=== PATIENT | female | born 1985 | race Caucasian/White ===

== ENCOUNTER 2020-06-19 06:08 | Emergency (ER) | payer MEDICAID, SELFPAY ==
[2020-06-19 06:11] VITALS: BP 128/78; PULSE 98; RESP 18; TEMP 36.3; O2SAT 97; BMI 34.3
[2020-06-19 06:18] VITALS: PULSE 67
--- NOTE | 2020-06-19 06:18 | XRR_ITS ---
PROCEDURE INFORMATION: Exam: XR Left Shoulder Exam date and time: 06/19/2020 6:46 AM Age: 35 years old Clinical indication: Pain; Shoulder; Left TECHNIQUE: Imaging protocol: XR Left shoulder. Views: AP internal and external rotation views of the left shoulder. COMPARISON: No relevant prior studies available. FINDINGS: Bones/joints: Normal. Soft tissues: Normal. XR/XR shoulder LT min 2V* [id number] IMPRESSION: No acute findings.
--- NOTE | 2020-06-19 06:18 | XRR_ITS ---
PROCEDURE INFORMATION: Exam: XR Cervical Spine, 4 or 5 Views Exam date and time: 06/19/2020 6:44 AM Age: 35 years old Clinical indication: Neck pain; Additional info: Neck pain with radiculopathy TECHNIQUE: Imaging protocol: XR of the cervical spine, 4 or 5 views. Other technique: AP, both oblique, lateral and AP open mouth and Fuchs odontoid views of the cervical spine are submitted. COMPARISON: No relevant prior studies available. FINDINGS: Vertebrae: C6-7 degenerative disc disease with moderate spondylosis. Bilateral C6-C7 neural foraminal stenosis, greater on the left. Soft tissues: Unremarkable. XR/XR cervical spine 4-5V [id number] IMPRESSION: 1. Degenerative changes as above. 2. No acute cervical spinal bony abnormality identified.
--- NOTE | 2020-06-19 06:20 | W.ED.EXTPRO ---
HPI - Extremity Problem General: Chief complaint: Extremity Injury, Upper Stated complaint: L SHOULDER PAIN Time Seen by Provider: 06/19/20 06:18 History of Present Illness: HPI Narrative: 35-year-old female presents to the emergency room with complaints of pain in her left shoulder and radiating down her left arm. When she gone to bed last evening she had pain radiating into the left shoulder she woke up this morning notes going down the entire arm. There is no shortness of breath no chest pain associated with it no history of coronary artery disease. MD Complaint: extremity pain Onset (ago): hour(s) Pain Consistency: constant Location: left Severity scale (1-10): 10 Quality: burning and aching Radiation: distal Exacerbating factors: range of motion Associated symptoms: Deny chest pain, fever(s) or rash Review of Systems Const: Denies: fever(s), chills, body aches, change in appetite, fatigue or malaise Card: Denies: chest pain, edema, dyspnea on exertion or orthopnea Resp: Denies: dyspnea, productive cough or non-productive cough GI: Denies: abdominal pain, nausea, vomiting, hematemesis, coffee ground emesis, diarrhea, constipation, bloating, hematochezia or melena : Denies: flank pain, difficulty voiding, dysuria, urinary frequency or urinary urgency Skin/Breast: Denies: rash or pruritus Physical Exam Const: COMMON NORMALS: no acute distress GENERAL APPEARANCE: cooperative and comfortable ORIENTATION/CONSCIOUSNESS: Yes awake, Yes oriented to person, Yes oriented to place and Yes oriented to time HENMT: COMMON NORMALS: normocephalic, atraumatic and hearing grossly normal bilaterally HEAD & SCALP: normocephalic and atraumatic Eye: COMMON NORMALS: Equal, round and reactive pupils present, EOMs intact bilaterally, conjunctivae normal and no scleral icterus CONJUNCTIVA: Yes conjunctivae normal PUPIL: Yes Equal, round and reactive pupils present Neck/C-Spine: COMMON NORMALS: full ROM, no lymphadenopathy, supple and no JVD Lymph: LYMPHATIC: no lymphadenopathy noted and no lymphedema noted Resp: COMMON NORMALS: normal respiratory effort, No retractions, No use of accessory muscles and clear to auscultation bilaterally AUSCULTATION: clear to auscultation bilaterally Cardio: COMMON NORMALS: no JVD, regular rate, regular rhythm and No murmurs present (Cardio) RATE: regular rate RHYTHM: regular rhythm GI: COMMON NORMALS: Soft to palpation and No hepatosplenomegaly present AUSCULTATION: Yes normoactive bowel sounds PALPATION: Yes Soft to palpation, No Tenderness to palpation present (GI), No Guarding due to palpation present (GI) and Yes No hepatosplenomegaly present Extremity: COMMON NORMALS: normal to inspection, capillary refill normal, no clubbing, cyanosis or edema, no calf tenderness and no pedal edema Neuro: SENSORIUM/ORIENTATION: Yes oriented to person, Yes oriented to place and Yes oriented to time Skin: COMMON NORMALS: no rashes or lesions noted GENERAL SKIN EXAM: no rashes or lesions noted Course Vital Signs: Vital signs: Vital Signs Temperature 97.3 F L 06/19/20 06:11 Pulse Rate 81 06/19/20 07:48 Respiratory Rate 18 06/19/20 06:11 Blood Pressure 117/86 06/19/20 07:48 Pulse Oximetry 93 06/19/20 07:48 MDM - Extremity (Nontraumatic) MDM Narrative: Medical decision making narrative: New findings with the patient. I am suspicious she may have a cervical radiculopathy. Recommend that she follow-up with her primary care doctor if this persists she may need further advanced imaging or an EMG Discharge Plan Discharge Patient Disposition: Home Clinical Impression: Cervical radiculopathy Condition: Stable Prescriptions: New Medrol (Brandt) 4 mg tablets,dose pack See Rx Instructions .ROUTE .COMPLEX Qty: 21 RF: 0 tizanidine 4 mg capsule 4 mg PO Q6H PRN (Reason: muscle spasticity) Qty: 20 RF: 0 diclofenac sodium 75 mg tablet,delayed release (DR/EC) 75 mg PO Q12H PRN (Reason: pain) Qty: 20 RF: 0 Discharge Orders: Discharge Order (Routine); Ordered 06/19/20 Ordered By: Mor Shepard Discharge Date/Time: 06/19/20 07:48 Coding Level of Care Code ED Senior Windows Systems Administrator for Ada Pedersen
[2020-06-19] MEDS: morphine 4 mg/mL SDV 1 mL IVP (07:29)
[2020-06-19] MEDS: dexamethasone 10 mg/mL INJ IM (07:29)
[2020-06-19] MEDS: ketorolac 30 mg/mL INJ 60 MG IM (07:29)
[2020-06-19 07:48] VITALS: BP 117/86; PULSE 81; O2SAT 93
== END 2020-06-19 07:48 | disposition home or self-care (01) ==
PROVIDERS: Emergency Provider Family Medicine
DX: M54.12 Radiculopathy, cervical region (principal)
CPT/HCPCS: 12345; 72050; 73030; 96372; 96374; 99281; 99283; J1100; J1885; J2270

== ENCOUNTER 2020-07-12 14:22 | Emergency (ER) | payer MEDICAID, SELFPAY ==
[2020-07-12 14:59] VITALS: BP 130/81; PULSE 76; RESP 18; TEMP 36.5; O2SAT 98; BMI 36.0
--- NOTE | 2020-07-12 15:25 | ED_ITS ---
HPI - Recheck/Abnormal Lab/Rx General: Chief Complaint: Recheck/Abnormal Lab/Rx Stated Complaint: asthma attack yesterday-needs med refill Time Seen by Provider: 07/12/20 15:10 History of Present Illness: HPI narrative: She presents wanting refill on her albuterol [place] has not established yet is not having current asthma attack MD complaint: medication refill request Returns today for: request for prescription Symptoms since prior visit: no new symptoms Review of Systems Const: Denies: fever(s), chills or body aches Eyes: Denies: change in vision or blurry vision ENMT: Denies: throat pain or nasal congestion Card: Denies: chest pain or dyspnea on exertion Resp: Reports: other; Denies: dyspnea, productive cough or non-productive cough GI: Denies: abdominal pain, nausea or vomiting Musc: Denies: extremity pain Skin/Breast: Denies: rash Neuro: Denies: headache(s) Psych: Denies: anxiety or depression Man/Lymph: Denies: easy bruising PFSH ED PFSH: Social History (Updated 07/12/20 @ 15:05 by Julio Cesar Solis RN) Smoking and tobacco status: current every day smoker Alcohol intake: never Substance/Drug Use: never Female Reproductive History: Date of last menstrual period: 06/13/20 Physical Exam Const: COMMON NORMALS: no acute distress Chest: COMMONS NORMALS: normal inspection of the chest Resp: COMMON NORMALS: normal respiratory effort and No use of accessory muscles Psych: COMMON NORMALS: mental status grossly normal Course Vital Signs: Vital signs: Vital Signs Temperature 97.7 F 07/12/20 14:59 Pulse Rate 76 07/12/20 14:59 Respiratory Rate 18 07/12/20 14:59 Blood Pressure 130/81 07/12/20 14:59 Pulse Oximetry 98 07/12/20 14:59 Discharge Plan Discharge Patient Disposition: Home Clinical Impression: Encounter for medication refill Condition: Stable Prescriptions: New ProAir HFA 90 mcg/actuation HFA aerosol inhaler 2 inh INHALATION Q4H PRN (Reason: shortness of breath or wheezing) Qty: 8.5 RF: 0 albuterol sulfate 0.63 mg/3 mL solution for nebulization 0.63 mg INHALATION Q8H PRN (Reason: shortness of breath or wheezing) Qty: 75 RF: 0 No Action Medrol (Brandt) 4 mg tablets,dose pack See Rx Instructions .ROUTE .COMPLEX Qty: 21 RF: 0 tizanidine 4 mg capsule 4 mg PO Q6H PRN (Reason: muscle spasticity) Qty: 20 RF: 0 diclofenac sodium 75 mg tablet,delayed release (DR/EC) 75 mg PO Q12H PRN (Reason: pain) Qty: 20 RF: 0 Discharge Orders: Discharge Order (Routine); Ordered 07/12/20 Ordered By: Tk Gross Discharge Diet: Usual diet Discharge Activity: Increase activity as tolerated Patient Instructions: Asthma (ED) Activity Restrictions/Additional Instructions: Get established [facility] here in [place]. Take medication as directed. Are you can make an appointment at [facility] and be a walk-in. Coding Level of Care Code ED Day Care Aide for Ada Pedersen
[2020-07-12 15:45] VITALS: PULSE 72; RESP 16; O2SAT 98
--- NOTE | 2020-07-15 10:42 | DCPLANNER ---
fountain manager had message to speak with patient about getting established with a primary care physician. fountain manager called phone number [phone], was unable to complete call at this number. fountain manager was unable to speak with patient or leave a voicemail for patient at this time.
== END 2020-07-12 15:38 | disposition home or self-care (01) ==
PROVIDERS: Emergency Provider Nurse Practitioner Family
DX: Z76.0 Encounter for issue of repeat prescription (principal); F17.210 Nicotine dependence, cigarettes, uncomplicated
CPT/HCPCS: 12345; 99281

== ENCOUNTER → 2020-09-04 00:01 | Outpatient (BNVA) | payer MEDICAID, SELFPAY | PROVIDERS: Visit Provider Family Medicine | DX: Z20.828 Contact with and (suspected) exposure to other viral communicable diseases (principal) | CPT/HCPCS: 87635 ==

== ENCOUNTER 2020-09-09 07:45 | Outpatient (CLI) | payer MEDICAID, SELFPAY ==
--- NOTE | 2020-09-09 09:15 | PFTS_ITS ---
Date of Study:09/09/20 Date of Dictation: MECHANICS: Forced vital capacity (FVC) is normal. Forced expiratory volume in one second (FEV1) is normal. FEV1/FVC is reduced. FLOW VOLUME LOOP: Normal. LUNG VOLUMES: Not measured DIFFUSING CAPACITY FOR CARBON MONOXIDE: Not measured. INTERPRETATION: The prebronchodilator spirometry is consistent with moderate obstruction. The postbronchodilator spirometry is consistent with mild obstruction with complete normalization of FEV1 and FVC values. There is a significant postbronchodilator response consistent with a possible diagnosis of reversible obstructive airways disease. MTDD
--- NOTE | 2020-09-09 13:50 | PFTS_ITS ---
Date of Study:09/09/20 Date of Dictation: MECHANICS: Forced vital capacity (FVC) is . Forced expiratory volume in one second (FEV1) is . FEV1/FVC is . FLOW VOLUME LOOP: . LUNG VOLUMES: Total lung capacity (TLC) is . Residual volume (RV) is . DIFFUSING CAPACITY FOR CARBON MONOXIDE: . INTERPRETATION: The pulmonary function tests are . mechanics and lung volumes. Gas exchange (DLCO) is . MTDD
== END 2020-09-09 07:46 | disposition home or self-care (01) ==
LOC: RT 07:45
PROVIDERS: Visit Provider Family Medicine
DX: J45.909 Unspecified asthma, uncomplicated (principal)
CPT/HCPCS: 94060; J7611

== ENCOUNTER 2021-01-23 08:25 | Emergency (ER) | payer MEDICAID, SELFPAY ==
[2021-01-23 08:33] VITALS: BP 119/73; PULSE 73; RESP 16; TEMP 37; O2SAT 98; BMI 39.3
[2021-01-23 08:43] VITALS: BP 119/73; PULSE 81; RESP 18; O2SAT 97
--- NOTE | 2021-01-23 08:44 | W.ED.NAVMDI ---
HPI - Nausea/Vomiting/Diarrhea General: Chief complaint: Nausea/Vomiting/Diarrhea Stated complaint: N/V Time Seen by Provider: 01/23/21 08:26 History of Present Illness: HPI Narrative: Patient is a 35-year-old female comes to the ED with nausea and vomiting. She states that symptoms started yesterday morning. Patient also complains of having abdominal pain that is located on the right side. She rates her pain a 7 out of 10. Denies any diarrhea or constipation. Patient did say that her and brother had similar symptoms within the last 2 days and their symptoms resolved and 12 to 24 hours. Patient also says she is prone to getting frequent UTIs and states that her urine has a foul odor currently. Associated nausea: Yes Associated symtoms: Reports nausea; Denies change in vision, chest pain, dysuria, fatigue, headache(s) or palpitations Review of Systems Const: Denies: fever(s), chills or fatigue Eyes: Denies: change in vision or eye discomfort ENMT: Denies: throat pain, odynophagia, nasal discharge or nasal congestion Card: Denies: chest pain, palpitations, edema, swelling of feet/ankles, dyspnea on exertion or orthopnea Resp: Denies: dyspnea, productive cough or non-productive cough GI: Reports: abdominal pain, nausea and vomiting; Denies: diarrhea, constipation or hematochezia : Reports: oliguria and other (Urine has foul odor.); Denies: flank pain, dysuria or hematuria Musc: Denies: neck pain, back pain or extremity swelling Skin/Breast: Denies: rash or new lesions Neuro: Denies: headache(s), numbness in extremities or weakness in extremities PFS ED PFSH: Social History Smoking and tobacco status: current every day smoker Alcohol intake: never Female Reproductive History: Date of last menstrual period: 01/16/21 Physical Exam Const: COMMON NORMALS: patient oriented x3 and alert GENERAL APPEARANCE: cooperative and ill appearing (Patient appears uncomfortable and is gagging during history and physical ex) HENMT: COMMON NORMALS: normocephalic HEAD & SCALP: normocephalic MOUTH: Normal oral and palatal mucosa present THROAT: posterior oropharynx normal and uvula midline Neck/C-Spine: COMMON NORMALS: supple GENERAL: Yes normal visual inspection Resp: COMMON NORMALS: normal respiratory effort, No retractions, No use of accessory muscles and clear to auscultation bilaterally AUSCULTATION: clear to auscultation bilaterally Cardio: COMMON NORMALS: regular rate, regular rhythm, S1 normal heart sound present, S2 normal heart sound present, No gallops present (Cardio), No clicks present (Cardio), No murmurs present (Cardio) and Peripheral pulses 2+ throughout RATE: regular rate RHYTHM: regular rhythm HEART SOUNDS: S1 normal heart sound present and S2 normal heart sound present PERIPHERAL PULSES: Peripheral pulses 2+ throughout GI: COMMON NORMALS: Normal to inspection, nondistended, normoactive bowel sounds present, Soft to palpation and no masses INSPECTION: Yes central obesity PALPATION: Yes Soft to palpation and Yes Tenderness to palpation present (GI) (Generalized right-sided abdominal tenderness.) Details: RLQ and RUQ : BLADDER/KIDNEY EXAM: Yes CVA tenderness on the left Back/Pelvis: GENERAL BACK: Yes CVA tenderness Extremity: COMMON NORMALS: normal to inspection and no pedal edema Neuro: COMMON NORMALS: patient oriented x3 and moves all extremities SENSORIUM/ORIENTATION: Yes alert Skin: GENERAL SKIN EXAM: dry skin Course Reevaluation(s): Reevaluation #1: Patient says her nausea and vomiting and abdominal pain have resolved since getting IV fluids, morphine and Zofran. I told patient that her CT of the abdomen came back normal and showed no acute findings. Patient was feeling much better and ready to go home and rest. Time: 11:00 Vital Signs: Vital signs: Vital Signs Temperature 98.6 F 01/23/21 08:33 Pulse Rate 62 01/23/21 12:02 Respiratory Rate 18 01/23/21 09:30 Blood Pressure 117/70 01/23/21 12:02 Pulse Oximetry 98 01/23/21 12:02 MDM - Nausea/Vomiting/Diarrhea MDM Narrative: Medical decision making narrative: Patient is a 35-year-old female comes to the ED with nausea, vomiting abdominal pain. Patient also has having some UTI symptoms as well. Exam shows a nontoxic-appearing 35-year-old female. She has some right-sided abdominal tenderness upon palpation. Vital stable. CBC and CMP were unremarkable. hCG negative and UA indicating UTI. CT of the abdomen pelvis showed no acute pathology found. Patient was given IV fluids, morphine and Zofran and her symptoms greatly improved. Patient was diagnosed with viral gastroenteritis and UTI. She was discharged home with a prescription for cefdinir and Zofran. She is told to follow-up with her PCP in 7 to 10 days for reevaluation. Return to ED precautions given. Patient understood and agreed with plan. Lab Data: Attestation: I reviewed the patient's lab results. Labs: Lab Results 01/23/21 01/23/21 01/23/21 Range/Units 08:58 08:58 08:58 WBC 8.4 (4.0-10.0) 10^3/ uL RBC 4.96 (4.1-5.3) 10^6/u L Hgb 15.6 H (11.5-15.3) g/dL Hct 46.2 (37.0-47.0) % MCV 93.1 (81-99) fL MCH 31.5 (28.0-34.0) pg MCHC 33.8 (30.0-36.0) g/dL RDW 12.3 (12.1-15.1) % Plt Count 169 (130-400) 10^3/c mm MPV 12.4 H (7.4-10.4) fL Neut % (Auto) 90.8 % Lymph % (Auto) 7.0 % Lawrence % (Auto) 1.8 % Eos % (Auto) 0.1 % Baso % (Auto) 0.1 % Neut # (Auto) 7.60 (1.8-7.7) 10^3/u L Lymph # (Auto) 0.6 L (0.8-4.8) 10^3/u L Lawrence # (Auto) 0.2 (0.2-0.9) 10^3/u L Eos # (Auto) 0.0 (0.0-0.8) 10^3/u L Baso # (Auto) 0.0 (0.0-0.1) 10^3/u L Nucleated RBC % (a uto) 0 % Nucleated RBCs # 0.0 /100WBC Sodium 137 (136-145) mmol/L Potassium 3.9 (3.5-5.1) mmol/L Chloride 101 (98-107) mmol/L Carbon Dioxide 25 (22-29) mmol/L Anion Gap 14.9 (5-19) BUN 13 (6-20) mg/dL Creatinine 0.6 (0.5-0.9) mg/dL GFR Calculation 113.8 (90-130) mL/min Glucose 202 H (65-115) mg/dL Calculated Osmolal ity 290 (285-295) mOsm/k g Calcium 8.7 (8.5-10.5) mg/dL Total Bilirubin 0.5 (0.15-1.2) mg/dL AST 20 (0-32) U/L ALT 18 (0-33) U/L Alkaline Phosphata se 92 (35-105) IU/L Total Protein 8.6 (6.6-8.7) g/dL Albumin 4.5 (3.5-5.2) g/dL Globulin 4.1 (1.3-4.6) g/dL Lipase 17 (13-60) U/L HCG, Qual Negative (Negative) Urine Color (Yellow) Urine Appearance (CLEAR) Urine pH (5-7) Ur Specific Gravit y (1.005-1.030) Urine Protein (Negative) Urine Glucose (UA) (Normal) Urine Ketones (Negative) Urine Blood (Negative) Urine Nitrate (Negative) Urine Bilirubin (Negative) Urine Urobilinogen (Negative) mg/dL Ur Leukocyte Hoda ase (Negative) Urine RBC (0-2) /hpf Urine WBC (0-5) /hpf Ur Squamous Epith Cells (0-5) /hpf Amorphous Sediment Urine Bacteria (NONE) /hpf 01/23/21 Range/Units 10:35 WBC (4.0-10.0) 10^3/ uL RBC (4.1-5.3) 10^6/u L Hgb (11.5-15.3) g/dL Hct (37.0-47.0) % MCV (81-99) fL MCH (28.0-34.0) pg MCHC (30.0-36.0) g/dL RDW (12.1-15.1) % Plt Count (130-400) 10^3/c mm MPV (7.4-10.4) fL Neut % (Auto) % Lymph % (Auto) % Lawrence % (Auto) % Eos % (Auto) % Baso % (Auto) % Neut # (Auto) (1.8-7.7) 10^3/u L Lymph # (Auto) (0.8-4.8) 10^3/u L Lawrence # (Auto) (0.2-0.9) 10^3/u L Eos # (Auto) (0.0-0.8) 10^3/u L Baso # (Auto) (0.0-0.1) 10^3/u L Nucleated RBC % (a uto) % Nucleated RBCs # /100WBC Sodium (136-145) mmol/L Potassium (3.5-5.1) mmol/L Chloride (98-107) mmol/L Carbon Dioxide (22-29) mmol/L Anion Gap (5-19) BUN (6-20) mg/dL Creatinine (0.5-0.9) mg/dL GFR Calculation (90-130) mL/min Glucose (65-115) mg/dL Calculated Osmolal ity (285-295) mOsm/k g Calcium (8.5-10.5) mg/dL Total Bilirubin (0.15-1.2) mg/dL AST (0-32) U/L ALT (0-33) U/L Alkaline Phosphata se (35-105) IU/L Total Protein (6.6-8.7) g/dL Albumin (3.5-5.2) g/dL Globulin (1.3-4.6) g/dL Lipase (13-60) U/L HCG, Qual (Negative) Urine Color Yellow (Yellow) Urine Appearance Clear (CLEAR) Urine pH 7 (5-7) Ur Specific Gravit y 1.005 (1.005-1.030) Urine Protein Neg (Negative) Urine Glucose (UA) Norm (Normal) Urine Ketones 1+ H (Negative) Urine Blood Neg (Negative) Urine Nitrate Positive H (Negative) Urine Bilirubin Neg (Negative) Urine Urobilinogen Norm (Negative) mg/dL Ur Leukocyte Hoda ase Negative (Negative) Urine RBC Rare (0-2) /hpf Urine WBC Rare (0-5) /hpf Ur Squamous Epith Cells 0-4 H (0-5) /hpf Amorphous Sediment Not Reportable Urine Bacteria 2+ H (NONE) /hpf Imaging Data^: CT Abd/Pel: Attestation: I personally reviewed and interpreted this imaging study as follows: Radiologist's impression: [address] [place] [address] CT Scan Report Signed Patient: Eliceo Rolon Unit #: [id number] : 1985 Age/Sex: 35 / F ADM Date: 01/23/21 Loc: ER Room/Bed: Attending Dr: Ordering Provider/Ordering MD: Rafat Henderson Date of Service: 01/23/21 Procedure(s): CT abdomen pelvis w con* [id number] Accession Number(s): [id number] Report Number: [id number] WS: [id number] CT ABDOMEN AND PELVIS WITH CONTRAST HISTORY: n/v with abdominal pain-right side TECHNIQUE: Imaging performed of the abdomen and pelvis with IV contrast. Single phase imaging of the abdomen. Coronal and sagittal reformats are submitted. All CT scans at [facility] use at least one of these dose optimization techniques: automated exposure control; mA and/or kV adjustment per patient size (includes targeted exams where dose is matched to clinical indication); or iterative reconstruction. IV CONTRAST: Omnipaque 300; 95 mL IV. Oral contrast: No DLP: 1769.03 mGy.cm COMPARISON: None available. Lower thorax: Lung bases are clear. Heart is normal size. Small hiatal hernia. Liver/biliary system: Normal size with no intrahepatic dilatation. Gallbladder: Normal. No gallstones or wall thickening. No pericholecystic fluid. Pancreas: Normal size pancreas and pancreatic duct. No adjacent inflammation. Spleen: Normal size spleen. No mass or infarct. Adrenal glands: Normal. Right kidney: Normal. Left kidney: Normal. Aorta: Normal. Lymphadenopathy: None. Free fluid: None. GI tract: Normal appendix. No inflammatory changes or GI tract obstruction. Abdominal wall: All diastases of the rectus abdominal muscles. No herniation. Pelvis: Uterus is anteverted. No free fluid or adenopathy. Ovarian veins are dilated and tortuous, RIGHT greater than LEFT. Small follicle associated with the RIGHT ovary. Bones: Unremarkable. CT/CT abdomen pelvis w con* [id number] IMPRESSION: 1. No acute abdominal or pelvic abnormalities are identified. 2. Normal appendix and normal gallbladder. 3. Dilated ovarian veins, RIGHT greater than LEFT. Consider pelvic congestion as a possible etiology for pain. 4. There is no free fluid or adenopathy. Dictated By: Aleta Lim DO Signed By: Aleta Lim DO Signed Date/Time: 01/23/21 1028 DD/ 1020 Discharge Plan Discharge Patient Disposition: Home Clinical Impression: Viral gastroenteritis UTI (urinary tract infection) Qualifiers: Urinary tract infection type: acute cystitis Hematuria presence: without hematuria Qualified Code(s): N30.00 - Acute cystitis without hematuria Condition: Stable Prescriptions: New ondansetron 4 mg tablet,disintegrating 4 mg PO Q8H Qty: 12 RF: 0 cefdinir 300 mg capsule 300 mg PO BID 10 Days Qty: 20 RF: 0 No Action albuterol sulfate [ProAir HFA] 90 mcg/actuation HFA aerosol inhaler 2 inh INHALATION Q4H PRN (Reason: shortness of breath or wheezing) Qty: 8.5 RF: 0 metformin 500 mg tablet 500 mg PO BID RF: 0 Discharge Orders: Discharge ED (Routine); Ordered 01/23/21 Ordered By: Rafat Henderson Discharge Diet: Advance as tolerated and Clear Liquid Patient Instructions: Urinary Tract Infection in Women (ED), Gastroenteritis (ED), Acute Nausea and Vomiting (ED) Activity Restrictions/Additional Instructions: Follow-up with medical provider as directed in 7 to 10 days for reevaluation. Take medications as prescribed. Make sure you drink plenty of fluids and stay hydrated. Start with a clear liquid diet then slowly advance diet as tolerated. Return to the ER or your medical provider if condition worsens. Please read and understand discharge instructions. If any questions, please ask. Coding Level of Care Code ED Director Of Market Intelligence for Ada Fwd Exam Comprehensive
--- NOTE | 2021-01-23 08:49 | CT_ITS ---
WS: [id number] CT ABDOMEN AND PELVIS WITH CONTRAST HISTORY: n/v with abdominal pain-right side TECHNIQUE: Imaging performed of the abdomen and pelvis with IV contrast. Single phase imaging of the abdomen. Coronal and sagittal reformats are submitted. All CT scans at [facility] use at least one of these dose optimization techniques: automated exposure control; mA and/or kV adjustment per patient size (includes targeted exams where dose is matched to clinical indication); or iterativ e reconstruction. IV CONTRAST: Omnipaque 300; 95 mL IV. Oral contrast: No DLP: 1769.03 mGy.cm COMPARISON: None available. Lower thorax: Lung bases are clear. Heart is normal size. Small hiatal hernia. Liver/biliary system: Normal size with no intrahepatic dilatation. Gallbladder: Normal. No gallstones or wall thickening. No pericholecystic fluid. Pancreas: Normal size pancreas and pancreatic duct. No adjacent inflammation. Spleen: Normal size spleen. No mass or infarct. Adrenal glands: Normal. Right kidney: Normal. Left kidney: Normal. Aorta: Normal. Lymphadenopathy: None. Free fluid: None. GI tract: Normal appendix. No inflammatory changes or GI tract obstruction. Abdominal wall: All diastases of the rectus abdominal muscles. No herniation. Pelvis: Uterus is anteverted. No free fluid or adenopathy. Ovarian veins are dilated and tortuous, RI GHT greater than LEFT. Small follicle associated with the RIGHT ovary. Bones: Unremarkable. CT/CT abdomen pelvis w con* [id number] IMPRESSION: 1. No acute abdominal or pelvic abnormalities are identified. 2. Normal appendix and normal gallbladder. 3. Dilated ovarian veins, RIGHT greater than LEFT. Consider pelvic congestion as a possible etiology for pain. 4. There is no free fluid or adenopathy.
[2021-01-23] MEDS: sodium chloride 0.9% 1,000 ML 999 ML IV (08:57)
[2021-01-23 09:00] VITALS: RESP 18
[2021-01-23] MEDS: ondansetron 2 mg/ML SDV 2 mL 4 MG IVP ×2 (09:00→11:41)
[2021-01-23] MEDS: morphine 4 mg/mL SDV 1 mL 2 MG IVP (09:00)
[2021-01-23 09:03] LABS: Basophils % 0.1 %; Eosinophils % 0.1 %; Hematocrit 46.2 % (37.0-47.0); Hemoglobin 15.6 g/dL (11.5-15.3); Lymphocytes # 0.6 10^3/uL (0.8-4.8); Mean Corpuscular HGB Conc 33.8 g/dL (30.0-36.0); Mean Corpuscular Hemoglobin 31.5 pg (28.0-34.0); Mean Corpuscular Volume 93.1 fL (81-99); Mean Platelet Volume 12.4 fL (7.4-10.4); Monocytes # 0.2 10^3/uL (0.2-0.9); Monocytes % 1.8 %; Neutrophils % 90.8 %; Nucleated Red Blood Cells % 0 %; Platelet Count 169 10^3/cmm (130-400); Red Blood Count 4.96 10^6/uL (4.1-5.3); Red Cell Distribution Width 12.3 % (12.1-15.1); White Blood Count 8.4 10^3/uL (4.0-10.0)
[2021-01-23 09:13] VITALS: BP 113/72; PULSE 67; RESP 18; O2SAT 97
[2021-01-23 09:18] LABS: Alanine Aminotransferase 18 U/L (0-33); Albumin Level 4.5 g/dL (3.5-5.2); Alkaline Phosphatase 92 IU/L (35-105); Anion Gap 14.9 (5-19); Aspartate Amino Transferase 20 U/L (0-32); Blood Urea Nitrogen 13 mg/dL (6-20); Calcium 8.7 mg/dL (8.5-10.5); Carbon Dioxide 25 mmol/L (22-29); Chloride 101 mmol/L (98-107); Globulin 4.1 g/dL (1.3-4.6); Glomerular Filtration Rate 113.8 mL/min (90-130); Glucose 202 mg/dL (65-115); Lipase 17 U/L (13-60); Osmolality Calculated 290 mOsm/kg (285-295); Potassium 3.9 mmol/L (3.5-5.1); Sodium 137 mmol/L (136-145); Total Bilirubin 0.5 mg/dL (0.15-1.2); Total Protein 8.6 g/dL (6.6-8.7)
[2021-01-23 09:28] LABS: HCG, Serum Qual Negative (Negative)
[2021-01-23 09:30] VITALS: BP 113/72; PULSE 57; RESP 18; O2SAT 98
[2021-01-23] MEDS: iohexol 300 mg/mL 100 mL Btl IV (10:10)
[2021-01-23 10:56] LABS: Urine Appearance Clear (CLEAR); Urine Color Yellow (Yellow); pH Urine 7 (5-7)
[2021-01-23 10:57] LABS: Add Urine Culture? Yes; Bacteria Urine 2+ /hpf; Bilirubin Urine Neg (Negative); Blood Urine Neg (Negative); Glucose Urine UA Norm (Normal); Ketones Urine 1+ (Negative); Leukocyte Esterase Urine Negative (Negative); Nitrate Urine Positive (Negative); Protein Urine Neg (Negative); RBC Urine RARE /hpf (0-2); Specific Gravity, Urine 1.005 (1.005-1.030); Squamous Epithelial Cell Urine 0-4 /hpf (0-5); Urobilinogen Urine Norm (Negative); WBC Urine RARE /hpf (0-5)
[2021-01-23] MEDS: cefdinir 300 MG CAPSULE PO (11:40)
[2021-01-23 12:02] VITALS: BP 117/70; PULSE 62; O2SAT 98
== END 2021-01-23 12:04 | disposition home or self-care (01) ==
PROVIDERS: Emergency Provider Physician Assistant
DX: A08.4 Viral intestinal infection, unspecified (principal); N30.00 Acute cystitis without hematuria; F17.210 Nicotine dependence, cigarettes, uncomplicated
CPT/HCPCS: 74177; 80053; 81001; 83690; 84703; 85025; 87077; 87086; 87186; 96361; 96374; 96375; 96376; 99284; J2270; J2405; J7030; Q9967

== ENCOUNTER → 2021-10-21 13:04 | Outpatient (BNVA) | payer MEDICAID, SELFPAY | PROVIDERS: Visit Provider Nurse Practitioner Family | DX: Z20.822 Contact with and (suspected) exposure to COVID-19 (principal); E11.9 Type 2 diabetes mellitus without complications; J45.909 Unspecified asthma, uncomplicated; F17.210 Nicotine dependence, cigarettes, uncomplicated | CPT/HCPCS: 87635 ==

== ENCOUNTER 2021-12-25 14:07 | Emergency (ER) | payer MEDICAID, SELFPAY ==
[2021-12-25 14:12] VITALS: BP 132/89; PULSE 91; RESP 16; TEMP 36.9; O2SAT 97; BMI 36.0
--- NOTE | 2021-12-25 14:46 | XR_ITS ---
WS: [id number] Exam: XR knee LT 3V* [id number] Date/Time of Exam: 12/25/2021 2:48 PM Reason For Exam: injury/pain No fracture or dislocation noted. Articular relationships are intact. No joint effusion. XR/XR knee LT 3V* [id number] Impression: Normal left knee Kellgren-Rusty Classification: 0
--- NOTE | 2021-12-25 14:59 | W.ED.LOWEXIN ---
HPI - Extremity Injury (Lower) General: Chief Complaint: Extremity Injury, Lower Stated Complaint: Possible Lt knee injury Time Seen by Provider: 12/25/21 14:08 Source: patient Mode of arrival: wheelchair Limitations: no limitations History of Present Illness: Patient is a 36-year-old female who presents to ED today for evaluation of a left knee injury. Patient states 2 days ago she fell onto the knee but states following that incident she was still able to ambulate on the extremity. Patient states she was bent over today playing with her dogs when she felt something tear to the medial aspect of her knee and states since then she has not been able to bear weight. She has noticed some minor swelling. She has not noticed any bruising to the knee joint or swelling distally. No calf pain. MD complaint: knee injury Onset (ago): hour(s) Place: home Severity: severe Relieving factors: immobilization Exacerbating factors: weight bearing, movement and palpation Associated symptoms: Reports inability to bear weight Other symptoms: none Review of Systems Card: Denies: chest pain Resp: Denies: dyspnea Musc: Reports: joint pain (L knee) and joint swelling (L knee); Denies: extremity pain, extremity swelling, joint redness or joint warmth Neuro: Denies: numbness in extremities or sensory changes PFSH ED PFSH: Medical History Asthma Surgical History No pertinent past surgical history Social History Smoking and tobacco status: current every day smoker Alcohol intake: never Female Reproductive History: Date of last menstrual period: 09/30/21 Physical Exam Const: COMMON NORMALS: no acute distress, patient oriented x3, no limitations and alert GENERAL APPEARANCE: cooperative NUTRITIONAL APPEARANCE: obese Extremity: GENERAL: Yes normal exam except as noted LEFT LOWER EXTREMITY: Yes knee joint (TTP medially) Left knee: Yes inspection (no obvious swelling/effusion noted), Yes ROM (limited secondary to discomfort) and Yes neurovascular exam (normal) Neuro: COMMON NORMALS: patient oriented x3, moves all extremities, no focal motor deficits and no sensory deficits noted SENSORIUM/ORIENTATION: Yes alert Course Vital Signs: Vital signs: Vital Signs Temperature 98.4 F 12/25/21 14:12 Pulse Rate 91 12/25/21 14:12 Respiratory Rate 16 12/25/21 14:12 Blood Pressure 132/89 12/25/21 14:12 Pulse Oximetry 97 12/25/21 14:12 MDM - Extremity Injury (Lower) Medical Decision Making XR negative. She has crutches at home. THALIA wrap given here. Weight bearing as tolerated and RICE therapy discussed. She has appointment with PCP in two weeks that she plans on using for follow up. I think this is appropriate. Lab Data Radiology Impressions Knee X-Ray 12/25/21 14:46 Impression: Normal left knee Kellgren-Rusty Classification: 0 Discharge Plan Discharge Patient Disposition: Home Clinical Impression: Injury of left knee Qualifiers: Encounter type: initial encounter Qualified Code(s): S89.92XA - Unspecified injury of left lower leg, initial encounter Condition: Stable Prescriptions: No Action (DME) Aeroneb Go Nebulizer Misc See Rx Instructions .ROUTE 0RF Rx Instructions: As directed doxycycline hyclate 100 mg capsule 100 mg PO DAILY Qty: 30 2RF clindamycin phosphate 1 % lotion 1 applic topical QAM Qty: 60 6RF Rx Instructions: Apply thin film to affected areas 1-2 times daily albuterol sulfate [ProAir HFA] 90 mcg/actuation HFA aerosol inhaler 2 inh INHALATION Q4H PRN (Reason: shortness of breath or wheezing) Qty: 8.5 0RF metformin 500 mg tablet 500 mg PO BID 0RF Discharge Orders: Discharge ED (Routine); Ordered 12/25/21 Ordered By: Amy Hurst Referrals: Baljinder Ramsey MD [Primary Care Provider] - Coding Level of Care Code ED Jitterbug Operator for Ada Pedersen
== END 2021-12-25 15:29 | disposition home or self-care (01) ==
PROVIDERS: Emergency Provider Physician Assistant; PCP Family Medicine
DX: S89.92XA Unspecified injury of left lower leg, initial encounter (principal); W19.XXXA Unspecified fall, initial encounter; F17.200 Nicotine dependence, unspecified, uncomplicated
CPT/HCPCS: 73562; 99282

== ENCOUNTER 2022-03-09 18:35 | Emergency (ER) | payer MEDICAID, SELFPAY ==
[2022-03-09 18:41] VITALS: BP 139/89; PULSE 71; RESP 16; TEMP 36.2; O2SAT 97
--- NOTE | 2022-03-09 18:58 | XRR_ITS ---
PROCEDURE INFORMATION: Exam: XR Chest Exam date and time: 03/09/2022 7:05 PM Age: 37 years old Clinical indication: Pain; On breathing; Additional info: SOB TECHNIQUE: Imaging protocol: XR of the chest. Views: 1 view. COMPARISON: CT abdomen pelvis w con* [id number] 01/23/2021 10:22 AM FINDINGS: Lungs: Unremarkable. No consolidation. Pleural spaces: Unremarkable. No pleural effusion. No pneumothorax. Heart/Mediastinum: Unremarkable. No cardiomegaly. Bones/joints: No acute abnormality. XR/XR chest 1V portable [id number] IMPRESSION: No acute findings.
== END 2022-03-09 21:08 ==
PROVIDERS: Emergency Provider Family Medicine; PCP Family Medicine
DX: Z53.21 Procedure and treatment not carried out due to patient leaving prior to being seen by health care provider (principal); J02.9 Acute pharyngitis, unspecified
CPT/HCPCS: 71045; 99283

== ENCOUNTER 2022-05-01 18:48 | Emergency (ER) | payer MEDICAID, SELFPAY ==
[2022-05-01 19:11] VITALS: BP 132/79; PULSE 92; RESP 16; TEMP 36.8; O2SAT 97
--- NOTE | 2022-05-01 20:37 | ED_ITS ---
HPI - General Adult General: Chief complaint: General Medical Stated complaint: right foot pain, right hand pain Time Seen by Provider: 05/01/22 20:03 History of Present Illness: Patient is a 37-year-old female comes to the ED with right hand and right foot pain. Symptoms have been going on now for 3 days. She denies any injury, fall or trauma to cause pain. Pain in her hand is located in her fingers and she says it hurts for her to move her fingers. Her foot pain is located in the plantar aspect of foot near in the midfoot and heel region. Foot pain worsens with any weightbearing. Associated symptoms: Deny chest pain, dyspnea, headache(s), nausea, rash, palpitations or vomiting Review of Systems Const: Denies: fever(s), chills or fatigue Eyes: Denies: change in vision or eye discomfort ENMT: Denies: throat pain, odynophagia, nasal discharge or nasal congestion Card: Denies: chest pain, palpitations, edema, swelling of feet/ankles, dyspnea on exertion or orthopnea Resp: Denies: dyspnea, productive cough or non-productive cough GI: Denies: abdominal pain, nausea, vomiting, diarrhea, constipation or hematochezia : Denies: flank pain, dysuria or hematuria Musc: Reports: extremity pain (Right hand and right foot); Denies: neck pain, back pain or extremity swelling Skin/Breast: Denies: rash or new lesions Neuro: Denies: headache(s), numbness in extremities or weakness in extremities PFS ED PFSH: Medical History Asthma Surgical History No pertinent past surgical history Social History Smoking and tobacco status: current every day smoker Alcohol intake: never Female Reproductive History: Date of last menstrual period: 09/30/21 Physical Exam Const: COMMON NORMALS: no acute distress, patient oriented x3, healthy appeari ng and alert GENERAL APPEARANCE: cooperative and comfortable HENMT: COMMON NORMALS: normocephalic HEAD & SCALP: normocephalic MOUTH: Normal oral and palatal mucosa present THROAT: posterior oropharynx normal and uvula midline Neck/C-Spine: COMMON NORMALS: supple GENERAL: Yes normal visual inspection Resp: COMMON NORMALS: normal respiratory effort, No retractions, No use of accessory muscles and clear to auscultation bilaterally AUSCULTATION: clear to auscultation bilaterally Cardio: COMMON NORMALS: regular rate, regular rhythm, S1 normal heart sound present, S2 normal heart sound present, No gallops present (Cardio), No clicks present (Cardio), No murmurs present (Cardio) and Peripheral pulses 2+ throughout RATE: regular rate RHYTHM: regular rhythm HEART SOUNDS: S1 normal heart sound present and S2 normal heart sound present PERIPHERAL PULSES: Peripheral pulses 2+ throughout GI: COMMON NORMALS: Normal to inspection, nondistended, normoactive bowel sounds present, Soft to palpation, non-tender and no masses PALPATION: Yes Soft to palpation : COMMON NORMALS: Yes no CVA tenderness BLADDER/KIDNEY EXAM: Yes no CVA tenderness Back/Pelvis: COMMON NORMALS: no CVA tenderness Extremity: NARRATIVE EXTREMITY EXAM: Right foot and right hand?no erythema, swelling or deformity noted. Patient has some mild tenderness to plantar aspect of right foot near heel. Neurovascular intact and rest of exam is benign. Neuro: COMMON NORMALS: patient oriented x3 SENSORIUM/ORIENTATION: Yes alert GAIT: Yes Normal gait present Skin: GENERAL SKIN EXAM: dry skin Course Vital Signs: Vital signs: Vital Signs Temperature 98.3 F 05/01/22 19:11 Pulse Rate 92 05/01/22 19:11 Respiratory Rate 16 05/01/22 19:11 Blood Pressure 132/79 05/01/22 19:11 Pulse Oximetry 97 05/01/22 19:11 [facility] - General Adult Medical Decision Making Patient is a 37-year-old female comes to the ED with right hand and right foot pain. Symptoms have been going on now for 3 days. She denies any injury, fall or trauma to cause pain. Vitals are stable. Exam of patient is mostly benign but she does have some plantar right foot tenderness. X-ray of right foot and right hand showed no acute fractures or findings. Patient diagnosed with plantar fasciitis of right foot and pain in right hand and was discharged home with prescription for ibuprofen 800 mg tablets. Told to follow-up with PCP in the next week for reevaluation. Return to ED precautions given. Patient understood agree with plan. Lab Data Radiology Impressions Foot X-Ray 05/01/22 20:55 IMPRESSION: No acute findings. Hand X-Ray 05/01/22 20:55 IMPRESSION: No acute findings. Discharge Plan Discharge Patient Disposition: Home Clinical Impression: Plantar fasciitis of right foot, Pain in right hand Condition: Stable Prescriptions: New ibuprofen 800 mg tablet 800 mg PO Q8H PRN (Reason: pain) Qty: 30 0RF No Action (DME) Aeroneb Go Nebulizer Misc See Rx Instructions .ROUTE Rx Instructions: As directed clindamycin phosphate 1 % lotion 1 applic topical QAM Qty: 60 6RF Rx Instructions: Apply thin film to affected areas 1-2 times daily doxycycline hyclate 100 mg capsule 100 mg PO DAILY Qty: 30 2RF albuterol sulfate [ProAir HFA] 90 mcg/actuation HFA aerosol inhaler 2 inh INHALATION Q4H PRN (Reason: shortness of breath or wheezing) Qty: 8.5 0RF metformin 500 mg tablet 500 mg PO BID Discharge Orders: Discharge ED (Routine); Ordered 05/01/22 Ordered By: Rafat Henderson Referrals: Baljinder Ramsey MD [Primary Care Provider] - Discharge Diet: Regular Discharge Activity: Increase activity as tolerated Patient Instructions: Plantar Fasciitis (ED), Plantar Fasciitis Exercises (ED) Activity Restrictions/Additional Instructions: Follow-up with medical provider as directed in the next 5 to 7 days reevaluation. Take medications as prescribed. Rest, ice and elevate right foot. Return to the ER or your medical provider if condition worsens. Please r ead and understand discharge instructions. Thank you for choosing [facility] for your healthcare needs today. Please realize this is an emergency room and that we are providing you with a medical screening exam and this may not be complete and all inclusive of all the testing and or work up that you may need to determine your ailment or severity of your illness. It is very important that you follow up as instructed or that you return to the Emergency Department should you have concerns or if your condition changes or worsens in any way. Coding Level of Care Code ED Manager Dairy for Ada Pedersen Exam Comprehensive
--- NOTE | 2022-05-01 20:55 | XRR_ITS ---
PROCEDURE INFORMATION: Exam: XR Right Foot Exam date and time: 05/01/2022 9:07 PM Age: 37 years old Clinical indication: Pain; Foot; Right; Additional info: Right foot pain TECHNIQUE: Imaging protocol: Radiologic exam of the Right foot. Views: 3 or more views. COMPARISON: No relevant prior studies available. FINDINGS: Bones/joints: Normal. Soft tissues: Normal. XR/XR foot RT min 3V* [id number] IMPRESSION: No acute findings.
--- NOTE | 2022-05-01 20:55 | XRR_ITS ---
PROCEDURE INFORMATION: Exam: XR Right Hand Exam date and time: 05/01/2022 8:58 PM Age: 37 years old Clinical indication: Pain; Hand; Right; Additional info: Right hand pain TECHNIQUE: Imaging protocol: Radiologic exam of the Right hand. Views: 3 or more views. COMPARISON: No relevant prior studies available. FINDINGS: Bones/joints: Normal. Soft tissues: Normal. XR/XR hand RT min 3V* [id number] IMPRESSION: No acute findings.
[2022-05-01] MEDS: HYDROcodone-acetaminophen 5-325 mg Tablet 1 TAB PO (21:30)
[2022-05-01 22:43] VITALS: PULSE 73; RESP 16; O2SAT 97
== END 2022-05-01 22:44 | disposition home or self-care (01) ==
PROVIDERS: Emergency Provider Physician Assistant; PCP Family Medicine
DX: M72.2 Plantar fascial fibromatosis (principal); M79.641 Pain in right hand; Z79.84 Long term (current) use of oral hypoglycemic drugs; F17.210 Nicotine dependence, cigarettes, uncomplicated
CPT/HCPCS: 73130; 73630; 99283

== ENCOUNTER 2022-05-19 23:09 | Emergency (ER) | payer MEDICAID, SELFPAY ==
[2022-05-19 23:12] VITALS: PULSE 88; RESP 16; TEMP 36.2; O2SAT 97; BMI 36.8
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
[2022-05-20 00:23] VITALS: RESP 16; O2SAT 99
== END 2022-05-20 00:24 | disposition home or self-care (01) ==
PROVIDERS: Emergency Provider Emergency Medicine; PCP Family Medicine
DX: S09.8XXA Other specified injuries of head, initial encounter (principal); Z79.84 Long term (current) use of oral hypoglycemic drugs; F17.210 Nicotine dependence, cigarettes, uncomplicated; Y04.2XXA Assault by strike against or bumped into by another person, initial encounter
CPT/HCPCS: 70450; 70486; 99284

== ENCOUNTER 2022-06-29 09:44 | Emergency (ER) | payer MEDICAID, SELFPAY ==
[2022-06-29 09:49] VITALS: BP 146/75; PULSE 79; RESP 16; TEMP 36.6; O2SAT 99; BMI 38.0
--- NOTE | 2022-06-29 10:09 | ED_ITS ---
HPI - Nausea/Vomiting/Diarrhea General: Chief complaint: Nausea/Vomiting/Diarrhea Stated complaint: N/V/Bloody stools Time Seen by Provider: 06/29/22 09:54 History of Present Illness: Patient is a 37-year-old female comes to the ED with nausea, vomiting and abdominal pain. Symptoms started this morning. She drank some coffee this morning and then developed nausea and vomiting and generalized abdominal pain throughout her entire abdomen and lower back. Abdominal pain only occurs when she is vomiting. She also reports feeling like she had to go to the bathroom and have a bowel movement this morning. Stool this morning was white with a little bit of red blood and was loose. Red blood on toilet paper when she wiped. Denies any dysuria, hematuria, rectal pain. Associated nausea: Yes Associated symtoms: Reports nausea; Denies change in vision, chest pain, dysuria, fatigue, headache(s) or palpitations Review of Systems Const: Denies: fever(s), chills or fatigue Eyes: Denies: change in vision or eye discomfort ENMT: Denies: throat pain, odynophagia, nasal discharge or nasal congestion Card: Denies: chest pain, palpitations, edema, swelling of feet/ankles, dyspnea on exertion or orthopnea Resp: Denies: dyspnea, productive cough or non-productive cough GI: Reports: abdominal pain, nausea, vomiting, diarrhea and hematochezia (Red blood); Denies: constipation : Denies: flank pain, dysuria or hematuria Musc: Denies: neck pain, back pain or extremity swelling Skin/Breast: Denies: rash or new lesions Neuro: Denies: headache(s), numbness in extremities or weakness in extremities PFS ED PFSH: Medical History Asthma Surgical History No pertinent past surgical history Social History Smoking and tobacco status: current every day smoker Alcohol intake: never Female Reproductive History: Date of last menstrual period: 09/30/21 Physical Exam Const: COMMON NORMALS: no acute distress, patient oriented x3 and alert HENMT: COMMON NORMALS: normocephalic HEAD & SCALP: normocephalic MOUTH: Normal oral and palatal mucosa present THROAT: posterior oropharynx normal and uvula midline Neck/C-Spine: COMMON NORMALS: supple GENERAL: Yes normal visual inspection Resp: COMMON NORMALS: normal respiratory effort, No retractions, No use of a ccessory muscles and clear to auscultation bilaterally AUSCULTATION: clear to auscultation bilaterally Cardio: COMMON NORMALS: regular rate, regular rhythm, S1 normal heart sound present, S2 normal heart sound present, No gallops present (Cardio), No clicks present (Cardio), No murmurs present (Cardio) and Peripheral pulses 2+ throughout RATE: regular rate RHYTHM: regular rhythm HEART SOUNDS: S1 normal heart sound present and S2 normal heart sound present PERIPHERAL PULSES: Peripheral pulses 2+ throughout GI: COMMON NORMALS: Normal to inspection, nondistended, normoactive bowel sounds present, Soft to palpation and no masses PALPATION: Yes Soft to palpation and Yes Tenderness to palpation present (GI) (Mild generalized t enderness throughout abdomen) : COMMON NORMALS: Yes no CVA tenderness BLADDER/KIDNEY EXAM: Yes no CVA tenderness Back/Pelvis: COMMON NORMALS: no CVA tenderness Extremity: COMMON NORMALS: normal to inspection Neuro: COMMON NORMALS: patient oriented x3 SENSORIUM/ORIENTATION: Yes alert GAIT: Yes Normal gait present Skin: GENERAL SKIN EXAM: dry skin Course Vital Signs: Vital signs: Vital Signs Temperature 97.8 F 06/29/22 09:49 Pulse Rate 79 06/29/22 09:49 Respiratory Rate 16 06/29/22 09:49 Blood Pressure 146/75 06/29/22 09:49 Pulse Oximetry 99 06/29/22 09:49 Oxygen Delivery Me thod 06/29/22 09:49 MDM - Nausea/Vomiting/Diarrhea Medical Decision Making Patient is a 37-year-old female comes to the ED with nausea, vomiting and abdominal pain. Symptoms started this morning. She drank some coffee this morning and then developed nausea and vomiting and generalized abdominal pain throughout her entire abdomen and lower back. Abdominal pain only occurs when she is vomiting. Vitals are stable. Patient appears nontoxic in no acute distress or pain. She is not some mild generalized tenderness throughout her abdomen but no localized tenderness. Rest of exam is benign. CBC and CMP were unremarkable. UA showed no acute findings. hCG negative. She was given 1 L of IV normal saline, Zofran and Reglan here in the ED and her symptoms improved. She was stable for discharge home and diagnosed viral syndrome. She was sent home with a prescription for Zofran for nausea. Told to follow-up with her PCP in the next week for reevaluation. Return ED precautions given. Patient understood agree with plan. Lab Data I reviewed the patient's lab results. : 06/29/22 10:07 06/29/22 10:07 Laboratory Results WBC 9.2 10^3/uL (4.0-10.0) 06/29/22 10:07 RBC 4.94 10^6/uL (4.1-5.3) 06/29/22 10:07 Hgb 15.6 g/dL (11.5-15.3) H 06/29/22 10:07 Hct 46.0 % (37.0-47.0) 06/29/22 10:07 MCV 93.1 fl (81-99) 06/29/22 10:07 MCH 31.6 pg (28.0-34.0) 06/29/22 10:07 MCHC 33.9 g/dL (30.0-36.0) 06/29/22 10:07 RDW 12.9 % (12.1-15.1) 06/29/22 10:07 Plt Count 133 10^3/cmm (130-400) 06/29/22 10:07 MPV 12.8 fL (7.4-10.4) H 06/29/22 10:07 Neut % (Auto) 75.8 % 06/29/22 10:07 Lymph % (Auto) 14.2 % 06/29/22 10:07 [place] % (Auto) 7.0 % 06/29/22 10:07 Eos % (Auto) 2.5 % 06/29/22 10:07 Baso % (Auto) 0.3 % 06/29/22 10:07 Neut # (Auto) 6.97 10^3/uL (1.8-7.7) 06/29/22 10:07 Lymph # (Auto) 1.3 10^3/uL (0.8-4.8) 06/29/22 10:07 [place] # (Auto) 0.6 10^3/uL (0.2-0.9) 06/29/22 10:07 Eos # (Auto) 0.2 10^3/uL (0.0-0.8) 06/29/22 10:07 Baso # (Auto) 0.0 10^3/uL (0.0-0.1) 06/29/22 10:07 Nucleated RBC % (auto) 0 % 06/29/22 10:07 Nucleated RBCs # 0.0 /100WBC 06/29/22 10:07 Sodium 135 mmol/L (136-145) L 06/29/22 10:07 Potassium 3.8 mmol/L (3.5-5.1) 06/29/22 10:07 Chloride 101 mmol/L (98-107) 06/29/22 10:07 Carbon Dioxide 28 mmol/L (22-29) 06/29/22 10:07 Anion Gap 9.8 (5-19) 06/29/22 10:07 BUN 9 mg/dL (6-20) 06/29/22 10:07 Creatinine 0.6 mg/dL (0.5-0.9) 06/29/22 10:07 GFR Calculation 112.5 mL/min (90-130) 06/29/22 10:07 Glucose 151 mg/dL (65-115) H 06/29/22 10:07 Calculated Osmolality 282 mOsm/kg (285-295) L 06/29/22 10:07 Calcium 8.7 mg/dL (8.5-10.5) 06/29/22 10:07 Total Bilirubin 0.2 mg/dL (0.15-1.2) 06/29/22 10:07 AST 11 U/L (0-32) 06/29/22 10:07 ALT 10 U/L (0-33) 06/29/22 10:07 Alkaline Phosphatase 108 U/L (35-105) H 06/29/22 10:07 Total Protein 8.0 g/dL (6.6-8.7) 06/29/22 10:07 Albumin 4.1 g/dL (3.5-5.2) 06/29/22 10:07 Globulin 3.9 g/dL (1.3-4.6) 06/29/22 10:07 Lipase 26 U/L (13-60) 06/29/22 10:07 HCG, Qual Negative (Negative) 06/29/22 10:54 Urine Color Yellow (Yellow) 06/29/22 10:45 Urine Appearance Clear (CLEAR) 06/29/22 10:45 Urine pH 5.5 (5-7) 06/29/22 10:45 Ur Specific [place] 1.025 (1.005-1.030) 06/29/22 10:45 Urine Protein Negative (Negative) 06/29/22 10:45 Urine Glucose (UA) Negative (Normal) 06/29/22 10:45 Urine Ketones Negative (Negative) 06/29/22 10:45 Urine Blood Negative (Negative) 06/29/22 10:45 Urine Nitrate Negative 06/29/22 10:45 Urine Bilirubin Negative (Negative) 06/29/22 10:45 Urine Urobilinogen 0.2 mg/dL (Negative) 06/29/22 10:45 Ur Leukocyte Esterase Negative (Negative) 06/29/22 10:45 Discharge Plan Discharge Patient Disposition: Home Clinical Impression: Viral syndrome Condition: Stable Prescriptions: New ondansetron 4 mg tablet,disintegrating 4 mg PO Q8H PRN (Reason: nausea and vomiting) Qty: 15 0RF No Action (DME) Aeroneb Go Nebulizer Misc See Rx Instructions .Route Rx Instructions: As directed albuterol sulfate 2.5 mg /3 mL (0.083 %) solution for nebulization 1.25 mg inhalation clindamycin phosphate 1 % solution 1 applic topical DAILY Qty: 60 0RF Rx Instructions: Apply to base of scalp daily clindamycin phosphate 1 % lotion 1 applic topical QAM Qty: 60 6RF Rx Instructions: Apply thin film to affected areas 1-2 times daily doxycycline hyclate 100 mg capsule 100 mg PO .QOD Qty: 15 0RF Rx Instructions: Take every other day then stop. albuterol sulfate [ProAir HFA] 90 mcg/actuation HFA aerosol inhaler 2 inh INHALATION Q4H PRN (Reason: shortness of breath or wheezing) Qty: 8.5 0RF metformin 500 mg tablet 500 mg PO BID Naprosyn 500 mg tablet 500 mg PO BID PRN (Reason: pain) Qty: 20 0RF Discharge Orders: Discharge ED (Routine); Ordered 06/29/22 Ordered By: Rafat Henderson Referrals: Baljinder Ramsey MD [Primary Care Provider] - Discharge Diet: Advance as tolerated Discharge Activity: Resume usual activity Patient Instructions: Acute Nausea and Vomiting (DC), Viral Syndrome - Adult Activity Restrictions/Additional Instructions: Follow-up with medical provider as directed in the next 3 to 5 days for reevaluation. Take medications as prescribed. Return to the ER or your medical provider if condition worsens. Please read and understand discharge instructions. Thank you for choosing [facility] for your healthcare needs today. Please realize this is an emergency room and that we are providing you with a medical screening exam and this may not be complete and all inclusive of all the testing and or work up that you may need to determine your ailment or severity of your illness. It is very important that you follow up as instructed or that you return to the Emergency Department should you have concerns or if your condition changes or worsens in any way. Coding Level of Care Code ED Control Operator Flow Coat for Ada Fwabram Exam Comprehensive
[2022-06-29] MEDS: sodium chloride 0.9% 1,000 ML 999 ML IV (10:16)
[2022-06-29] MEDS: ondansetron 2 mg/ML SDV 2 mL 4 MG IVP (10:17)
[2022-06-29 10:33] LABS: Basophils % 0.3 %; Eosinophils # 0.2 10^3/uL (0.0-0.8); Eosinophils % 2.5 %; Hemoglobin 15.6 g/dL (11.5-15.3); Lymphocytes # 1.3 10^3/uL (0.8-4.8); Lymphocytes % 14.2 %; Mean Corpuscular HGB Conc 33.9 g/dL (30.0-36.0); Mean Corpuscular Hemoglobin 31.6 pg (28.0-34.0); Mean Corpuscular Volume 93.1 fl (81-99); Mean Platelet Volume 12.8 fL (7.4-10.4); Monocytes # 0.6 10^3/uL (0.2-0.9); Neutrophils # 6.97 10^3/uL (1.8-7.7); Neutrophils % 75.8 %; Nucleated Red Blood Cells % 0 %; Platelet Count 133 10^3/cmm (130-400); Red Blood Count 4.94 10^6/uL (4.1-5.3); Red Cell Distribution Width 12.9 % (12.1-15.1); White Blood Count 9.2 10^3/uL (4.0-10.0)
[2022-06-29 10:46] LABS: Alanine Aminotransferase 10 U/L (0-33); Albumin Level 4.1 g/dL (3.5-5.2); Alkaline Phosphatase 108 U/L (35-105); Aspartate Amino Transferase 11 U/L (0-32); Chloride 101 mmol/L (98-107); Potassium 3.8 mmol/L (3.5-5.1); Sodium 135 mmol/L (136-145)
[2022-06-29 10:58] LABS: Anion Gap 9.8 (5-19); Blood Urea Nitrogen 9 mg/dL (6-20); Calcium 8.7 mg/dL (8.5-10.5); Carbon Dioxide 28 mmol/L (22-29); Globulin 3.9 g/dL (1.3-4.6); Glomerular Filtration Rate 112.5 mL/min (90-130); Glucose 151 mg/dL (65-115); Lipase 26 U/L (13-60); Osmolality Calculated 282 mOsm/kg (285-295); Total Bilirubin 0.2 mg/dL (0.15-1.2)
[2022-06-29 11:12] LABS: HCG, Serum Qual Negative (Negative)
[2022-06-29 11:18] LABS: Add Urine Microscopic? NO; Charge for UA Resulting for Rev
[2022-06-29 11:20] LABS: Bilirubin Urine Negative (Negative); Blood Urine Negative (Negative); Glucose Urine UA Negative (Normal); Ketones Urine Negative (Negative); Leukocyte Esterase Urine Negative (Negative); Nitrate Urine Negative; Protein Urine Negative (Negative); Specific Gravity, Urine 1.025 (1.005-1.030); Urine Appearance Clear (CLEAR); Urine Color Yellow (Yellow); Urobilinogen Urine 0.2 mg/dL (Negative); pH Urine 5.5 (5-7)
[2022-06-29] MEDS: metoclopramide 5 mg/mL SDV 2 mL 10 MG IVP (11:47)
== END 2022-06-29 12:12 | disposition home or self-care (01) ==
PROVIDERS: Emergency Provider Physician Assistant; PCP Family Medicine
DX: B34.9 Viral infection, unspecified (principal); J45.909 Unspecified asthma, uncomplicated; F17.200 Nicotine dependence, unspecified, uncomplicated
CPT/HCPCS: 36415; 80053; 81003; 83690; 84703; 85025; 96361; 96374; 96375; 99284; J2405; J2765; J7030

== ENCOUNTER 2022-07-01 11:03 | Emergency (ER) | payer MEDICAID, SELFPAY ==
[2022-07-01 11:09] VITALS: BP 139/73; PULSE 58; RESP 16; TEMP 36.3; O2SAT 98; BMI 38.0
--- NOTE | 2022-07-01 11:24 | CT_ITS ---
WS: [id number] CT ABDOMEN PELVIS TECHNIQUE: Contrast-enhanced CT of the abdomen and pelvis with coronal and sagittal reformatted image s. CLINICAL INFORMATION: n/v and periumbilical abdominal pain COMPARISON: January 23, 2021 DLP: 821.[address] scans at [facility] use at least one of these dose optimization techniques: automated e xposure control; mA and/or kV adjustment per patient size (includes targeted exams where dose is matc hed to clinical indication); or iterative reconstruction. FINDINGS: Mild diffuse fatty infiltration liver. Normal portal vein and splenic pain. Normal gallbladder. Romina l spleen. Normal GE junction. Lung bases are well aerated. Normal pancreas. Normal renal parenchymal enhancement. No hydronephrosis. A few sigmoid diverticuli. No evidence of acute diverticulitis. No high-grade small or large bowel ob struction. Fat-containing umbilical hernia. Urine distended bladder. Lobulated LEFT ovarian cysts the largest measuring 3.2 CM. No free fluid in the abdomen or pelvis. Normal appendix in the RIGHT lower quadrant. Prior hysterectomy. CT/CT abdomen pelvis w con* [id number] IMPRESSION: 1. No hydronephrosis in either kidney. 2. Fat-containing umbilical hernia. No herniated bowel. 3. Lobulated LEFT ovarian cysts the largest measuring 3.1 CM. 4. No free fluid in the abdomen or pelvis. 5. Normal appendix.
--- NOTE | 2022-07-01 11:25 | ED_ITS ---
HPI - Abdominal Pain General: Chief Complaint: Abdominal Pain Stated Complaint: N/V Chills Time Seen by Provider: 07/01/22 11:11 History of Present Illness: Patient is a 37-year-old female comes to the ED with nausea vomiting and abdominal pain. Patient was seen here in the ED back o n June 29 for similar symptoms. Today patient says she is still having a lot of nausea vomiting and having trouble keeping any food or fluids down with Zofran. She also reports having constant abdominal pain now that is in the periumbilical region. She rates it a 7 out of 10. Pain radiates to her back. Endorses chills. Denies any diarrhea, dysuria or hematuria. Patient has not had any bowel movements for the past 2 days. Associated Symptoms: Reports chills, nausea and vomiting; Denies constipation, diarrhea, dysuria, fever(s), hematochezia and hematuria Related Data: Date of Last Menstrual Period: 07/01/22 Review of Systems Const: Reports: chills; Denies: fever(s) or fatigue Eyes: Denies: change in vision or eye discomfort ENMT: Denies: throat pain, odynophagia, nasal discharge or nasal congestion Card: Denies: chest pain, palpitations, edema, swelling of feet/ankles, dyspnea on exertion or orthopnea Resp: Denies: dyspnea, productive cough or non-productive cough GI: Reports: abdominal pain, nausea and vomiting; Denies: diarrhea, constipation or hematochezia : Denies: flank pain, dysuria or hematuria Musc: Denies: neck pain, back pain or extremity swelling Skin/Breast: Denies: rash or new lesions Neuro: Denies: headache(s), numbness in extremities or weakness in extremities [facility] ED PFSH: Medical History Asthma Surgical History No pertinent past surgical history Social History Smoking and tobacco status: current every day smoker Alcohol intake: never Female Reproductive History: Date of last menstrual period: 07/01/22 Physical Exam Const: COMMON NORMALS: patient oriented x3 HENMT: COMMON NORMALS: normocephalic HEAD & SCALP: normocephalic MOUTH: Normal oral and palatal mucosa present THROAT: posterior oropharynx normal and uvula midline Neck/C-Spine: COMMON NORMALS: supple GENERAL: Yes normal visual inspection Resp: COMMON NORMALS: normal respiratory effort, No retractions, No use of accessory muscles and clear to auscultation bilaterally AUSCULTATION: clear to auscultation bilaterally Cardio: COMMON NORMALS: regular rate, regular rhythm, S1 normal heart sound present, S2 normal heart sound present, No gallops present (Cardio), No clicks present (Cardio), No murmurs present (Cardio) and Peripheral pulses 2+ throughout RATE: regular rate RHYTHM: regular rhythm HEART SOUNDS: S1 normal heart sound present and S2 normal heart sound present PERIPHERAL PULSES: Peripheral pulses 2+ throughout GI: COMMON NORMALS: Normal to inspection, nondistended, normoactive bowel sounds present, Soft to palpation and no masses PALPATION: Yes Soft to palpation and Yes Tenderness to palpation present (GI) Details: other (Periumbilical tenderness) : BLADDER/KIDNEY EXAM: Yes CVA tenderness bilateral Back/Pelvis: GENERAL BACK: Yes CVA tenderness Extremity: COMMON NORMALS: normal to inspection Neuro: COMMON NORMALS: patient oriented x3 GAIT: Yes Normal gait present Skin: GENERAL SKIN EXAM: dry skin Course Vital Signs: Vital signs: Vital Signs Temperature 97.4 F L 07/01/22 14:46 Pulse Rate 74 07/01/22 14:46 Respiratory Rate 16 07/01/22 14:46 Blood Pressure 116/72 07/01/22 14:46 Pulse Oximetry 98 07/01/22 14:46 MDM - Abdominal Pain Medical Decision Making Patient is a 37-year-old female comes to the ED with nausea vomiting and abdominal pain. Patient was seen here in the ED for similar complaint back on June 29, but today she started developing more abdominal pain. She is still having trouble keeping some fluids down even while taking Zofran. Vitals are stable. Patient appears nontoxic and in no acute distress or pain. Patient does have some periumbilical abdominal tenderness but rest of exam is benign. White blood cell count 11.8 and the rest of CBC and CMP was unremarkable. CT of abdomen pelvis was performed and showed no acute findings. UA was unremarkable. Patient was given 1 L of IV fluids, morphine and Reglan and her symptoms improved. She was able to tolerate p.o. fluids and was stable for discharge home. He was diagnosed with viral syndrome sent home with a prescription for Reglan to help with nausea. Return to ED precautions given. Patient understood and agreed with plan. Lab Data I reviewed the patient's lab results. : 07/01/22 11:45 07/01/22 13:05 Labs/Radiology: Radiology Impressions Abdomen/Pelvis CT 07/01/22 11:24 IMPRESSION: 1. No hydronephrosis in either kidney. 2. Fat-containing umbilical hernia. No herniated bowel. 3. Lobulated LEFT ovarian cysts the largest measuring 3.1 CM. 4. No free fluid in the abdomen or pelvis. 5. Normal appendix. Laboratory Results WBC 11.8 10^3/uL (4.0-10.0) H 07/01/22 11:45 RBC 4.85 10^6/uL (4.1-5.3) 07/01/22 11:45 Hgb 15.1 g/dL (11.5-15.3) 07/01/22 11:45 Hct 43.7 % (37.0-47.0) 07/01/22 11:45 MCV 90.1 fl (81-99) 07/01/22 11:45 MCH 31.1 pg (28.0-34.0) 07/01/22 11:45 MCHC 34.6 g/dL (30.0-36.0) 07/01/22 11:45 RDW 12.7 % (12.1-15.1) 07/01/22 11:45 Plt Count 157 10^3/cmm (130-400) 07/01/22 11:45 MPV 12.8 fL (7.4-10.4) H 07/01/22 11:45 Neut % (Auto) 77.5 % 07/01/22 11:45 Lymph % (Auto) 15.4 % 07/01/22 11:45 [place] % (Auto) 6.4 % 07/01/22 11:45 Eos % (Auto) 0.1 % 07/01/22 11:45 Baso % (Auto) 0.2 % 07/01/22 11:45 Neut # (Auto) 9.15 10^3/uL (1.8-7.7) H 07/01/22 11:45 Lymph # (Auto) 1.8 10^3/uL (0.8-4.8) 07/01/22 11:45 [place] # (Auto) 0.8 10^3/uL (0.2-0.9) 07/01/22 11:45 Eos # (Auto) 0.0 10^3/uL (0.0-0.8) 07/01/22 11:45 Baso # (Auto) 0.0 10^3/uL (0.0-0.1) 07/01/22 11:45 Nucleated RBC % (auto) 0 % 07/01/22 11:45 Nucleated RBCs # 0.0 /100WBC 07/01/22 11:45 Sodium 134 mmol/L (136-145) L 07/01/22 13:05 Potassium 3.6 mmol/L (3.5-5.1) 07/01/22 13:05 Chloride 99 mmol/L (98-107) 07/01/22 13:05 Carbon Dioxide 26 mmol/L (22-29) 07/01/22 13:05 Anion Gap 12.6 (5-19) 07/01/22 13:05 BUN 16 mg/dL (6-20) 07/01/22 13:05 Creatinine 0.6 mg/dL (0.5-0.9) 07/01/22 13:05 GFR Calculation 112.5 mL/min (90-130) 07/01/22 13:05 Glucose 132 mg/dL (65-115) H 07/01/22 13:05 Calculated Osmolality 281 mOsm/kg (285-295) L 07/01/22 13:05 Calcium 8.9 mg/dL (8.5-10.5) 07/01/22 13:05 Total Bilirubin 0.3 mg/dL (0.15-1.2) 07/01/22 13:05 AST 10 U/L (0-32) 07/01/22 13:05 ALT 10 U/L (0-33) 07/01/22 13:05 Alkaline Phosphatase 85 U/L (35-105) 07/01/22 13:05 Total Protein 7.0 g/dL (6.6-8.7) 07/01/22 13:05 Albumin 4.1 g/dL (3.5-5.2) 07/01/22 13:05 Globulin 2.9 g/dL (1.3-4.6) 07/01/22 13:05 Lipase 61 U/L (13-60) H 07/01/22 13:05 Urine Color Yellow (Yellow) 07/01/22 12:58 Urine Appearance Clear (CLEAR) 07/01/22 12:58 Urine pH 7 (5-7) 07/01/22 12:58 Ur Specific [place] 1.010 (1.005-1.030) 07/01/22 12:58 Urine Protein Neg (Negative) 07/01/22 12:58 Urine Glucose (UA) Norm (Normal) 07/01/22 12:58 Urine Ketones Negative (Negative) 07/01/22 12:58 Urine Blood 2+ (Negative) H 07/01/22 12:58 Urine Nitrate Negative (Negative) 07/01/22 12:58 Urine Bilirubin Neg (Negative) 07/01/22 12:58 Urine Urobilinogen Norm mg/dL (Negative) 07/01/22 12:58 Ur Leukocyte Esterase Negative (Negative) 07/01/22 12:58 Urine RBC 0-4 /hpf (0-2) H 07/01/22 12:58 Urine WBC 0-4 /hpf (0-5) H 07/01/22 12:58 Ur Squamous Epith Cells 0-4 /hpf (0-5) H 07/01/22 12:58 Amorphous Sediment Not Reportable 07/01/22 12:58 Urine Bacteria 1+ /hpf (NONE) H 07/01/22 12:58 Discharge Plan Discharge Patient Disposition: Home Clinical Impression: Viral syndrome Condition: Stable Prescriptions: New Reglan 10 mg tablet 10 mg PO Q6H PRN (Reason: nausea and vomiting) Qty: 20 0RF No Action (DME) Aeroneb Go Nebulizer Misc See Rx Instructions .Route Rx Instructions: As directed albuterol sulfate 2.5 mg /3 mL (0.083 %) solution for nebulization 1.25 mg inhalation Q6H clindamycin phosphate 1 % solution 1 applic topical DAILY Qty: 60 0RF Rx Instructions: Apply to base of scalp daily clindamycin phosphate 1 % lotion 1 applic topical QAM Qty: 60 6RF Rx Instructions: Apply thin film to affected areas 1-2 times daily albuterol sulfate [ProAir HFA] 90 mcg/actuation HFA aerosol inhaler 2 inh INHALATION Q4H PRN (Reason: shortness of breath or wheezing) Qty: 8.5 0RF Discharge Orders: Discharge ED (Routine); Ordered 07/01/22 Ordered By: Rafat Henderson Referrals: Baljinder Ramsey MD [Primary Care Provider] - Discharge Diet: Advance as tolerated and Clear Liquid Discharge Activity: Increase activity as tolerated Activity Restrictions/Additional Instructions: Follow-up with medical provider as directed in the next 5 to 7 days reevaluation. Take medications as prescribed. Make sure you drink plenty of fl uids and stay hydrated. Return to the ER or your medical provider if condition worsens. Please read and understand discharge instructions. Thank you for choosing [facility] for your healthcare needs today. Please realize this is an emergency room and that we are providing you with a medical screening exam and this may not be complete and all inclusive of all the testing and or work up that you may need to determine your ailment or severity of your illness. It is very important that you follow up as instructed or that you return to the Emergency Department should you have concerns or if your condition changes or worsens in any way. Coding Level of Care Code ED Information Technology Teacher for Ada Fwd Exam Comprehensive
[2022-07-01 11:56] LABS: Basophils % 0.2 %; Eosinophils % 0.1 %; Hematocrit 43.7 % (37.0-47.0); Hemoglobin 15.1 g/dL (11.5-15.3); Lymphocytes # 1.8 10^3/uL (0.8-4.8); Lymphocytes % 15.4 %; Mean Corpuscular HGB Conc 34.6 g/dL (30.0-36.0); Mean Corpuscular Hemoglobin 31.1 pg (28.0-34.0); Mean Corpuscular Volume 90.1 fl (81-99); Mean Platelet Volume 12.8 fL (7.4-10.4); Monocytes # 0.8 10^3/uL (0.2-0.9); Monocytes % 6.4 %; Neutrophils # 9.15 10^3/uL (1.8-7.7); Neutrophils % 77.5 %; Nucleated Red Blood Cells % 0 %; Platelet Count 157 10^3/cmm (130-400); Red Blood Count 4.85 10^6/uL (4.1-5.3); Red Cell Distribution Width 12.7 % (12.1-15.1); White Blood Count 11.8 10^3/uL (4.0-10.0)
[2022-07-01 12:06] VITALS: RESP 16
[2022-07-01] MEDS: metoclopramide 5 mg/mL SDV 2 mL 10 MG IVP (12:06)
[2022-07-01] MEDS: morphine 4 mg/mL SDV 1 mL IVP (12:06)
[2022-07-01] MEDS: sodium chloride 0.9% 1,000 ML 999 ML IV (12:07)
[2022-07-01] MEDS: iohexol 350 mg/mL 100 mL Btl IV (12:31)
[2022-07-01 13:07] VITALS: BP 116/72; PULSE 74; RESP 16; O2SAT 98
[2022-07-01 13:18] LABS: Add Urine Microscopic? YES; Bilirubin Urine Neg (Negative); Blood Urine 2+ (Negative); Glucose Urine UA Norm (Normal); Ketones Urine Negative (Negative); Leukocyte Esterase Urine Negative (Negative); Nitrate Urine Negative (Negative); Protein Urine Neg (Negative); RBC Urine 0-4 /hpf (0-2); Urine Appearance Clear (CLEAR); Urine Color Yellow (Yellow); Urobilinogen Urine Norm (Negative); WBC Urine 0-4 /hpf (0-5); pH Urine 7 (5-7)
[2022-07-01 13:19] LABS: Add Urine Culture? No; Bacteria Urine 1+ /hpf; Squamous Epithelial Cell Urine 0-4 /hpf (0-5)
[2022-07-01 13:29] LABS: Alanine Aminotransferase 10 U/L (0-33); Albumin Level 4.1 g/dL (3.5-5.2); Alkaline Phosphatase 85 U/L (35-105); Anion Gap 12.6 (5-19); Aspartate Amino Transferase 10 U/L (0-32); Blood Urea Nitrogen 16 mg/dL (6-20); Calcium 8.9 mg/dL (8.5-10.5); Carbon Dioxide 26 mmol/L (22-29); Chloride 99 mmol/L (98-107); Globulin 2.9 g/dL (1.3-4.6); Glomerular Filtration Rate 112.5 mL/min (90-130); Glucose 132 mg/dL (65-115); Lipase 61 U/L (13-60); Osmolality Calculated 281 mOsm/kg (285-295); Potassium 3.6 mmol/L (3.5-5.1); Sodium 134 mmol/L (136-145); Total Bilirubin 0.3 mg/dL (0.15-1.2)
[2022-07-01] MEDS: famotidine 20 mg Tablet 40 MG PO (14:21)
[2022-07-01 14:46] VITALS: BP 116/72; PULSE 74; RESP 16; TEMP 36.3; O2SAT 98
== END 2022-07-01 14:47 | disposition home or self-care (01) ==
PROVIDERS: Emergency Provider Physician Assistant; PCP Family Medicine
DX: B34.9 Viral infection, unspecified (principal); F17.210 Nicotine dependence, cigarettes, uncomplicated
CPT/HCPCS: 74177; 80053; 81001; 83690; 85025; 96361; 96374; 96375; 99285; J2270; J2765; J7030; Q9967

== ENCOUNTER 2022-07-02 09:52 | Emergency (ER) | payer MEDICAID, SELFPAY ==
[2022-07-02 10:02] VITALS: BP 153/93; PULSE 55; RESP 22; TEMP 36.8; O2SAT 98; BMI 38.0
--- NOTE | 2022-07-02 10:58 | W.ED.BACK ---
Documented by User: Barb Freitas MD 07/07/22 12:38 HPI - Back Pain/Injury General: Chief Complaint: Back Pain/Injury Stated Complaint: Severe Abd Pains Time Seen by Provider: 07/02/22 10:36 [facility] ED PFSH: Medical History Asthma Surgical History No pertinent past surgical history Social History Smoking and tobacco status: current every day smoker Alcohol intake: never Female Reproductive History: Date of last menstrual period: 07/02/22 Course Vital Signs: Vital signs: Vital Signs Temperature 98.2 F 07/02/22 10:02 Pulse Rate 50 L 07/02/22 17:26 Respiratory Rate 17 07/02/22 17:26 Blood Pressure 155/78 07/02/22 17:26 Pulse Oximetry 98 07/02/22 17:26 Oxygen Delivery Me thod 07/02/22 17:09 MDM - Back Pain/Injury Labs : 07/02/22 11:00 07/02/22 12:13 Radiology Impressions Abdomen Ultrasound 07/02/22 13:28 IMPRESSION: Technically difficult study due to bowel gas. 1. Hepatomegaly with coarse hepatic echotexture. 2. Cholelithiasis. No gallbladder wall thickening or pericholecystic fluid. 3. Normal common bile duct. 4. No hydronephrosis in RIGHT kidney. 5. No ascites. Laboratory Results WBC 11.3 10^3/uL (4.0-10.0) H 07/02/22 11:00 RBC 4.58 10^6/uL (4.1-5.3) 07/02/22 11:00 Hgb 14.2 g/dL (11.5-15.3) 07/02/22 11:00 Hct 42.3 % (37.0-47.0) 07/02/22 11:00 MCV 92.4 fl (81-99) 07/02/22 11:00 MCH 31.0 pg (28.0-34.0) 07/02/22 11:00 MCHC 33.6 g/dL (30.0-36.0) 07/02/22 11:00 RDW 12.6 % (12.1-15.1) 07/02/22 11:00 Plt Count 147 10^3/cmm (130-400) 07/02/22 11:00 MPV 12.9 fL (7.4-10.4) H 07/02/22 11:00 Neut % (Auto) 80.2 % 07/02/22 11:00 Lymph % (Auto) 13.7 % 07/02/22 11:00 [place] % (Auto) 5.3 % 07/02/22 11:00 Eos % (Auto) 0.2 % 07/02/22 11:00 Baso % (Auto) 0.3 % 07/02/22 11:00 Neut # (Auto) 9.06 10^3/uL (1.8-7.7) H 07/02/22 11:00 Lymph # (Auto) 1.5 10^3/uL (0.8-4.8) 07/02/22 11:00 [place] # (Auto) 0.6 10^3/uL (0.2-0.9) 07/02/22 11:00 Eos # (Auto) 0.0 10^3/uL (0.0-0.8) 07/02/22 11:00 Baso # (Auto) 0.0 10^3/uL (0.0-0.1) 07/02/22 11:00 Nucleated RBC % (auto) 0 % 07/02/22 11:00 Nucleated RBCs # 0.0 /100WBC 07/02/22 11:00 Sodium 138 mmol/L (136-145) 07/02/22 12:13 Potassium 3.9 mmol/L (3.5-5.1) 07/02/22 12:13 Chloride 104 mmol/L (98-107) 07/02/22 12:13 Carbon Dioxide 25 mmol/L (22-29) 07/02/22 12:13 Anion Gap 12.9 (5-19) 07/02/22 12:13 BUN 12 mg/dL (6-20) 07/02/22 12:13 Creatinine 0.5 mg/dL (0.5-0.9) 07/02/22 12:13 GFR Calculation 138.8 mL/min (90-130) H 07/02/22 12:13 Glucose 175 mg/dL (65-115) H 07/02/22 12:13 Calculated Osmolality 290 mOsm/kg (285-295) 07/02/22 12:13 Calcium 8.0 mg/dL (8.5-10.5) L 07/02/22 12:13 Total Bilirubin 0.4 mg/dL (0.15-1.2) 07/02/22 12:13 Direct Bilirubin 0.20 mg/dL (0.00-0.30) 07/02/22 12:13 AST 17 U/L (0-32) 07/02/22 12:13 ALT 20 U/L (0-33) 07/02/22 12:13 Alkaline Phosphatase 85 U/L (35-105) 07/02/22 12:13 Total Protein 7.0 g/dL (6.6-8.7) 07/02/22 12:13 Albumin 3.7 g/dL (3.5-5.2) 07/02/22 12:13 Globulin 3.3 g/dL (1.3-4.6) 07/02/22 12:13 Lipase 13 U/L (13-60) 07/02/22 12:31 Discharge Plan Discharge Patient Disposition: Home Clinical Impression: Biliary colic symptom, Abdominal pain, Nausea Condition: Stable Prescriptions: No Action (DME) Aeroneb Go Nebulizer Misc See Rx Instructions .Route Rx Instructions: As directed albuterol sulfate 2.5 mg /3 mL (0.083 %) solution for nebulization 1.25 mg inhalation Q6H clindamycin phosphate 1 % solution 1 applic topical DAILY Qty: 60 0RF Rx Instructions: Apply to base of scalp daily clindamycin phosphate 1 % lotion 1 applic topical QAM Qty: 60 6RF Rx Instructions: Apply thin film to affected areas 1-2 times daily albuterol sulfate [ProAir HFA] 90 mcg/actuation HFA aerosol inhaler 2 inh INHALATION Q4H PRN (Reason: shortness of breath or wheezing) Qty: 8.5 0RF Reglan 10 mg tablet 10 mg PO Q6H PRN (Reason: nausea and vomiting) Qty: 20 0RF Discharge Orders: Discharge ED (Routine); Ordered 07/02/22 Ordered By: Zena Morales Referrals: Baljinder Ramsey MD [Primary Care Provider] - Discharge Diet: As Directed Discharge Activity: Resume usual activity Patient Instructions: Biliary Colic (ED), Abdominal Pain (ED) Activity Restrictions/Additional Instructions: Use Zofran as needed every 8 hours for nausea/vomiting. I recommend a bland diet for the next 24 to 48 hours. I would reduce caffeine, nicotine intake, red sauce, lettuce, fatty fried food intake as these foods tend to worsen pain symptoms and difficulty with the gallbladder. I referred you to general surgery for further evaluation of cholelithiasis//gallstones. Return to the ER as needed for new or worsening symptoms, increased pain, inability to hold food or fluids down. Coding Level of Care Code ED Trade Sales Assistant for Chg Fwd Exam Expanded Problem Focused Documented by User: JUSTIN SparrowP-Kylee 07/02/22 19:54 HPI - Back Pain/Injury General: Chief Complaint: Back Pain/Injury Stated Complaint: Severe Abd Pains Time Seen by Provider: 07/02/22 10:36 History of Present Illness: Patient is in today for complaints of abdominal pain. Patient reports that she was here on the third but was unable to stay long enough to be fully treated. She reports that she came again yesterday, but the medications they are giving her are not taking care of her issue. She reports that she has been having generalized abdominal pain, ongoing nausea and vomiting. She has vomited 3 times in the ER today she states. She vomited more times than she can count yesterday. She denies fever but has had some chills after vomiting. She reports that she has bilateral low back pain. She denies urinary symptoms. She states that they did find an ovarian cyst at one of her visits. She denies states that she is on her period currently. She does report that she is borderline diabetic and supposed to be taking metformin however she has not taken this in over a year. Associated symptoms: Reports abdominal pain, chills, nausea and vomiting; Deny dysuria, fever(s) or urinary urgency Review of Systems Const: Reports: chills; Denies: fever(s) Card: Denies: chest pain or palpitations Resp: Denies: dyspnea, productive cough or non-productive cough GI: Reports: abdominal pain, nausea and vomiting; Denies: diarrhea or constipation : Reports: flank pain; Denies: difficulty voiding, dysuria, urinary frequency, urinary urgency or urinary hesitancy Musc: Reports: back pain PFSH ED PFSH: Medical History Asthma Surgical History No pertinent past surgical history Social History Smoking and tobacco status: current every day smoker Alcohol intake: never Physical Exam Const: OTHER: Patient is in vertical flow recliner. She is minimally cooperative with the exam. Minimally cooperative with line of questioning for history of present illness. She is frustrated because she is not in a regular bed. Resp: COMMON NORMALS: No use of accessory muscles and clear to auscultation bilaterally AUSCULTATION: clear to auscultation bilaterally OTHER: Patient was initially slightly tachypneic on arrival however when she is at rest her respirations are within normal limits Cardio: COMMON NORMALS: regular rate, regular rhythm, S1 normal heart sound present, S2 normal heart sound present and No murmurs present (Cardio) RATE: regular rate RHYTHM: regular rhythm HEART SOUNDS: S1 normal heart sound present and S2 normal heart sound present GI: OTHER: She is lying on her side in the recliner moaning continuously. When asked to lie on her back for the exam she refuses. When asked where she is hurting she states her back and her abdomen but she refuses to show me where on her abdomen she hurts. She is obese. Her abdomen is soft. She grimaces with palpation in all 4 quadrants. She seems more guarded on the right upper and left upper quadrant. Bowel sounds are hypoactive. : BLADDER/KIDNEY EXAM: Yes CVA tenderness bilateral Back/Pelvis: GENERAL BACK: Yes CVA tenderness OTHER: It is difficult to assess this patient due to her limited cooperation with physical exam. She does seem to have increased right-sided lumbar paraspinal muscular tension. No obvious bony or soft tissue deformity. No point tenderness to palpation of the lumbar or thoracic spine. No step-offs appreciated. Course Vital Signs: Vital signs: Vital Signs Temperature 98.2 F 07/02/22 10:02 Pulse Rate 50 L 07/02/22 17:26 Respiratory Rate 17 07/02/22 17:26 Blood Pressure 155/78 07/02/22 17:26 Pulse Oximetry 98 07/02/22 17:26 Oxygen Delivery Me thod 07/02/22 17:09 MDM - Back Pain/Injury Medical Decision Making This is a 37-year-old female who has been to the ER 3 times in the past week for similar symptoms of nausea, vomiting, abdominal pain, back pain. As previously mentioned she was minimally cooperative with exam and in HPI questioning. After giving patient some pain medication she did become a bit more cooperative. Morphine was administered and patient seem to rest quietly but then would wake up and continuously asked for pain medication and anti-nausea medication. Patient had not vomited since arriving in triage. Labs were stable with previous lab work-up yesterday. Lipase was normal. Ultrasound of the gallbladder shows cholelithiasis and sludge without any evidence of cholecystitis. I advised patient of results of testing. Patient Complaining of nausea despite medications given today. I consulted with Dr. Shepard and it was recommended to give Versed and Haldol to help with hyperemesis. This was ordered; however, the patient is sedated from previous morphine administration. This order was canceled. I advised her that I would discharge her to home to follow-up with general surgery to discuss outpatient cholecystectomy if they deem appropriate. Patient is very angry and begins to yell at me. She is demanding to be admitted for her nausea. I discussed, at length, with patient that she has not vomited since coming in through triage. I advised her that I would treat her outpatient with medications for nausea. We discussed dietary modifications to help with biliary colic. Patient then started demanding more IV fluid. I advised her that she does not need additional IV fluid at this time. Patient then started demanding something for heartburn. I will provide patient GI cocktail and discharged to home with Zofran as needed. Consult to case management to refer patient for general surgery for cholelithiasis. Advised patient to follow-up with her primary care provider. Return to the ER for new or worsening symptoms. Labs : 07/02/22 11:00 07/02/22 12:13 Radiology Impressions Abdomen Ultrasound 07/02/22 13:28 IMPRESSION: Technically difficult study due to bowel gas. 1. Hepatomegaly with coarse hepatic echotexture. 2. Cholelithiasis. No gallbladder wall thickening or pericholecystic fluid. 3. Normal common bile duct. 4. No hydronephrosis in RIGHT kidney. 5. No ascites. Laboratory Results WBC 11.3 10^3/uL (4.0-10.0) H 07/02/22 11:00 RBC 4.58 10^6/uL (4.1-5.3) 07/02/22 11:00 Hgb 14.2 g/dL (11.5-15.3) 07/02/22 11:00 Hct 42.3 % (37.0-47.0) 07/02/22 11:00 MCV 92.4 fl (81-99) 07/02/22 11:00 MCH 31.0 pg (28.0-34.0) 07/02/22 11:00 MCHC 33.6 g/dL (30.0-36.0) 07/02/22 11:00 RDW 12.6 % (12.1-15.1) 07/02/22 11:00 Plt Count 147 10^3/cmm (130-400) 07/02/22 11:00 MPV 12.9 fL (7.4-10.4) H 07/02/22 11:00 Neut % (Auto) 80.2 % 07/02/22 11:00 Lymph % (Auto) 13.7 % 07/02/22 11:00 [place] % (Auto) 5.3 % 07/02/22 11:00 Eos % (Auto) 0.2 % 07/02/22 11:00 Baso % (Auto) 0.3 % 07/02/22 11:00 Neut # (Auto) 9.06 10^3/uL (1.8-7.7) H 07/02/22 11:00 Lymph # (Auto) 1.5 10^3/uL (0.8-4.8) 07/02/22 11:00 [place] # (Auto) 0.6 10^3/uL (0.2-0.9) 07/02/22 11:00 Eos # (Auto) 0.0 10^3/uL (0.0-0.8) 07/02/22 11:00 Baso # (Auto) 0.0 10^3/uL (0.0-0.1) 07/02/22 11:00 Nucleated RBC % (auto) 0 % 07/02/22 11:00 Nucleated RBCs # 0.0 /100WBC 07/02/22 11:00 Sodium 138 mmol/L (136-145) 07/02/22 12:13 Potassium 3.9 mmol/L (3.5-5.1) 07/02/22 12:13 Chloride 104 mmol/L (98-107) 07/02/22 12:13 Carbon Dioxide 25 mmol/L (22-29) 07/02/22 12:13 Anion Gap 12.9 (5-19) 07/02/22 12:13 BUN 12 mg/dL (6-20) 07/02/22 12:13 Creatinine 0.5 mg/dL (0.5-0.9) 07/02/22 12:13 GFR Calculation 138.8 mL/min (90-130) H 07/02/22 12:13 Glucose 175 mg/dL (65-115) H 07/02/22 12:13 Calculated Osmolality 290 mOsm/kg (285-295) 07/02/22 12:13 Calcium 8.0 mg/dL (8.5-10.5) L 07/02/22 12:13 Total Bilirubin 0.4 mg/dL (0.15-1.2) 07/02/22 12:13 Direct Bilirubin 0.20 mg/dL (0.00-0.30) 07/02/22 12:13 AST 17 U/L (0-32) 07/02/22 12:13 ALT 20 U/L (0-33) 07/02/22 12:13 Alkaline Phosphatase 85 U/L (35-105) 07/02/22 12:13 Total Protein 7.0 g/dL (6.6-8.7) 07/02/22 12:13 Albumin 3.7 g/dL (3.5-5.2) 07/02/22 12:13 Globulin 3.3 g/dL (1.3-4.6) 07/02/22 12:13 Lipase 13 U/L (13-60) 07/02/22 12:31 Discharge Plan Discharge Patient Disposition: Home Clinical Impression: Biliary colic symptom, Abdominal pain, Nausea Condition: Stable Prescriptions: No Action (DME) Aeroneb Go Nebulizer Misc See Rx Instructions .Route Rx Instructions: As directed albuterol sulfate 2.5 mg /3 mL (0.083 %) solution for nebulization 1.25 mg inhalation Q6H clindamycin phosphate 1 % solution 1 applic topical DAILY Qty: 60 0RF Rx Instructions: Apply to base of scalp daily clindamycin phosphate 1 % lotion 1 applic topical QAM Qty: 60 6RF Rx Instructions: Apply thin film to affected areas 1-2 times daily albuterol sulfate [ProAir HFA] 90 mcg/actuation HFA aerosol inhaler 2 inh INHALATION Q4H PRN (Reason: shortness of breath or wheezing) Qty: 8.5 0RF Reglan 10 mg tablet 10 mg PO Q6H PRN (Reason: nausea and vomiting) Qty: 20 0RF Discharge Orders: Discharge ED (Routine); Ordered 07/02/22 Ordered By: Zena Morales Referrals: Baljinder Ramsey MD [Primary Care Provider] - Discharge Diet: As Directed Discharge Activity: Resume usual activity Patient Instructions: Biliary Colic (ED), Abdominal Pain (ED) Activity Restrictions/Additional Instructions: Use Zofran as needed every 8 hours for nausea/vomiting. I recommend a bland diet for the next 24 to 48 hours. I would reduce caffeine, nicotine intake, red sauce, lettuce, fatty fried food intake as these foods tend to worsen pain symptoms and difficulty with the gallbladder. I referred you to general surgery for further evaluation of cholelithiasis//gallstones. Return to the ER as needed for new or worsening symptoms, increased pain, inability to hold food or fluids down. Coding Level of Care Code ED Trade Sales Assistant for Chg Fwd Exam Expanded Problem Focused Documented by User: Mor Shepard DO 07/13/22 06:26 HPI - Back Pain/Injury General: Chief Complaint: Back Pain/Injury Stated Complaint: Severe Abd Pains Time Seen by Provider: 07/02/22 10:36 [facility] ED PFSH: Medical History Asthma Surgical History No pertinent past surgical history Social History Smoking and tobacco status: current every day smoker Alcohol intake: never Course Vital Signs: Vital signs: Vital Signs Temperature 98.2 F 07/02/22 10:02 Pulse Rate 50 L 07/02/22 17:26 Respiratory Rate 17 07/02/22 17:26 Blood Pressure 155/78 07/02/22 17:26 Pulse Oximetry 98 07/02/22 17:26 Oxygen Delivery Me thod 07/02/22 17:09 MDM - Back Pain/Injury Medical Decision Making This is a 37-year-old female who has been to the ER 3 times in the past week for similar symptoms of nausea, vomiting, abdominal pain, back pain. As previously mentioned she was minimally cooperative with exam and in HPI questioning. After giving patient some pain medication she did become a bit more cooperative. Morphine was administered and patient seem to rest quietly but then would wake up and continuously asked for pain medication and anti-nausea medication. Patient had not vomited since arriving in triage. Labs were stable with previous lab work-up yesterday. Lipase was normal. Ultrasound of the gallbladder shows cholelithiasis and sludge without any evidence of cholecystitis. I advised patient of results of testing. Patient Complaining of nausea despite medications given today. I consulted with Dr. Shepard and it was recommended to give Versed and Haldol to help with hyperemesis. This was ordered; however, the patient is sedated from previous morphine administration. This order was canceled. I advised her that I would discharge her to home to follow-up with general surgery to discuss outpatient cholecystectomy if they deem appropriate. Patient is very angry and begins to yell at me. She is demanding to be admitted for her nausea. I discussed, at length, with patient that she has not vomited since coming in through triage. I advised her that I would treat her outpatient with medications for nausea. We discussed dietary modifications to help with biliary colic. Patient then started demanding more IV fluid. I advised her that she does not need additional IV fluid at this time. Patient then started demanding something for heartburn. I will provide patient GI cocktail and discharged to home with Zofran as needed. Consult to case management to refer patient for general surgery for cholelithiasis. Advised patient to follow-up with her primary care provider. Return to the ER for new or worsening symptoms. Chart reviewed and patient discussed with midlevel. Agree with assessment and plan. Labs : 07/02/22 11:00 07/02/22 12:13 Radiology Impressions Abdomen Ultrasound 07/02/22 13:28 IMPRESSION: Technically difficult study due to bowel gas. 1. Hepatomegaly with coarse hepatic echotexture. 2. Cholelithiasis. No gallbladder wall thickening or pericholecystic fluid. 3. Normal common bile duct. 4. No hydronephrosis in RIGHT kidney. 5. No ascites. Laboratory Results WBC 11.3 10^3/uL (4.0-10.0) H 07/02/22 11:00 RBC 4.58 10^6/uL (4.1-5.3) 07/02/22 11:00 Hgb 14.2 g/dL (11.5-15.3) 07/02/22 11:00 Hct 42.3 % (37.0-47.0) 07/02/22 11:00 MCV 92.4 fl (81-99) 07/02/22 11:00 MCH 31.0 pg (28.0-34.0) 07/02/22 11:00 MCHC 33.6 g/dL (30.0-36.0) 07/02/22 11:00 RDW 12.6 % (12.1-15.1) 07/02/22 11:00 Plt Count 147 10^3/cmm (130-400) 07/02/22 11:00 MPV 12.9 fL (7.4-10.4) H 07/02/22 11:00 Neut % (Auto) 80.2 % 07/02/22 11:00 Lymph % (Auto) 13.7 % 07/02/22 11:00 [place] % (Auto) 5.3 % 07/02/22 11:00 Eos % (Auto) 0.2 % 07/02/22 11:00 Baso % (Auto) 0.3 % 07/02/22 11:00 Neut # (Auto) 9.06 10^3/uL (1.8-7.7) H 07/02/22 11:00 Lymph # (Auto) 1.5 10^3/uL (0.8-4.8) 07/02/22 11:00 [place] # (Auto) 0.6 10^3/uL (0.2-0.9) 07/02/22 11:00 Eos # (Auto) 0.0 10^3/uL (0.0-0.8) 07/02/22 11:00 Baso # (Auto) 0.0 10^3/uL (0.0-0.1) 07/02/22 11:00 Nucleated RBC % (auto) 0 % 07/02/22 11:00 Nucleated RBCs # 0.0 /100WBC 07/02/22 11:00 Sodium 138 mmol/L (136-145) 07/02/22 12:13 Potassium 3.9 mmol/L (3.5-5.1) 07/02/22 12:13 Chloride 104 mmol/L (98-107) 07/02/22 12:13 Carbon Dioxide 25 mmol/L (22-29) 07/02/22 12:13 Anion Gap 12.9 (5-19) 07/02/22 12:13 BUN 12 mg/dL (6-20) 07/02/22 12:13 Creatinine 0.5 mg/dL (0.5-0.9) 07/02/22 12:13 GFR Calculation 138.8 mL/min (90-130) H 07/02/22 12:13 Glucose 175 mg/dL (65-115) H 07/02/22 12:13 Calculated Osmolality 290 mOsm/kg (285-295) 07/02/22 12:13 Calcium 8.0 mg/dL (8.5-10.5) L 07/02/22 12:13 Total Bilirubin 0.4 mg/dL (0.15-1.2) 07/02/22 12:13 Direct Bilirubin 0.20 mg/dL (0.00-0.30) 07/02/22 12:13 AST 17 U/L (0-32) 07/02/22 12:13 ALT 20 U/L (0-33) 07/02/22 12:13 Alkaline Phosphatase 85 U/L (35-105) 07/02/22 12:13 Total Protein 7.0 g/dL (6.6-8.7) 07/02/22 12:13 Albumin 3.7 g/dL (3.5-5.2) 07/02/22 12:13 Globulin 3.3 g/dL (1.3-4.6) 07/02/22 12:13 Lipase 13 U/L (13-60) 07/02/22 12:31 Discharge Plan Discharge Patient Disposition: Home Clinical Impression: Biliary colic symptom, Abdominal pain, Nausea Condition: Stable Prescriptions: No Action (DME) Aeroneb Go Nebulizer Misc See Rx Instructions .Route Rx Instructions: As directed albuterol sulfate 2.5 mg /3 mL (0.083 %) solution for nebulization 1.25 mg inhalation Q6H clindamycin phosphate 1 % solution 1 applic topical DAILY Qty: 60 0RF Rx Instructions: Apply to base of scalp daily clindamycin phosphate 1 % lotion 1 applic topical QAM Qty: 60 6RF Rx Instructions: Apply thin film to affected areas 1-2 times daily albuterol sulfate [ProAir HFA] 90 mcg/actuation HFA aerosol inhaler 2 inh INHALATION Q4H PRN (Reason: shortness of breath or wheezing) Qty: 8.5 0RF Reglan 10 mg tablet 10 mg PO Q6H PRN (Reason: nausea and vomiting) Qty: 20 0RF Discharge Orders: Discharge ED (Routine); Ordered 07/02/22 Ordered By: Zena Morales Referrals: Baljinder Ramsey MD [Primary Care Provider] - Discharge Diet: As Directed Discharge Activity: Resume usual activity Patient Instructions: Biliary Colic (ED), Abdominal Pain (ED) Activity Restrictions/Additional Instructions: Use Zofran as needed every 8 hours for nausea/vomiting. I recommend a bland diet for the next 24 to 48 hours. I would reduce caffeine, nicotine intake, red sauce, lettuce, fatty fried food intake as these foods tend to worsen pain symptoms and difficulty with the gallbladder. I referred you to general surgery for further evaluation of cholelithiasis//gallstones. Return to the ER as needed for new or worsening symptoms, increased pain, inability to hold food or fluids down. Coding Level of Care Code ED Trade Sales Assistant for [employer] Fwd Exam Expanded Problem Focused
[2022-07-02 11:07] LABS: Basophils % 0.3 %; Eosinophils % 0.2 %; Hematocrit 42.3 % (37.0-47.0); Hemoglobin 14.2 g/dL (11.5-15.3); Lymphocytes # 1.5 10^3/uL (0.8-4.8); Lymphocytes % 13.7 %; Mean Corpuscular HGB Conc 33.6 g/dL (30.0-36.0); Mean Corpuscular Volume 92.4 fl (81-99); Mean Platelet Volume 12.9 fL (7.4-10.4); Monocytes # 0.6 10^3/uL (0.2-0.9); Monocytes % 5.3 %; Neutrophils # 9.06 10^3/uL (1.8-7.7); Neutrophils % 80.2 %; Nucleated Red Blood Cells % 0 %; Platelet Count 147 10^3/cmm (130-400); Red Blood Count 4.58 10^6/uL (4.1-5.3); Red Cell Distribution Width 12.6 % (12.1-15.1); White Blood Count 11.3 10^3/uL (4.0-10.0)
[2022-07-02] MEDS: acetaminophen 500 mg Tablet PO (11:14)
[2022-07-02] MEDS: orphenadrine 30 mg/mL Inj 2 mL 60 MG IVP (11:15)
[2022-07-02] MEDS: lidocaine 5% Patch 1 PATCH TOPICAL (11:15)
[2022-07-02] MEDS: ondansetron 2 mg/ML SDV 2 mL 4 MG IVP ×2 (11:15→14:37)
[2022-07-02] MEDS: sodium chloride 0.9% 1,000 ML 999 ML IV (11:16)
[2022-07-02 12:46] LABS: Anion Gap 12.9 (5-19); Blood Urea Nitrogen 12 mg/dL (6-20); Carbon Dioxide 25 mmol/L (22-29); Chloride 104 mmol/L (98-107); Glomerular Filtration Rate 138.8 mL/min (90-130); Glucose 175 mg/dL (65-115); Osmolality Calculated 290 mOsm/kg (285-295); Potassium 3.9 mmol/L (3.5-5.1); Sodium 138 mmol/L (136-145)
[2022-07-02 12:48] VITALS: RESP 19
[2022-07-02] MEDS: morphine 4 mg/mL SDV 1 mL 2 MG IVP ×2 (12:48→14:37)
[2022-07-02 13:17] LABS: Lipase 13 U/L (13-60)
--- NOTE | 2022-07-02 13:28 | US_ITS ---
WS: [id number] ULTRASOUND ABDOMEN LIMITED CLINICAL INFORMATION: abd pain, N,V COMPARISON: None. FINDINGS: Technically difficult study due to bowel gas. Liver Size: Enlarged Craniocaudal length: 18.1 cm. Echogenicity: Heterogeneous Surface nodularity: None. Mass (size and location): None. Bile ducts Intrahepatic ducts: Normal. Common bile duct diameter: 0.3 cm. Gallbladder Shadowing cholelithiasis Gallstones: Present. Gallbladder sludge: None. Gallbladder wall thickening: None. Pericholecystic fluid: None. Sonographic Hung sign: Absent. Pancreas Normal as visualized. Right kidney: Normal. Hydronephrosis: None. Size: 12.3 cm x 5.5 cm x 4.7 cm. Abdominal aorta and IVC Visualized portions are normal. Ascites: None. US/US abdomen limited [id number] IMPRESSION: Technically difficult study due to bowel gas. 1. Hepatomegaly with coarse hepatic echotexture. 2. Cholelithiasis. No gallbladder wall thickening or pericholecystic fluid. 3. Normal common bile duct. 4. No hydronephrosis in RIGHT kidney. 5. No ascites.
[2022-07-02 13:31] VITALS: BP 138/82; PULSE 53; RESP 18; O2SAT 98
[2022-07-02 14:37] VITALS: RESP 18
[2022-07-02 16:32] LABS: Alanine Aminotransferase 20 U/L (0-33); Albumin Level 3.7 g/dL (3.5-5.2); Alkaline Phosphatase 85 U/L (35-105); Aspartate Amino Transferase 17 U/L (0-32); Globulin 3.3 g/dL (1.3-4.6); Total Bilirubin 0.4 mg/dL (0.15-1.2)
[2022-07-02 17:09] VITALS: BP 155/82; PULSE 50; RESP 17; O2SAT 98
[2022-07-02] MEDS: lidocaine 2% viscous 15 ML, aluminum-mag hydrox-simethicon 30 ML, sucralfate oral liq 1 GM PO (17:23)
[2022-07-02 17:26] VITALS: BP 155/78; PULSE 50; RESP 17; O2SAT 98
== END 2022-07-02 17:28 | disposition home or self-care (01) ==
PROVIDERS: Emergency Medicine; Emergency Provider Nurse Practitioner Family; PCP Family Medicine
DX: R10.9 Unspecified abdominal pain (principal); R11.0 Nausea; F17.210 Nicotine dependence, cigarettes, uncomplicated
CPT/HCPCS: 36415; 76705; 80048; 80076; 83690; 85025; 96361; 96374; 96375; 96376; 99285; J2270; J2360; J2405; J7030

== ENCOUNTER → 2022-09-15 13:36 | Outpatient (BNVA) | payer MEDICAID, SELFPAY | PROVIDERS: PCP Family Medicine; Visit Provider Surgery | DX: K80.20 Calculus of gallbladder without cholecystitis without obstruction (principal); K42.9 Umbilical hernia without obstruction or gangrene | CPT/HCPCS: 99203 ==

== ENCOUNTER 2022-10-12 07:31 | Day surgery (SDC) | payer MEDICAID, SELFPAY ==
[2022-10-09 16:49] VITALS: BMI 36.3
[2022-10-12] VITALS (13 sets, daily range): BP systolic 123–164; BP diastolic 72–96; PULSE 53–82; RESP 16–18; TEMP 36.2–36.6; O2SAT 92–100
[2022-10-12] MEDS: sodium chloride 0.9% 1,000 ML 30 ML IV (08:15)
[2022-10-12 08:19] LABS: OR HCG Qualitative Urine Negative (Negative)
--- NOTE | 2022-10-12 08:36 | W.PM.OPSUD ---
Surgery/Procedure H&P Update DATE OF PROCEDURE: October 12, 2022 DATE H&P PERFORMED: 09/15/22 PREOP DIAGNOSIS: Symptomatic cholelithiasis PLANNED PROCEDURE: Operation Date: 10/12/22 09:35 Proposed Procedures p Laparoscopic Cholecystectomy 61565,K80.20(Not Applicable) - Aydin Mcdaniel DO
--- NOTE | 2022-10-12 09:21 | ANES.PREANE2 ---
Pre-Anesthetic Assessment Height/Weight: Height 1.6 m Weight 92.986 kg Temp Pulse Resp BP Pulse Ox O2 Del Method 97.1 F L 59 L 18 124/72 95 10/12/22 08:01 10/12/22 08:01 10/12/22 08:01 10/12/22 08:01 10/12/22 08:01 10/12/22 08:01 Preop Diagnosis: Symptomatic cholelithiasis Operation Date: 10/12/22 09:35 Proposed Procedures p Laparoscopic Cholecystectomy 54118,K80.20(Not Applicable) - Aydin Mcdaniel DO Familial anesthetic complications: none Was Beta Johann taken within 24 hours: N/A Was Clonidine taken within 24 hours: N/A Last intake: Intake Last Liquid Date 10/11/22 Last Liquid Time 23:45 Last Solid Date 10/11/22 Last Solid Time 15:30 Social Tobacco and No alcohol Exam alert, oriented x 3 and regular rate & rhythm Airway Submandibular: within normal limits Cervical ROM: within normal limits Mallampati: Class II Dentition: chipped Pulmonary Chronic Obstructive Pulmonary Disease Metabolic Morbid Obesity Neuropsych Anxiety Anesthetic Plan ASA status: 3 Anesthesia: General Medications/Allergies Home Medications Medication Instructions Recorded Confirmed Last Taken Type albuterol sulfate 90 mcg/actuation 2 inh inhalation Q4H PRN shortness 07/12/20 10/12/22 10/08/22 Rx aerosol inhaler (ProAir HFA) of breath or wheezing #8.5 grams nebulizers (Aeroneb Go Nebulizer) 12/04/21 09/15/22 Unknown History albuterol sulfate 2.5 mg/3 mL 1.25 mg inhalation Q6H 05/27/22 10/12/22 10/12/22 History (0.083 %) solution for nebulization clindamycin phosphate 1 % topical 1 applic topical DAILY #60 mL 05/27/22 10/12/22 10/05/22 Rx solution Tylenol Ex Str Arthritis Pain 1 tab PO PRN PRN Pain 10/09/22 10/12/22 Unknown History Allergies Allergy/AdvReac Type Severity Reaction Status Date / Time hydrocodone [From Vicodin] Allergy ALGY-Difficulty Verified 10/12/22 07:57 Breathing Current Medications Generic Name Dose Route Start Last Admin Trade Name Freq PRN Reason Stop Dose Admin Sodium Chloride 1,000 mls @ 30 mls/hr 10/12/22 08:00 10/12/22 08:15 Sodium Chloride 0.9% IV 10/13/22 07:59 30 mls/hr .Q24H JORGE L Administration PFSH Anesthesia Medical History (Updated 09/15/22 @ 14:19 by Aydin Mcdaniel DO) Asthma Umbilical hernia Surgical History History of salpingectomy History of tonsillectomy and adenoidectomy Hx of section No pertinent past surgical history Social History Smoking and tobacco status: current every day smoker Alcohol intake: never Female Reproductive History Date of last menstrual period: 07/02/22 Data Anesthesia Cardiac Studies: No Data to Display
[2022-10-12] MEDS: ceFAZolin 2,000 MG in sodium chloride 0.9% (plus) 50 ML 100 MG IV (09:50)
[2022-10-12] MEDS: lidocaine 2% INJ 20 mL INJECTION (10:01)
[2022-10-12] MEDS: fentaNYL 50 mcg/mL INJ 2mL IVP (11:20)
[2022-10-12] MEDS: ipratropium 0.5 mg/2.5 mL Neb INHALATION (11:20)
[2022-10-12] MEDS: ondansetron 2 mg/ML SDV 2 mL 4 MG IVP (11:57)
[2022-10-12] MEDS: oxyCODONE 5 mg IR Tab/Cap PO (12:08)
--- NOTE | 2022-10-12 14:37 | P.OP_ITS ---
Operative Report Date of procedure: October 12, 2022 Pre-op diagnosis: Preop Diagnosis Symptomatic cholelithiasis Post-op diagnosis: same Procedure done: Laparoscopic cholecystectomy Implants: None Specimens removed/disposition: Gallbladder Surgeon: Dr. Aydin Mcdaniel DO Anesthesia: General Estimated blood loss (mL): 5 Complications: None apparent Brief History: This is a very pleasant 37-year-old female with symptomatic cholelithiasis. Laparoscopic cholecystectomy is indicated. The risks and benefits were explained and documented. Procedure: Patient was wheeled into the operative room and placed on the OR table in a supine position. Abdomen was inspected prepped and draped in usual sterile fashion. Time-out was performed and all present were in agreement. A 15 blade scalp was used to make a stab incision in the left upper quadrant and intra- abdominal insufflation was achieved using a Veress needle. After localizing the tissue incisions were made and a 5 millimeter trocar was placed into the umbilicus as well as 2 in the right upper quadrant. A 12 millimeter trocar was placed in the epigastrium. Gallbladder was grasped and elevated. The triangle of Calot was carefully dissected using blunt dissection and electrocautery until the triangle of Calot clearly identified. The cystic duct was clipped proximally and double clipped distally. The duct was then ligated proximally. The cystic artery was doubly clipped and ligated. The gallbladder was then removed from the liver bed using electrocautery. The gallbladder was removed from the abdomen using an Endo-Catch bag through the epigastric incision. The liver bed was inspected and no bleeding was seen. The abdomen was irrigated and suctioned. All ports removed. Skin was washed and dried. Incisions were closed with 3-0 and 4-O Vicryl in a subcuticular interrupted fashion. Skin glue was applied. Patient tolerated the procedure well.
--- NOTE | 2022-10-12 14:49 | ANE.PACU2 ---
Inpatient post-anesthesia follow up: Airway intact: Yes Vital signs: Temperature 97.5 F Pulse Rate 70 Respiratory Rate 16 Blood Pressure 135/94 Pulse Oximetry 95 Oxygen Delivery Me thod Room Air Oxygen Flow Rate 6 Fraction of Inspir ed Oxygen Hydration adequate: Yes Nausea and vomiting: No Pain level: 2 Mental status: Baseline
== END 2022-10-12 12:33 | disposition home or self-care (01) ==
PROVIDERS: Anesthesiology; PCP Family Medicine; Visit Provider Surgery
PROC: 0FT44ZZ Resection of Gallbladder, Percutaneous Endoscopic Approach (ICD-10-PCS; CPT 47562; principal; 2022-10-12 09:25)
DX: K80.10 Calculus of gallbladder with chronic cholecystitis without obstruction (principal); J44.9 Chronic obstructive pulmonary disease, unspecified; E66.01 Morbid (severe) obesity due to excess calories; Z68.36 Body mass index [BMI] 36.0-36.9, adult; F41.9 Anxiety disorder, unspecified; F17.210 Nicotine dependence, cigarettes, uncomplicated
CPT/HCPCS: 47562; 81025; 84703; 88304; J0690; J1100; J1200; J2250; J2405; J2704; J2710; J3010; J3490; J7030; J7644

== ENCOUNTER 2022-10-15 21:04 | Emergency (ER) | payer MEDICAID, SELFPAY ==
[2022-10-15 21:05] VITALS: BP 133/99; PULSE 85; RESP 18; TEMP 36.8; O2SAT 96; BMI 34.5
--- NOTE | 2022-10-15 21:09 | CTR_ITS ---
PROCEDURE INFORMATION: Exam: CT Abdomen And Pelvis With Contrast Exam date and time: 10/15/2022 9:31 PM Age: 37 years old Clinical indication: Abdominal pain; Localized; Right upper quadrant (ruq); Prior surgery; Surgery date: 3-7 days post-operative; Patient HX: C/O worsening ruq pain with nausea post gb surgery on 10/12/2022. ; Additional info: Abd pain TECHNIQUE: Imaging protocol: Computed tomography of the abdomen and pelvis with contrast. Radiation optimization: All CT scans at this facility use at least one of these dose optimization techniques: automated exposure control; mA and/or kV adjustment per patient size (includes targeted exams where dose is matched to clinical indication); or iterative reconstruction. Contrast material: OMNI 350; Contrast volume: 100 ml; Contrast route: INTRAVENOUS (IV); COMPARISON: CT abdomen pelvis w con* [id number] 07/01/2022 12:25 PM RADIATION DOSE METRICS: Total DLP (mGy-cm): 804.84 FINDINGS: Liver: Hepatic steatosis. Gallbladder and bile ducts: Cholecystectomy. Small amount of fluid in the gallbladder fossa, may be postsurgical in nature without findings to suggest an abscess. Pancreas: Normal. No ductal dilation. Spleen: Normal. No splenomegaly. Adrenal glands: Normal. No mass. Kidneys and ureters: Normal. No hydronephrosis. Stomach and bowel: Diverticulosis without diverticulitis. Appendix: No evidence of appendicitis. Intraperitoneal space: Unremarkable. No free air. No significant fluid collection. Vasculature: Unremarkable. No abdominal aortic aneurysm. Lymph nodes: Unremarkable. No enlarged lymph nodes. Urinary bladder: Unremarkable as visualized. Reproductive: Small amount of fluid in the uterine cavity, likely related to menstrual status. Bones/joints: Unremarkable. No acute fracture. Soft tissues: Postsurgical changes in the umbilical region of the abdominal wall. CT/CT abdomen pelvis w con* [id number] IMPRESSION: 1. Cholecystectomy. 2. Small amount of fluid in the gallbladder fossa, may be postsurgical in nature without findings to suggest an abscess. 3. Postsurgical changes in the umbilical region of the abdominal wall. 4. Small amount of fluid in the uterine cavity, likely related to menstrual status. 5. Diverticulosis without diverticulitis. 6. Hepatic steatosis.
--- NOTE | 2022-10-15 21:10 | W.ED.ABDPA2 ---
HPI - Abdominal Pain General: Chief Complaint: Abdominal Pain Stated Complaint: ABD PAIN Time Seen by Provider: 10/15/22 21:07 Source: patient and EMS Mode of arrival: EMS Limitations: no limitations History of Present Illness: 37-year-old female who had a cholecystectomy on Wednesday she states that since then she has been having increased abdominal pain states that today she started having vomiting with multiple episodes of worsening pain states pain is currently an 8 out of 10 denies any fever denies any constipation. Denies any dysuria. Associated Symptoms: Reports nausea and vomiting; Denies chills, dysuria and fever(s) Related Data: Date of Last Menstrual Period: 07/02/22 Review of Systems Const: Denies: fever(s), chills, body aches or change in appetite Eyes: Denies: blurry vision or eye discomfort ENMT: Denies: throat pain or dental pain Card: Denies: chest pain Resp: Denies: dyspnea GI: Reports: abdominal pain, nausea and vomiting : Denies: dysuria Musc: Denies: neck pain or back pain Skin/Breast: Denies: rash Neuro: Denies: headache(s) Psych: Denies: depression Man/Lymph: Denies: easy bruising All/Imm: Denies: urticaria PFSH ED PFSH: Medical History Asthma Umbilical hernia Surgical History History of salpingectomy History of tonsillectomy and adenoidectomy Hx of section No pertinent past surgical history Social History Smoking and tobacco status: current every day smoker Alcohol intake: never Female Reproductive History: Date of last menstrual period: 07/02/22 Physical Exam Const: COMMON NORMALS: no acute distress, patient oriented x3 and healthy appearing HENMT: COMMON NORMALS: normocephalic and atraumatic HEAD & SCALP: normocephalic and atraumatic Eye: COMMON NORMALS: Equal, round and reactive pupils present and EOMs intact bilaterally PUPIL: Yes Equal, round and reactive pupils present Neck/C-Spine: COMMON NORMALS: full ROM and supple Chest: COMMONS NORMALS: normal inspection of the chest and normal palpation of entire chest wall Resp: COMMON NORMALS: normal respiratory effort, No retractions, No use of accessory muscles and clear to auscultation bilaterally AUSCULTATION: clear to auscultation bilaterally Cardio: COMMON NORMALS: regular rate, regular rhythm and No murmurs present (Cardio) RATE: regular rate RHYTHM: regular rhythm GI: COMMON NORMALS: Normal to inspection, nondistended, normoactive bowel sounds present, Soft to palpation and no masses PALPATION: Yes Soft to palpation OTHER: Diffuse tenderness Extremity: COMMON NORMALS: normal to inspection and full ROM Neuro: COMMON NORMALS: patient oriented x3, moves all extremities and no focal motor deficits Psych: COMMON NORMALS: mental status grossly normal, Normal thought process present and cooperative THOUGHT PROCESS: Normal thought process present Skin: COMMON NORMALS: no rashes or lesions noted and no wounds GENERAL SKIN EXAM: no rashes or lesions noted Course Vital Signs: Vital signs: Vital Signs Temperature 98.3 F 10/15/22 21:05 Pulse Rate 85 10/15/22 21:05 Respiratory Rate 20 H 10/15/22 21:30 Blood Pressure 133/99 10/15/22 21:05 Pulse Oximetry 96 10/15/22 21:05 MDM - Abdominal Pain Medical Decision Making Patient presents abdominal pain is likely postop pain she feels much improved here blood work here is all normal CT scan is normal she is stable for discharge she is to follow-up with PCP and return if worsening she understands agrees to plan. Lab Data 10/15/22 21:15 10/15/22 21:15 Labs/Radiology: Radiology Impressions Abdomen/Pelvis CT 10/15/22 21:09 IMPRESSION: 1. Cholecystectomy. 2. Small amount of fluid in the gallbladder fossa, may be postsurgical in nature without findings to suggest an abscess. 3. Postsurgical changes in the umbilical region of the abdominal wall. 4. Small amount of fluid in the uterine cavity, likely related to menstrual status. 5. Diverticulosis without diverticulitis. 6. Hepatic steatosis. Laboratory Results WBC 13.0 10^3/uL (4.0-10.0) H 10/15/22 21:15 RBC 5.00 10^6/uL (4.1-5.3) 10/15/22 21:15 Hgb 15.4 g/dL (11.5-15.3) H 10/15/22 21:15 Hct 45.1 % (37.0-47.0) 10/15/22 21:15 MCV 90.2 fl (81-99) 10/15/22 21:15 MCH 30.8 pg (28.0-34.0) 10/15/22 21:15 MCHC 34.1 g/dL (30.0-36.0) 10/15/22 21:15 RDW 12.0 % (12.1-15.1) L 10/15/22 21:15 Plt Count 144 10^3/cmm (130-400) 10/15/22 21:15 MPV 12.7 fL (7.4-10.4) H 10/15/22 21:15 Neut % (Auto) 82.6 % 10/15/22 21:15 Lymph % (Auto) 11.1 % 10/15/22 21:15 [place] % (Auto) 5.5 % 10/15/22 21:15 Eos % (Auto) 0.3 % 10/15/22 21:15 Baso % (Auto) 0.2 % 10/15/22 21:15 Neut # (Auto) 10.75 10^3/uL (1.8-7.7) H 10/15/22 21:15 Lymph # (Auto) 1.4 10^3/uL (0.8-4.8) 10/15/22 21:15 [place] # (Auto) 0.7 10^3/uL (0.2-0.9) 10/15/22 21:15 Eos # (Auto) 0.0 10^3/uL (0.0-0.8) 10/15/22 21:15 Baso # (Auto) 0.0 10^3/uL (0.0-0.1) 10/15/22 21:15 Nucleated RBC % (auto) 0 % 10/15/22 21:15 Nucleated RBCs # 0.0 /100WBC 10/15/22 21:15 Sodium 138 mmol/L (136-145) 10/15/22 21:15 Potassium 4.3 mmol/L (3.5-5.1) 10/15/22 21:15 Chloride 102 mmol/L (98-107) 10/15/22 21:15 Carbon Dioxide 23 mmol/L (22-29) 10/15/22 21:15 Anion Gap 17.3 (5-19) 10/15/22 21:15 BUN 8 mg/dL (6-20) 10/15/22 21:15 Creatinine 0.5 mg/dL (0.5-0.9) 10/15/22 21:15 GFR Calculation 138.8 mL/min (90-130) H 10/15/22 21:15 Glucose 189 mg/dL (65-115) H 10/15/22 21:15 Calculated Osmolality 289 mOsm/kg (285-295) 10/15/22 21:15 Calcium 8.9 mg/dL (8.5-10.5) 10/15/22 21:15 Total Bilirubin 0.6 mg/dL (0.15-1.2) 10/15/22 21:15 AST 13 U/L (0-32) 10/15/22 21:15 ALT 22 U/L (0-33) 10/15/22 21:15 Alkaline Phosphatase 109 U/L (35-105) H 10/15/22 21:15 Total Protein 7.6 g/dL (6.6-8.7) 10/15/22 21:15 Albumin 4.1 g/dL (3.5-5.2) 10/15/22 21:15 Globulin 3.5 g/dL (1.3-4.6) 10/15/22 21:15 Lipase 13 U/L (13-60) 10/15/22 21:15 HCG, Qual Negative (Negative) 10/15/22 21:15 Urine Color Colorless (Yellow) 10/15/22 22:41 Urine Appearance Clear (CLEAR) 10/15/22 22:41 Urine pH 7 (5-7) 10/15/22 22:41 Ur Specific [place] 1.010 (1.005-1.030) 10/15/22 22:41 Urine Protein Neg (Negative) 10/15/22 22:41 Urine Glucose (UA) Norm (Normal) 10/15/22 22:41 Urine Ketones 1+ (Negative) H 10/15/22 22:41 Urine Blood Neg (Negative) 10/15/22 22:41 Urine Nitrate Negative (Negative) 10/15/22 22:41 Urine Bilirubin Neg (Negative) 10/15/22 22:41 Urine Urobilinogen Norm mg/dL (Negative) 10/15/22 22:41 Ur Leukocyte Esterase Negative (Negative) 10/15/22 22:41 Discharge Plan Discharge Patient Disposition: Home Clinical Impression: Abdominal pain Condition: Stable Prescriptions: New ondansetron 4 mg tablet,disintegrating 4 mg PO Q6H PRN (Reason: nausea and vomiting) Qty: 14 0RF No Action (DME) Aeroneb Go Nebulizer Misc See Rx Instructions .Route Rx Instructions: As directed albuterol sulfate 2.5 mg /3 mL (0.083 %) solution for nebulization 1.25 mg inhalation Q6H clindamycin phosphate 1 % solution 1 applic topical DAILY Qty: 60 0RF Rx Instructions: Apply to base of scalp daily albuterol sulfate [ProAir HFA] 90 mcg/actuation HFA aerosol inhaler 2 inh INHALATION Q4H PRN (Reason: shortness of breath or wheezing) Qty: 8.5 0RF Tylenol Ex Str Arthritis Pain 1 tab PO PRN PRN (Reason: Pain) oxycodone 5 mg tablet 5 mg PO Q6H PRN (Reason: pain) Qty: 20 0RF DOK 100 mg capsule 100 mg PO BID Qty: 20 0RF Discharge Orders: Discharge ED (Routine); Ordered 10/15/22 Ordered By: Waldo Gama Referrals: Baljinder Ramsey MD [Primary Care Provider] - Discharge Diet: Advance as tolerated Discharge Activity: Resume usual activity Patient Instructions: Abdominal Pain (ED) Coding Level of Care Code ED Gamma Ray Operator for Chg Fwd Exam Comprehensive
[2022-10-15 21:25] LABS: Basophils % 0.2 %; Eosinophils % 0.3 %; Hematocrit 45.1 % (37.0-47.0); Hemoglobin 15.4 g/dL (11.5-15.3); Lymphocytes # 1.4 10^3/uL (0.8-4.8); Lymphocytes % 11.1 %; Mean Corpuscular HGB Conc 34.1 g/dL (30.0-36.0); Mean Corpuscular Hemoglobin 30.8 pg (28.0-34.0); Mean Corpuscular Volume 90.2 fl (81-99); Mean Platelet Volume 12.7 fL (7.4-10.4); Monocytes # 0.7 10^3/uL (0.2-0.9); Monocytes % 5.5 %; Neutrophils # 10.75 10^3/uL (1.8-7.7); Neutrophils % 82.6 %; Nucleated Red Blood Cells % 0 %; Platelet Count 144 10^3/cmm (130-400)
[2022-10-15 21:30] VITALS: RESP 20
[2022-10-15] MEDS: HYDROmorphone 1 mg/mL INJ 1 mL IVP (21:30)
[2022-10-15] MEDS: ondansetron 2 mg/ML SDV 2 mL 4 MG IVP (21:30)
[2022-10-15] MEDS: iohexol 350 mg/mL 500 mL Btl (per mL) IV (21:33)
[2022-10-15 21:37] LABS: HCG, Serum Qual Negative (Negative)
[2022-10-15 21:43] LABS: Alanine Aminotransferase 22 U/L (0-33); Albumin Level 4.1 g/dL (3.5-5.2); Alkaline Phosphatase 109 U/L (35-105); Anion Gap 17.3 (5-19); Aspartate Amino Transferase 13 U/L (0-32); Blood Urea Nitrogen 8 mg/dL (6-20); Calcium 8.9 mg/dL (8.5-10.5); Carbon Dioxide 23 mmol/L (22-29); Chloride 102 mmol/L (98-107); Globulin 3.5 g/dL (1.3-4.6); Glomerular Filtration Rate 138.8 mL/min (90-130); Glucose 189 mg/dL (65-115); Lipase 13 U/L (13-60); Osmolality Calculated 289 mOsm/kg (285-295); Potassium 4.3 mmol/L (3.5-5.1); Sodium 138 mmol/L (136-145); Total Bilirubin 0.6 mg/dL (0.15-1.2); Total Protein 7.6 g/dL (6.6-8.7)
[2022-10-15] MEDS: sodium chloride 0.9% 1,000 ML 999 ML IV (21:43)
[2022-10-15 22:00] VITALS: BP 135/89; PULSE 66; RESP 18; O2SAT 94
[2022-10-15 22:54] LABS: Add Urine Microscopic? NO; Charge for UA Resulting for Rev
[2022-10-15 23:20] LABS: Bilirubin Urine Neg (Negative); Blood Urine Neg (Negative); Glucose Urine UA Norm (Normal); Ketones Urine 1+ (Negative); Leukocyte Esterase Urine Negative (Negative); Nitrate Urine Negative (Negative); Protein Urine Neg (Negative); Urine Appearance Clear (CLEAR); Urine Color Colorless (Yellow); Urobilinogen Urine Norm (Negative); pH Urine 7 (5-7)
[2022-10-15 23:37] VITALS: BP 131/87; PULSE 72; RESP 16; O2SAT 94
== END 2022-10-15 23:37 | disposition home or self-care (01) ==
PROVIDERS: Emergency Provider Emergency Medicine; PCP Family Medicine
DX: R10.9 Unspecified abdominal pain (principal); F17.210 Nicotine dependence, cigarettes, uncomplicated
CPT/HCPCS: 74177; 80053; 81003; 83690; 84703; 85025; 96361; 96374; 96375; 99285; J1170; J2405; J7030; Q9967

== ENCOUNTER → 2022-10-30 09:13 | Outpatient (BNVA) | payer MEDICAID, SELFPAY | PROVIDERS: PCP Family Medicine; Visit Provider Surgery | DX: Z90.49 Acquired absence of other specified parts of digestive tract (principal); K21.9 Gastro-esophageal reflux disease without esophagitis; Z98.890 Other specified postprocedural states | CPT/HCPCS: 99213 ==

== ENCOUNTER → 2022-12-25 15:33 | Outpatient (BNVA) | payer MEDICAID, SELFPAY | PROVIDERS: PCP Family Medicine; Visit Provider Surgery | DX: K21.9 Gastro-esophageal reflux disease without esophagitis (principal) | CPT/HCPCS: 99213 ==

== ENCOUNTER 2023-01-03 22:26 | Emergency (ER) | payer MEDICAID, SELFPAY ==
[2023-01-03 22:33] VITALS: BP 122/80; PULSE 110; RESP 18; TEMP 37.9; O2SAT 93
[2023-01-03 23:23] LABS: HCG Qualitative Urine. Negative (Negative)
[2023-01-03 23:36] LABS: Basophils % 0.2 %; Eosinophils # 0.1 10^3/uL (0.0-0.8); Eosinophils % 0.6 %; Hematocrit 43.4 % (37.0-47.0); Hemoglobin 15.1 g/dL (11.5-15.3); Lymphocytes # 0.9 10^3/uL (0.8-4.8); Lymphocytes % 10.5 %; Mean Corpuscular HGB Conc 34.8 g/dL (30.0-36.0); Mean Corpuscular Volume 89.1 fl (81-99); Mean Platelet Volume 11.7 fL (7.4-10.4); Monocytes # 0.7 10^3/uL (0.2-0.9); Monocytes % 7.8 %; Neutrophils # 7.15 10^3/uL (1.8-7.7); Neutrophils % 80.7 %; Nucleated Red Blood Cells % 0 %; Platelet Count 141 10^3/cmm (130-400); Red Blood Count 4.87 10^6/uL (4.1-5.3); White Blood Count 8.9 10^3/uL (4.0-10.0)
[2023-01-03 23:37] LABS: Add Urine Microscopic? NO; Charge for UA Resulting for Rev
[2023-01-03 23:54] LABS: Bilirubin Urine Neg (Negative); Blood Urine Neg (Negative); Glucose Urine UA Norm (Normal); Ketones Urine Negative (Negative); Leukocyte Esterase Urine Negative (Negative); Nitrate Urine Negative (Negative); Protein Urine Neg (Negative); Specific Gravity, Urine 1.005 (1.005-1.030); Urine Appearance Clear (CLEAR); Urine Color Yellow (Yellow); Urobilinogen Urine Norm (Negative); pH Urine 7 (5-7)
[2023-01-03 23:59] LABS: Alanine Aminotransferase 17 U/L (0-33); Alkaline Phosphatase 98 U/L (35-105); Anion Gap 16.7 (5-19); Aspartate Amino Transferase 18 U/L (0-32); Blood Urea Nitrogen 8 mg/dL (6-20); Calcium 8.9 mg/dL (8.5-10.5); Carbon Dioxide 22 mmol/L (22-29); Chloride 100 mmol/L (98-107); Globulin 3.9 g/dL (1.3-4.6); Glomerular Filtration Rate 94.2 mL/min (90-130); Glucose 163 mg/dL (65-115); Osmolality Calculated 282 mOsm/kg (285-295); Potassium 3.7 mmol/L (3.5-5.1); Sodium 135 mmol/L (136-145); Total Bilirubin 0.5 mg/dL (0.15-1.2); Total Protein 7.9 g/dL (6.6-8.7)
--- NOTE | 2023-01-04 00:38 | W.ED.DIZZY ---
HPI - Dizziness General: Chief Complaint: Dizziness Stated Complaint: Dizzy\Fever Time Seen by Provider: 01/03/23 23:26 History of Present Illness: HPI Narrative: 37-year-old female comes in today with complaints of cough starting 4 days ago and fever and sore throat starting today. Patient appears nontoxic. Patient has a history of asthma. Patient reports some sinus pressure and pain. Associated symptoms: Reports headache(s); Denies chest pain or vomiting Review of Systems Const: Reports: fever(s) ENMT: Reports: throat pain and sinus pain Card: Denies: chest pain Resp: Reports: dyspnea and non-productive cough GI: Denies: vomiting : Denies: difficulty voiding Skin/Breast: Denies: rash Neuro: Reports: headache(s) PFSH ED PFSH: Medical History Asthma GERD (gastroesophageal reflux disease) Symptomatic cholelithiasis Umbilical hernia Surgical History History of salpingectomy History of tonsillectomy and adenoidectomy Hx laparoscopic cholecystectomy Hx of section No pertinent past surgical history Social History Smoking and tobacco status: current every day smoker Alcohol intake: never Physical Exam Const: COMMON NORMALS: alert HENMT: COMMON NORMALS: normocephalic, TM's normal bilaterally and Normal external nose present HEAD & SCALP: normocephalic FACE & SINUS: sinus tenderness NOSE: Normal external nose present TYMPANIC MEMBRANE: TM's normal bilaterally MOUTH: Normal oral and palatal mucosa present Neck/C-Spine: COMMON NORMALS: full ROM Resp: COMMON NORMALS: normal respiratory effort AUSCULTATION: wheezes Cardio: COMMON NORMALS: regular rate RATE: regular rate GI: COMMON NORMALS: Soft to palpation PALPATION: Yes Soft to palpation Extremity: COMMON NORMALS: normal to inspection Neuro: SENSORIUM/ORIENTATION: Yes alert Skin: COMMON NORMALS: turgor normal GENERAL SKIN EXAM: turgor normal Course Vital Signs: Vital signs: Vital Signs Temperature 100.2 F H 01/03/23 22:33 Pulse Rate 100 01/04/23 01:03 Respiratory Rate 16 01/04/23 01:03 Blood Pressure 124/70 01/04/23 01:03 Pulse Oximetry 93 04/10/23 01:03 Oxygen Delivery Me thod 01/04/23 01:03 MDM - Dizziness Medical Decision Making 37-year-old female comes in today for illness for the last 4 days. Patient reports fever and throat pain starting today. On exam respirations were even lungs with inspiratory wheezes. Abdomen soft nontender. Vital signs were normal except for some mild elevation in pulse at 110, and a temperature of 100.2. Differential diagnosis includes viral syndrome, upper respiratory infection, pneumonia. Flu and COVID test were negative. CBC and CMP were unremarkable. Urinalysis was clean. Chest x-ray was unremarkable. Believe patient probably has rhinosinusitis with some exacerbation of her asthma. We will go ahead and treat with some antibiotics due to her complaints of sinus pain and worsening symptoms over the last 4 days. I encourage fluids and rest and follow-up with primary care. Patient reported understanding and agreed to plan. Lab Data 01/03/23 23:30 01/03/23 23:30 Radiology Impressions Chest X-Ray 01/04/23 00:44 IMPRESSION: No acute findings. Laboratory Results WBC 8.9 10^3/uL (4.0-10.0) 01/03/23 23: RBC 4.87 10^6/uL (4.1-5.3) 01/03/23: Hgb 15.1 g/dL (11.5-15.3) 01/03/23: Hct 43.4 % (37.0-47.0) 01/03/23: MCV 89.1 fl (81-99) 01/03/23: MCH 31.0 pg (28.0-34.0) 01/03/23: MCHC 34.8 g/dL (30.0-36.0) 01/03/23 23: RDW 13.0 % (12.1-15.1) 01/03/23: Plt Count 141 10^3/cmm (130-400) 01/03/23 23: MPV 11.7 fL (7.4-10.4) H 01/03/23 23: Neut % (Auto) 80.7 % 01/03/23: Lymph % (Auto) 10.5 % 04/09/23 23:30 [place] % (Auto) 7.8 % 01/03/23 23:30 Eos % (Auto) 0.6 % 01/03/23 23: Baso % (Auto) 0.2 % 01/03/23 23: Neut # (Auto) 7.15 10^3/uL (1.8-7.7) 01/03/23 23: Lymph # (Auto) 0.9 10^3/uL (0.8-4.8) 01/03/23 23: [place] # (Auto) 0.7 10^3/uL (0.2-0.9) 01/03/23 23:30 Eos # (Auto) 0.1 10^3/uL (0.0-0.8) 01/03/23: Baso # (Auto) 0.0 10^3/uL (0.0-0.1) 01/03/23 23: Nucleated RBC % (auto) 0 % 01/03/23: Nucleated RBCs # 0.0 /100WBC 01/03/23 23: Sodium 135 mmol/L (136-145) L 01/03/23: Potassium 3.7 mmol/L (3.5-5.1) 01/03/23: Chloride 100 mmol/L (98-107) 01/03/23: Carbon Dioxide 22 mmol/L (22-29) 01/03/23: Anion Gap 16.7 (5-19) 01/03/23: BUN 8 mg/dL (6-20) 01/03/23: Creatinine 0.7 mg/dL (0.5-0.9) 01/03/23 23: GFR Calculation 94.2 mL/min (90-130) 01/03/23: Glucose 163 mg/dL (65-115) H 01/03/23: Calculated Osmolality 282 mOsm/kg (285-295) L 01/03/23: Calcium 8.9 mg/dL (8.5-10.5) 01/03/23 23: Total Bilirubin 0.5 mg/dL (0.15-1.2) 01/03/23: AST 18 U/L (0-32) 01/03/23 23:30 ALT 17 U/L (0-33) 01/03/23 23:30 Alkaline Phosphatase 98 U/L (35-105) 01/03/23 23:30 Total Protein 7.9 g/dL (6.6-8.7) 01/03/23 23:30 Albumin 4.0 g/dL (3.5-5.2) 01/03/23 23:30 Globulin 3.9 g/dL (1.3-4.6) 01/03/23 23:30 HCG, Qual Negative (Negative) 01/03/23 22:41 Urine Color Yellow (Yellow) 01/03/23 22:41 Urine Appearance Clear (CLEAR) 01/03/23 22:41 Urine pH 7 (5-7) 01/03/23 22:41 Ur Specific [place] 1.005 (1.005-1.030) 01/03/23 22:41 Urine Protein Neg (Negative) 01/03/23 22:41 Urine Glucose (UA) Norm (Normal) 01/03/23 22:41 Urine Ketones Negative (Negative) 01/03/23 22:41 Urine Blood Neg (Negative) 01/03/23 22:41 Urine Nitrate Negative (Negative) 01/03/23 22:41 Urine Bilirubin Neg (Negative) 01/03/23 22:41 Urine Urobilinogen Norm mg/dL (Negative) 01/03/23 22:41 Ur Leukocyte Esterase Negative (Negative) 01/03/23 22:41 Influenza Type A Ag negative (Negative) 01/04/23 00:34 Influenza Type B Ag negative (Negative) 01/04/23 00:34 SARS-CoV-2 Ag (Rapid) negative (Negative) 01/04/23 00:34 Discharge Plan Discharge Patient Disposition: Home Clinical Impression: Acute rhinosinusitis, Acute asthmatic bronchitis Condition: Stable Prescriptions: New amoxicillin-pot clavulanate 875-125 mg tablet 1 tab PO BID Qty: 14 0RF prednisone 20 mg tablet 20 mg PO BID 5 Days Qty: 10 0RF No Action (DME) Aeroneb Go Nebulizer Misc See Rx Instructions .Route Rx Instructions: As directed albuterol sulfate 2.5 mg /3 mL (0.083 %) solution for nebulization 1.25 mg inhalation Q6H clindamycin phosphate 1 % solution 1 applic topical DAILY Qty: 60 0RF Rx Instructions: Apply to base of scalp daily albuterol sulfate [ProAir HFA] 90 mcg/actuation HFA aerosol inhaler 2 inh INHALATION Q4H PRN (Reason: shortness of breath or wheezing) Qty: 8.5 0RF Discharge Orders: Discharge ED (Routine); Ordered 01/04/23 Ordered By: Kevin Hargrove Referrals: Baljinder Ramsey MD [Primary Care Provider] - Discharge Diet: Usual diet Discharge Activity: Increase activity as tolerated Patient Instructions: Acute Bronchitis (ED) Activity Restrictions/Additional Instructions: Drink plenty of fluids. Use acetaminophen and ibuprofen for pain and fever. Activity as tolerated. Continue with albuterol as needed for cough and wheezing. Take antibiotics and steroids as directed. Follow-up with primary care for further instructions. Coding Level of Care Code ED Track Repairer Helper for Ada Pedersen
--- NOTE | 2023-01-04 00:44 | XRR_ITS ---
PROCEDURE INFORMATION: Exam: XR Chest Exam date and time: 01/04/2023 12:48 AM Age: 37 years old Clinical indication: Cough and fever; Additional info: Cough, fever TECHNIQUE: Imaging protocol: Radiologic exam of the chest. Views: 1 view. COMPARISON: CR XR chest 1V portable [id number] 03/09/2022 7:05 PM FINDINGS: Lungs: Unremarkable. No consolidation. Pleural spaces: Unremarkable. No pleural effusion. No pneumothorax. Heart/Mediastinum: Unremarkable. No cardiomegaly. Bones/joints: Unremarkable. XR/XR chest 1V portable [id number] IMPRESSION: No acute findings.
[2023-01-04 00:55] LABS: Influenza A by IFA negative (Negative); Influenza B by IFA negative (Negative)
[2023-01-04 00:56] LABS: SARS Covid-2 Antigen negative (Negative)
[2023-01-04] MEDS: ibuprofen 800 mg tablet PO (01:00)
[2023-01-04 01:03] VITALS: BP 124/70; PULSE 100; RESP 16; O2SAT 93
[2023-01-04] MEDS: amoxicillin-clav 875-125 mg Tablet 1 TAB PO (01:35)
[2023-01-04] MEDS: dexamethasone 10 mg/mL INJ IM (01:36)
[2023-01-04 01:45] VITALS: BP 108/58; PULSE 107; RESP 20; O2SAT 95
== END 2023-01-04 01:47 | disposition home or self-care (01) ==
PROVIDERS: Emergency Provider Nurse Practitioner Family; PCP Family Medicine
DX: J01.90 Acute sinusitis, unspecified (principal); J45.909 Unspecified asthma, uncomplicated; Z20.822 Contact with and (suspected) exposure to COVID-19; F17.210 Nicotine dependence, cigarettes, uncomplicated
CPT/HCPCS: 36415; 71045; 80053; 81003; 81025; 85025; 87426; 87804; 96372; 99284; J1100

== ENCOUNTER 2023-01-15 06:10 | Day surgery (SDC) | payer MEDICAID, SELFPAY ==
[2023-01-13 10:00] VITALS: BMI 34.3
[2023-01-15 06:29] VITALS: BMI 34.3
[2023-01-15 06:33] VITALS: BP 128/89; PULSE 86; RESP 18; TEMP 36.1; O2SAT 96
[2023-01-15] MEDS: sodium chloride 0.9% 1,000 ML 30 ML IV ×2 (06:38→07:54)
[2023-01-15 06:44] LABS: OR HCG Qualitative Urine Negative (Negative)
--- NOTE | 2023-01-15 07:22 | ANES.PREANE2 ---
Pre-Anesthetic Assessment Height/Weight: Height 1.63 m Weight 90.718 kg Temp Pulse Resp BP Pulse Ox O2 Del Method 97.0 F L 86 18 128/89 96 Room Air 01/15/23 06:33 01/15/23 06:33 01/15/23 06:33 01/15/23 06:33 01/15/23 06:33 01/15/23 06:33 Preop Diagnosis: Symptomatic cholelithiasis Operation Date: 01/15/23 07:45 Proposed Procedures p EGD 05829,K21.9(Not Applicable) - Aydin Mcdaniel DO Familial anesthetic complications: None Was Beta Johann taken within 24 hours: N/A Was Clonidine taken within 24 hours: N/A Last intake: Intake Last Liquid Date 01/14/23 Last Liquid Time 22:00 Last Solid Date 01/14/23 Last Solid Time 22:00 Social Tobacco and No alcohol Exam alert, oriented x 3, clear to auscultation bilaterally and regular rate & rhythm Airway Mallampati: Class II Dentition: chipped Pulmonary Chronic Obstructive Pulmonary Disease GI Gastroesophageal Reflux Disease Anesthetic Plan ASA status: 3 Anesthesia: MAC Risk of > 500 ml blood loss (7ml/kg in children): No Medications/Allergies Home Medications Medication Instructions Recorded Confirmed Last Taken Type albuterol sulfate 90 mcg/actuation 2 inh inhalation Q4H PRN shortness 07/12/20 01/13/23 10/08/22 Rx aerosol inhaler (ProAir HFA) of breath or wheezing #8.5 grams nebulizers (Aeroneb Go Nebulizer) 12/04/21 12/23/22 Unknown History albuterol sulfate 2.5 mg/3 mL 1.25 mg inhalation Q6H 05/27/22 01/13/23 01/15/23 History (0.083 %) solution for nebulization clindamycin phosphate 1 % topical 1 applic topical DAILY #60 mL 05/27/22 01/13/23 10/05/22 Rx solution salmeterol 50 mcg/dose blister 1 inh inhalation BID 01/13/23 01/13/23 01/13/23 History powder for inhalation (Serevent Diskus) Allergies Allergy/AdvReac Type Severity Reaction Status Date / Time hydrocodone [From Vicodin] Allergy ALGY-Difficulty Verified 01/13/23 09:54 Breathing Current Medications Generic Name Dose Route Start Last Admin Trade Name Freq PRN Reason Stop Dose Admin Sodium Chloride 1,000 mls @ 30 mls/hr 01/15/23 06:30 01/15/23 06:38 Sodium Chloride 0.9% IV 01/16/23 06:29 30 mls/hr .Q24H JORGE L Administration PFSH Anesthesia Medical History Asthma GERD (gastroesophageal reflux disease) Symptomatic cholelithiasis Umbilical hernia Surgical History History of salpingectomy History of tonsillectomy and adenoidectomy Hx laparoscopic cholecystectomy Hx of section No pertinent past surgical history Social History Smoking and tobacco status: current every day smoker Alcohol intake: never Substance/Drug Use: never Female Reproductive History Date of last menstrual period: 12/09/22 Data Anesthesia Cardiac Studies: No Data to Display
--- NOTE | 2023-01-15 07:46 | W.PM.OPSUD ---
Surgery/Procedure H&P Update DATE OF PROCEDURE: January 15, 2023 DATE H&P PERFORMED: 12/25/22 H&P UPDATE INFORMATION: I have reviewed H&P completed within last 30 days, I have examined patient prior to procedure and No changes to prior documentation PREOP DIAGNOSIS: Symptomatic cholelithiasis PLANNED PROCEDURE: Operation Date: 01/15/23 07:45 Proposed Procedures p EGD 21732,K21.9(Not Applicable) - Aydin Mcdaniel DO
[2023-01-15 08:06] VITALS: BP 123/86; PULSE 88; RESP 17; TEMP 36.1; O2SAT 98
[2023-01-15 08:21] VITALS: BP 124/82; PULSE 75; RESP 16; O2SAT 99
--- NOTE | 2023-01-15 13:03 | ANE.PACU2 ---
Inpatient post-anesthesia follow up: Airway intact: Yes Vital signs: Temperature 97.0 F Pulse Rate 75 Respiratory Rate 16 Blood Pressure 124/82 Pulse Oximetry 99 Oxygen Delivery Me thod Room Air Oxygen Flow Rate Fraction of Inspir ed Oxygen Hydration adequate: Yes Nausea and vomiting: No Pain level: 1 Mental status: Baseline
== END 2023-01-15 08:32 | disposition home or self-care (01) ==
PROVIDERS: Anesthesiology; PCP Family Medicine; Visit Provider Surgery
PROC: 0DJ08ZZ Inspection of Upper Intestinal Tract, Via Natural or Artificial Opening Endoscopic (ICD-10-PCS; CPT 43235; principal; 2023-01-15 07:45)
DX: K21.9 Gastro-esophageal reflux disease without esophagitis (principal); J44.9 Chronic obstructive pulmonary disease, unspecified; F17.200 Nicotine dependence, unspecified, uncomplicated; K29.70 Gastritis, unspecified, without bleeding; T18.2XXA Foreign body in stomach, initial encounter; X58.XXXA Exposure to other specified factors, initial encounter
CPT/HCPCS: 43239; 84703; 88305; 88342; J2704; J7030

== ENCOUNTER → 2023-01-26 16:23 | Outpatient (BNVA) | payer MEDICAID, SELFPAY | PROVIDERS: PCP Family Medicine; Visit Provider Surgery | DX: K21.9 Gastro-esophageal reflux disease without esophagitis (principal) | CPT/HCPCS: 99024; 99212 ==

== ENCOUNTER 2023-02-03 06:38 | Outpatient (CLI) | payer MEDICAID, SELFPAY ==
[2023-02-03 07:22] VITALS: PULSE 71; RESP 18; O2SAT 97
[2023-02-03] MEDS: albuterol 2.5 mg/3 mL Neb INHALATION (07:22)
[2023-02-03 07:27] VITALS: PULSE 70
== END 2023-02-03 06:39 | disposition home or self-care (01) ==
LOC: RT 06:39
PROVIDERS: PCP Family Medicine; Visit Provider Family Medicine
DX: J45.40 Moderate persistent asthma, uncomplicated (principal)
CPT/HCPCS: 94060; J7613

== ENCOUNTER 2023-03-05 11:02 | Outpatient (CLI) | payer MEDICAID, SELFPAY ==
--- NOTE | 2023-03-05 11:08 | US_ITS ---
WS: [id number] US transvaginal [id number] HISTORY: SECONDARY AMENORRHEA COMPARISON: None available. Uterus: 10.5 cm x 5.3 cm x 5.1 cm. Mildly enlarged anteverted uterus. No fibroid identified. Endometrium: 0.5 cm. Normal as visualized. No increased biliary or mass. Right ovary: Not visualized. No adnexal mass. Left ovary: 3.3 cm x 2.6 cm x 2.4 cm. Limited evaluation. Normal size and vascularity, no cystic or s olid masses. No free fluid in the cul-de-sac. US/US transvaginal [id number] IMPRESSION: 1. Mildly enlarged anteverted uterus. 2. Normal endometrium. 3. RIGHT ovary not visualized.
== END 2023-03-05 11:03 | disposition home or self-care (01) ==
LOC: RAD 11:03
PROVIDERS: PCP Family Medicine; Visit Provider Family Medicine
DX: N91.1 Secondary amenorrhea (principal); N85.4 Malposition of uterus
CPT/HCPCS: 76830

== ENCOUNTER 2023-06-28 14:20 | Emergency (ER) | payer MEDICAID, SELFPAY ==
[2023-06-28 14:28] VITALS: BP 136/83; PULSE 79; RESP 17; TEMP 37; O2SAT 98; BMI 35.0
--- NOTE | 2023-06-28 14:52 | XR_ITS ---
WS: [id number] EXAMINATION: XR femur LT min 2V* [id number] REASON FOR EXAM: fall/injury COMPARISON: None available. ORDER DATE: 06/28/2023 2:52 PM FINDINGS: There is decreased spatial and contrast resolution in the region of the immediate left hip joint as a result of soft tissue attenuation. There is no sign of any acute osseous or articular abnormality. Prominent degenerative change and gab nt space narrowing suggested in the left hip. There are no specific soft tissue abnormalities. IMPRESSION: No acute osseous abnormality in the hip joint which is demonstrating generalized degenerative change and narrowing. If there is any high clinical suspicion of fracture, recommend CT imaging of the hip f or further assessment
--- NOTE | 2023-06-28 14:52 | XR_ITS ---
WS: [id number] EXAMINATION: XR knee LT 3V* [id number] REASON FOR EXAM: trauma/fall COMPARISON: None available. ORDER DATE: 06/28/2023 2:52 PM FINDINGS: There is no sign of any acute osseous or articular abnormality. There are no specific soft tissue abn ormalities. IMPRESSION: No acute change
--- NOTE | 2023-06-28 14:53 | W.ED.LOWEXIN ---
HPI - Extremity Injury (Lower) General: Chief Complaint: Extremity Injury, Lower Stated Complaint: fall, left knee injury Time Seen by Provider: 06/28/23 14:45 Source: patient Mode of arrival: wheelchair Limitations: no limitations History of Present Illness: Patient is a 38-year-old female presents to ED today with a complaint of a left lower extremity injury that she sustained just prior to arrival after slipping and falling on her concrete porch while trying to take her puppy outside. She is complaining of pain just superior to the left knee joint. Patient states she is not able to bear weight secondary to the pain. She has no other injuries or complaints at this time. MD complaint: thigh injury and knee injury Onset (ago): hour(s) Injury: Left: thigh and knee Place: home Severity: severe Relieving factors: immobilization Exacerbating factors: weight bearing, movement and palpation Context: fall Associated symptoms: Reports inability to bear weight Other symptoms: none Review of Systems Musc: Reports: extremity pain (distal femur/knee joint), joint pain (L knee) and limited range of motion; Denies: neck pain, back pain, joint redness or joint warmth Neuro: Denies: numbness in extremities, weakness in extremities or sensory changes PFSH ED PFSH: Medical History Asthma GERD (gastroesophageal reflux disease) Symptomatic cholelithiasis Umbilical hernia Surgical History History of salpingectomy History of tonsillectomy and adenoidectomy Hx laparoscopic cholecystectomy Hx of section No pertinent past surgical history Social History Smoking and tobacco status: current every day smoker Alcohol intake: never Substance/Drug Use: never Physical Exam Const: COMMON NORMALS: no acute distress, average body habitus, patient oriented x3, no limitations, alert and well nourished Extremity: COMMON NORMALS: capillary refill normal, no clubbing, cyanosis or edema, no calf tenderness and no pedal edema GENERAL: Yes normal exam except as noted LEFT LOWER EXTREMITY: Yes upper leg (TTP distal femur/superior knee; no hip joint tenderness) Left upper leg: Yes neurovascular exam (normal) and Yes knee joint Left knee: Yes palpation (TTP superior patella), Yes ROM (knee held in full extension; inability to flex due to pain) and Yes neurovascular exam (normal) Neuro: JONATHAN COMA SCALE: document GCS findings Jonathan coma scale eye opening: Spontaneous [place] coma scale verbal response: Orientated Jonathan coma scale motor response: Obey commands [place] coma scale total score: 15 COMMON NORMALS: patient oriented x3, moves all extremities, no focal motor deficits and no sensory deficits noted SENSORIUM/ORIENTATION: Yes alert Skin: TRAUMA: no lacerations or abrasions Course Vital Signs: Vital signs: Vital Signs Temperature 98.6 F 06/28/23 14:28 Pulse Rate 79 06/28/23 14:28 Respiratory Rate 17 06/28/23 14:28 Blood Pressure 136/83 06/28/23 14:28 Pulse Oximetry 98 06/28/23 14:28 Oxygen Delivery Me thod Room Air 06/28/23 14:28 MDM - Extremity Injury (Lower) Medical Decision Making XRs negative. Will THALIA wrap/crutches. Instructions for weightbearing as tolerated, ice, elevation, OTC analgesics. Recommend follow-up with PCP over the next week if pain does not seem to be improving. All radiology interpretation(s) finalized by discharge Discharge Plan Discharge Patient Disposition: Home Clinical Impression: Injury of left leg Qualifiers: Encounter type: initial encounter Qualified Code(s): S89.92XA - Unspecified injury of left lower leg, initial encounter Condition: Stable Prescriptions: No Action (DME) Aeroneb Go Nebulizer Misc See Rx Instructions .Route Rx Instructions: As directed albuterol sulfate 2.5 mg /3 mL (0.083 %) solution for nebulization 1.25 mg inhalation Q6H clindamycin phosphate 1 % solution 1 applic topical DAILY Qty: 60 0RF Rx Instructions: Apply to base of scalp daily albuterol sulfate [ProAir HFA] 90 mcg/actuation HFA aerosol inhaler 2 inh INHALATION Q4H PRN (Reason: shortness of breath or wheezing) Qty: 8.5 0RF Serevent Diskus 50 mcg/dose Blister With Device 1 inh INHALATION BID Discharge Orders: Discharge ED (Routine); Ordered 06/28/23 Ordered By: Amy Hurst Referrals: Baljinder Ramsey MD [Primary Care Provider] - Coding Level of Care Code ED Tattoo Technician for Ada Pedersen
== END 2023-06-28 15:51 | disposition home or self-care (01) ==
PROVIDERS: Emergency Provider Physician Assistant; PCP Family Medicine
DX: S89.92XA Unspecified injury of left lower leg, initial encounter (principal); F17.210 Nicotine dependence, cigarettes, uncomplicated; W01.0XXA Fall on same level from slipping, tripping and stumbling without subsequent striking against object, initial encounter
CPT/HCPCS: 73552; 73562; 99283; E0114

== ENCOUNTER 2023-10-05 14:50 | Emergency (ER) | payer MEDICAID, SELFPAY ==
[2023-10-05 15:00] VITALS: BP 134/89; PULSE 69; RESP 14; TEMP 36.8; O2SAT 96; BMI 34.7
[2023-10-05 16:26] VITALS: BP 127/85; PULSE 73; RESP 16; O2SAT 97
--- NOTE | 2023-10-05 16:39 | ED_ITS ---
HPI - Skin/Abscess/Foreign Bdy 2 General: Chief complaint: Animal Bite Stated complaint: bite on stomach Time Seen by Provider: 10/05/23 16:24 Source: patient Mode of arrival: ambulatory Limitations: no limitations History of Present Illness: Patient is a 38-year-old female presents to ED today with a complaint of an infected skin lesion to her lower abdomen. Patient states a few days ago she noticed a small area that looked like a pimple. She states she sterilized a pin needle and poked it and drained purulent material. Since then she has noticed some surrounding redness. Significant other here recently with similar bites/lesions. They state they are living in a residence with animals that potentially have fleas. Denies history of MRSA. Significant other was placed on Keflex with good results/healing lesions. MD complaint: insect bite/sting and abscess/boil Onset (ago): day(s) Tetanus up to date: yes Location: generalized (lower abdomen) Severity: mild Relieving factors: none Exacerbating factors: none Associated symptoms: Reports no associated symptoms; Deny chills, fever(s), nausea or vomiting Treatments prior to arrival: attempted to drain pus at home Review of Systems 2 Const: Denies: fever(s), chills, body aches, fatigue or malaise GI: Denies: nausea or vomiting Musc: Denies: neck pain, back pain, extremity pain, extremity swelling or joint pain Skin/Breast: Reports: new lesions Neuro: Denies: headache(s), numbness in extremities, weakness in extremities or sensory changes PFSH ED 2 PFSH: Medical History Asthma GERD (gastroesophageal reflux disease) Symptomatic cholelithiasis Umbilical hernia Surgical History History of salpingectomy History of tonsillectomy and adenoidectomy Hx laparoscopic cholecystectomy Hx of section No pertinent past surgical history Social History Smoking and tobacco/nicotine status: current every day tobacco/nicotine user Alcohol intake: never Substance/Drug Use: never Physical Exam 2 Const: COMMON NORMALS: no acute distress, patient oriented x3, no limitations and alert Resp: COMMON NORMALS: normal respiratory effort and clear to auscultation bilaterally AUSCULTATION: clear to auscultation bilaterally Cardio: COMMON NORMALS: regular rate and regular rhythm RATE: regular rate RHYTHM: regular rhythm GI: GI image (female): 1. small nickel sized open erythematous skin lesion without active drainage; no underlying purulence Extremity: GENERAL: Yes normal exam except as noted Neuro: COMMON NORMALS: patient oriented x3 SENSORIUM/ORIENTATION: Yes alert Skin: NARRATIVE SKIN EXAM: see above Course 2 Vital Signs: Vital signs: Vital Signs Temperature 98.2 F 10/05/23 15:00 Pulse Rate 73 10/05/23 16:26 Respiratory Rate 16 10/05/23 16:26 Blood Pressure 127/85 10/05/23 16:26 Pulse Oximetry 97 10/05/23 16:26 Oxygen Delivery Me thod Room Air 10/05/23 16:26 MDM - Skin/Abscess/Foreign Bdy Medicial Decision Making Discussed attempting to treat conservatively with topical triple antibiotic ointment and keeping clean with warm soap and water and avoid continued picking. Most of these will heal on their own however if lesion continues to worsen I will write her for Keflex that she can fill and start. Return ED precautions given. Medical Records I reviewed the patient's medical records. No radiology studies performed this visit Discharge Plan Discharge Patient Disposition: Home Clinical Impression: Infected lesion of skin Condition: Stable Prescriptions: New cephalexin 500 mg capsule 500 mg PO Q6H 7 Days Qty: 28 0RF No Action (DME) Aeroneb Go Nebulizer Misc See Rx Instructions .Route Rx Instructions: As directed albuterol sulfate 2.5 mg /3 mL (0.083 %) solution for nebulization 1.25 mg inhalation Q6H clindamycin phosphate 1 % solution 1 applic topical DAILY Qty: 60 0RF Rx Instructions: Apply to base of scalp daily albuterol sulfate [ProAir HFA] 90 mcg/actuation HFA aerosol inhaler 2 inh INHALATION Q4H PRN (Reason: shortness of breath or wheezing) Qty: 8.5 0RF Serevent Diskus 50 mcg/dose Blister With Device 1 inh INHALATION BID Discharge Orders: Discharge ED (Routine); Ordered 10/05/23 Ordered By: Amy Hurst Referrals: Baljinder Ramsey MD [Primary Care Provider] - Coding Level of Care Code ED Pack Train Driver for Chg Fwabram
== END 2023-10-05 17:18 | disposition home or self-care (01) ==
PROVIDERS: Emergency Provider Physician Assistant; PCP Family Medicine
DX: L98.8 Other specified disorders of the skin and subcutaneous tissue (principal); L08.9 Local infection of the skin and subcutaneous tissue, unspecified; Z72.0 Tobacco use
CPT/HCPCS: 99283

== ENCOUNTER 2023-10-28 14:12 | Emergency (ER) | payer MEDICAID, SELFPAY ==
[2023-10-28 14:15] VITALS: BP 123/70; PULSE 112; RESP 17; TEMP 36.6; O2SAT 97; BMI 33.3
[2023-10-28 14:58] LABS: Basophils % 0.4 %; Eosinophils # 0.1 10^3/uL (0.0-0.8); Eosinophils % 0.9 %; Hematocrit 41.3 % (36-47); Lymphocytes # 0.9 10^3/uL (0.8-4.8); Lymphocytes % 9.6 %; Mean Corpuscular HGB Conc 34.6 g/dL (30-55); Mean Corpuscular Hemoglobin 31.4 pg (27-33); Mean Corpuscular Volume 90.6 fl (85-98); Mean Platelet Volume 12.1 fL (7.4-10.4); Monocytes # 0.9 10^3/uL (0.2-0.9); Monocytes % 10.4 %; Neutrophils # 7.12 10^3/uL (1.8-7.7); Neutrophils % 78.4 %; Nucleated Red Blood Cells % 0 %; Platelet Count 142 10^3/cmm (157-399); Red Blood Count 4.56 10^6/uL (3.85-5.65); Red Cell Distribution Width 11.9 % (12.1-15.1); White Blood Count 9.08 10^3/uL (3.29-11.43)
[2023-10-28 15:19] LABS: Alanine Aminotransferase 15 U/L (0-33); Albumin Level 3.7 g/dL (3.5-5.2); Alkaline Phosphatase 123 U/L (35-105); Anion Gap 16.7 (5-19); Aspartate Amino Transferase 15 U/L (0-32); Blood Urea Nitrogen 8 mg/dL (6-20); Calcium 9.2 mg/dL (8.5-10.5); Carbon Dioxide 21 mmol/L (22-29); Chloride 101 mmol/L (98-107); Glomerular Filtration Rate 111.9 mL/min (90-130); Glucose 132 mg/dL (65-115); Lipase 12 U/L (13-60); Osmolality Calculated 280 mOsm/kg (285-295); Potassium 3.7 mmol/L (3.5-5.1); Sodium 135 mmol/L (136-145); Total Bilirubin 0.4 mg/dL (0.15-1.2); Total Protein 7.7 g/dL (6.6-8.7)
[2023-10-28 15:29] LABS: HCG, Serum Qual Negative (Negative)
--- NOTE | 2023-10-28 15:54 | ED_ITS ---
HPI - Abdominal Pain 2 General: Chief Complaint: Abdominal Pain Stated Complaint: vomiting Time Seen by Provider: 10/28/23 15:46 Source: patient Mode of arrival: ambulatory History of Present Illness: 38-year-old female presents emergency ro om with complaints of nausea vomiting abdominal pain that began 5 days ago. She states its mostly epigastric. She has some diarrhea with an slight cough subjective low-grade fever diarrhea has improved some ready. She has previously had a cholecystectomy denies any hematemesis or coffee-ground emesis no dysuria urgency or frequency MD elicited complaint: abdominal pain Onset (ago): day(s) (5) Pain Consistency: intermittent Location: Epigastric Severity: moderate Quality: cramping Radiation: none Exacerbating factors: nothing Relieving factors: nothing Associated Symptoms: Reports nausea, poor appetite and vomiting; Denies anorexia, belching, bloating, change in bowel habits, change in stool character, chills, coffee ground emesis, constipation, GI cramping, diarrhea, dyspepsia, dysuria, excessive flatus, fever(s), heartburn, hematochezia, hematuria, hematemesis, fecal incontinence, loose stools, melena and syncope Review of Systems 2 Const: Denies: fever(s) or chills Card: Denies: syncope Resp: Denies: dyspnea GI: Reports: nausea and vomiting; Denies: hematemesis, coffee ground emesis, heartburn, diarrhea, constipation, bloating, GI cramping, belching, excessive flatus, fecal incontinence, change in bowel habits, change in stool character, hematochezia or melena : Denies: dysuria or hematuria Musc: Denies: neck pain or back pain Skin/Breast: Denies: rash PFSH ED 2 PFSH: Medical History GERD (gastroesophageal reflux disease) Umbilical hernia Symptomatic cholelithiasis Asthma Surgical History Hx laparoscopic cholecystectomy Hx of section History of tonsillectomy and adenoidectomy History of salpingectomy No pertinent past surgical history Social History Smoking and tobacco/nicotine status: current every day tobacco/nicotine user Alcohol intake: never Substance/Drug Use: never Physical Exam 2 Const: GENERAL APPEARANCE: cooperative ORIENTATION/CONSCIOUSNESS: Yes awake, Yes oriented to person, Yes oriented to place and Yes oriented to time HENMT: COMMON NORMALS: normocephalic, atraumatic and hearing grossly normal bilaterally HEAD & SCALP: normocephalic and atraumatic Resp: COMMON NORMALS: normal respiratory effort, No retractions, No use of accessory muscles and clear to auscultation bilaterally AUSCULTATION: clear to auscultation bilaterally Cardio: COMMON NORMALS: regular rate, regular rhythm and No murmurs present (Cardio) RATE: regular rate RHYTHM: regular rhythm GI: COMMON NORMALS: No hepatosplenomegaly present AUSCULTATION: Yes normoactive bowel sounds PALPATION: Yes Tenderness to palpation present (GI) (Diffuse tenderness disproportionate to exam), No Guarding due to palpation present (GI) and Yes No hepatosplenomegaly present Extremity: COMMON NORMALS: normal to inspection, capillary refill normal, no clubbing, cyanosis or edema, no calf tenderness and no pedal edema Neuro: SENSORIUM/ORIENTATION: Yes oriented to person, Yes oriented to place and Yes oriented to time Skin: COMMON NORMALS: no rashes or lesions noted GENERAL SKIN EXAM: no rashes or lesions noted Course 2 Vital Signs: Vital signs: Vital Signs Temperature 97.9 F 10/28/23 14:15 Pulse Rate 89 10/28/23 18:03 Respiratory Rate 18 10/28/23 18:03 Blood Pressure 107/95 10/28/23 18:03 Pulse Oximetry 95 10/28/23 18:03 Oxygen Delivery Me thod Room Air 10/28/23 17:20 MDM - Abdominal Pain Medical Decision Making CT shows diffuse colitis discharge patient on ciprofloxacin and metronidazole promethazine as needed clear liquid diet advance as tolerated if not improving recheck Differential Diagnosis Likely abdominal pain, diverticulitis and gastroenteritis Medical Records I reviewed the patient's medical records. Lab Data I reviewed the patient's lab results. 10/28/23 14:42 10/28/23 14:42 Labs/Radiology: Radiology Impressions Abdomen/Pelvis CT 10/28/23 16:01 IMPRESSION: Diffuse colitis Laboratory Results WBC 9.08 10^3/uL (3.29-11.43) 10/28/23 14:42 RBC 4.56 10^6/uL (3.85-5.65) 10/28/23 14:42 Hgb 14.30 g/dL (11.27-16.99) 10/28/23 14:42 Hct 41.3 % (36-47) 10/28/23 14:42 MCV 90.6 fl (85-98) 10/28/23 14:42 MCH 31.4 pg (27-33) 10/28/23 14:42 MCHC 34.6 g/dL (30-55) 10/28/23 14:42 RDW 11.9 % (12.1-15.1) L 10/28/23 14:42 Plt Count 142 10^3/cmm (157-399) L 10/28/23 14:42 MPV 12.1 fL (7.4-10.4) H 10/28/23 14:42 Neut % (Auto) 78.4 % 10/28/23 14:42 Lymph % (Auto) 9.6 % 10/28/23 14:42 [place] % (Auto) 10.4 % 10/28/23 14:42 Eos % (Auto) 0.9 % 10/28/23 14:42 Baso % (Auto) 0.4 % 10/28/23 14:42 Neut # (Auto) 7.12 10^3/uL (1.8-7.7) 10/28/23 14:42 Lymph # (Auto) 0.9 10^3/uL (0.8-4.8) 10/28/23 14:42 [place] # (Auto) 0.9 10^3/uL (0.2-0.9) 10/28/23 14:42 Eos # (Auto) 0.1 10^3/uL (0.0-0.8) 10/28/23 14:42 Baso # (Auto) 0.0 10^3/uL (0.0-0.1) 10/28/23 14:42 Nucleated RBC % (auto) 0 % 10/28/23 14:42 Nucleated RBCs # 0.0 /100WBC 10/28/23 14:42 Sodium 135 mmol/L (136-145) L 10/28/23 14:42 Potassium 3.7 mmol/L (3.5-5.1) 10/28/23 14:42 Chloride 101 mmol/L (98-107) 10/28/23 14:42 Carbon Dioxide 21 mmol/L (22-29) L 10/28/23 14:42 Anion Gap 16.7 (5-19) 10/28/23 14:42 BUN 8 mg/dL (6-20) 10/28/23 14:42 Creatinine 0.6 mg/dL (0.5-0.9) 10/28/23 14:42 GFR Calculation 111.9 mL/min (90-130) 10/28/23 14:42 Glucose 132 mg/dL (65-115) H 10/28/23 14:42 Calculated Osmolality 280 mOsm/kg (285-295) L 10/28/23 14:42 Calcium 9.2 mg/dL (8.5-10.5) 10/28/23 14:42 Total Bilirubin 0.4 mg/dL (0.15-1.2) 10/28/23 14:42 AST 15 U/L (0-32) 10/28/23 14:42 ALT 15 U/L (0-33) 10/28/23 14:42 Alkaline Phosphatase 123 U/L (35-105) H 10/28/23 14:42 Total Protein 7.7 g/dL (6.6-8.7) 10/28/23 14:42 Albumin 3.7 g/dL (3.5-5.2) 10/28/23 14:42 Globulin 4.0 g/dL (1.3-4.6) 10/28/23 14:42 Lipase 12 U/L (13-60) L 10/28/23 14:42 HCG, Qual Negative (Negative) 10/28/23 14:42 Urine Color Yellow (Yellow) 10/28/23 16:18 Urine Appearance Clear (CLEAR) 10/28/23 16:18 Urine pH 5 (5-7) 10/28/23 16:18 Ur Specific [place] 1.020 (1.005-1.030) 10/28/23 16:18 Urine Protein Trace (Negative) 10/28/23 16:18 Urine Glucose (UA) Norm (Normal) 10/28/23 16:18 Urine Ketones 2+ (Negative) H 10/28/23 16:18 Urine Blood Neg (Negative) 10/28/23 16:18 Urine Nitrate Negative (Negative) 10/28/23 16:18 Urine Bilirubin 1+ (Negative) H 10/28/23 16:18 Urine Urobilinogen Norm mg/dL (Negative) 10/28/23 16:18 Ur Leukocyte Esterase Negative (Negative) 10/28/23 16:18 Urine RBC 0-4 /hpf (0-2) H 10/28/23 16:18 Urine WBC 0-4 /hpf (0-5) H 10/28/23 16:18 Ur Squamous Epith Cells 0-4 /hpf (0-5) H 10/28/23 16:18 Amorphous Sediment Not Reportable 10/28/23 16:18 Urine Bacteria Trace /hpf (NONE) 10/28/23 16:18 Urine Mucus 2+ /hpf 10/28/23 16:18 Coronavirus 229E (PCR) Not detected (NOT DETECT) 10/28/23 16:22 SARS-CoV-2 (PCR) Not detected (NOT DETECT) 10/28/23 16:22 All radiology interpretation(s) finalized by discharge Discharge Plan Discharge Patient Disposition: Home Clinical Impression: Colitis Condition: Stable Prescriptions: New promethazine 25 mg tablet 25 mg PO Q6H PRN (Reason: nausea and vomiting) Qty: 20 0RF No Action (DME) Aeroneb Go Nebulizer Misc See Rx Instructions .Route Rx Instructions: As directed albuterol sulfate 2.5 mg /3 mL (0.083 %) solution for nebulization 1.25 mg inhalation Q6H PRN (Reason: Shortness Of Breath) albuterol sulfate [ProAir HFA] 90 mcg/actuation HFA aerosol inhaler 2 inh INHALATION Q4H PRN (Reason: shortness of breath or wheezing) Qty: 8.5 0RF bupropion HCl 150 mg tablet sustained-release 12 hr 150 mg PO BID pantoprazole 40 mg Tablet,Delayed Release (Dr/Ec) 40 mg PO BID lisinopril 2.5 mg tablet 2.5 mg PO DAILY naproxen 500 mg tablet 500 mg PO BID PRN (Reason: Pain) Ventolin HFA 90 mcg/actuation Hfa Aerosol Inhaler 2 puff INHALATION BID PRN (Reason: Shortness Of Breath Or Wheezing) metronidazole 500 mg tablet 500 mg PO TID 10 Days Qty: 21 0RF Cipro 500 mg tablet 500 mg PO BID 10 Days Qty: 20 0RF Discharge Orders: Discharge ED (Routine); Ordered 10/28/23 Ordered By: Mor Shepard Referrals: Baljinder Ramsey MD [Primary Care Provider] - Discharge Diet: Clear Liquid Discharge Activity: Increase activity as tolerated Patient Instructions: Colitis (ED), Opioid Safety, Pain Management Activity Restrictions/Additional Instructions: Thank you for choosing [facility] for your healthcare needs today. Please realize this is an emergency room and that we are providing you with a medical screening exam and this may not be complete and all inclusive of all the testing and or work up that you may need to determine your ailment or severity of your illness. It is very important that you follow up as instructed or that you return to the Emergency Department should you have concerns or if your condition changes or worsens in any way. Clinical diet for 24 to 48 hours then advance as tolerated. You should follow- up with your primary care doctor in the next 10 to 14 days. Reviewed the findings from this ER visit with them you may need to have a colonoscopy done at some point at a later date due to the diagnosis of colitis. Coding Level of Care Code ED Professor Of Geology for Ada Pedersen
--- NOTE | 2023-10-28 16:01 | CTR_ITS ---
PROCEDURE INFORMATION: Exam: CT Abdomen And Pelvis Without Contrast Exam date and time: 10/28/2023 4:58 PM Age: 38 years old Clinical indication: Abdominal pain; Generalized; Prior surgery; Surgery date: 6+ months; Surgery type: Nu TECHNIQUE: Imaging protocol: Computed tomography of the abdomen and pelvis without contrast. Radiation optimization: All CT scans at this facility use at least one of these dose optimization techniques: automated exposure control; mA and/or kV adjustment per patient size (includes targeted exams where dose is matched to clinical indication); or iterative reconstruction. COMPARISON: CT abdomen pelvis w con* [id number] 10/15/2022 9:31 PM RADIATION DOSE METRICS: Total DLP (mGy-cm): 844 FINDINGS: Lungs: Lung bases are clear. No pleural effusion. Liver: Normal. No mass. Gallbladder and bile ducts: The gallbladder has been resected. Pancreas: Normal. No ductal dilation. Spleen: Normal. No splenomegaly. Adrenal glands: Normal. No mass. Kidneys and ureters: Normal. No hydronephrosis. Stomach and bowel: There is mild inflammation involving the wall of the entire colon. Appendix: No evidence of appendicitis. Intraperitoneal space: Unremarkable. No free air. No significant fluid collection. Vasculature: Unremarkable. No abdominal aortic aneurysm. Lymph nodes: Unremarkable. No enlarged lymph nodes. Urinary bladder: Unremarkable as visualized. Reproductive: Unremarkable as visualized. Bones/joints: Unremarkable. No acute fracture. Soft tissues: Unremarkable. CT/CT abdomen pelvis wo con [id number] IMPRESSION: Diffuse colitis
[2023-10-28 16:19] VITALS: BP 94/70; PULSE 92; RESP 18; O2SAT 96
[2023-10-28] MEDS: ondansetron 2 mg/ML SDV 2 mL 4 MG IVP (16:21)
[2023-10-28 17:10] LABS: Add Urine Culture? No; Add Urine Microscopic? YES; Bacteria Urine TRACE /hpf; Bilirubin Urine 1+ (Negative); Blood Urine Neg (Negative); Glucose Urine UA Norm (Normal); Ketones Urine 2+ (Negative); Leukocyte Esterase Urine Negative (Negative); Mucus Urine 2+ /hpf; Nitrate Urine Negative (Negative); Protein Urine Trace (Negative); RBC Urine 0-4 /hpf (0-2); Squamous Epithelial Cell Urine 0-4 /hpf (0-5); Urine Appearance Clear (CLEAR); Urine Color Yellow (Yellow); Urobilinogen Urine Norm (Negative); WBC Urine 0-4 /hpf (0-5); pH Urine 5 (5-7)
--- NOTE | 2023-10-28 17:17 | PC.NURSE ---
NURSE DROPPED FIRST TORADOL BOTTLE, BREAKING BOTTLE AND LOST MEDICATION. SECOND DOSE OF TORADOL ORDERED.
[2023-10-28 17:20] VITALS: BP 159/97; PULSE 101; RESP 18; O2SAT 97
[2023-10-28] MEDS: ketorolac 30 mg/mL INJ IVP (17:20)
[2023-10-28 18:03] VITALS: BP 107/95; PULSE 89; RESP 18; O2SAT 95
[2023-10-28 20:01] LABS: Adenovirus Not Detected (NOT DETECT); Chlamydia Pneumoniae Not Detected (NOT DETECT); Coronavirus 229E,HKU1,NL63,OC4 Not Detected (NOT DETECT); Human Metapneumovirus Not Detected (NOT DETECT); Human Rhinovirus/Enterovirus Not Detected (NOT DETECT); Influenza A Not Detected (NOT DETECT); Influenza A H1 Not Detected (NOT DETECT); Influenza A H1-2009 Not Detected (NOT DETECT); Influenza A H3 Not Detected (NOT DETECT); Influenza B Not Detected (NOT DETECT); Mycoplasma Pneumoniae Not Detected (NOT DETECT); Parainfluenza Virus Type 1 Not Detected (NOT DETECT); Parainfluenza Virus Type 2 Not Detected (NOT DETECT); Parainfluenza Virus Type 3 Not Detected (NOT DETECT); Parainfluenza Virus Type 4 Not Detected (NOT DETECT); Respiratory Syncytial Virus A Not Detected (NOT DETECT); Respiratory Syncytial Virus B Not Detected (NOT DETECT); SARS-COV-2 Not Detected (NOT DETECT)
== END 2023-10-28 18:04 | disposition home or self-care (01) ==
PROVIDERS: Emergency Medicine; Emergency Provider Family Medicine; PCP Family Medicine
DX: K52.9 Noninfective gastroenteritis and colitis, unspecified (principal); Z11.52 Encounter for screening for COVID-19; Z72.0 Tobacco use
CPT/HCPCS: 36415; 74176; 80053; 81001; 83690; 84703; 85025; 87635; 96374; 96375; 99285; J1885; J2405

== ENCOUNTER 2023-10-29 16:12 | Inpatient (IN) | payer MEDICAID, SELFPAY ==
[2023-10-29] VITALS (10 sets, daily range): BP systolic 116–152; BP diastolic 75–99; PULSE 87–96; RESP 14–18; TEMP 36.7–37.1; O2SAT 93–100; BMI 33.1
--- NOTE | 2023-10-29 18:27 | ED_ITS ---
HPI - Abdominal Pain 2 General: Chief Complaint: Abdominal Pain Stated Complaint: abd pain Time Seen by Provider: 10/29/23 18:10 History of Present Illness: Patient is in today with continued abdominal pain. She reports that she was in the ER last night and was diagnosed with colitis. She reports that they did a CT scan and they sent her home with 2 antibiotics and a stomach pill. She reports that she is feeling significantly worse today. She reports that burning pain over her entire abdomen. She reports that she has vomited 4 times of bright green liquid. She denies any fever. She reports her last bowel movement was 2 days ago and it was liquid. She states that she has not eaten anything today. She is drinking a little bit but she is not peeing much. Associated Symptoms: Reports nausea and vomiting; Denies chills, dysuria and fever(s) Review of Systems 2 Const: Denies: fever(s) or chills Resp: Denies: dyspnea or productive cough GI: Reports: abdominal pain, nausea and vomiting : Reports: oliguria; Denies: difficulty voiding or dysuria PFSH ED 2 PFSH: Medical History GERD (gastroesophageal reflux disease) Umbilical hernia Symptomatic cholelithiasis Asthma Surgical History Hx laparoscopic cholecystectomy Hx of section History of tonsillectomy and adenoidectomy History of salpingectomy No pertinent past surgical history Social History Smoking and tobacco/nicotine status: current every day tobacco/nicotine user Alcohol intake: never Substance/Drug Use: never Physical Exam 2 Const: COMMON NORMALS: patient oriented x3 and alert OTHER: Ill-appearing female nontoxic. Appears to be in pain with any movement. Neck/C-Spine: COMMON NORMALS: no JVD Resp: COMMON NORMALS: normal respiratory effort, No use of accessory muscles and clear to auscultation bilaterally AUSCULTATION: clear to auscultation bilaterally Cardio: COMMON NORMALS: no JVD, regular rate, regular rhythm, S1 normal heart sound present and S2 normal heart sound present RATE: regular rate RHYTHM: regular rhythm HEART SOUNDS: S1 normal heart sound present and S2 normal heart sound present GI: COMMON NORMALS: Normal to inspection, nondistended, normoactive bowel sounds present and Soft to palpation PALPATION: Yes Soft to palpation, Yes Tenderness to palpation present (GI) Details: LLQ, RLQ, LUQ and RUQ and Yes Guarding due to palpation present (GI) in the LLQ Neuro: COMMON NORMALS: patient oriented x3 SENSORIUM/ORIENTATION: Yes alert Course 2 Vital Signs: Vital signs: Vital Signs Temperature 98.1 F 10/29/23 16:26 Pulse Rate 92 10/29/23 21:31 Respiratory Rate 18 10/29/23 22:12 Blood Pressure 136/82 10/29/23 21:31 Pulse Oximetry 93 10/29/23 21:31 Oxygen Delivery Me thod Room Air 10/29/23 22:20 MDM - Abdominal Pain Medical Decision Making Colitis. Consider failure of outpatient treatment. Recheck lab work. Provide IV fluids. Patient still rates pain 5 out of 10 after morphine. I discussed the patient with Dr. Maya. Labs are unremarkable except for elevated blood glucose. Dr. Maya advised that I should speak with the hospitalist regarding admission for observation as patient is is complaining of severe pain persisting. I spoke with the hospitalist and he advised that patient could be admitted to [facility] he requested additional testing ESR, CRP, procalcitonin, lipase. Lab Data 10/29/23 19:02 10/29/23 19:02 Labs/Radiology: Radiology Impressions KUB X-Ray 10/29/23 21:49 IMPRESSION: No acute findings. Laboratory Results WBC 6.41 10^3/uL (3.29-11.43) 10/29/23 19:02 RBC 4.74 10^6/uL (3.85-5.65) 10/29/23 19:02 Hgb 14.70 g/dL (11.27-16.99) 10/29/23 19:02 Hct 42.8 % (36-47) 10/29/23 19:02 MCV 90.3 fl (85-98) 10/29/23 19:02 MCH 31.0 pg (27-33) 10/29/23 19: MCHC 34.3 g/dL (30-55) 10/29/23 19: RDW 12.0 % (12.1-15.1) L 10/29/23 19:02 Plt Count 171 10^3/cmm (157-399) 10/29/23 19:02 MPV 11.7 fL (7.4-10.4) H 10/29/23 19:02 Neut % (Auto) 73.4 % 10/29/23 19:02 Lymph % (Auto) 13.1 % 10/29/23 19:02 [place] % (Auto) 12.0 % 10/29/23 19:02 Eos % (Auto) 0.6 % 10/29/23 19:02 Baso % (Auto) 0.6 % 10/29/23 19:02 Neut # (Auto) 4.70 10^3/uL (1.8-7.7) 10/29/23 19:02 Lymph # (Auto) 0.8 10^3/uL (0.8-4.8) 10/29/23 19:02 [place] # (Auto) 0.8 10^3/uL (0.2-0.9) 10/29/23 19:02 Eos # (Auto) 0.0 10^3/uL (0.0-0.8) 10/29/23 19:02 Baso # (Auto) 0.0 10^3/uL (0.0-0.1) 10/29/23 19:02 Nucleated RBC % (auto) 0 % 10/29/23 19:02 Nucleated RBCs # 0.0 /100WBC 10/29/23 19:02 ESR 44 mm/hr (0-15) H 10/29/23 19:02 Sodium 139 mmol/L (136-145) 10/29/23 19:02 Potassium 3.5 mmol/L (3.5-5.1) 10/29/23 19:02 Chloride 100 mmol/L (98-107) 10/29/23 19:02 Carbon Dioxide 25 mmol/L (22-29) 10/29/23 19:02 Anion Gap 17.5 (5-19) 10/29/23 19:02 BUN 13 mg/dL (6-20) 10/29/23 19:02 Creatinine 0.7 mg/dL (0.5-0.9) 10/29/23 19:02 GFR Calculation 93.6 mL/min (90-130) 10/29/23 19:02 Glucose 136 mg/dL (65-115) H 10/29/23 19:02 Estimat Average Glucose 140 10/29/23 20:07 Hemoglobin A1c 6.5 % (4.0-6.0) H 10/29/23 20:07 Calculated Osmolality 290 mOsm/kg (285-295) 10/29/23 19:02 Lactic Acid 1.0 mmol/L (0.5-2.2) 10/29/23 19:07 Calcium 9.3 mg/dL (8.5-10.5) 10/29/23 19:02 Total Bilirubin 0.4 mg/dL (0.15-1.2) 10/29/23 19:02 AST 12 U/L (0-32) 10/29/23 19:02 ALT 13 U/L (0-33) 10/29/23 19:02 Alkaline Phosphatase 101 U/L (35-105) 10/29/23 19:02 C-Reactive Protein 218.8 mg/L (0.0-4.9) H 10/29/23 19:02 Total Protein 8.0 g/dL (6.6-8.7) 10/29/23 19:02 Albumin 3.8 g/dL (3.5-5.2) 10/29/23 19:02 Globulin 4.2 g/dL (1.3-4.6) 10/29/23 19:02 Lipase 14 U/L (13-60) 10/29/23 19:02 Procalcitonin 0.09 ng/mL (0-0.5) 10/29/23 19:02 TSH 0.76 uIU/mL (0.27-4.20) 10/29/23 19:02 No radiology studies performed this visit Discharge Plan Discharge Patient Disposition: Placed in Observation Admit Provider: Celestino Block Clinical Impression: Colitis Coding Level of Care Code ED Business Intelligence Manager for Ada Pedersen
[2023-10-29] MEDS: sodium chloride 0.9% 1,000 ML 999 ML IV (18:49)
[2023-10-29] MEDS: morphine 4 mg/mL SDV 1 mL 2 MG IVP ×2 (18:59→22:12)
[2023-10-29 19:31] LABS: Basophils % 0.6 %; Eosinophils % 0.6 %; Hematocrit 42.8 % (36-47); Lymphocytes # 0.8 10^3/uL (0.8-4.8); Lymphocytes % 13.1 %; Mean Corpuscular HGB Conc 34.3 g/dL (30-55); Mean Corpuscular Volume 90.3 fl (85-98); Mean Platelet Volume 11.7 fL (7.4-10.4); Monocytes # 0.8 10^3/uL (0.2-0.9); Neutrophils % 73.4 %; Nucleated Red Blood Cells % 0 %; Platelet Count 171 10^3/cmm (157-399); Red Blood Count 4.74 10^6/uL (3.85-5.65); White Blood Count 6.41 10^3/uL (3.29-11.43)
[2023-10-29 19:46] LABS: Alanine Aminotransferase 13 U/L (0-33); Albumin Level 3.8 g/dL (3.5-5.2); Alkaline Phosphatase 101 U/L (35-105); Anion Gap 17.5 (5-19); Aspartate Amino Transferase 12 U/L (0-32); Blood Urea Nitrogen 13 mg/dL (6-20); Calcium 9.3 mg/dL (8.5-10.5); Carbon Dioxide 25 mmol/L (22-29); Chloride 100 mmol/L (98-107); Creatinine Clr Calc Pharmacy 121.2548; Globulin 4.2 g/dL (1.3-4.6); Glomerular Filtration Rate 93.6 mL/min (90-130); Glucose 136 mg/dL (65-115); Osmolality Calculated 290 mOsm/kg (285-295); Potassium 3.5 mmol/L (3.5-5.1); Sodium 139 mmol/L (136-145); Total Bilirubin 0.4 mg/dL (0.15-1.2)
[2023-10-29 20:31] LABS: C Reactive Protein 218.8 mg/L (0.0-4.9); Lipase 14 U/L (13-60)
[2023-10-29 20:38] LABS: Procalcitonin 0.09 ng/mL (0-0.5)
[2023-10-29 20:40] LABS: Erythrocyte Sedimentation Rate 44 mm/hr (0-15)
[2023-10-29 20:42] LABS: Add Urine Microscopic? YES; Bilirubin Urine Neg (Negative); Blood Urine 2+ (Negative); Glucose Urine UA Norm (Normal); Ketones Urine 2+ (Negative); Leukocyte Esterase Urine Negative (Negative); Nitrate Urine Negative (Negative); Protein Urine 1+ (Negative); Specific Gravity, Urine 1.025 (1.005-1.030); Urine Appearance SL Hazy (CLEAR); Urine Color Amber (Yellow); Urobilinogen Urine Norm (Negative); pH Urine 6.5 (5-7)
[2023-10-29 20:43] LABS: RBC Urine 0-4 /hpf (0-2)
[2023-10-29 20:44] LABS: Bacteria Urine 1+ /hpf; Mucus Urine 2+ /hpf
--- NOTE | 2023-10-29 21:07 | PM.HP ---
Providers/Chief Complaint Admitting Physician: Celestino Block MD Primary Care Provider: Baljinder Ramsey MD Chief Complaint: abd pain History of Present Illness Eliceo Rolon is a 38 year old female with a past medical history of asthma, hypertension, gestational diabetes, who presents to [facility] due to diffuse abdominal pain, nausea, vomiting, since Wednesday. Patient tells me that since Wednesday she has had having nausea, vomiting, abdominal pain, abdominal distention, no lack of stooling, no bloody or black stools, no hematemesis no hemoptysis, but does have a poor appetite, no fevers, no chills, no poor appetite, no fevers, chills no sick contacts no history of food poisoning, she was here in the emergency room yesterday was diagnosed with diffuse colitis, given antibiotics, however when she got home she continued to have nausea, vomiting, poor appetite, inability to keep down liquids, no diarrhea reported, denies a family history of ulcerative colitis or Crohn's disease, she has been on antibiotics recently for a area of cellulitis on her abdomen after a spider bite she does not remember what the antibiotics was she thinks this might be minocycline Review of Systems Card: Denies: chest pain Resp: Denies: dyspnea GI: Reports: abdominal pain, nausea and vomiting Medications/Allergies Home Medications Medication Instructions Recorded Confirmed Last Taken Type albuterol sulfate 90 mcg/actuation 2 inh inhalation Q4H PRN shortness 07/12/20 10/28/23 10/08/22 Rx aerosol inhaler (ProAir HFA) of breath or wheezing #8.5 grams nebulizers (Aeroneb Go Nebulizer) 12/04/21 10/28/23 Unknown History albuterol sulfate 2.5 mg/3 mL 1.25 mg inhalation Q6H PRN 05/27/22 10/28/23 01/15/23 History (0.083 %) solution for nebulization Shortness Of Breath salmeterol 50 mcg/dose blister 1 inh inhalation BID PRN Shortness 01/13/23 10/28/23 01/13/23 History powder for inhalation (Serevent Of Breath Diskus) bupropion HCl 150 mg tablet,12 hr See Rx Instructions .Route .COMPLEX 10/28/23 10/28/23 10/28/23 History sustained-release ciprofloxacin HCl 500 mg tablet 500 mg PO BID #14 tabs 10/28/23 Unknown Rx (Cipro) lisinopril 2.5 mg tablet 2.5 mg PO DAILY 10/28/23 10/28/23 10/28/23 History metronidazole 500 mg tablet 500 mg PO BID 7 days #14 tabs 10/28/23 Unknown Rx naproxen 500 mg tablet See Rx Instructions .Route 10/28/23 10/28/23 10/28/23 History .COMPLEX PRN Pain pantoprazole 40 mg tablet,delayed 40 mg PO BID 10/28/23 10/28/23 10/28/23 History release promethazine 25 mg tablet 25 mg PO Q6H PRN nausea and 10/28/23 Unknown Rx vomiting #20 tabs Allergies Allergy/AdvReac Type Severity Reaction Status Date / Time acetaminophen [From Vicodin] Allergy ALGY-Difficulty Verified 10/28/23 14:19 Breathing hydrocodone [From Vicodin] Allergy ALGY-Difficulty Verified 10/05/23 15:00 Breathing PFSH Acute PFSH: Medical History GERD (gastroesophageal reflux disease) Umbilical hernia Symptomatic cholelithiasis Asthma Surgical History Hx laparoscopic cholecystectomy Hx of section History of tonsillectomy and adenoidectomy History of salpingectomy No pertinent past surgical history Social History Smoking and tobacco/nicotine status: current every day tobacco/nicotine user Alcohol intake: never Substance/Drug Use: never Vitals/I&O/Wt Last Vital Signs Temp 98.1 F 10/29/23 16:26 Pulse 95 10/29/23 20:47 Resp 16 10/29/23 20:47 BP 128/76 10/29/23 20:47 Pulse Ox 97 10/29/23 20:47 O2 Del Method Room Air 10/29/23 20:47 10/29/23 10/29/23 10/29/23 06:59 14:59 22:59 Intake Total 1000 / 1000 Balance 1000 / 1000 Weight last 48 hrs Weight 90.718 kg Physical Exam Const: COMMON NORMALS: no acute distress and patient oriented x3 HENMT: COMMON NORMALS: normocephalic HEAD & SCALP: normocephalic Eye: COMMON NORMALS: Equal, round and reactive pupils present and EOMs intact bilaterally Neck/C-Spine: COMMON NORMALS: no JVD Lymph: LYMPHATIC: no lymphadenopathy noted Resp: COMMON NORMALS: normal respiratory effort, No retractions, No use of accessory muscles and clear to auscultation bilaterally AUSCULTATION: clear to auscultation bilaterally Cardio: COMMON NORMALS: regular rate, regular rhythm, S1 normal heart sound present and S2 normal heart sound present RATE: regular rate RHYTHM: regular rhythm HEART SOUNDS: S1 normal heart sound present and S2 normal heart sound present GI: OTHER: Abdomen soft, nondistended, good bowel sounds, no guarding, no rebound, rigidity, does have diffuse tenderness Extremity: COMMON NORMALS: no pedal edema Neuro: COMMON NORMALS: patient oriented x3 Psych: COMMON NORMALS: mental status grossly normal Data 10/29/23 19:02 10/29/23 19:02 A&P Assessment and plan (1) Colitis: (2) Abdominal pain: Plan Abdominal pain -CRP 218, ESR [address] abdomen pelvis [address]/CT abdomen pelvis wo con [id number] IMPRESSION: Diffuse colitis -Diffuse abdominal pain Plan -IV fluids -Morphine for pain control -Stool studies -Serial abdominal exams -KUB -Continue Cipro and Flagyl IV -Possibly component of inflammatory bowel disease however does not complain of bloody or black stools, but if she does not clinically improve will consider repeating CAT scan and deciding on high-dose steroid -Full code -Lovenox for DVT prophylaxis Attestations Medical Necessity Statement*: Patient requires hospitalization, outpatient with observation, for diffuse colitis Diagnoses Colitis K52.9 Abdominal pain R10.9
--- NOTE | 2023-10-29 21:49 | XRR_ITS ---
PROCEDURE INFORMATION: Exam: XR Abdomen Exam date and time: 10/29/2023 10:04 PM Age: 38 years old Clinical indication: Abdominal pain TECHNIQUE: Imaging protocol: Radiologic exam of the abdomen. Views: Frontal supine view of the abdomen. 1 View. COMPARISON: CT abdomen pelvis con [id number] 10/28/2023 4:58 PM FINDINGS: Gastrointestinal tract: No definite pneumatosis. Normal bowel gas pattern. Intraperitoneal space: No definite pneumoperitoneum. Bones/joints: There is minimal right mid lumbar curvature or scoliosis. Degenerative disc disease of mid-lower thoracic spine is present. There are mild degenerative changes at pubic symphysis. Surgical clip at right upper quadrant suggests cholecystectomy. XR/XR KUB portable [id number] IMPRESSION: No acute findings.
[2023-10-29] MEDS: ciprofloxacin 400 MG/200 ML PREMIX 200 MG IV (22:04)
[2023-10-29] MEDS: sodium chloride 0.9% 1,000 ML 75 ML IV (22:04)
[2023-10-29] MEDS: pantoprazole 40 mg SDV IVP (22:07)
[2023-10-29] MEDS: enoxaparin 40 mg/0.4 mL Syringe SUBCUT (22:08)
[2023-10-29 22:46] LABS: Estmated Average Glucose 140; Hemoglobin A1C 6.5 % (4.0-6.0)
[2023-10-29 22:53] LABS: Thyroid Stimulating Hormone 0.76 uIU/mL (0.27-4.20)
[2023-10-29] MEDS: metroNIDAZOLE IV 500 MG/100 ML PREMIX 100 MG IV (23:28)
[2023-10-30] VITALS (15 sets, daily range): BP systolic 114–144; BP diastolic 58–90; PULSE 73–98; RESP 16–20; TEMP 36.4–36.9; O2SAT 95–96
[2023-10-30] MEDS: morphine 4 mg/mL SDV 1 mL 2 MG IVP ×4 (03:47→20:30)
[2023-10-30] MEDS: ondansetron 2 mg/ML SDV 2 mL 4 MG IVP ×2 (03:50→09:40)
[2023-10-30 05:07] LABS: Basophils % 0.4 %; Eosinophils % 0.8 %; Lymphocytes # 1.1 10^3/uL (0.8-4.8); Lymphocytes % 21.7 %; Mean Corpuscular HGB Conc 34.2 g/dL (30-55); Mean Corpuscular Volume 90.7 fl (85-98); Mean Platelet Volume 11.7 fL (7.4-10.4); Monocytes # 0.8 10^3/uL (0.2-0.9); Monocytes % 15.1 %; Neutrophils # 3.16 10^3/uL (1.8-7.7); Neutrophils % 61.4 %; Nucleated Red Blood Cells % 0 %; Platelet Count 161 10^3/cmm (157-399); Red Blood Count 4.19 10^6/uL (3.85-5.65); White Blood Count 5.15 10^3/uL (3.29-11.43)
[2023-10-30] MEDS: metroNIDAZOLE IV 500 MG/100 ML PREMIX 100 MG IV ×3 (05:08→21:32)
[2023-10-30 05:36] LABS: Blood Urea Nitrogen 12 mg/dL (6-20); Calcium 8.5 mg/dL (8.5-10.5); Carbon Dioxide 22 mmol/L (22-29); Chloride 104 mmol/L (98-107); Glomerular Filtration Rate 138.1 mL/min (90-130); Glucose 131 mg/dL (65-115); Magnesium 2.3 mg/dL (1.7-2.3); Osmolality Calculated 288 mOsm/kg (285-295); Sodium 138 mmol/L (136-145)
[2023-10-30 05:39] LABS: Anion Gap 15.6 (5-19); Potassium 3.6 mmol/L (3.5-5.1)
[2023-10-30] MEDS: pantoprazole 40 mg SDV IVP ×2 (09:39→21:45)
[2023-10-30] MEDS: ciprofloxacin 400 MG/200 ML PREMIX 200 MG IV ×2 (09:39→21:31)
--- NOTE | 2023-10-30 13:42 | P.PN_ITS ---
Subjective 2 Subjective: seen this am still nauseated but no longer vomitting Vitals/I&O/Wt Last Vital Signs Temp 97.6 F 10/30/23 11:56 Pulse 82 10/30/23 11:56 Resp 20 H 10/30/23 11:56 BP 121/80 10/30/23 11:56 Pulse Ox 95 10/30/23 11:56 O2 Del Method Room Air 10/30/23 11:56 10/29/23 10/30/23 10/30/23 22:59 06:59 14:59 Intake Total 1000 / 1000 520 / 1520 1440 / 1440 Balance 1000 / 1000 520 / 1520 1440 / 1440 Weight last 48 hrs Weight 94.801 kg Weight 90.407 kg Weight 90.718 kg Physical Exam 2 Const: COMMON NORMALS: no acute distress and patient oriented x3 HENMT: COMMON NORMALS: normocephalic HEAD & SCALP: normocephalic Eye: COMMON NORMALS: Equal, round and reactive pupils present and EOMs intact bilaterally PUPIL: Yes Equal, round and reactive pupils present Neck/C-Spine: COMMON NORMALS: no JVD Lymph: LYMPHATIC: no lymphadenopathy noted Resp: COMMON NORMALS: normal respiratory effort, No retractions, No use of accessory muscles and clear to auscultation bilaterally AUSCULTATION: clear to auscultation bilaterally Cardio: COMMON NORMALS: no JVD, regular rate, regular rhythm, S1 normal heart sound present and S2 normal heart sound present RATE: regular rate RHYTHM: regular rhythm HEART SOUNDS: S1 normal heart sound present and S2 normal heart sound present GI: OTHER: Abdomen soft, nondistended, good bowel sounds, no guarding, no rebound, rigidity, does have diffuse tenderness Extremity: COMMON NORMALS: no pedal edema Neuro: COMMON NORMALS: patient oriented x3 Psych: COMMON NORMALS: mental status grossly normal Data 10/30/23 04:32 10/30/23 04:32 A&P Assessment and plan (1) Colitis: (2) Abdominal pain: Plan #Diffuse colitis Abdominal pain -CRP 218, ESR [address]/CT abdomen pelvis wo con [id number] IMPRESSION: Diffuse colitis -Diffuse abdominal pain Plan -IV fluids -Morphine for pain control -Stool studies -Serial abdominal exams -KUB -Continue Cipro and Flagyl IV -Possibly component of inflammatory bowel disease however does not complain of bloody or black stools, but if she does not clinically improve will consider repeating CAT scan and deciding on high-dose steroid -Full code -Lovenox for DVT prophylaxis Attestations 2 Medical Necessity Statement*: Patient requires hospitalization, outpatient with observation, for diffuse colitis Diagnoses Colitis K52.9 Abdominal pain R10.9
[2023-10-30] MEDS: sodium chloride 0.9% 1,000 ML 75 ML IV (13:55)
[2023-10-30] MEDS: metoclopramide 5 mg/mL SDV 2 mL IVP (20:29)
[2023-10-30] MEDS: enoxaparin 40 mg/0.4 mL Syringe SUBCUT (21:32)
--- NOTE | 2023-10-30 22:17 | PC.NURSE ---
Patient states she is consistently nauseous throughout the day. She reported that she did have an episode of emesis after eating ice cream for dinner; however, the emesis was not seen by a nurse. She did say she knew she was a clear liquid diet, but wanted to try it anyways. I reeducated the patient that she was on a clear liquid diet and offered her a list of choices she could have. Patient verbalized understanding.
[2023-10-31] VITALS (10 sets, daily range): BP systolic 108–148; BP diastolic 71–93; PULSE 60–92; RESP 16–20; TEMP 36.3–36.9; O2SAT 95–98
[2023-10-31] MEDS: morphine 4 mg/mL SDV 1 mL 2 MG IVP (01:57)
[2023-10-31 02:23] LABS: Add Urine Microscopic? YES
[2023-10-31 02:24] LABS: Bilirubin Urine Neg (Negative); Blood Urine Neg (Negative); Glucose Urine UA Norm (Normal); Ketones Urine 1+ (Negative); Leukocyte Esterase Urine Trace (Negative); Nitrate Urine Negative (Negative); Protein Urine Trace (Negative); Specific Gravity, Urine 1.015 (1.005-1.030); Urine Appearance Hazy (CLEAR); Urine Color Yellow (Yellow); Urobilinogen Urine Norm (Negative); pH Urine 6 (5-7)
[2023-10-31 02:26] LABS: Bacteria Urine 2+ /hpf; RBC Urine 0-4 /hpf (0-2); Squamous Epithelial Cell Urine 15-25 /hpf (0-5); WBC Urine 15-25 /hpf (0-5)
[2023-10-31] MEDS: metroNIDAZOLE IV 500 MG/100 ML PREMIX 100 MG IV ×3 (05:22→21:13)
[2023-10-31 06:07] LABS: Basophils % 0.4 %; Eosinophils # 0.2 10^3/uL (0.0-0.8); Eosinophils % 2.8 %; Hematocrit 34.9 % (36-47); Lymphocytes # 1.9 10^3/uL (0.8-4.8); Lymphocytes % 35.7 %; Mean Corpuscular HGB Conc 34.1 g/dL (30-55); Mean Corpuscular Hemoglobin 30.7 pg (27-33); Mean Corpuscular Volume 90.2 fl (85-98); Mean Platelet Volume 11.4 fL (7.4-10.4); Monocytes # 0.6 10^3/uL (0.2-0.9); Monocytes % 11.5 %; Neutrophils # 2.59 10^3/uL (1.8-7.7); Neutrophils % 48.8 %; Nucleated Red Blood Cells % 0 %; Platelet Count 155 10^3/cmm (157-399); Red Blood Count 3.87 10^6/uL (3.85-5.65); Red Cell Distribution Width 11.8 % (12.1-15.1)
[2023-10-31 06:22] LABS: Anion Gap 10.1 (5-19); Blood Urea Nitrogen 9 mg/dL (6-20); Calcium 8.2 mg/dL (8.5-10.5); Carbon Dioxide 26 mmol/L (22-29); Chloride 107 mmol/L (98-107); Glomerular Filtration Rate 111.9 mL/min (90-130); Glucose 124 mg/dL (65-115); Magnesium 2.3 mg/dL (1.7-2.3); Osmolality Calculated 290 mOsm/kg (285-295); Potassium 3.1 mmol/L (3.5-5.1); Sodium 140 mmol/L (136-145)
[2023-10-31] MEDS: sodium chloride 0.9% 1,000 ML 75 ML IV ×2 (09:48→23:29)
[2023-10-31] MEDS: ciprofloxacin 400 MG/200 ML PREMIX 200 MG IV ×2 (09:49→21:11)
[2023-10-31] MEDS: pantoprazole 40 mg SDV IVP ×2 (09:49→21:06)
--- NOTE | 2023-10-31 13:23 | P.PN_ITS ---
Subjective 2 Subjective: seen this morning she would like to try to advance diet says nausea medication is helping but has developed watery diarrhea, has been in bathroom all night Vitals/I&O/Wt Last Vital Signs Temp 97.3 F L 10/31/23 12:00 Pulse 74 10/31/23 12:00 Resp 20 H 10/31/23 12:00 BP 125/81 10/31/23 12:00 Pulse Ox 97 10/31/23 11:38 O2 Del Method Room Air 10/31/23 11:38 10/30/23 10/31/23 10/31/23 22:59 06:59 14:59 Intake Total 680 / 2700 1100 / 3800 1140 / 1140 Output Total 100 / 100 Balance 580 / 2600 1100 / 3700 1140 / 1140 Weight last 48 hrs Weight 94.517 kg Weight 94.801 kg Weight 90.407 kg Weight 90.718 kg Physical Exam 2 Const: COMMON NORMALS: no acute distress and patient oriented x3 HENMT: COMMON NORMALS: normocephalic HEAD & SCALP: normocephalic Eye: COMMON NORMALS: Equal, round and reactive pupils present and EOMs intact bilaterally PUPIL: Yes Equal, round and reactive pupils present Neck/C-Spine: COMMON NORMALS: no JVD Lymph: LYMPHATIC: no lymphadenopathy noted Resp: COMMON NORMALS: normal respiratory effort, No retractions, No use of accessory muscles and clear to auscultation bilaterally AUSCULTATION: clear to auscultation bilaterally Cardio: COMMON NORMALS: no JVD, regular rate, regular rhythm, S1 normal heart sound present and S2 normal heart sound present RATE: regular rate RHYTHM: regular rhythm HEART SOUNDS: S1 normal heart sound present and S2 normal heart sound present GI: OTHER: Abdomen soft, nondistended, good bowel sounds, no guarding, no rebound, rigidity, NON tender today, abd exam improved since admission Extremity: COMMON NORMALS: no pedal edema Neuro: COMMON NORMALS: patient oriented x3 Psych: COMMON NORMALS: mental status grossly normal Data 10/31/23 05:05 10/31/23 05:05 Micro: Microbiology 10/30/23 20:30 Stool Lactoferrin - Final Stool Occult Blood (FIT) - Final A&P Assessment and plan (1) Colitis: (2) Abdominal pain: (3) Watery diarrhea: Plan #Diffuse colitis #watery diarrhea Abdominal pain -CRP 218, ESR [address] CT [address]/CT abdomen pelvis wo con [id number] IMPRESSION: Diffuse colitis -Diffuse abdominal pain Plan -IV fluids -Morphine for pain control -Stool studies -Serial abdominal exams -Check KUB today -Continue Cipro and Flagyl IV for now -Possibly component of inflammatory bowel disease however does not complain of bloody or black stools, but if she does not clinically improve will consider repeating CAT scan and deciding on high-dose steroid - Patient clinically improving WIll start gi soft diet has developed watery diarrhea check c.diff , stool studies if studies negative, may try immodium, potential dc home with oral abx in AM continue to hospitalize for now pt will need outpatient colonoscopy after completion of abx course or sooner if diarrhea doesnt improve -Full code -Lovenox for DVT prophylaxis Attestations 2 Medical Necessity Statement*: Patient requires continued hospitalization for development of diarrhea, inpatient Diagnoses Colitis K52.9 Abdominal pain R10.9 Watery diarrhea R19.7
[2023-10-31] MEDS: enoxaparin 40 mg/0.4 mL Syringe SUBCUT (21:06)
[2023-11-01] VITALS (7 sets, daily range): BP systolic 112–130; BP diastolic 70–83; PULSE 67–76; RESP 16–19; TEMP 36.1–37; O2SAT 96–98
[2023-11-01 04:50] LABS: Basophils % 0.5 %; Eosinophils # 0.2 10^3/uL (0.0-0.8); Eosinophils % 2.9 %; Hematocrit 34.4 % (36-47); Lymphocytes # 2.1 10^3/uL (0.8-4.8); Mean Corpuscular Hemoglobin 30.8 pg (27-33); Mean Corpuscular Volume 90.5 fl (85-98); Mean Platelet Volume 10.9 fL (7.4-10.4); Monocytes # 0.6 10^3/uL (0.2-0.9); Monocytes % 10.5 %; Neutrophils # 2.61 10^3/uL (1.8-7.7); Neutrophils % 46.7 %; Nucleated Red Blood Cells % 0 %; Platelet Count 146 10^3/cmm (157-399); Red Cell Distribution Width 11.9 % (12.1-15.1)
[2023-11-01 05:08] LABS: Alanine Aminotransferase 10 U/L (0-33); Albumin Level 2.9 g/dL (3.5-5.2); Alkaline Phosphatase 73 U/L (35-105); Aspartate Amino Transferase 9 U/L (0-32); Blood Urea Nitrogen 8 mg/dL (6-20); Carbon Dioxide 23 mmol/L (22-29); Chloride 107 mmol/L (98-107); Globulin 3.2 g/dL (1.3-4.6); Glomerular Filtration Rate 111.9 mL/min (90-130); Glucose 150 mg/dL (65-115); Magnesium 2.1 mg/dL (1.7-2.3); Osmolality Calculated 287 mOsm/kg (285-295); Sodium 138 mmol/L (136-145); Total Bilirubin 0.2 mg/dL (0.15-1.2); Total Protein 6.1 g/dL (6.6-8.7)
[2023-11-01] MEDS: metroNIDAZOLE IV 500 MG/100 ML PREMIX 100 MG IV (06:45)
--- NOTE | 2023-11-01 09:27 | PC.CHAP ---
Pastoral Care Encounter/Spiritual Assessment Type of Contact [] Declined occupational therapist assistant visit [] Patient/Family/Request visit [] Outpatient visit [] Follow-up visit [] Physician referral [] Code/Alert [x] Routine visit [] Staff referral [] Actively dying [] Patient sleeping [x] Family support [] [] Out of room [] Palliative care [] [] Receiving care in room [] Pre-surgical visit [] Trauma [] Long length of stay [] ICU visit [] Other: Relational/Emotional Strength [x] Patient feels connected with others/family/visitors/staff [] Distress [] Loneliness/isolation [] Abandonment Spirituality of Patient [x] Person of Shanelle [] Attends Mandaeism of their Shanelle [x] Believes in Prayer [] Reads Bible or Confucianism materials [] There are Spiritual issues to be addressed Meat Apprentice Interventions [x] Prayer [x] Active listening [] Non-anxious presence [x] Spiritual/emotional support [] Crisis/trauma care [] Spiritual counseling [] Bereavement support [] Provided bereavement packet [] Provided Bible/devotional materials [] Provided toy/stuffed animal, coloring book to patient or family member [] Provided Communion [] Anointing/[place] [] Salvation [x] Completed spiritual assessment [] Other: Impact on Illness or Injury [] Angry [] Fearful [] Anxious [] Often cries [] Exhaustion [] Unable to work [] Unable to attend baptist [] Unable to walk/stand [] Unable to read [] Unable to drive [] Unable to eat/drink [] Unable to sleep [] Unable to be with family [] Patient intubated [] Other: Summary Time spent with patient 10 min
[2023-11-01] MEDS: pantoprazole 40 mg SDV IVP (10:36)
[2023-11-01] MEDS: ciprofloxacin 400 MG/200 ML PREMIX 200 MG IV (10:36)
--- NOTE | 2023-11-01 14:27 | PC.NURSE ---
DISCHARGE This RN provided discharge education to patient and her significant other, including f/u appointment with Dr. Ramsey and continued Ciprofloxacin and Flagyl. I reviewed reason for admission: Colitis (worsening s/s, prevention, and s/s to expect over the next couple of days) and diarrhea secondary to colitis. Provided written information for all the above. They both verbalize understanding and deny any questions or concerns. She requests to walk downstairs and declines a w/c or an escort. Patient left the floor, ambulating with her significant other.
--- NOTE | 2023-11-01 17:20 | PM.DCS ---
Discharge Providers Date of Admission: 10/30/23 14:00 Date of Discharge: November 01, 2023 Attending Provider at Admission: Celestino Block MD Attending Provider at Discharge: Gabrielle Taylor MD Primary Care Provider: Baljinder Ramsey MD Diagnoses at Discharge Discharge Diagnosis (1) Colitis: Status: Acute (2) Abdominal pain: Status: Inactive (3) Watery diarrhea: Status: Acute Reason for Visit Reason for Visit: abd pain Hospital Course Hospital Course Eliceo Rolon is a 38 year old female with a past medical history of asthma, hypertension, gestational diabetes, who presents to [facility] due to diffuse abdominal pain, nausea, vomiting. She was diagnosed with diffuse colitis, initially started on oral ciprofloxacin and metronidazole, however had excessive vomiting and poor appetite, was unable to keep down any liquids or medications and was therefore admitted to the hospital. She received treatment with IV antibiotics including ciprofloxacin and metronidazole, received IV hydration. Her diarrhea is improving today with above interventions. She has not noticed any blood though FOBT is positive, as is fecal lactoferrin. Stool studies were performed including C. difficile PCR and enteric panel, however these are still awaited. She did not have any history of known inflammatory bowel disease or colon cancer in the family, however given her young age with diffuse colitis this would certainly need to be considered in the differential. Patient is clinically improving today, able to tolerate p.o. intake, she ate solid food this morning. She is eager to be discharged home. Denies any abdominal pain. She is being transitioned to oral ciprofloxacin and metronidazole for the next 10 days. Instructed to follow-up with general surgery in 6 weeks for outpatient colonoscopy. Her C. difficile results remain pending at the time of discharge, we will call her with these results when they are available. Physical Exam Narrative: General: No acute distress, AO x3 HEENT: PERRLA, pupils bilaterally equal and reactive, pallors not present Chest: Normal vesicular breath sounds, no added sounds, equal good air entry bilaterally CVS: S1-S2 regular, no murmurs, no tachycardia, no gallops, no rubs Abdomen: Soft, nontender, no organomegaly, bowel sounds present Neuro: No focal deficits, no facial deformity, AO x3, power 5/5 in all limbs Discharge Data Studies Completed and Pending Completed Studies During Hospitalization Category Date Time Status XR KUB portable [id number] Routine Exams 10/29/23 21:49 Completed Pending at discharge Category Date Time Status Clostridium Difficile PCR Routine Lab 10/29/23 21:49 Received OVA and Parasites, Conc and PE Routine Lab 10/29/23 21:49 Received Salmonella / Shigella / Campy Routine Lab 10/29/23 21:49 Received Radiology Impressions KUB X-Ray 10/29/23 21:49 IMPRESSION: No acute findings. Laboratory Results WBC 5.60 10^3/uL (3.29-11.43) 11/01/23 04:24 RBC 3.80 10^6/uL (3.85-5.65) L 11/01/23 04:24 Hgb 11.70 g/dL (11.27-16.99) 11/01/23 04:24 Hct 34.4 % (36-47) L 11/01/23 04:24 MCV 90.5 fl (85-98) 11/01/23 04:24 MCH 30.8 pg (27-33) 11/01/23 04:24 MCHC 34.0 g/dL (30-55) 11/01/23 04:24 RDW 11.9 % (12.1-15.1) L 11/01/23 04:24 Plt Count 146 10^3/cmm (157-399) L 11/01/23 04:24 MPV 10.9 fL (7.4-10.4) H 11/01/23 04:24 Neut % (Auto) 46.7 % 11/01/23 04:24 Lymph % (Auto) 38.0 % 11/01/23 04:24 O'Brien % (Auto) 10.5 % 11/01/23 04:24 Eos % (Auto) 2.9 % 11/01/23 04:24 Baso % (Auto) 0.5 % 11/01/23 04:24 Neut # (Auto) 2.61 10^3/uL (1.8-7.7) 11/01/23 04:24 Lymph # (Auto) 2.1 10^3/uL (0.8-4.8) 11/01/23 04:24 O'Brien # (Auto) 0.6 10^3/uL (0.2-0.9) 11/01/23 04:24 Eos # (Auto) 0.2 10^3/uL (0.0-0.8) 11/01/23 04:24 Baso # (Auto) 0.0 10^3/uL (0.0-0.1) 11/01/23 04:24 Nucleated RBC % (auto) 0 % 11/01/23 04:24 Nucleated RBCs # 0.0 /100WBC 11/01/23 04:24 ESR 44 mm/hr (0-15) H 10/29/23 19:02 Sodium 138 mmol/L (136-145) 11/01/23 04:24 Potassium 3.0 mmol/L (3.5-5.1) L 11/01/23 04:24 Chloride 107 mmol/L (98-107) 11/01/23 04:24 Carbon Dioxide 23 mmol/L (22-29) 11/01/23 04:24 Anion Gap 11.0 (5-19) 11/01/23 04:24 BUN 8 mg/dL (6-20) 11/01/23 04:24 Creatinine 0.6 mg/dL (0.5-0.9) 11/01/23 04:24 GFR Calculation 111.9 mL/min (90-130) 11/01/23 04:24 Glucose 150 mg/dL (65-115) H 11/01/23 04:24 Estimat Average Glucose 140 10/29/23 20:07 Hemoglobin A1c 6.5 % (4.0-6.0) H 10/29/23 20:07 Calculated Osmolality 287 mOsm/kg (285-295) 11/01/23 04:24 Lactic Acid 1.0 mmol/L (0.5-2.2) 10/29/23 19:07 Calcium 8.0 mg/dL (8.5-10.5) L 11/01/23 04:24 Phosphorus 2.0 mg/dL (2.5-4.5) L 10/30/23 04:32 Magnesium 2.1 mg/dL (1.7-2.3) 11/01/23 04:24 Total Bilirubin 0.2 mg/dL (0.15-1.2) 11/01/23 04:24 AST 9 U/L (0-32) 11/01/23 04:24 ALT 10 U/L (0-33) 11/01/23 04:24 Alkaline Phosphatase 73 U/L (35-105) 11/01/23 04:24 C-Reactive Protein 218.8 mg/L (0.0-4.9) H 10/29/23 19:02 Total Protein 6.1 g/dL (6.6-8.7) L 11/01/23 04:24 Albumin 2.9 g/dL (3.5-5.2) L 11/01/23 04:24 Globulin 3.2 g/dL (1.3-4.6) 11/01/23 04:24 Lipase 14 U/L (13-60) 10/29/23 19:02 Procalcitonin 0.09 ng/mL (0-0.5) 10/29/23 19:02 TSH 0.76 uIU/mL (0.27-4.20) 10/29/23 19:02 Urine Color Yellow (Yellow) 10/31/23 01:59 Urine Appearance Hazy (CLEAR) A 10/31/23 01:59 Urine pH 6 (5-7) 10/31/23 01:59 Ur Specific [place] 1.015 (1.005-1.030) 10/31/23 01:59 Urine Protein Trace (Negative) 10/31/23 01:59 Urine Glucose (UA) Norm (Normal) 10/31/23 01:59 Urine Ketones 1+ (Negative) H 10/31/23 01:59 Urine Blood Neg (Negative) 10/31/23 01:59 Urine Nitrate Negative (Negative) 10/31/23 01:59 Urine Bilirubin Neg (Negative) 10/31/23 01:59 Urine Urobilinogen Norm mg/dL (Negative) 10/31/23 01:59 Ur Leukocyte Esterase Trace (Negative) H 10/31/23 01:59 Urine RBC 0-4 /hpf (0-2) H 10/31/23 01:59 Urine WBC 15-25 /hpf (0-5) H 10/31/23 01:59 Ur Squamous Epith Cells 15-25 /hpf (0-5) H 10/31/23 01:59 Amorphous Sediment Not Reportable 10/31/23 01:59 Urine Bacteria 2+ /hpf (NONE) H 10/31/23 01:59 Urine Mucus 2+ /hpf 10/29/23 20:17 Vitals Last Vital Signs Temp 97.0 F L 11/01/23 14:24 Pulse 67 11/01/23 14:24 Resp 19 H 11/01/23 14:24 BP 130/83 11/01/23 14:24 Pulse Ox 98 11/01/23 14:24 O2 Del Method Room Air 11/01/23 12:17 Discharge Plan Discharge Patient Disposition: Home Condition: Stable Prescriptions: Continued (DME) Aeroneb Go Nebulizer Misc See Rx Instructions .Route Rx Instructions: As directed albuterol sulfate 2.5 mg /3 mL (0.083 %) solution for nebulization 1.25 mg inhalation Q6H PRN (Reason: Shortness Of Breath) albuterol sulfate [ProAir HFA] 90 mcg/actuation HFA aerosol inhaler 2 inh INHALATION Q4H PRN (Reason: shortness of breath or wheezing) Qty: 8.5 0RF bupropion HCl 150 mg tablet sustained-release 12 hr 150 mg PO BID pantoprazole 40 mg Tablet,Delayed Release (Dr/Ec) 40 mg PO BID lisinopril 2.5 mg tablet 2.5 mg PO DAILY naproxen 500 mg tablet 500 mg PO BID PRN (Reason: Pain) promethazine 25 mg tablet 25 mg PO Q6H PRN (Reason: nausea and vomiting) Qty: 20 0RF Ventolin HFA 90 mcg/actuation Hfa Aerosol Inhaler 2 puff INHALATION BID PRN (Reason: Shortness Of Breath Or Wheezing) Cipro 500 mg tablet 500 mg PO BID 10 Days Qty: 20 0RF Changed metronidazole 500 mg tablet 500 mg PO TID 10 Days Qty: 21 0RF Discharge Orders: Discharge Order (Routine); Ordered 11/01/23 Ordered By: Gabrielle Taylor Referrals: Baljinder Ramsey MD [Primary Care Provider] - 11/08/23 1:30 pm Aydin Mcdaniel DO [Physician] - 6 Weeks (colitis , f/up colonoscopy ) Patient Instructions: Diarrhea - Adult, Colitis (ED), Opioid Safety Discharge Attestations Time Spent in Discharge Care*: greater than 30 min Quality Metrics Clinical Quality Measures [ No reported AMI, CVA or VTE this stay] Coding Level of Care Code Acute Code for Chg Fwd Diagnoses Colitis K52.9 Abdominal pain R10.9 Watery diarrhea R19.7
== END 2023-11-01 14:25 | disposition home or self-care (01) | DRG 392 ==
LOC: ER 20:27 → MEDSURG 20:52
PROVIDERS: Internal Medicine; Admitting Provider Family Medicine; Emergency Provider Nurse Practitioner Family; PCP Family Medicine; Visit Provider Student in an Organized Health Care Education/Training Program
DX: K52.9 Noninfective gastroenteritis and colitis, unspecified (principal); J45.909 Unspecified asthma, uncomplicated; I10 Essential (primary) hypertension; K21.9 Gastro-esophageal reflux disease without esophagitis; F17.210 Nicotine dependence, cigarettes, uncomplicated; R19.5 Other fecal abnormalities
CPT/HCPCS: 36415; 74018; 80048; 80053; 81001; 82274; 83036; 83605; 83630; 83690; 83735; 84100; 84145; 84443; 85025; 85651; 86140; 87045; 87177; 87209; 87427; 87449; 87493; 94664; 96372; 96374; 99285; C9113; G0378; J0744; J1650; J2270; J2405; J2765; J3490; J7030

== ENCOUNTER → 2024-01-03 13:00 | Outpatient (BNVA) | payer MEDICAID, SELFPAY | PROVIDERS: PCP Family Medicine; Referring Provider Family Medicine; Visit Provider Surgery | DX: R13.10 Dysphagia, unspecified (principal); A04.5 Campylobacter enteritis; K52.9 Noninfective gastroenteritis and colitis, unspecified | CPT/HCPCS: 99214 ==

== ENCOUNTER 2024-02-08 09:34 | Emergency (ER) | payer MEDICAID, SELFPAY ==
[2024-02-08 09:36] VITALS: BP 149/96; PULSE 78; RESP 20; TEMP 36.5; O2SAT 98; BMI 34.2
--- NOTE | 2024-02-08 09:49 | ED_ITS ---
HPI - Abdominal Pain 2 General: Chief Complaint: Abdominal Pain Stated Complaint: vomiting, abd pain Time Seen by Provider: 02/08/24 09:36 History of Present Illness: 38-year-old female presents emergency ro om with vomiting abdominal pain began last night multiple episodes of vomiting this morning cramping discomfort. Denies dysuria urgency or frequency has had some loose stools denies hematochezia melena hematemesis. No chest pain. No fever. Associated Symptoms: Denies chills, dysuria and fever(s) Review of Systems 2 Const: Denies: fever(s) or chills Card: Denies: chest pain Resp: Denies: dyspnea GI: Denies: abdominal pain : Denies: dysuria, urinary frequency or urinary urgency Musc: Denies: neck pain or back pain Skin/Breast: Denies: rash PFSH ED 2 PFSH: Medical History GERD (gastroesophageal reflux disease) Umbilical hernia Symptomatic cholelithiasis Asthma Surgical History Hx laparoscopic cholecystectomy Hx of section History of tonsillectomy and adenoidectomy History of salpingectomy No pertinent past surgical history Social History Smoking and tobacco/nicotine status: current every day tobacco/nicotine user Alcohol intake: never Substance/Drug Use: never Physical Exam 2 Const: COMMON NORMALS: no acute distress GENERAL APPEARANCE: cooperative and comfortable ORIENTATION/CONSCIOUSNESS: Yes awake, Yes oriented to person, Yes oriented to place and Yes oriented to time HENMT: COMMON NORMALS: normocephalic, atraumatic and hearing grossly normal bilaterally HEAD & SCALP: normocephalic and atraumatic Resp: COMMON NORMALS: normal respiratory effort, No retractions, No use of accessory muscles and clear to auscultation bilaterally AUSCULTATION: clear to auscultation bilaterally Cardio: COMMON NORMALS: regular rate, regular rhythm and No murmurs present (Cardio) RATE: regular rate RHYTHM: regular rhythm GI: COMMON NORMALS: Soft to palpation and No hepatosplenomegaly present A USCULTATION: Yes normoactive bowel sounds PALPATION: Yes Soft to palpation, No Tenderness to palpation present (GI), No Guarding due to palpation present (GI) and Yes No hepatosplenomegaly present Extremity: COMMON NORMALS: normal to inspection, capillary refill normal, no clubbing, cyanosis or edema, no calf tenderness and no pedal edema Neuro: SENSORIUM/ORIENTATION: Yes oriented to person, Yes oriented to place and Yes oriented to time Skin: COMMON NORMALS: no rashes or lesions noted GENERAL SKIN EXAM: no rashes or lesions noted Course 2 Vital Signs: Vital signs: Vital Signs Temperature 97.7 F 02/08/24 09:36 Pulse Rate 66 02/08/24 13:42 Respiratory Rate 14 02/08/24 13:42 Blood Pressure 136/70 02/08/24 13:42 Pulse Oximetry 98 02/08/24 13:42 Oxygen Delivery Me thod Room Air 02/08/24 12:00 MDM - Abdominal Pain Medical Decision Making Labs and imaging reviewed no significant findings no acute critical findings there is some evidence of enteritis, but improved. Improved with medications given and fluids will discharge home clear liquid diet promethazine as needed for nausea advance diet as tolerated return if is further problems Medical Records I reviewed the patient's medical records. Lab Data I reviewed the patient's lab results. 02/08/24 10:00 02/08/24 10:00 Labs/Radiology: Radiology Impressions Abdomen/Pelvis CT 02/08/24 09:53 IMPRESSION: 1. No acute findings in the abdomen or pelvis. 2. Prior cholecystectomy. 3. Small esophageal hernia. 4. Previously described colitis has resolved. 5. No hydronephrosis in either kidney. 6. No other acute findings. Chest X-Ray 02/08/24 09:54 IMPRESSION: No acute pathology given incomplete pulmonary expansion. Laboratory Results WBC 10.53 10^3/uL (3.29-11.43) 02/08/24 10:00 RBC 4.79 10^6/uL (3.85-5.65) 02/08/24 10:00 Hgb 15.20 g/dL (11.27-16.99) 02/08/24 10:00 Hct 45.1 % (36-47) 02/08/24 10:00 MCV 94.2 fl (85-98) 02/08/24 10:00 MCH 31.7 pg (27-33) 02/08/24 10:00 MCHC 33.7 g/dL (30-55) 02/08/24 10:00 RDW 12.3 % (12.1-15.1) 02/08/24 10:00 Plt Count 123 10^3/cmm (157-399) L 02/08/24 10:00 MPV 12.4 fL (7.4-10.4) H 02/08/24 10:00 Neut % (Auto) 78.8 % 02/08/24 10:00 Lymph % (Auto) 14.8 % 02/08/24 10:00 Bond % (Auto) 4.4 % 02/08/24 10:00 Eos % (Auto) 1.2 % 02/08/24 10:00 Baso % (Auto) 0.5 % 02/08/24 10:00 Neut # (Auto) 8.30 10^3/uL (1.8-7.7) H 02/08/24 10:00 Lymph # (Auto) 1.6 10^3/uL (0.8-4.8) 02/08/24 10:00 Bond # (Auto) 0.5 10^3/uL (0.2-0.9) 02/08/24 10:00 Eos # (Auto) 0.1 10^3/uL (0.0-0.8) 02/08/24 10:00 Baso # (Auto) 0.1 10^3/uL (0.0-0.1) 02/08/24 10:00 Nucleated RBC % (auto) 0 % 02/08/24 10:00 Nucleated RBCs # 0.0 /100WBC 02/08/24 10:00 Sodium 137 mmol/L (136-145) 02/08/24 10:00 Potassium 4.0 mmol/L (3.5-5.1) 02/08/24 10:00 Chloride 107 mmol/L (98-107) 02/08/24 10:00 Carbon Dioxide 18 mmol/L (22-29) L 02/08/24 10:00 Anion Gap 16.0 (5-19) 02/08/24 10:00 BUN 13 mg/dL (6-20) 02/08/24 10:00 Creatinine 0.6 mg/dL (0.5-0.9) 02/08/24 10:00 GFR Calculation 111.9 mL/min (90-130) 02/08/24 10:00 Glucose 196 mg/dL (65-115) H 02/08/24 10:00 Calculated Osmolality 290 mOsm/kg (285-295) 02/08/24 10:00 Calcium 9.0 mg/dL (8.5-10.5) 02/08/24 10:00 Total Bilirubin 0.5 mg/dL (0.15-1.2) 02/08/24 10:00 AST 16 U/L (0-32) 02/08/24 10:00 ALT 11 U/L (0-33) 02/08/24 10:00 Alkaline Phosphatase 80 U/L (35-105) 02/08/24 10:00 Total Protein 7.6 g/dL (6.6-8.7) 02/08/24 10:00 Albumin 4.0 g/dL (3.5-5.2) 02/08/24 10:00 Globulin 3.6 g/dL (1.3-4.6) 02/08/24 10:00 Lipase 14 U/L (13-60) 02/08/24 10:00 HCG, Qual Negative (Negative) 02/08/24 10:00 Urine Color Yellow (Yellow) 02/08/24 11:14 Urine Appearance Clear (CLEAR) 02/08/24 11:14 Urine pH 5 (5-7) 02/08/24 11:14 Ur Specific [place] 1.030 (1.005-1.030) 02/08/24 11:14 Urine Protein Trace (Negative) 02/08/24 11:14 Urine Glucose (UA) Trace (Normal) H 02/08/24 11:14 Urine Ketones 3+ (Negative) H 02/08/24 11:14 Urine Blood Neg (Negative) 02/08/24 11:14 Urine Nitrate Negative (Negative) 02/08/24 11:14 Urine Bilirubin Neg (Negative) 02/08/24 11:14 Urine Urobilinogen Norm mg/dL (Negative) 02/08/24 11:14 Ur Leukocyte Esterase Negative (Negative) 02/08/24 11:14 Urine RBC 0-4 /hpf (0-2) H 02/08/24 11:14 Urine WBC None /hpf (0-5) 02/08/24 11:14 Ur Squamous Epith Cells 0-4 /hpf (0-5) H 02/08/24 11:14 Amorphous Sediment Not Reportable 02/08/24 11:14 Urine Bacteria Trace /hpf (NONE) 02/08/24 11:14 Urine Mucus 3+ /hpf 02/08/24 11:14 All radiology interpretation(s) finalized by discharge Discharge Plan Discharge Patient Disposition: Home Clinical Impression: Gastroenteritis Condition: Stable Prescriptions: New promethazine 25 mg tablet 25 mg PO Q6H PRN (Reason: nausea and vomiting) Qty: 20 0RF No Action (DME) Aeroneb Go Nebulizer Misc See Rx Instructions .Route Rx Instructions: As directed albuterol sulfate 2.5 mg /3 mL (0.083 %) solution for nebulization 1.25 mg inhalation Q6H PRN (Reason: Shortness Of Breath) pantoprazole 40 mg Tablet,Delayed Release (Dr/Ec) 40 mg PO BID PRN (Reason: Acid Reflux) lisinopril 2.5 mg tablet 2.5 mg PO DAILY naproxen 500 mg tablet 500 mg PO BID PRN (Reason: Pain) Flovent HFA 110 mcg/actuation HFA aerosol inhaler 1 puff INHALATION BID PRN (Reason: Shortness Of Breath) albuterol sulfate [Ventolin HFA] 90 mcg/actuation Hfa Aerosol Inhaler 2 puff INHALATION BID PRN (Reason: Shortness Of Breath Or Wheezing) Discharge Orders: Discharge ED (Routine); Ordered 02/08/24 Ordered By: Mor Shepard Referrals: Baljinder Ramsey MD [Primary Care Provider] - Discharge Diet: Clear Liquid Discharge Activity: Increase activity as tolerated Patient Instructions: Opioid Safety, Pain Management Activity Restrictions/Additional Instructions: Thank you for choosing [facility] for your healthcare needs today. Please realize this is an emergency room and that we are providing you with a medical screening exam and this may not be complete and all inclusive of all the testing and or work up that you may need to determine your ailment or severity of your illness. It is very important that you follow up as instructed or that you return to the Emergency Department should you have concerns or if your condition changes or worsens in any way. You were seen today with stomach pain CT abdomen did not show any acute changes. Laboratory tests were unremarkable. Recommend clinical diet for next 24 to 48 hours. Advance as tolerated. You can use promethazine as needed for nausea vomiting symptoms persist follow-up with primary care doctor Coding Level of Care Code ED Team Leader for Ada Pedersen
--- NOTE | 2024-02-08 09:53 | CT_ITS ---
WS: [id number] CT ABDOMEN PELVIS TECHNIQUE: Noncontrast CT of the abdomen and pelvis with coronal and sagittal reformatted images. CLINICAL INFORMATION: abdominal pain/ nausea/ vomiting COMPARISON: CT 10/28/2023 DLP: 797.[address] scans at [facility] use at least one of these dose optimization techniques: automated e xposure control; mA and/or kV adjustment per patient size (includes targeted exams where dose is matc hed to clinical indication); or iterative reconstruction. FINDINGS: Prior cholecystectomy. Lung bases are well aerated. Mild hepatomegaly. Cholecystectomy clips. Noncont rast spleen. Small esophageal hiatal hernia. Adrenal glands are normal. No hydronephrosis in either k idney. Normal noncontrast pancreas. Tiny fat-containing umbilical hernia. Previously described pancol itis as resolved. Few sigmoid and LEFT colon diverticuli. No evidence of acute diverticulitis. No nigel dence of high-grade small or large bowel obstruction. Normal caliber abdominal aorta. CT/CT abdomen pelvis wo con [id number] IMPRESSION: 1. No acute findings in the abdomen or pelvis. 2. Prior cholecystectomy. 3. Small esophageal hernia. 4. Previously described colitis has resolved. 5. No hydronephrosis in either kidney. 6. No other acute findings.
--- NOTE | 2024-02-08 09:54 | XRR_ITS ---
PROCEDURE INFORMATION: Exam: XR Chest Exam date and time: 02/08/2024 10:06 AM Age: 38 years old Clinical indication: Other: N/v; Prior surgery; Surgery date: 6+ months; Surgery type: gb; Additional info: Abdominal pain/ n/v TECHNIQUE: Imaging protocol: Radiologic exam of the chest. Views: 1 view. COMPARISON: CR XR chest 1V portable [id number] 01/04/2023 12:48 AM FINDINGS: Lungs: Suboptimal pulmonary expansion with associated accentuation of bronchovascular markings. No definite acute pulmonary pathology given low lung volumes. Pleural spaces: No pleural effusion. Heart/Mediastinum: Cardiomediastinal contours within normal limits. Bones/joints: No significant pathology. XR/XR chest 1V portable [id number] IMPRESSION: No acute pathology given incomplete pulmonary expansion.
[2024-02-08] MEDS: ondansetron 2 mg/ML SDV 2 mL 4 MG IVP (10:01)
[2024-02-08] MEDS: diphenhydrAMINE 50 mg/mL SDV 1mL IVP (10:01)
[2024-02-08 10:02] VITALS: RESP 18; O2SAT 97
[2024-02-08] MEDS: morphine 4 mg/mL SDV 1 mL IVP ×2 (10:02→11:43)
[2024-02-08 10:07] LABS: Basophils # 0.1 10^3/uL (0.0-0.1); Basophils % 0.5 %; Eosinophils # 0.1 10^3/uL (0.0-0.8); Eosinophils % 1.2 %; Hematocrit 45.1 % (36-47); Lymphocytes # 1.6 10^3/uL (0.8-4.8); Lymphocytes % 14.8 %; Mean Corpuscular HGB Conc 33.7 g/dL (30-55); Mean Corpuscular Hemoglobin 31.7 pg (27-33); Mean Corpuscular Volume 94.2 fl (85-98); Mean Platelet Volume 12.4 fL (7.4-10.4); Monocytes # 0.5 10^3/uL (0.2-0.9); Monocytes % 4.4 %; Neutrophils % 78.8 %; Nucleated Red Blood Cells % 0 %; Platelet Count 123 10^3/cmm (157-399); Red Blood Count 4.79 10^6/uL (3.85-5.65); Red Cell Distribution Width 12.3 % (12.1-15.1); White Blood Count 10.53 10^3/uL (3.29-11.43)
[2024-02-08 10:23] LABS: HCG, Serum Qual Negative (Negative)
[2024-02-08 10:26] LABS: Alanine Aminotransferase 11 U/L (0-33); Alkaline Phosphatase 80 U/L (35-105); Blood Urea Nitrogen 13 mg/dL (6-20); Carbon Dioxide 18 mmol/L (22-29); Chloride 107 mmol/L (98-107); Creatinine Clr Calc Pharmacy 143.6491; Globulin 3.6 g/dL (1.3-4.6); Glomerular Filtration Rate 111.9 mL/min (90-130); Glucose 196 mg/dL (65-115); Lipase 14 U/L (13-60); Osmolality Calculated 290 mOsm/kg (285-295); Sodium 137 mmol/L (136-145); Total Bilirubin 0.5 mg/dL (0.15-1.2); Total Protein 7.6 g/dL (6.6-8.7)
[2024-02-08 10:27] LABS: Aspartate Amino Transferase 16 U/L (0-32)
[2024-02-08 11:13] VITALS: BP 129/67; PULSE 62; O2SAT 100
[2024-02-08 11:29] LABS: Add Urine Microscopic? YES; Bilirubin Urine Neg (Negative); Blood Urine Neg (Negative); Glucose Urine UA Trace (Normal); Ketones Urine 3+ (Negative); Leukocyte Esterase Urine Negative (Negative); Nitrate Urine Negative (Negative); Protein Urine Trace (Negative); Urine Appearance Clear (CLEAR); Urine Color Yellow (Yellow); Urobilinogen Urine Norm (Negative); pH Urine 5 (5-7)
[2024-02-08 11:35] LABS: Add Urine Culture? No; Bacteria Urine TRACE /hpf; Mucus Urine 3+ /hpf; RBC Urine 0-4 /hpf (0-2); Squamous Epithelial Cell Urine 0-4 /hpf (0-5)
[2024-02-08 11:43] VITALS: RESP 16; O2SAT 100
[2024-02-08 12:00] VITALS: BP 140/87; PULSE 64; O2SAT 97
[2024-02-08] MEDS: sodium chloride 0.9% 1,000 ML 999 ML IV (12:36)
[2024-02-08 13:42] VITALS: BP 136/70; PULSE 66; RESP 14; O2SAT 98
== END 2024-02-08 13:42 | disposition home or self-care (01) ==
PROVIDERS: Emergency Provider Family Medicine; PCP Family Medicine
DX: K52.9 Noninfective gastroenteritis and colitis, unspecified (principal); F17.200 Nicotine dependence, unspecified, uncomplicated; K21.9 Gastro-esophageal reflux disease without esophagitis; J45.909 Unspecified asthma, uncomplicated; Z79.899 Other long term (current) drug therapy
CPT/HCPCS: 36415; 71045; 74176; 80053; 81001; 83690; 84703; 85025; 96361; 96374; 96375; 96376; 99285; J1200; J2270; J2405; J7030

== ENCOUNTER 2024-02-09 11:48 | Emergency (ER) | payer MEDICAID, SELFPAY ==
[2024-02-09 12:11] VITALS: BP 152/105; PULSE 77; RESP 22; TEMP 37.1; O2SAT 95
[2024-02-09 12:13] VITALS: BP 163/99; PULSE 65; RESP 16; O2SAT 98
[2024-02-09] MEDS: sodium chloride 0.9% 1,000 ML 999 ML IV (12:21)
[2024-02-09 12:24] LABS: Basophils % 0.2 %; Eosinophils % 0.1 %; Lymphocytes # 1.3 10^3/uL (0.8-4.8); Lymphocytes % 11.3 %; Mean Corpuscular HGB Conc 34.5 g/dL (30-55); Mean Corpuscular Hemoglobin 31.5 pg (27-33); Mean Corpuscular Volume 91.3 fl (85-98); Mean Platelet Volume 12.4 fL (7.4-10.4); Monocytes # 0.5 10^3/uL (0.2-0.9); Monocytes % 4.2 %; Neutrophils # 9.76 10^3/uL (1.8-7.7); Neutrophils % 83.9 %; Nucleated Red Blood Cells % 0 %; Platelet Count 160 10^3/cmm (157-399); Red Blood Count 4.82 10^6/uL (3.85-5.65); Red Cell Distribution Width 12.2 % (12.1-15.1); White Blood Count 11.63 10^3/uL (3.29-11.43)
--- NOTE | 2024-02-09 12:33 | W.ED.ABDPA2 ---
HPI - Abdominal Pain General: Chief Complaint: Abdominal Pain Stated Complaint: abd pain, n/v Time Seen by Provider: 02/09/24 12:12 History of Present Illness: 38-year-old female presents emergency room with abdominal pain persistent nausea and vomiting she was seen yesterday CT was negative labs did not show any significant abnormality. She was discharged home with clear liquid diet and promethazine use as needed. She does use medical marijuana fairly regular basis. She denies any medic easy melena hematemesis coffee-ground emesis. no dysuria urgency or frequency or flank pain. PFSH ED PFSH: Medical History GERD (gastroesophageal reflux disease) Umbilical hernia Symptomatic cholelithiasis Asthma Surgical History Hx laparoscopic cholecystectomy Hx of section History of tonsillectomy and adenoidectomy History of salpingectomy No pertinent past surgical history Social History Smoking and tobacco/nicotine status: current every day tobacco/nicotine user Alcohol intake: never Substance/Drug Use: never Course Vital Signs: Vital signs: Vital Signs Temperature 98.8 F 02/09/24 12:11 Pulse Rate 61 02/09/24 14:30 Respiratory Rate 16 02/09/24 12:13 Blood Pressure 110/67 02/09/24 14:30 Pulse Oximetry 99 02/09/24 14:30 Oxygen Delivery Me thod Room Air 02/09/24 12:11 MDM - Abdominal Pain Medical Decision Making Nausea vomiting improved with Ativan and Haldol. Suspect symptoms may be associated with marijuana use discussed with patient encourage abstinence. Will discharge home with olanzapine and Ativan to use as needed stool cultures done and are pending she had previously had an episode of care for low back. Repeat imaging was not done since abdominal exam was generally benign today. Medical Records I reviewed the patient's medical records. Lab Data I reviewed the patient's lab results. 02/09/24 12:20 02/09/24 12:20 Labs/Radiology: Laboratory Results WBC 11.63 10^3/uL (3.29-11.43) H 02/09/24 12:20 RBC 4.82 10^6/uL (3.85-5.65) 02/09/24 12:20 Hgb 15.20 g/dL (11.27-16.99) 02/09/24 12:20 Hct 44.0 % (36-47) 02/09/24 12:20 MCV 91.3 fl (85-98) 02/09/24 12:20 MCH 31.5 pg (27-33) 02/09/24 12:20 MCHC 34.5 g/dL (30-55) 02/09/24 12:20 RDW 12.2 % (12.1-15.1) 02/09/24 12:20 Plt Count 160 10^3/cmm (157-399) D 02/09/24 12:20 MPV 12.4 fL (7.4-10.4) H 02/09/24 12:20 Neut % (Auto) 83.9 % 02/09/24 12:20 Lymph % (Auto) 11.3 % 02/09/24 12:20 [place] % (Auto) 4.2 % 02/09/24 12:20 Eos % (Auto) 0.1 % 02/09/24 12:20 Baso % (Auto) 0.2 % 02/09/24 12:20 Neut # (Auto) 9.76 10^3/uL (1.8-7.7) H 02/09/24 12:20 Lymph # (Auto) 1.3 10^3/uL (0.8-4.8) 02/09/24 12:20 [place] # (Auto) 0.5 10^3/uL (0.2-0.9) 02/09/24 12:20 Eos # (Auto) 0.0 10^3/uL (0.0-0.8) 02/09/24 12:20 Baso # (Auto) 0.0 10^3/uL (0.0-0.1) 02/09/24 12:20 Nucleated RBC % (auto) 0 % 02/09/24 12:20 Nucleated RBCs # 0.0 /100WBC 02/09/24 12:20 Sodium 137 mmol/L (136-145) 02/09/24 12:20 Potassium 3.8 mmol/L (3.5-5.1) 02/09/24 12:20 Chloride 102 mmol/L (98-107) 02/09/24 12:20 Carbon Dioxide 25 mmol/L (22-29) 02/09/24 12:20 Anion Gap 13.8 (5-19) 02/09/24 12:20 BUN 16 mg/dL (6-20) 02/09/24 12:20 Creatinine 0.6 mg/dL (0.5-0.9) 02/09/24 12:20 GFR Calculation 111.9 mL/min (90-130) 02/09/24 12:20 Glucose 160 mg/dL (65-115) H 02/09/24 12:20 Calculated Osmolality 289 mOsm/kg (285-295) 02/09/24 12:20 Calcium 9.3 mg/dL (8.5-10.5) 02/09/24 12:20 Total Bilirubin 0.5 mg/dL (0.15-1.2) 02/09/24 12:20 AST 13 U/L (0-32) 02/09/24 12:20 ALT 13 U/L (0-33) 02/09/24 12:20 Alkaline Phosphatase 79 U/L (35-105) 02/09/24 12:20 Total Protein 7.8 g/dL (6.6-8.7) 02/09/24 12:20 Albumin 4.2 g/dL (3.5-5.2) 02/09/24 12:20 Globulin 3.6 g/dL (1.3-4.6) 02/09/24 12:20 Lipase 17 U/L (13-60) 02/09/24 12:20 Urine Color Yellow (Yellow) 02/09/24 12:45 Urine Appearance Clear (CLEAR) 02/09/24 12:45 Urine pH 6 (5-7) 02/09/24 12:45 Ur Specific [place] 1.025 (1.005-1.030) 02/09/24 12:45 Urine Protein Neg (Negative) 02/09/24 12:45 Urine Glucose (UA) Norm (Normal) 02/09/24 12:45 Urine Ketones 2+ (Negative) H 02/09/24 12:45 Urine Blood Neg (Negative) 02/09/24 12:45 Urine Nitrate Negative (Negative) 02/09/24 12:45 Urine Bilirubin Neg (Negative) 02/09/24 12:45 Urine Urobilinogen Norm mg/dL (Negative) 02/09/24 12:45 Ur Leukocyte Esterase Negative (Negative) 02/09/24 12:45 No radiology studies performed this visit Discharge Plan Discharge Patient Disposition: Home Clinical Impression: Nausea and vomiting Condition: Stable Prescriptions: New olanzapine 10 mg tablet,disintegrating 10 mg PO Q8H PRN (Reason: nausea and vomiting) Qty: 14 0RF Ativan 2 mg tablet 2 mg buccal Q6H PRN (Reason: nausea and vomiting) Qty: 14 0RF No Action (DME) Aeroneb Go Nebulizer Misc See Rx Instructions .Route Rx Instructions: As directed albuterol sulfate 2.5 mg /3 mL (0.083 %) solution for nebulization 1.25 mg inhalation Q6H PRN (Reason: Shortness Of Breath) pantoprazole 40 mg Tablet,Delayed Release (Dr/Ec) 40 mg PO BID PRN (Reason: Acid Reflux) lisinopril 2.5 mg tablet 2.5 mg PO DAILY naproxen 500 mg tablet 500 mg PO BID PRN (Reason: Pain) fluticasone propionate [Flovent HFA] 110 mcg/actuation HFA aerosol inhaler 1 puff INHALATION BID PRN (Reason: Shortness Of Breath) promethazine 25 mg tablet 25 mg PO Q6H PRN (Reason: nausea and vomiting) Qty: 20 0RF albuterol sulfate [Ventolin HFA] 90 mcg/actuation Hfa Aerosol Inhaler 2 puff INHALATION BID PRN (Reason: Shortness Of Breath Or Wheezing) Discharge Orders: Discharge ED (Routine); Ordered 02/09/24 Ordered By: Mor Shepard Referrals: Baljinder Ramsey MD [Primary Care Provider] - Discharge Diet: Usual diet Discharge Activity: Increase activity as tolerated Patient Instructions: Opioid Safety, Pain Management Activity Restrictions/Additional Instructions: Thank you for choosing [facility] for your healthcare needs today. Please realize this is an emergency room and that we are providing you with a medical screening exam and this may not be complete and all inclusive of all the testing and or work up that you may need to determine your ailment or severity of your illness. It is very important that you follow up as instructed or that you return to the Emergency Department should you have concerns or if your condition changes or worsens in any way. You were seen today for persistent nausea vomiting. Stool cultures were done today we will contact you with those are the results available. You did respond well to the medications given in the emergency room you are given olanzapine and Ativan to use as needed for nausea vomiting. Clear liquid diet for the next 24 to 48 hours and advance as tolerated. Coding Level of Care Code ED Balancing Machine Operator for Ada Pedersen
[2024-02-09 12:44] LABS: Alanine Aminotransferase 13 U/L (0-33); Albumin Level 4.2 g/dL (3.5-5.2); Alkaline Phosphatase 79 U/L (35-105); Anion Gap 13.8 (5-19); Aspartate Amino Transferase 13 U/L (0-32); Blood Urea Nitrogen 16 mg/dL (6-20); Calcium 9.3 mg/dL (8.5-10.5); Carbon Dioxide 25 mmol/L (22-29); Chloride 102 mmol/L (98-107); Creatinine Clr Calc Pharmacy 143.6491; Globulin 3.6 g/dL (1.3-4.6); Glomerular Filtration Rate 111.9 mL/min (90-130); Glucose 160 mg/dL (65-115); Lipase 17 U/L (13-60); Osmolality Calculated 289 mOsm/kg (285-295); Potassium 3.8 mmol/L (3.5-5.1); Sodium 137 mmol/L (136-145); Total Bilirubin 0.5 mg/dL (0.15-1.2); Total Protein 7.8 g/dL (6.6-8.7)
[2024-02-09] MEDS: haloperidol inj 5 mg/mL INJ 1 mL 2.5 MG IVP (12:44)
[2024-02-09] MEDS: LORazepam 2 mg/mL INJ 10 mL MDV IVP (12:44)
[2024-02-09 12:53] LABS: Add Urine Microscopic? NO; Charge for UA Resulting for Rev
[2024-02-09 12:57] LABS: Glucose Urine UA Norm (Normal); Protein Urine Neg (Negative); Specific Gravity, Urine 1.025 (1.005-1.030); Urine Appearance Clear (CLEAR); Urine Color Yellow (Yellow); pH Urine 6 (5-7)
[2024-02-09 12:58] LABS: Bilirubin Urine Neg (Negative); Blood Urine Neg (Negative); Ketones Urine 2+ (Negative); Leukocyte Esterase Urine Negative (Negative); Nitrate Urine Negative (Negative); Urobilinogen Urine Norm (Negative)
[2024-02-09 14:30] VITALS: BP 110/67; PULSE 61; O2SAT 99
[2024-02-09 16:10] VITALS: BP 118/78; PULSE 66; O2SAT 100
[2024-02-09 16:12] VITALS: BP 118/78; PULSE 66; O2SAT 100
== END 2024-02-09 16:00 | disposition home or self-care (01) ==
PROVIDERS: Emergency Provider Family Medicine; PCP Family Medicine
DX: R11.2 Nausea with vomiting, unspecified (principal); Z72.0 Tobacco use
CPT/HCPCS: 80053; 81003; 83690; 85025; 96374; 96375; 99284; J1630; J2060; J7030

== ENCOUNTER 2024-02-12 14:19 | Emergency (ER) | payer MEDICAID, SELFPAY ==
[2024-02-12] VITALS (7 sets, daily range): BP systolic 106–147; BP diastolic 76–103; PULSE 73–99; RESP 18–25; TEMP 37; O2SAT 93–98; BMI 33.3
--- NOTE | 2024-02-12 14:33 | XRR_ITS ---
PROCEDURE INFORMATION: Exam: XR Chest Exam date and time: 02/12/2024 2:51 PM Age: 38 years old Clinical indication: Cough and dyspnea; Additional info: Dyspnea/cough TECHNIQUE: Imaging protocol: Radiologic exam of the chest. Views: 1 view. COMPARISON: CR XR chest 1V portable [id number] 02/08/2024 10:06 AM FINDINGS: Lungs: Lungs are clear. Pleural spaces: There is no pleural effusion or pneumothorax. Heart/Mediastinum: Cardiomediastinal contours are unremarkable. Bones/joints: Bones are unremarkable. XR/XR chest 1V portable [id number] IMPRESSION: No acute findings.
--- NOTE | 2024-02-12 15:12 | W.ED.ASTHMA ---
Documented by User: Mor Shepard DO 02/13/24 16:33 HPI - Asthma General: Chief Complaint: Asthma Stated Complaint: ASTHMA Time Seen by Provider: 02/12/24 14:33 Source: patient Mode of arrival: EMS History of Present Illness: 38-year-old female recently seen by Dr. Steward. This lady is experiencing some shortness of breath and pleuritic type chest discomfort. She has been wheezing. No fever sweats or chills. She was seen a few days ago for abdominal pain which was found to be colitis. She denies productive cough. No hemoptysis. MD complaint: asthma attack Onset (ago): hour(s) Severity: moderate Associated symptoms: Deny chest pain, fever(s), hemoptysis, leg edema, non-productive cough, productive cough or syncope Asthma History: adult onset Treatments Prior to Arrival: inhaled bronchodilator Review of Systems Const: Denies: fever(s) or chills Card: Denies: chest pain or syncope Resp: Denies: dyspnea, productive cough, non-productive cough or hemoptysis GI: Denies: abdominal pain : Denies: dysuria, urinary frequency or urinary urgency Musc: Denies: neck pain or back pain Skin/Breast: Denies: rash PFSH ED PFSH: Medical History GERD (gastroesophageal reflux disease) Umbilical hernia Symptomatic cholelithiasis Asthma Surgical History Hx laparoscopic cholecystectomy Hx of section History of tonsillectomy and adenoidectomy History of salpingectomy No pertinent past surgical history Social History Smoking and tobacco/nicotine status: current every day tobacco/nicotine user Alcohol intake: never Substance/Drug Use: never Physical Exam Const: GENERAL APPEARANCE: cooperative and comfortable ORIENTATION/CONSCIOUSNESS: Yes awake, Yes oriented to person, Yes oriented to place and Yes oriented to time HENMT: COMMON NORMALS: normocephalic, atraumatic and hearing grossly normal bilaterally HEAD & SCALP: normocephalic and atraumatic Resp: COMMON NORMALS: normal respiratory effort, No retractions and No use of accessory muscles AUSCULTATION: wheezes Cardio: COMMON NORMALS: regular rate, regular rhythm and No murmurs present (Cardio) RATE: regular rate RHYTHM: regular rhythm GI: COMMON NORMALS: Soft to palpation and No hepatosplenomegaly present AUSCULTATION: Yes normoactive bowel sounds PALPATION: Yes Soft to palpation, No Tenderness to palpation present (GI), No Guarding due to palpation present (GI) and Yes No hepatosplenomegaly present Extremity: COMMON NORMALS: normal to inspection, capillary refill normal, no clubbing, cyanosis or edema, no calf tenderness and no pedal edema Neuro: SENSORIUM/ORIENTATION: Yes oriented to person, Yes oriented to place and Yes oriented to time Skin: COMMON NORMALS: no rashes or lesions noted GENERAL SKIN EXAM: no rashes or lesions noted Course Vital Signs: Vital signs: Vital Signs Temperature 98.6 F 02/12/24 14:22 Pulse Rate 79 02/12/24 20:18 Respiratory Rate 18 02/12/24 20:18 Blood Pressure 130/76 02/12/24 16:59 Pulse Oximetry 97 02/12/24 20:18 Oxygen Delivery Me thod Room Air 02/12/24 20:18 MDM - Asthma Medical Decision Making Care signed out to Dr. Whitley at change of shift. See final notes for diagnosis and disposition. 38-year-old female improved after steroids and breathing treatments here. Her chest x-ray is negative. Her white blood cell count is 12. Hemoglobin is 17. Her delta troponin is -2. He remained normal. Her EKG is not remarkable. She will be allowed discharge with a steroid taper, etc. Lab Data 02/12/24 15:27 02/12/24 15:27 Radiology Impressions Chest X-Ray 02/12/24 14:33 IMPRESSION: No acute findings. Laboratory Results WBC 12.21 10^3/uL (3.29-11.43) H 02/12/24 15: RBC 5.56 10^6/uL (3.85-5.65) 02/12/24 15:27 Hgb 17.40 g/dL (11.27-16.99) H 02/12/24 15:27 Hct 49.9 % (36-47) H 02/12/24 15:27 MCV 89.7 fl (85-98) 02/12/24 15: MCH 31.3 pg (27-33) 02/12/24: MCHC 34.9 g/dL (30-55) 02/12/24: RDW 11.9 % (12.1-15.1) L 02/12/24: Plt Count 154 10^3/cmm (157-399) L 02/12/24: MPV 12.4 fL (7.4-10.4) H 02/12/24: Neut % (Auto) 71.5 % 02/12/24: Lymph % (Auto) 20.2 % 02/12/24: [place] % (Auto) 7.4 % 02/12/24: Eos % (Auto) 0.3 % 02/12/24 Baso % (Auto) 0.3 % 02/12/24 Neut # (Auto) 8.72 10^3/uL (1.8-7.7) H 02/12/24: Lymph # (Auto) 2.5 10^3/uL (0.8-4.8) 02/12/24: [place] # (Auto) 0.9 10^3/uL (0.2-0.9) 02/12/24 Eos # (Auto) 0.0 10^3/uL (0.0-0.8) 02/12/24 Baso # (Auto) 0.0 10^3/uL (0.0-0.1) 02/12/24 Nucleated RBC % (auto) 0 % 02/12/24 Nucleated RBCs # 0.0 /100WBC 02/12/24: Sodium 137 mmol/L (136-145) 02/12/24: Potassium 3.0 mmol/L (3.5-5.1) L 02/12/24: Chloride 99 mmol/L (98-107) 02/12/24: Carbon Dioxide 22 mmol/L (22-29) 02/12/24: Anion Gap 19.0 (5-19) 02/12/24: BUN 16 mg/dL (6-20) 02/12/24 Creatinine 0.7 mg/dL (0.5-0.9) 02/12/24 15: GFR Calculation 93.6 mL/min (90-130) 02/12/24 15: Glucose 121 mg/dL (65-115) H 02/12/24 15: Calculated Osmolality 286 mOsm/kg (285-295) 02/12/24 15: Calcium 10.2 mg/dL (8.5-10.5) 02/12/24 15: Total Bilirubin 0.4 mg/dL (0.15-1.2) 02/12/24 15: AST 19 U/L (0-32) 02/12/24 15: ALT 18 U/L (0-33) 02/12/24 15: Alkaline Phosphatase 90 U/L (35-105) 02/12/24 15: Troponin T Baseline 9 ng/L (0-10) 02/12/24 15: Troponin T 120 Minute 6.64 ng/L (0-10) 02/12/24 18:20 Delta Troponin T -2.36 ABS# (0-10) L 02/12/24 18:20 Total Protein 8.5 g/dL (6.6-8.7) 02/12/24 15: Albumin 4.5 g/dL (3.5-5.2) 02/12/24 15: Globulin 4.0 g/dL (1.3-4.6) 02/12/24 15:27 Discharge Plan Discharge Patient Disposition: Home Clinical Impression: Asthma with acute exacerbation Condition: Stable Prescriptions: New Medrol (Brandt) 4 mg tablets,dose pack See Rx Instructions .ROUTE .COMPLEX Qty: 21 0RF Rx Instructions: orally per package directions Discontinued promethazine 25 mg tablet 25 mg PO Q6H PRN (Reason: nausea and vomiting) Qty: 20 0RF No Action (DME) Aeroneb Go Nebulizer Misc See Rx Instructions .Route Rx Instructions: As directed albuterol sulfate 2.5 mg /3 mL (0.083 %) solution for nebulization 1.25 mg inhalation Q6H PRN (Reason: Shortness Of Breath) pantoprazole 40 mg Tablet,Delayed Release (Dr/Ec) 40 mg PO BID PRN (Reason: Acid Reflux) lisinopril 2.5 mg tablet 2.5 mg PO DAILY naproxen 500 mg tablet 500 mg PO BID PRN (Reason: Pain) fluticasone propionate [Flovent HFA] 110 mcg/actuation HFA aerosol inhaler 1 puff INHALATION BID PRN (Reason: Shortness Of Breath) albuterol sulfate [Ventolin HFA] 90 mcg/actuation Hfa Aerosol Inhaler 2 puff INHALATION BID PRN (Reason: Shortness Of Breath Or Wheezing) olanzapine 10 mg tablet,disintegrating 10 mg PO Q8H PRN (Reason: nausea and vomiting) Qty: 14 0RF Ativan 2 mg tablet 2 mg buccal Q6H PRN (Reason: nausea and vomiting) Qty: 14 0RF Discharge Orders: Discharge ED (Routine); Ordered 02/12/24 Ordered By: Moshe Whitley Referrals: Baljinder Ramsey MD [Primary Care Provider] - 1-3 days Patient Instructions: Asthma (ED), Opioid Safety, Pain Management Activity Restrictions/Additional Instructions: Use your nebulizer machine every 4 hours while awake for the first 24 hours, then as needed following that. Return for worsening shortness of breath despite treatment. Medication as directed. See your doctor early next week. Coding Level of Care Code ED Java Performance Engineer for Chg Fwd Documented by User: Moshe Whitley DO 02/13/24 16:32 HPI - Asthma General: Chief Complaint: Asthma Stated Complaint: ASTHMA Time Seen by Provider: 02/12/24 14:33 History of Present Illness: 38-year-old female recently seen by Dr. Steward. This lady is experiencing some shortness of breath and pleuritic type chest discomfort. She has been wheezing. [facility] ED PFSH: Medical History GERD (gastroesophageal reflux disease) Umbilical hernia Symptomatic cholelithiasis Asthma Surgical History Hx laparoscopic cholecystectomy Hx of section History of tonsillectomy and adenoidectomy History of salpingectomy No pertinent past surgical history Social History Smoking and tobacco/nicotine status: current every day tobacco/nicotine user Alcohol intake: never Substance/Drug Use: never Course Vital Signs: Vital signs: Vital Signs Temperature 98.6 F 02/12/24 14:22 Pulse Rate 79 02/12/24 20:18 Respiratory Rate 18 02/12/24 20:18 Blood Pressure 130/76 02/12/24 16:59 Pulse Oximetry 97 02/12/24 20:18 Oxygen Delivery Me thod Room Air 02/12/24 20:18 MDM - Asthma Medical Decision Making 38-year-old female improved after steroids and breathing treatments here. Her chest x-ray is negative. Her white blood cell count is 12. Hemoglobin is 17. Her delta troponin is -2. He remained normal. Her EKG is not remarkable. She will be allowed discharge with a steroid taper, etc. Lab Data 02/12/24 15:27 02/12/24 15:27 Radiology Impressions Chest X-Ray 02/12/24 14:33 IMPRESSION: No acute findings. Laboratory Results WBC 12.21 10^3/uL (3.29-11.43) H 02/12/24 15: RBC 5.56 10^6/uL (3.85-5.65) 02/12/24 15:27 Hgb 17.40 g/dL (11.27-16.99) H 02/12/24 15: Hct 49.9 % (36-47) H 02/12/24 15: MCV 89.7 fl (85-98) 02/12/24 15: MCH 31.3 pg (27-33) 02/12/24 15: MCHC 34.9 g/dL (30-55) 02/12/24 15: RDW 11.9 % (12.1-15.1) L 02/12/24 15:27 Plt Count 154 10^3/cmm (157-399) L 02/12/24 15:27 MPV 12.4 fL (7.4-10.4) H 02/12/24 15: Neut % (Auto) 71.5 % 02/12/24 15:27 Lymph % (Auto) 20.2 % 02/12/24 15:27 [place] % (Auto) 7.4 % 02/12/24 15: Eos % (Auto) 0.3 % 02/12/24 15: Baso % (Auto) 0.3 % 02/12/24 15: Neut # (Auto) 8.72 10^3/uL (1.8-7.7) H 02/12/24 15: Lymph # (Auto) 2.5 10^3/uL (0.8-4.8) 02/12/24 15: [place] # (Auto) 0.9 10^3/uL (0.2-0.9) 02/12/24: Eos # (Auto) 0.0 10^3/uL (0.0-0.8) 02/12/24: Baso # (Auto) 0.0 10^3/uL (0.0-0.1) 02/12/24 15: Nucleated RBC % (auto) 0 % 02/12/24 15: Nucleated RBCs # 0.0 /100WBC 02/12/24 15: Sodium 137 mmol/L (136-145) 02/12/24 15: Potassium 3.0 mmol/L (3.5-5.1) L 02/12/24: Chloride 99 mmol/L (98-107) 02/12/24: Carbon Dioxide 22 mmol/L (22-29) 02/12/24: Anion Gap 19.0 (5-19) 02/12/24 15: BUN 16 mg/dL (6-20) 02/12/24 15: Creatinine 0.7 mg/dL (0.5-0.9) 02/12/24 15: GFR Calculation 93.6 mL/min (90-130) 02/12/24 15: Glucose 121 mg/dL (65-115) H 02/12/24 15: Calculated Osmolality 286 mOsm/kg (285-295) 02/12/24: Calcium 10.2 mg/dL (8.5-10.5) 02/12/24 15: Total Bilirubin 0.4 mg/dL (0.15-1.2) 05/18/24 15:27 AST 19 U/L (0-32) 02/12/24 15:27 ALT 18 U/L (0-33) 02/12/24 15:27 Alkaline Phosphatase 90 U/L (35-105) 02/12/24 15:27 Troponin T Baseline 9 ng/L (0-10) 02/12/24 15:27 Troponin T 120 Minute 6.64 ng/L (0-10) 02/12/24 18:20 Delta Troponin T -2.36 ABS# (0-10) L 02/12/24 18:20 Total Protein 8.5 g/dL (6.6-8.7) 02/12/24 15: Albumin 4.5 g/dL (3.5-5.2) 02/12/24 15: Globulin 4.0 g/dL (1.3-4.6) 02/12/24 15:27 All radiology interpretation(s) finalized by discharge Discharge Plan Discharge Patient Disposition: Home Clinical Impression: Asthma with acute exacerbation Condition: Stable Prescriptions: New Medrol (Brandt) 4 mg tablets,dose pack See Rx Instructions .ROUTE .COMPLEX Qty: 21 0RF Rx Instructions: orally per package directions Discontinued promethazine 25 mg tablet 25 mg PO Q6H PRN (Reason: nausea and vomiting) Qty: 20 0RF No Action (DME) Aeroneb Go Nebulizer Misc See Rx Instructions .Route Rx Instructions: As directed albuterol sulfate 2.5 mg /3 mL (0.083 %) solution for nebulization 1.25 mg inhalation Q6H PRN (Reason: Shortness Of Breath) pantoprazole 40 mg Tablet,Delayed Release (Dr/Ec) 40 mg PO BID PRN (Reason: Acid Reflux) lisinopril 2.5 mg tablet 2.5 mg PO DAILY naproxen 500 mg tablet 500 mg PO BID PRN (Reason: Pain) fluticasone propionate [Flovent HFA] 110 mcg/actuation HFA aerosol inhaler 1 puff INHALATION BID PRN (Reason: Shortness Of Breath) albuterol sulfate [Ventolin HFA] 90 mcg/actuation Hfa Aerosol Inhaler 2 puff INHALATION BID PRN (Reason: Shortness Of Breath Or Wheezing) olanzapine 10 mg tablet,disintegrating 10 mg PO Q8H PRN (Reason: nausea and vomiting) Qty: 14 0RF Ativan 2 mg tablet 2 mg buccal Q6H PRN (Reason: nausea and vomiting) Qty: 14 0RF Discharge Orders: Discharge ED (Routine); Ordered 02/12/24 Ordered By: Moshe Whitley Referrals: Baljinder Ramsey MD [Primary Care Provider] - 1-3 days Patient Instructions: Asthma (ED), Opioid Safety, Pain Management Activity Restrictions/Additional Instructions: Use your nebulizer machine every 4 hours while awake for the first 24 hours, then as needed following that. Return for worsening shortness of breath despite treatment. Medication as directed. See your doctor early next week. Coding Level of Care Code ED Java Performance Engineer for Ada Pedersen
[2024-02-12] MEDS: ipratropium-albuterol 3 mL Neb INHALATION (15:15)
[2024-02-12] MEDS: dexamethasone 10 mg/mL INJ IM (15:16)
[2024-02-12 15:36] LABS: Basophils % 0.3 %; Eosinophils % 0.3 %; Hematocrit 49.9 % (36-47); Lymphocytes # 2.5 10^3/uL (0.8-4.8); Lymphocytes % 20.2 %; Mean Corpuscular HGB Conc 34.9 g/dL (30-55); Mean Corpuscular Hemoglobin 31.3 pg (27-33); Mean Corpuscular Volume 89.7 fl (85-98); Mean Platelet Volume 12.4 fL (7.4-10.4); Monocytes # 0.9 10^3/uL (0.2-0.9); Monocytes % 7.4 %; Neutrophils # 8.72 10^3/uL (1.8-7.7); Neutrophils % 71.5 %; Nucleated Red Blood Cells % 0 %; Platelet Count 154 10^3/cmm (157-399); Red Blood Count 5.56 10^6/uL (3.85-5.65); Red Cell Distribution Width 11.9 % (12.1-15.1); White Blood Count 12.21 10^3/uL (3.29-11.43)
[2024-02-12 15:54] LABS: Alanine Aminotransferase 18 U/L (0-33); Albumin Level 4.5 g/dL (3.5-5.2); Alkaline Phosphatase 90 U/L (35-105); Aspartate Amino Transferase 19 U/L (0-32); Blood Urea Nitrogen 16 mg/dL (6-20); Calcium 10.2 mg/dL (8.5-10.5); Carbon Dioxide 22 mmol/L (22-29); Chloride 99 mmol/L (98-107); Creatinine Clr Calc Pharmacy 121.2548; Glomerular Filtration Rate 93.6 mL/min (90-130); Glucose 121 mg/dL (65-115); Osmolality Calculated 286 mOsm/kg (285-295); Sodium 137 mmol/L (136-145); Total Bilirubin 0.4 mg/dL (0.15-1.2); Total Protein 8.5 g/dL (6.6-8.7)
--- NOTE | 2024-02-12 17:06 | ECG_ITS ---
[facility] Test Date: 2024-02-12 Pat Name: Eliceo Calle Department: Room: Gender: Female Methods Analyst: : 1985 Requested By: Mor Peters Order Number: [id number] Matthew MD: Nadia Solares M.D. Measurements Intervals [place] Rate: 79 P: 62 PA: 158 QRS: 64 QRSD: 92 T: 78 QT: 356 QTc: 408 Interpretive Statements SINUS RHYTHM WITH SINUS ARRHYTHMIA Normal EKG No previous ECG available for comparison Electronically Signed On 02-13-2024 13:26:28 CDT by Nadia Solares M.D. [id number]
[2024-02-12 17:23] LABS: Troponin(5th) Baseline 9 ng/L (0-10)
--- NOTE | 2024-02-12 18:48 | PC.NURSE ---
Assumed care from Leslie WAGNER at this time.
[2024-02-12 18:49] LABS: Troponin 5 2HR 6.64 ng/L (0-10)
[2024-02-12 18:54] LABS: Troponin 5 2HR Delta -2.36 ABS# (0-10)
--- NOTE | 2024-02-12 19:07 | ECG_ITS ---
[facility] Test Date: 2024-02-12 Pat Name: Eliceo Calle Department: Room: Gender: Female Fish Protector: : 1985 Requested By: Mor Peters Order Number: [id number] Matthew MD: Nadia Solares M.D. Measurements Intervals [place] Rate: 62 P: 52 [place]: 163 QRS: 49 QRSD: 92 T: 72 QT: 382 QTc: 388 Interpretive Statements SINUS RHYTHM Normal EKG Compared to ECG 02/12/2024 17:06:08 No significant change Electronically Signed On 02-13-2024 13:47:57 CDT by Nadia Solares M.D. [id number]
[2024-02-12] MEDS: potassium chloride ER 20 mEq Tablet 40 MEQ PO (19:20)
== END 2024-02-12 20:23 | disposition home or self-care (01) ==
PROVIDERS: Family Medicine; Emergency Provider Emergency Medicine; PCP Family Medicine
DX: J45.901 Unspecified asthma with (acute) exacerbation (principal); F17.200 Nicotine dependence, unspecified, uncomplicated
CPT/HCPCS: 36415; 71045; 80053; 84484; 85025; 93005; 94640; 96372; 99285; J1100

== ENCOUNTER 2024-02-13 19:02 | Emergency (ER) | payer MEDICAID, SELFPAY ==
[2024-02-13 19:03] VITALS: BP 140/101; PULSE 85; RESP 16; TEMP 36.7; O2SAT 97; BMI 33.6
--- NOTE | 2024-02-13 19:08 | ED_ITS ---
HPI - Syncope 2 General: Chief Complaint: Syncope Stated Complaint: Syncope Time Seen by Provider: 02/13/24 19:05 History of Present Illness: 38-year-old female presents the emergenc y room by ambulance after having several near syncopal episodes. She was here for similar thing yesterday and was treated for hypokalemia. She was walking out in the heat. No chest pain. No altered mental status. No focal motor deficits. No nausea or vomiting. No abdominal pain. Review of Systems 2 Narrative: Constitutional symptoms: Negative except as documented in HPI. Skin symptoms: Negative except as documented in HPI. Eye symptoms: Negative except as documented in HPI. ENMT symptoms: Negative except as documented in HPI. Respiratory symptoms: Negative except as documented in HPI. Cardiovascular symptoms: Negative except as documented in HPI. Gastrointestinal symptoms: Negative except as documented in HPI. Genitourinary symptoms: Negative except as documented in HPI. Musculoskeletal symptoms: Negative except as documented in HPI. Neurologic symptoms: Negative except as documented in HPI. Psychiatric symptoms: Negative except as documented in HPI. Endocrine symptoms: Negative except as documented in HPI. PFSH ED 2 PFSH: Medical History GERD (gastroesophageal reflux disease) Umbilical hernia Symptomatic cholelithiasis Asthma Surgical History Hx laparoscopic cholecystectomy Hx of section History of tonsillectomy and adenoidectomy History of salpingectomy No pertinent past surgical history Social History Smoking and tobacco/nicotine status: current every day tobacco/nicotine user Alcohol intake: never Substance/Drug Use: never Physical Exam 2 Narrative: EXAM NARRATIVE: General: Alert, no acute distress. Skin: Warm, dry. Head: Normocephalic, atraumatic. Neck: Supple, trachea midline. Eye: Extraocular movements are intact. Ears, nose, mouth and throat: Tacky oral mucosa Cardiovascular: Regular, Normal peripheral perfusion. Respiratory: Lungs are clear to auscultation, respirations are non-labored, breath sounds are equal, Symmetrical chest wall expansion. Gastrointestinal: Soft, Nontender, Non distended, Normal bowel sounds. Musculoskeletal: Normal ROM, no deformity. Neurological: Alert and oriented, No focal neurological deficit observed. Psychiatric: Cooperative, appropriate mood & affect. Course 2 Vital Signs: Vital signs: Vital Signs Temperature 98.1 F 02/13/24 19:03 Pulse Rate 85 02/13/24 19:03 Respiratory Rate 16 02/13/24 19:03 Blood Pressure 140/101 02/13/24 19:03 Pulse Oximetry 97 02/13/24 19:03 Oxygen Delivery Me thod Room Air 02/13/24 19:03 MDM - Syncope Medical Decision Making Medical decision making: Differential diagnosis including but not limited to and based on the above HPI, review of systems and physical exam in this patient with syncope: Vasovagal, orthostatics hypotension, cardiac dysrhythmia, myocardial infarction, infection and hypotension, Orders placed to evaluate differential diagnosis based on the above differential, HPI and physical exam Lab Review: Laboratory results were reviewed and interpreted by myself the emergency room physician. Lab work is unremarkable. White count is 15 it was previously. Hemoglobin is 17 it was previously. BUN and creatinine are 15 and 0.8. She looks little bit dehydrated on exam so fluids are being given I reviewed the patient's medical record. Reexamination: Patient remained stable. No increased work of breathing. No altered mental status. No focal motor deficits. Assessment and plan: Dehydration Syncope - Discharged home - Discussed plan with patient. Answered any questions. - Evaluation and treatment of this problem were appropriate in the emergency setting. Lab Data 02/13/24 18:47 02/13/24 18:47 Laboratory Results WBC 15.12 10^3/uL (3.29-11.43) H 02/13/24 18:47 RBC 5.37 10^6/uL (3.85-5.65) 02/13/24 18:47 Hgb 17.10 g/dL (11.27-16.99) H 02/13/24 18:47 Hct 47.5 % (36-47) H 02/13/24 18:47 MCV 88.5 fl (85-98) 02/13/24 18:47 MCH 31.8 pg (27-33) 02/13/24 18:47 MCHC 36.0 g/dL (30-55) 02/13/24 18:47 RDW 12.1 % (12.1-15.1) 02/13/24 18:47 Plt Count 204 10^3/cmm (157-399) D 02/13/24 18:47 MPV 12.8 fL (7.4-10.4) H 02/13/24 18:47 Neut % (Auto) 67.5 % 02/13/24 18:47 Lymph % (Auto) 21.3 % 02/13/24 18:47 [place] % (Auto) 9.9 % 02/13/24 18:47 Eos % (Auto) 0.5 % 02/13/24 18:47 Baso % (Auto) 0.3 % 02/13/24 18:47 Neut # (Auto) 10.22 10^3/uL (1.8-7.7) H 02/13/24 18:47 Lymph # (Auto) 3.2 10^3/uL (0.8-4.8) 02/13/24 18:47 [place] # (Auto) 1.5 10^3/uL (0.2-0.9) H 02/13/24 18:47 Eos # (Auto) 0.1 10^3/uL (0.0-0.8) 02/13/24 18:47 Baso # (Auto) 0.0 10^3/uL (0.0-0.1) 02/13/24 18:47 Nucleated RBC % (auto) 0 % 02/13/24 18:47 Nucleated RBCs # 0.0 /100WBC 02/13/24 18:47 Sodium 139 mmol/L (136-145) 02/13/24 18:47 Potassium 3.6 mmol/L (3.5-5.1) 02/13/24 18:47 Chloride 100 mmol/L (98-107) 02/13/24 18:47 Carbon Dioxide 25 mmol/L (22-29) 02/13/24 18:47 Anion Gap 17.6 (5-19) 02/13/24 18:47 BUN 15 mg/dL (6-20) 02/13/24 18:47 Creatinine 0.8 mg/dL (0.5-0.9) 02/13/24 18:47 GFR Calculation 80.3 mL/min (90-130) L 02/13/24 18:47 Glucose 161 mg/dL (65-115) H 02/13/24 18:47 Calculated Osmolality 292 mOsm/kg (285-295) 02/13/24 18:47 Calcium 9.5 mg/dL (8.5-10.5) 02/13/24 18:47 Magnesium 2.1 mg/dL (1.7-2.3) 02/13/24 18:47 Total Bilirubin 0.5 mg/dL (0.15-1.2) 02/13/24 18:47 AST 19 U/L (0-32) 02/13/24 18:47 ALT 24 U/L (0-33) 02/13/24 18:47 Alkaline Phosphatase 91 U/L (35-105) 02/13/24 18:47 Troponin T Baseline < 6 ng/L (0-10) 02/13/24 18:47 Total Protein 8.1 g/dL (6.6-8.7) 02/13/24 18:47 Albumin 4.8 g/dL (3.5-5.2) 02/13/24 18:47 Globulin 3.3 g/dL (1.3-4.6) 02/13/24 18:47 No radiology studies performed this visit Discharge Plan Discharge Patient Disposition: Home Clinical Impression: Dehydration, Syncope Condition: Stable Prescriptions: No Action (DME) Aeroneb Go Nebulizer Misc See Rx Instructions .Route Rx Instructions: As directed albuterol sulfate 2.5 mg /3 mL (0.083 %) solution for nebulization 1.25 mg inhalation Q6H PRN (Reason: Shortness Of Breath) pantoprazole 40 mg Tablet,Delayed Release (Dr/Ec) 40 mg PO BID PRN (Reason: Acid Reflux) lisinopril 2.5 mg tablet 2.5 mg PO DAILY naproxen 500 mg tablet 500 mg PO BID PRN (Reason: Pain) fluticasone propionate [Flovent HFA] 110 mcg/actuation HFA aerosol inhaler 1 puff INHALATION BID PRN (Reason: Shortness Of Breath) albuterol sulfate [Ventolin HFA] 90 mcg/actuation Hfa Aerosol Inhaler 2 puff INHALATION BID PRN (Reason: Shortness Of Breath Or Wheezing) olanzapine 10 mg tablet,disintegrating 10 mg PO Q8H PRN (Reason: nausea and vomiting) Qty: 14 0RF Ativan 2 mg tablet 2 mg buccal Q6H PRN (Reason: nausea and vomiting) Qty: 14 0RF Medrol (Brandt) 4 mg tablets,dose pack See Rx Instructions .ROUTE .COMPLEX Qty: 21 0RF Rx Instructions: orally per package directions Discharge Orders: Discharge ED (Routine); Ordered 02/13/24 Ordered By: Kathryn Huddleston Referrals: Baljinder Ramsey MD [Primary Care Provider] - Discharge Diet: Usual diet Discharge Activity: Increase activity as tolerated Patient Instructions: Syncope (ED) Activity Restrictions/Additional Instructions: Thank you for choosing [facility] for your healthcare needs today. Please realize this is an emergency room and that we are providing you with a medical screening exam and this may not be complete and all inclusive of all the testing and or work up that you may need to determine your ailment or severity of your illness. You have been screened and evaluated and felt safe for discharge. Health conditions do change or evolve sometimes and as such it is important that you follow up with your Primary Doctor to be re checked, 3-5 days is a general good time frame for follow up. You are always welcome to return to the ED for re assessment if your symptoms are worsening or you have new concerns Coding Level of Care Code ED Gasoline Attendant for Ada Pedersen
--- NOTE | 2024-02-13 19:12 | ECG_ITS ---
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 Measurements Intervals [place] Rate: 83 P: 70 [place]: 154 QRS: 83 QRSD: 81 T: 86 QT: 356 QTc: 419 Interpretive Statements SINUS RHYTHM Compared to ECG 02/12/2024 19:07:56 No significant changes Electronically Signed On 02-14-2024 12:53:38 CDT by Domingo Flores M.D. [id number]
[2024-02-13 19:15] LABS: Basophils % 0.3 %; Eosinophils # 0.1 10^3/uL (0.0-0.8); Eosinophils % 0.5 %; Hematocrit 47.5 % (36-47); Lymphocytes # 3.2 10^3/uL (0.8-4.8); Lymphocytes % 21.3 %; Mean Corpuscular Hemoglobin 31.8 pg (27-33); Mean Corpuscular Volume 88.5 fl (85-98); Mean Platelet Volume 12.8 fL (7.4-10.4); Monocytes # 1.5 10^3/uL (0.2-0.9); Monocytes % 9.9 %; Neutrophils # 10.22 10^3/uL (1.8-7.7); Neutrophils % 67.5 %; Nucleated Red Blood Cells % 0 %; Platelet Count 204 10^3/cmm (157-399); Red Blood Count 5.37 10^6/uL (3.85-5.65); Red Cell Distribution Width 12.1 % (12.1-15.1); White Blood Count 15.12 10^3/uL (3.29-11.43)
[2024-02-13 19:37] LABS: Troponin(5th) Baseline < 6 ng/L (0-10)
[2024-02-13 19:40] LABS: Alanine Aminotransferase 24 U/L (0-33); Albumin Level 4.8 g/dL (3.5-5.2); Alkaline Phosphatase 91 U/L (35-105); Anion Gap 17.6 (5-19); Aspartate Amino Transferase 19 U/L (0-32); Blood Urea Nitrogen 15 mg/dL (6-20); Calcium 9.5 mg/dL (8.5-10.5); Carbon Dioxide 25 mmol/L (22-29); Chloride 100 mmol/L (98-107); Creatinine Clr Calc Pharmacy 106.6446; Globulin 3.3 g/dL (1.3-4.6); Glomerular Filtration Rate 80.3 mL/min (90-130); Glucose 161 mg/dL (65-115); Magnesium 2.1 mg/dL (1.7-2.3); Osmolality Calculated 292 mOsm/kg (285-295); Potassium 3.6 mmol/L (3.5-5.1); Sodium 139 mmol/L (136-145); Total Bilirubin 0.5 mg/dL (0.15-1.2); Total Protein 8.1 g/dL (6.6-8.7)
[2024-02-13] MEDS: sodium chloride 0.9% 1,000 ML 999 ML IV (20:23)
[2024-02-13 21:20] VITALS: BP 143/108; PULSE 77; O2SAT 98
== END 2024-02-13 21:27 | disposition home or self-care (01) ==
PROVIDERS: Emergency Provider Emergency Medicine; PCP Family Medicine
DX: R55 Syncope and collapse (principal); E86.0 Dehydration; Z72.0 Tobacco use
CPT/HCPCS: 80053; 83735; 84484; 85025; 93005; 99284; J7030

== ENCOUNTER 2024-02-29 12:42 | Emergency (ER) | payer MEDICAID, SELFPAY ==
[2024-02-29] VITALS (42 sets, daily range): BP systolic 134–153; BP diastolic 78–87; PULSE 60–100; RESP 11–30; TEMP 36.7; O2SAT 95–99; BMI 33.3
--- NOTE | 2024-02-29 13:54 | ED_ITS ---
HPI - Syncope 2 General: Chief Complaint: Syncope Stated Complaint: syncope Time Seen by Provider: 02/29/24 12:55 Source: patient and family Mode of arrival: EMS Limitations: no limitations History of Present Illness: This patient comes to the emergency department because of a syncopal episode. Apparently she has had chronic recurrent abdominal pain it has been present since September of this year and on occasions when she gets increasing pain and discomfort she feels lightheaded and has these passing out episodes. She does not have any seizure disorder disorder history and does not have seizures related to the symptoms. She denies any concomitant chest pain or shortness of breath. She has had a prior cholecystectomy but had a but no other abdominal surgeries. She still having menstrual cycles. She has had subjective chills but no fevers. She apparently is scheduled for colonoscopy but has not had that evaluation thus far. She denies any history of cardiovascular disease palpitations etc. Context: related to severe pain Associated symptoms: Reports abdominal pain; Deny chest pain, fever(s) or headache(s) Review of Systems 2 Const: Denies: fever(s) Eyes: Denies: change in vision or blurry vision ENMT: Denies: throat pain, odynophagia, nasal discharge or nasal congestion Card: Reports: syncope; Denies: chest pain, palpitations or irregular heart rhythm Resp: Denies: dyspnea, productive cough or non-productive cough GI: Reports: abdominal pain : Denies: flank pain, difficulty voiding, dysuria or urinary frequency Musc: Denies: neck pain, back pain, extremity pain or extremity swelling Skin/Breast: Denies: rash or pruritus Neuro: Denies: headache(s), numbness in extremities or weakness in extremities Psych: Denies: anxiety or depression Endo: Denies: polyuria or polydipsia PFSH ED 2 PFSH: Medical History GERD (gastroesophageal reflux disease) Umbilical hernia Symptomatic cholelithiasis Asthma Surgical History Hx laparoscopic cholecystectomy Hx of section History of tonsillectomy and adenoidectomy History of salpingectomy No pertinent past surgical history Social History Smoking and tobacco/nicotine status: current every day tobacco/nicotine user Alcohol intake: never Substance/Drug Use: never Physical Exam 2 Narrative: EXAM NARRATIVE: The patient in no acute distress but does complain of pain symptoms. She is alert and answers questions in a fluent voice. Const: COMMON NORMALS: no acute distress, average body habitus and patient oriented x3 HENMT: COMMON NORMALS: normocephalic, Normal nasal mucous membranes and turbinates present and moist oral mucous membranes HEAD & SCALP: n ormocephalic NOSE: Normal nasal mucous membranes and turbinates present Eye: COMMON NORMALS: Equal, round and reactive pupils present, EOMs intact bilaterally and conjunctivae normal CONJUNCTIVA: Yes conjunctivae normal P UPIL: Yes Equal, round and reactive pupils present Neck/C-Spine: COMMON NORMALS: full ROM, no lymphadenopathy, no JVD and No carotid bruits Chest: COMMONS NORMALS: normal inspection of the chest and normal palpation of entire chest wall Resp: COMMON NORMALS: normal respiratory effort, No retractions, No use of accessory muscles and clear to auscultation bilaterally EFFORT & INSPECTION: Yes able to speak in complete sentences AUSCULTATION: clear to auscultation bilaterally Cardio: COMMON NORMALS: no JVD, regular rate, regular rhythm, No murmurs present (Cardio) and Peripheral pulses 2+ throughout RATE: regular rate R HYTHM: regular rhythm PERIPHERAL PULSES: Peripheral pulses 2+ throughout GI: OTHER: Patient is exquisitely tender to light touch on her abdominal wall. There is no ecchymosis skin rashes etc. It is difficult to get a reliable abdominal examination given her hypersensitivity to any light touch. : COMMON NORMALS: Yes no CVA tenderness BLADDER/KIDNEY EXAM: Yes no CVA tenderness Back/Pelvis: COMMON NORMALS: no CVA tenderness, thoracic and lumbar spine normal to inspection, no thoracic nor lumbar tenderness and thoraco-lumbar ROM normal Extremity: COMMON NORMALS: normal to inspection, full ROM, capillary refill normal, no calf tenderness and no pedal edema Neuro: COMMON NORMALS: patient oriented x3, moves all extremities and no sensory deficits noted Psych: COMMON NORMALS: mental status grossly normal Skin: COMMON NORMALS: no rashes or lesions noted, no wounds and turgor normal GENERAL SKIN EXAM: no rashes or lesions noted and turgor normal Course 2 Reevaluation(s): Reevaluation #1: Despite analgesics patient still continues to have pain. Despite 2 prior imaging studies which were done this year with the most recent 1 being unremarkabl at this point given her symptoms I think we need to reimage her to ensure there is no interval change in her condition. Time: 15:41 Reevaluation #2: Patient is now doing much better. Discussed current findings with the patient and spouse. Vital signs are stable no evidence of ongoing issues. We will plan on placing her on an antispasmodic and discharged to outpatient care. Both she and spouse voiced understanding. Time: 17:47 Vital Signs: Vital signs: Vital Signs Temperature 98.1 F 02/29/24 12:53 Pulse Rate 74 02/29/24 16:00 Respiratory Rate 24 H 02/29/24 16:00 Blood Pressure 145/85 02/29/24 16:10 Pulse Oximetry 97 02/29/24 16:00 Oxygen Delivery Me thod Room Air 02/29/24 12:53 MDM - Syncope Medical Decision Making Patient returns to the emergency department with recurrent abdominal pain and associated sensation of feeling like she is going to pass out when she gets these episodes of pain. They are cramping in nature. She does not have any history of palpitations, or other associated cardiovascular symptoms. She has not had any blood in her stools or any other concerning features. Her clinical exam revealed her to be very dramatic with regards to her response to any light palpation examination of her abdomen. There was no evidence of any trauma rashes etc. during her examination. Initially she was treated symptomatically while due diligence was carried out regarding ancillary studies to ensure there was no evidence of electrolyte abnormality anemia arrhythmia etc. She continues to have symptoms of subjective pain and therefore imaging was obtained which was reassuring with the exception of just mild evidence of colitis without any other intra-abdominal pathology. Her symptoms were controlled with antispasmodics and the use of haloperidol. No evidence of arrhythmia or other issues with hypotension etc. while in the emergency department. Feel that her subjective response is likely related to her poor pain tolerance. She is suitable for discharge at this time. Medical Records I reviewed the patient's medical records. Most recent CT scan of 02/08/2024 revealed no evidence of acute pathology Lab Data 02/29/24 12:30 02/29/24 14:21 Radiology Impressions Abdomen/Pelvis CT 02/29/24 15:40 IMPRESSION: Mild colitis Laboratory Results WBC 7.41 10^3/uL (3.29-11.43) 02/29/24 12:30 RBC 4.84 10^6/uL (3.85-5.65) 02/29/24 12:30 Hgb 15.50 g/dL (11.27-16.99) 02/29/24 12:30 Hct 44.4 % (36-47) 02/29/24 12:30 MCV 91.7 fl (85-98) 02/29/24 12:30 MCH 32.0 pg (27-33) 02/29/24 12:30 MCHC 34.9 g/dL (30-55) 02/29/24 12:30 RDW 12.4 % (12.1-15.1) 02/29/24 12:30 Plt Count 137 10^3/cmm (157-399) L 02/29/24 12:30 MPV 13.8 fL (7.4-10.4) H 02/29/24 12:30 Neut % (Auto) 78.4 % 02/29/24 12:30 Lymph % (Auto) 14.7 % 02/29/24 12:30 [place] % (Auto) 5.0 % 02/29/24 12:30 Eos % (Auto) 1.3 % 02/29/24 12:30 Baso % (Auto) 0.3 % 02/29/24 12:30 Neut # (Auto) 5.81 10^3/uL (1.8-7.7) 02/29/24 12:30 Lymph # (Auto) 1.1 10^3/uL (0.8-4.8) 02/29/24 12:30 [place] # (Auto) 0.4 10^3/uL (0.2-0.9) 02/29/24 12:30 Eos # (Auto) 0.1 10^3/uL (0.0-0.8) 02/29/24 12:30 Baso # (Auto) 0.0 10^3/uL (0.0-0.1) 02/29/24 12:30 Nucleated RBC % (auto) 0 % 02/29/24 12:30 Nucleated RBCs # 0.0 /100WBC 02/29/24 12:30 Sodium 137 mmol/L (136-145) 02/29/24 14:21 Potassium 4.1 mmol/L (3.5-5.1) 02/29/24 14:21 Chloride 105 mmol/L (98-107) 02/29/24 14:21 Carbon Dioxide 23 mmol/L (22-29) 02/29/24 14:21 Anion Gap 13.1 (5-19) 02/29/24 14:21 BUN 8 mg/dL (6-20) 02/29/24 14:21 Creatinine 0.4 mg/dL (0.5-0.9) L 02/29/24 14:21 GFR Calculation 177.7 mL/min (90-130) H 02/29/24 14:21 Glucose 188 mg/dL (65-115) H 02/29/24 14:21 Calculated Osmolality 287 mOsm/kg (285-295) 02/29/24 14:21 Calcium 8.2 mg/dL (8.5-10.5) L 02/29/24 14:21 Total Bilirubin 0.3 mg/dL (0.15-1.2) 02/29/24 14:21 AST 11 U/L (0-32) 02/29/24 14:21 ALT 12 U/L (0-33) 02/29/24 14:21 Alkaline Phosphatase 72 U/L (35-105) 02/29/24 14:21 Total Protein 7.2 g/dL (6.6-8.7) 02/29/24 14:21 Albumin 4.0 g/dL (3.5-5.2) 02/29/24 14:21 Globulin 3.2 g/dL (1.3-4.6) 02/29/24 14:21 Lipase 17 U/L (13-60) 02/29/24 14:21 Urine Color Yellow (Yellow) 02/29/24 13:52 Urine Appearance Clear (CLEAR) 02/29/24 13:52 Urine pH 8 (5-7) H 02/29/24 13:52 Ur Specific [place] 1.020 (1.005-1.030) 02/29/24 13:52 Urine Protein Neg (Negative) 02/29/24 13:52 Urine Glucose (UA) Norm (Normal) 02/29/24 13:52 Urine Ketones 1+ (Negative) H 02/29/24 13:52 Urine Blood Neg (Negative) 02/29/24 13:52 Urine Nitrate Negative (Negative) 02/29/24 13:52 Urine Bilirubin Neg (Negative) 02/29/24 13:52 Prot Sulfosalicylic Acd Negative (Negative) 02/29/24 13:52 Urine Urobilinogen Norm mg/dL (Negative) 02/29/24 13:52 Ur Leukocyte Esterase Negative (Negative) 02/29/24 13:52 All radiology interpretation(s) finalized by discharge EKG Data EKG 1: I personally reviewed and interpreted this EKG as follows: Interpretation: Resting EKG reveals a ventricular rate of 72 bpm. Normal NE interval, QRS duration, corrected QT interval. Normal axis. No acute ST-T wave changes. No evidence of arrhythmia. Discharge Plan Discharge Patient Disposition: Home Clinical Impression: Colitis, Vasovagal syncope Condition: Stable Prescriptions: New hyoscyamine sulfate [Levsin] 0.125 mg tablet 0.125 mg PO Q6H PRN (Reason: dyspepsia) Qty: 30 2RF No Action (DME) Aeroneb Go Nebulizer Misc See Rx Instructions .Route Rx Instructions: As directed albuterol sulfate 2.5 mg /3 mL (0.083 %) solution for nebulization 1.25 mg inhalation Q6H PRN (Reason: Shortness Of Breath) pantoprazole 40 mg Tablet,Delayed Release (Dr/Ec) 40 mg PO BID PRN (Reason: Acid Reflux) lisinopril 2.5 mg tablet 2.5 mg PO DAILY naproxen 500 mg tablet 500 mg PO BID PRN (Reason: Pain) fluticasone propionate [Flovent HFA] 110 mcg/actuation HFA aerosol inhaler 1 puff INHALATION BID PRN (Reason: Shortness Of Breath) albuterol sulfate [Ventolin HFA] 90 mcg/actuation Hfa Aerosol Inhaler 2 puff INHALATION BID PRN (Reason: Shortness Of Breath Or Wheezing) olanzapine 10 mg tablet,disintegrating 10 mg PO Q8H PRN (Reason: nausea and vomiting) Qty: 14 0RF Ativan 2 mg tablet 2 mg buccal Q6H PRN (Reason: nausea and vomiting) Qty: 14 0RF Medrol (Brandt) 4 mg tablets,dose pack See Rx Instructions .ROUTE .COMPLEX Qty: 21 0RF Rx Instructions: orally per package directions Discharge Orders: Discharge ED (Routine); Ordered 02/29/24 Ordered By: Chris Matos Referrals: Baljinder Ramsey MD [Primary Care Provider] - Discharge Diet: Advance as tolerated and Full LIquid Discharge Activity: Increase activity as tolerated Patient Instructions: Opioid Safety, Pain Management Activity Restrictions/Additional Instructions: As we discussed your evaluation in the emergency department did not reveal any serious cause of your symptoms. You have an inflammation of your intestines called colitis which we are treating with some medicine to help with your discomfort. We also recommend starting a liquid diet and advancing to a more regular diet as you tolerated. We recommend avoiding caffeine nicotine and other potential stimulants. If you have any new or worsening symptoms you are welcome to return to the emergency department for reevaluation. Coding Level of Care Code ED Acute Dialysis Registered Nurse for Ada Pedersen
[2024-02-29 13:56] LABS: Basophils % 0.3 %; Eosinophils # 0.1 10^3/uL (0.0-0.8); Eosinophils % 1.3 %; Hematocrit 44.4 % (36-47); Lymphocytes # 1.1 10^3/uL (0.8-4.8); Lymphocytes % 14.7 %; Mean Corpuscular HGB Conc 34.9 g/dL (30-55); Mean Corpuscular Volume 91.7 fl (85-98); Mean Platelet Volume 13.8 fL (7.4-10.4); Monocytes # 0.4 10^3/uL (0.2-0.9); Neutrophils # 5.81 10^3/uL (1.8-7.7); Neutrophils % 78.4 %; Nucleated Red Blood Cells % 0 %; Platelet Count 137 10^3/cmm (157-399); Red Blood Count 4.84 10^6/uL (3.85-5.65); Red Cell Distribution Width 12.4 % (12.1-15.1); White Blood Count 7.41 10^3/uL (3.29-11.43)
--- NOTE | 2024-02-29 13:59 | ECG_ITS ---
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 Measurements Intervals [place] Rate: 72 P: 60 NE: 161 QRS: 73 QRSD: 85 T: 59 QT: 387 QTc: 426 Interpretive Statements SINUS RHYTHM Compared to ECG 02/13/2024 19:12:25 No significant changes Electronically Signed On 02-29-2024 16:19:49 CDT by Domingo Flores M.D. [email or web address]
[2024-02-29 14:03] LABS: Slide Review Slide Review Perform
[2024-02-29] MEDS: ondansetron 2 mg/ML SDV 2 mL 4 MG IVP (14:27)
[2024-02-29] MEDS: hyoscyamine ODT 0.125 mg Tablet 0.25 MG PO (14:27)
[2024-02-29] MEDS: morphine 4 mg/mL SDV 1 mL IVP (14:27)
[2024-02-29] MEDS: lactated ringers 1,000 ML 999 ML IV (14:28)
[2024-02-29 14:41] LABS: Add Urine Microscopic? NO; Charge for UA Resulting for Rev
[2024-02-29 14:43] LABS: Alanine Aminotransferase 12 U/L (0-33); Alkaline Phosphatase 72 U/L (35-105); Anion Gap 13.1 (5-19); Aspartate Amino Transferase 11 U/L (0-32); Blood Urea Nitrogen 8 mg/dL (6-20); Calcium 8.2 mg/dL (8.5-10.5); Carbon Dioxide 23 mmol/L (22-29); Chloride 105 mmol/L (98-107); Creatinine Clr Calc Pharmacy 210.1155; Globulin 3.2 g/dL (1.3-4.6); Glomerular Filtration Rate 177.7 mL/min (90-130); Glucose 188 mg/dL (65-115); Lipase 17 U/L (13-60); Osmolality Calculated 287 mOsm/kg (285-295); Potassium 4.1 mmol/L (3.5-5.1); Sodium 137 mmol/L (136-145); Total Bilirubin 0.3 mg/dL (0.15-1.2); Total Protein 7.2 g/dL (6.6-8.7)
[2024-02-29 15:15] LABS: Bilirubin Urine Neg (Negative); Blood Urine Neg (Negative); Glucose Urine UA Norm (Normal); Ketones Urine 1+ (Negative); Nitrate Urine Negative (Negative); Protein Urine Neg (Negative); Urine Appearance Clear (CLEAR); Urine Color Yellow (Yellow); pH Urine 8 (5-7)
[2024-02-29 15:16] LABS: Leukocyte Esterase Urine Negative (Negative); Sulfosalicylic Acid Urine Negative (Negative); Urobilinogen Urine Norm (Negative)
--- NOTE | 2024-02-29 15:40 | CTR_ITS ---
PROCEDURE INFORMATION: Exam: CT Abdomen And Pelvis With Contrast Exam date and time: 02/29/2024 4:09 PM Age: 39 years old Clinical indication: Abdominal pain; Generalized; Patient HX: All over abd pain but hurst a little worse on the left side; Additional info: Continual pain-2 previous imaging this year TECHNIQUE: Imaging protocol: Computed tomography of the abdomen and pelvis with contrast. Radiation optimization: All CT scans at this facility use at least one of these dose optimization techniques: automated exposure control; mA and/or kV adjustment per patient size (includes targeted exams where dose is matched to clinical indication); or iterative reconstruction. Contrast material: OMNI 350; Contrast volume: 100 ml; Contrast route: INTRAVENOUS (IV); COMPARISON: CT abdomen pelvis wo con [id number] 02/08/2024 10:53 AM RADIATION DOSE METRICS: Total DLP (mGy-cm): 888 FINDINGS: Lungs: Lung bases are clear. No pleural effusion. Liver: Normal. No mass. Gallbladder and bile ducts: The gallbladder has been resected. Pancreas: Normal. No ductal dilation. Spleen: Normal. No splenomegaly. Adrenal glands: Normal. No mass. Kidneys and ureters: Normal. No hydronephrosis. Stomach and bowel: There are a few small widely scattered diverticula involving the descending colon and sigmoid colon. There is very mild inflammation involving the transverse colon, descending colon, sigmoid colon and rectum. These areas also demonstrate colonic spasm. Appendix: No evidence of appendicitis. Intraperitoneal space: Unremarkable. No free air. No significant fluid collection. Vasculature: Unremarkable. No abdominal aortic aneurysm. Lymph nodes: Unremarkable. No enlarged lymph nodes. Urinary bladder: Unremarkable as visualized. Reproductive: Unremarkable as visualized. Bones/joints: Unremarkable. No acute fracture. Soft tissues: Unremarkable. CT/CT abdomen pelvis w con* [id number] IMPRESSION: Mild colitis
[2024-02-29] MEDS: iohexol 350 mg/mL 500 mL Btl (per mL) IV (16:12)
[2024-02-29] MEDS: diphenhydrAMINE 50 mg/mL SDV 1mL 12.5 MG IVP (16:34)
[2024-02-29] MEDS: haloperidol inj 5 mg/mL INJ 1 mL IVP (16:36)
== END 2024-02-29 18:59 | disposition home or self-care (01) ==
PROVIDERS: Emergency Provider Emergency Medicine; PCP Family Medicine
DX: R55 Syncope and collapse (principal); K52.9 Noninfective gastroenteritis and colitis, unspecified; Z72.0 Tobacco use
CPT/HCPCS: 36415; 74177; 80053; 81003; 83690; 85025; 93005; 96361; 96374; 96375; 99285; J1200; J1630; J2270; J2405; J7120; Q9967

== ENCOUNTER 2024-03-05 17:02 | Emergency (ER) | payer MEDICAID, SELFPAY ==
[2024-03-05 17:10] VITALS: BP 116/88; PULSE 60; RESP 16; TEMP 36.8; O2SAT 98; BMI 32.8
--- NOTE | 2024-03-05 17:36 | CTR_ITS ---
PROCEDURE INFORMATION: Exam: CT Head Without Contrast Exam date and time: 03/05/2024 6:19 PM Age: 39 years old Clinical indication: Injury or trauma; Blunt trauma (contusions or hematomas); Syncope and collapse; Patient HX: EMS arrival for syncope with fall. Patient found on the floor at home by family member. Patient unsure if she hit her head. ; Additional info: Fall, headache TECHNIQUE: Imaging protocol: Computed tomography of the head without contrast. Radiation optimization: All CT scans at this facility use at least one of these dose optimization techniques: automated exposure control; mA and/or kV adjustment per patient size (includes targeted exams where dose is matched to clinical indication); or iterative reconstruction. COMPARISON: CT head wo con* [id number] 05/19/2022 11:37 PM RADIATION DOSE METRICS: Total DLP (mGy-cm): 1097.04 FINDINGS: Brain: Normal. No hemorrhage. Unremarkable white matter. No mass effect. Cerebral ventricles: No ventriculomegaly. Paranasal sinuses: Visualized sinuses are unremarkable. No fluid levels. Mastoid air cells: Visualized mastoid air cells are well aerated. Bones: Unremarkable. No acute fracture. Soft tissues: Unremarkable. CT/CT head wo con* [id number] IMPRESSION: No acute intracranial abnormality.
--- NOTE | 2024-03-05 17:39 | ED_ITS ---
HPI - Altered Mental Status 2 General: Chief Complaint: Altered Mental Status Stated Complaint: AMS Time Seen by Provider: 03/05/24 17:14 History of Present Illness: This patient is a 39-year-old presenting with an episode of syncope at home. She was brought in by ambulance. Her fianc? is with her. He was not with her at the time that she fell but his brother was. When the patient's fianc? went back in the house after being outside he found her laying in the hallway. He does not know if she hit her head. He tells me that this has happened 6 or 7 times recently due to colitis . The patient woke up at this point and said that she did hit her head and she has a headache. She also says that she has been having abdominal pain ongoing for months. She is supposed to follow-up with Dr. Mcdaniel, general surgery, for further evaluation of her colitis- presumably colonoscopy. Her fianc? showed me bottles of medications that she is taking. The bottles were for hycosamine, ondansetron, metronidazole (prescribed in early October for 10-day course, bottle is still quite full) she says that she is out of some of her medicines including for blood pressure and pain in her knees. Per the med list in the EHR she is also on lisinopril, naproxen. There is also a listing of olanzapine. She has been having abdominal pain but apparently no fevers, vomiting, diarrhea. She denies urinary symptoms. She has had multiple episodes of passing out without an obvious explanation. She has been seen in the ER multiple times for this and admitted. In October she was diagnosed with Campylobacter and was treated with Cipro and Flagyl. She has had her gallbladder out and had a . 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 She said that she has never been diagnosed with any sort of connective tissue or autoimmune disorder. She does complain of joint pain and notably on exam has significant alopecia. Her primary care provider is at [facility], Dr. Ramsey. [facility] ED 2 PFS: Medical History GERD (gastroesophageal reflux disease) Umbilical hernia Symptomatic cholelithiasis Asthma Surgical History Hx laparoscopic cholecystectomy Hx of section History of tonsillectomy and adenoidectomy History of salpingectomy No pertinent past surgical history Social History Smoking and tobacco/nicotine status: current every day tobacco/nicotine user Alcohol intake: never Substance/Drug Use: never Physical Exam 2 Const: COMMON NORMALS: no acute distress, patient oriented x3, no limitations and alert GENERAL APPEARANCE: cooperative and comfortable OTHER: On initial evaluation the patient was laying with eyes closed and did not respond to voice. Eye movements were noted. [facility] through the interview where her teo? was answering questions she woke up and began providing history herself. HENMT: HEAD & SCALP: normal to inspection (Alopecia over both yazdanism areas and above the forehead) FACE & SINUS: normal facial exam Eye: GENERAL EYE: appearance normal, both eyes and all related structures Neck/C-Spine: COMMON NORMALS: supple, no meningeal signs and no JVD Chest: COMMONS NORMALS: normal inspection of the chest Resp: COMMON NORMALS: normal respiratory effort, No use of accessory muscles and clear to auscultation bilaterally AUSCULTATION: clear to auscultation bilaterally Cardio: COMMON NORMALS: no JVD, regular rate, regular rhythm and No murmurs present (Cardio) RATE: regular rate RHYTHM: regular rhythm GI: INSPECTION: Yes normal to inspection AUSCULTATION: Yes normoactive bowel sounds PALPATION: Yes Other GI palpation findings present (Patient jumps off the bed and grabs my arm with any attempt to palpate her ) Back/Pelvis: COMMON NORMALS: thoracic and lumbar spine normal to inspection Extremity: COMMON NORMALS: normal to inspection Neuro: COMMON NORMALS: patient oriented x3, moves all extremities, no focal motor deficits and no sensory deficits noted SENSORIUM/ORIENTATION: Yes alert MENINGEAL SIGNS: Yes no meningeal signs Psych: COMMON NORMALS: mental status grossly normal, cooperative and normal affect Skin: COMMON NORMALS: no rashes or lesions noted and turgor normal GENERAL SKIN EXAM: no rashes or lesions noted and turgor normal Course 2 ED course: Care turned over to Dr. Gama at 1800 Vital Signs: Vital signs: Vital Signs Temperature 98.3 F 03/05/24 17:10 Pulse Rate 60 03/05/24 17:10 Respiratory Rate 16 03/05/24 17:10 Blood Pressure 116/88 03/05/24 17:10 Pulse Oximetry 98 03/05/24 17:10 Oxygen Delivery Me thod Room Air 03/05/24 17:10 MDM - Altered Mental Status Medical Decision Making Multiple episodes of syncope with prolonged unresponsiveness. This is accompanied by normal vital signs and complete return to normal mental status quickly. Unclear exactly what is causing that. She does have history of some colitis. On review of prior labs she did have a markedly elevated CRP when she was here in October but also had diagnosed infection at that time. I do wonder if there is an underlying autoimmune disorder. She follows up at [facility] and so primary care records are not accessible. Lab Data 03/05/24 17:54 03/05/24 17:54 Laboratory Results WBC 8.65 10^3/uL (3.29-11.43) 03/05/24 17:54 RBC 4.58 10^6/uL (3.85-5.65) 03/05/24 17:54 Hgb 14.70 g/dL (11.27-16.99) 03/05/24 17:54 Hct 41.0 % (36-47) 03/05/24 17:54 MCV 89.5 fl (85-98) 03/05/24 17:54 MCH 32.1 pg (27-33) 03/05/24 17:54 MCHC 35.9 g/dL (30-55) 03/05/24 17:54 RDW 12.2 % (12.1-15.1) 03/05/24 17:54 Plt Count 179 10^3/cmm (157-399) 03/05/24 17:54 MPV 11.7 fL (7.4-10.4) H 03/05/24 17:54 Neut % (Auto) 80.8 % 03/05/24 17:54 Lymph % (Auto) 13.4 % 03/05/24 17:54 [place] % (Auto) 5.0 % 03/05/24 17:54 Eos % (Auto) 0.3 % 03/05/24 17:54 Baso % (Auto) 0.3 % 03/05/24 17:54 Neut # (Auto) 6.98 10^3/uL (1.8-7.7) 03/05/24 17:54 Lymph # (Auto) 1.2 10^3/uL (0.8-4.8) 03/05/24 17:54 [place] # (Auto) 0.4 10^3/uL (0.2-0.9) 03/05/24 17:54 Eos # (Auto) 0.0 10^3/uL (0.0-0.8) 03/05/24 17:54 Baso # (Auto) 0.0 10^3/uL (0.0-0.1) 03/05/24 17:54 Nucleated RBC % (auto) 0 % 03/05/24 17:54 Nucleated RBCs # 0.0 /100WBC 03/05/24 17:54 All radiology interpretation(s) finalized by discharge Discharge Plan Discharge Condition: Stable Prescriptions: No Action (DME) Aeroneb Go Nebulizer Misc See Rx Instructions .Route Rx Instructions: As directed albuterol sulfate 2.5 mg /3 mL (0.083 %) solution for nebulization 1.25 mg inhalation Q6H PRN (Reason: Shortness Of Breath) pantoprazole 40 mg Tablet,Delayed Release (Dr/Ec) 40 mg PO BID PRN (Reason: Acid Reflux) lisinopril 2.5 mg tablet 2.5 mg PO DAILY naproxen 500 mg tablet 500 mg PO BID PRN (Reason: Pain) fluticasone propionate [Flovent HFA] 110 mcg/actuation HFA aerosol inhaler 1 puff INHALATION BID PRN (Reason: Shortness Of Breath) albuterol sulfate [Ventolin HFA] 90 mcg/actuation Hfa Aerosol Inhaler 2 puff INHALATION BID PRN (Reason: Shortness Of Breath Or Wheezing) olanzapine 10 mg tablet,disintegrating 10 mg PO Q8H PRN (Reason: nausea and vomiting) Qty: 14 0RF Ativan 2 mg tablet 2 mg buccal Q6H PRN (Reason: nausea and vomiting) Qty: 14 0RF Medrol (Brandt) 4 mg tablets,dose pack See Rx Instructions .ROUTE .COMPLEX Qty: 21 0RF Rx Instructions: orally per package directions Levsin 0.125 mg tablet 0.125 mg PO Q6H PRN (Reason: dyspepsia) Qty: 30 2RF Referrals: Baljinder Ramsey MD [Primary Care Provider] - Patient Instructions: Altered Mental Status (ED) Coding Level of Care Code ED Face Worker for Ada Pedersen
[2024-03-05 17:45] VITALS: BP 113/86; O2SAT 97
[2024-03-05 18:01] LABS: Basophils % 0.3 %; Eosinophils % 0.3 %; Lymphocytes # 1.2 10^3/uL (0.8-4.8); Lymphocytes % 13.4 %; Mean Corpuscular HGB Conc 35.9 g/dL (30-55); Mean Corpuscular Hemoglobin 32.1 pg (27-33); Mean Corpuscular Volume 89.5 fl (85-98); Mean Platelet Volume 11.7 fL (7.4-10.4); Monocytes # 0.4 10^3/uL (0.2-0.9); Neutrophils # 6.98 10^3/uL (1.8-7.7); Neutrophils % 80.8 %; Nucleated Red Blood Cells % 0 %; Platelet Count 179 10^3/cmm (157-399); Red Blood Count 4.58 10^6/uL (3.85-5.65); Red Cell Distribution Width 12.2 % (12.1-15.1); White Blood Count 8.65 10^3/uL (3.29-11.43)
[2024-03-05 18:06] LABS: Add Urine Microscopic? NO; Charge for UA Resulting for Rev
[2024-03-05 18:07] LABS: Bilirubin Urine Neg (Negative); Blood Urine Neg (Negative); Glucose Urine UA Norm (Normal); Ketones Urine 1+ (Negative); Leukocyte Esterase Urine Negative (Negative); Nitrate Urine Negative (Negative); Protein Urine Neg (Negative); Urine Appearance Clear (CLEAR); Urine Color Yellow (Yellow); Urobilinogen Urine Norm (Negative); pH Urine 6 (5-7)
[2024-03-05 18:14] LABS: HCG, Serum Qual Negative (Negative)
[2024-03-05 18:31] LABS: Alanine Aminotransferase 17 U/L (0-33); Albumin Level 4.1 g/dL (3.5-5.2); Alkaline Phosphatase 68 U/L (35-105); Anion Gap 15.5 (5-19); Aspartate Amino Transferase 18 U/L (0-32); Blood Urea Nitrogen 11 mg/dL (6-20); Carbon Dioxide 23 mmol/L (22-29); Chloride 101 mmol/L (98-107); Creatinine Clr Calc Pharmacy 138.9959; Glomerular Filtration Rate 111.3 mL/min (90-130); Glucose 144 mg/dL (65-115); Lipase 14 U/L (13-60); Osmolality Calculated 284 mOsm/kg (285-295); Potassium 3.5 mmol/L (3.5-5.1); Sodium 136 mmol/L (136-145); Thyroid Stimulating Hormone 0.54 uIU/mL (0.27-4.20); Total Bilirubin 0.3 mg/dL (0.15-1.2); Total Protein 7.1 g/dL (6.6-8.7)
[2024-03-05 19:29] VITALS: RESP 16
[2024-03-05] MEDS: morphine 4 mg/mL SDV 1 mL IVP (19:29)
[2024-03-05] MEDS: ondansetron 2 mg/ML SDV 2 mL 4 MG IVP (19:29)
[2024-03-05 20:08] VITALS: BP 113/86; PULSE 60; RESP 16; TEMP 36.8; O2SAT 97
--- NOTE | 2024-03-06 07:21 | DCPLANNER ---
messaged neuro for er f/u
== END 2024-03-05 20:09 | disposition home or self-care (01) ==
PROVIDERS: Emergency Medicine; Emergency Provider Emergency Medicine; PCP Family Medicine
DX: R55 Syncope and collapse (principal); Z72.0 Tobacco use
CPT/HCPCS: 36415; 70450; 80053; 81003; 83690; 84443; 84703; 85025; 86140; 96374; 96375; 99285; J2270; J2405

== ENCOUNTER 2024-03-08 13:28 | Emergency (ER) | payer MEDICAID, SELFPAY ==
--- NOTE | 2024-03-08 13:36 | ECG_ITS ---
[facility] Test Date: 2024-03-08 Pat Name: Eliceo Calle Department: Room: Gender: Female Signals Analyst: : 1985 Requested By: Kathryn Peters Order Number: [id number] Castro MD: Domingo Flores M.D. Measurements Intervals [place] Rate: 63 P: 58 VA: 160 QRS: 68 QRSD: 90 T: 71 QT: 387 QTc: 398 Interpretive Statements SINUS RHYTHM WITH SINUS ARRHYTHMIA POSSIBLE RIGHT VENTRICULAR CONDUCTION DELAY [RSR (QR) IN V1/V2] Compared to ECG 02/29/2024 14:13:12 No significant changes Electronically Signed On 03-08-2024 17:03:56 CDT by Domingo Flores M.D. [email or web address]'s hospital of [email or web address].Direct Access [id number] f
--- NOTE | 2024-03-08 13:36 | XRR_ITS ---
PROCEDURE INFORMATION: Exam: XR Chest Exam date and time: 03/08/2024 1:46 PM Age: 39 years old Clinical indication: Other: Syncope; Prior surgery; Surgery date: 6+ months; Surgery type: Gb, c section; Patient HX: HX of tubal cancer per PT TECHNIQUE: Imaging protocol: Radiologic exam of the chest. Views: 1 view. COMPARISON: CR (CHEST, ) 02/12/2024 2:51 PM FINDINGS: Lungs: Unremarkable. No consolidation. Pleural spaces: Unremarkable. No pleural effusion. No pneumothorax. Heart/Mediastinum: Unremarkable. No cardiomegaly. Bones/joints: Unremarkable. XR/XR chest 1V portable [id number] IMPRESSION: No acute findings.
--- NOTE | 2024-03-08 14:05 | ED_ITS ---
HPI - Syncope 2 General: Chief Complaint: Syncope Stated Complaint: Syncope Time Seen by Provider: 03/08/24 13:30 History of Present Illness: 39-year-old female who presents to the e mergency room with complaint of syncope by ambulance. She has had many episodes recently. Apparently she is has seen her primary and she is been to the emergency room a few times. Her primary thinks it might be related to colitis and she is being treated for that. No chest pain. No shortness of breath. No abdominal pain. No head injury. Review of Systems 2 Narrative: Constitutional symptoms: Negative except as documented in HPI. Skin symptoms: Negative except as documented in HPI. Eye symptoms: Negative except as documented in HPI. ENMT symptoms: Negative except as documented in HPI. Respiratory symptoms: Negative except as documented in HPI. Cardiovascular symptoms: Negative except as documented in HPI. Gastrointestinal symptoms: Negative except as documented in HPI. Genitourinary symptoms: Negative except as documented in HPI. Musculoskeletal symptoms: Negative except as documented in HPI. Neurologic symptoms: Negative except as documented in HPI. Psychiatric symptoms: Negative except as documented in HPI. Endocrine symptoms: Negative except as documented in HPI. PFSH ED 2 PFSH: Medical History GERD (gastroesophageal reflux disease) Umbilical hernia Symptomatic cholelithiasis Asthma Surgical History Hx laparoscopic cholecystectomy Hx of section History of tonsillectomy and adenoidectomy History of salpingectomy No pertinent past surgical history Social History Smoking and tobacco/nicotine status: current every day tobacco/nicotine user Alcohol intake: never Substance/Drug Use: never Physical Exam 2 Narrative: EXAM NARRATIVE: General: Alert, no acute distress. Skin: Warm, dry. Head: Normocephalic, atraumatic. Neck: Supple, trachea midline. Eye: Extraocular movements are intact. Ears, nose, mouth and throat: mucosa moist. Cardiovascular: Regular, Normal peripheral perfusion. Respiratory: Lungs are clear to auscultation, respirations are non-labored, breath sounds are equal, Symmetrical chest wall expansion. Gastrointestinal: Soft, Nontender, Non distended, Normal bowel sounds. Musculoskeletal: Normal ROM, no deformity. Neurological: Alert and oriented, No focal neurological deficit observed. Psychiatric: Cooperative, appropriate mood & affect. MDM - Syncope Medical Decision Making Medical decision making: Differential diagnosis including but not limited to and based on the above HPI, review of systems and physical exam in this patient with syncope: Vasovagal, orthostatics hypotension, cardiac dysrhythmia, myocardial infarction, infection and hypotension, Orders placed to evaluate differential diagnosis based on the above differential, HPI and physical exam EKG: Time 1339. Rate 63 normal sinus rhythm, No ST-T changes, no ectopy, normal AR & QRS intervals, This was reviewed and interpreted by myself the ER physician at 1342. Chest x-ray: No acute process. No infiltrate. No pneumothorax. No cardiomegaly. This was reviewed and interpreted by myself the ER physician. Lab Review: Laboratory results were reviewed and interpreted by myself the emergency room physician. Lab work is unremarkable. No leukocytosis. No renal failure. No UTI. Potassium is just barely low at 3.4. I reviewed the patient's medical record. Reexamination: Patient remained stable. Vitals have been stable. No increased work of breathing. No altered mental status. We discussed that she will need to follow-up with her primary and possibly cardiology if she continues to have the syncopal events. Orthostatic vital signs: These are normal. Assessment and plan: Syncope - Discharged home - Discussed plan with patient. Answered any questions. - Evaluation and treatment of this problem were appropriate in the emergency setting. Lab Data 03/08/24 13:55 03/08/24 13:55 Radiology Impressions Chest X-Ray 03/08/24 13:36 IMPRESSION: No acute findings. Laboratory Results WBC 10.05 10^3/uL (3.29-11.43) 03/08/24 13:55 RBC 5.12 10^6/uL (3.85-5.65) 03/08/24 13:55 Hgb 16.20 g/dL (11.27-16.99) 03/08/24 13:55 Hct 46.4 % (36-47) 03/08/24 13:55 MCV 90.6 fl (85-98) 03/08/24 13:55 MCH 31.6 pg (27-33) 03/08/24 13:55 MCHC 34.9 g/dL (30-55) 03/08/24 13:55 RDW 12.2 % (12.1-15.1) 03/08/24 13:55 Plt Count 176 10^3/cmm (157-399) 03/08/24 13:55 MPV 11.9 fL (7.4-10.4) H 03/08/24 13:55 Neut % (Auto) 77.7 % 03/08/24 13:55 Lymph % (Auto) 13.2 % 03/08/24 13:55 [place] % (Auto) 8.1 % 03/08/24 13:55 Eos % (Auto) 0.5 % 03/08/24 13:55 Baso % (Auto) 0.3 % 03/08/24 13:55 Neut # (Auto) 7.81 10^3/uL (1.8-7.7) H 03/08/24 13:55 Lymph # (Auto) 1.3 10^3/uL (0.8-4.8) 03/08/24 13:55 [place] # (Auto) 0.8 10^3/uL (0.2-0.9) 03/08/24 13:55 Eos # (Auto) 0.1 10^3/uL (0.0-0.8) 03/08/24 13:55 Baso # (Auto) 0.0 10^3/uL (0.0-0.1) 03/08/24 13:55 Nucleated RBC % (auto) 0 % 03/08/24 13:55 Nucleated RBCs # 0.0 /100WBC 03/08/24 13:55 Sodium 137 mmol/L (136-145) 03/08/24 13:55 Potassium 3.4 mmol/L (3.5-5.1) L 03/08/24 13:55 Chloride 98 mmol/L (98-107) 03/08/24 13:55 Carbon Dioxide 26 mmol/L (22-29) 03/08/24 13:55 Anion Gap 16.4 (5-19) 03/08/24 13:55 BUN 7 mg/dL (6-20) 03/08/24 13:55 Creatinine 0.6 mg/dL (0.5-0.9) 03/08/24 13:55 GFR Calculation 111.3 mL/min (90-130) 03/08/24 13:55 Glucose 145 mg/dL (65-115) H 03/08/24 13:55 Calculated Osmolality 285 mOsm/kg (285-295) 03/08/24 13:55 Lactic Acid 1.1 mmol/L (0.5-2.2) 03/08/24 13:55 Calcium 9.1 mg/dL (8.5-10.5) 03/08/24 13:55 Total Bilirubin 0.5 mg/dL (0.15-1.2) 03/08/24 13:55 AST 14 U/L (0-32) 03/08/24 13:55 ALT 10 U/L (0-33) 03/08/24 13:55 Alkaline Phosphatase 78 U/L (35-105) 03/08/24 13:55 Troponin T Baseline < 6 ng/L (0-10) 03/08/24 13:55 C-Reactive Protein 3.0 mg/L (0.0-4.9) 03/08/24 13:55 Total Protein 7.4 g/dL (6.6-8.7) 03/08/24 13:55 Albumin 4.0 g/dL (3.5-5.2) 03/08/24 13:55 Globulin 3.4 g/dL (1.3-4.6) 03/08/24 13:55 Urine Color Yellow (Yellow) 03/08/24 14:17 Urine Appearance Clear (CLEAR) 03/08/24 14:17 Urine pH 6 (5-7) 03/08/24 14:17 Ur Specific [place] 1.010 (1.005-1.030) 03/08/24 14:17 Urine Protein Neg (Negative) 03/08/24 14:17 Urine Glucose (UA) Norm (Normal) 03/08/24 14:17 Urine Ketones 1+ (Negative) H 03/08/24 14:17 Urine Blood Neg (Negative) 03/08/24 14:17 Urine Nitrate Negative (Negative) 03/08/24 14:17 Urine Bilirubin Neg (Negative) 03/08/24 14:17 Urine Urobilinogen Norm mg/dL (Negative) 03/08/24 14:17 Ur Leukocyte Esterase Negative (Negative) 03/08/24 14:17 Urine RBC Rare /hpf (0-2) 03/08/24 14:17 Urine WBC Rare /hpf (0-5) 03/08/24 14:17 Ur Squamous Epith Cells 0-4 /hpf (0-5) H 03/08/24 14:17 Amorphous Sediment Not Reportable 03/08/24 14:17 Urine Bacteria Trace /hpf (NONE) 03/08/24 14:17 Urine Mucus 1+ /hpf 03/08/24 14:17 Urine Opiates Screen Negative ng/mL (Negative) 03/08/24 14:17 Ur Barbiturates Screen Negative ng/mL (Negative) 03/08/24 14:17 Ur Phencyclidine Scrn Negative ng/mL (Negative) 03/08/24 14:17 Ur Amphetamines Screen Negative ng/mL (Negative) 03/08/24 14:17 U Benzodiazepines Scrn Negative ng/mL (Negative) 03/08/24 14:17 Urine Cocaine Screen Negative ng/mL (Negative) 03/08/24 14:17 U Marijuana (THC) Screen Positive ng/mL (Negative) H 03/08/24 14:17 Ethyl Alcohol < 10 mg/dL (0-10) 03/08/24 13:55 All radiology interpretation(s) finalized by discharge Discharge Plan Discharge Patient Disposition: Home Clinical Impression: Recurrent syncope Condition: Stable Prescriptions: No Action (DME) Aeroneb Go Nebulizer Misc See Rx Instructions .Route Rx Instructions: As directed albuterol sulfate 2.5 mg /3 mL (0.083 %) solution for nebulization 1.25 mg inhalation Q6H PRN (Reason: Shortness Of Breath) magnesium citrate Solution 300 ml PO DAILY PRN (Reason: constipation) Qty: 296 2RF Rx Instructions: take as directed for colonoscopy bisacodyl [Dulcolax (bisacodyl)] 5 mg tablet,delayed release (DR/EC) 5 mg PO DAILY Qty: 4 0RF Rx Instructions: take as directed for colonoscopy pantoprazole 40 mg Tablet,Delayed Release (Dr/Ec) 40 mg PO BID PRN (Reason: Acid Reflux) lisinopril 2.5 mg tablet 2.5 mg PO DAILY naproxen 500 mg tablet 500 mg PO BID PRN (Reason: Pain) fluticasone propionate [Flovent HFA] 110 mcg/actuation HFA aerosol inhaler 1 puff INHALATION BID PRN (Reason: Shortness Of Breath) albuterol sulfate [Ventolin HFA] 90 mcg/actuation Hfa Aerosol Inhaler 2 puff INHALATION BID PRN (Reason: Shortness Of Breath Or Wheezing) olanzapine 10 mg tablet,disintegrating 10 mg PO Q8H PRN (Reason: nausea and vomiting) Qty: 14 0RF Ativan 2 mg tablet 2 mg buccal Q6H PRN (Reason: nausea and vomiting) Qty: 14 0RF Medrol (Brandt) 4 mg tablets,dose pack See Rx Instructions .ROUTE .COMPLEX Qty: 21 0RF Rx Instructions: orally per package directions Levsin 0.125 mg tablet 0.125 mg PO Q6H PRN (Reason: dyspepsia) Qty: 30 2RF Discharge Orders: Discharge ED (Routine); Ordered 03/08/24 Ordered By: Kathryn Huddleston Referrals: Baljinder Ramsey MD [Primary Care Provider] - 1-3 days Discharge Diet: Usual diet Discharge Activity: Limit activity as instructed Patient Instructions: Syncope (ED) Activity Restrictions/Additional Instructions: No driving until you are cleared by your primary physician. It would be unsafe to drive and possibly have a syncopal episode. Thank you for choosing [facility] for your healthcare needs today. Please realize this is an emergency room and that we are providing you with a medical screening exam and this may not be complete and all inclusive of all the testing and or work up that you may need to determine your ailment or severity of your illness. You have been screened and evaluated and felt safe for discharge. Health conditions do change or evolve sometimes and as such it is important that you follow up with your Primary Doctor to be re checked, 3-5 days is a general good time frame for follow up. You are always welcome to return to the ED for re assessment if your symptoms are worsening or you have new concerns Coding Level of Care Code ED Supervisor Coin Machine for Ada Pedersen
[2024-03-08 14:10] LABS: Basophils % 0.3 %; Eosinophils # 0.1 10^3/uL (0.0-0.8); Eosinophils % 0.5 %; Hematocrit 46.4 % (36-47); Lymphocytes # 1.3 10^3/uL (0.8-4.8); Lymphocytes % 13.2 %; Mean Corpuscular HGB Conc 34.9 g/dL (30-55); Mean Corpuscular Hemoglobin 31.6 pg (27-33); Mean Corpuscular Volume 90.6 fl (85-98); Mean Platelet Volume 11.9 fL (7.4-10.4); Monocytes # 0.8 10^3/uL (0.2-0.9); Monocytes % 8.1 %; Neutrophils # 7.81 10^3/uL (1.8-7.7); Neutrophils % 77.7 %; Nucleated Red Blood Cells % 0 %; Platelet Count 176 10^3/cmm (157-399); Red Blood Count 5.12 10^6/uL (3.85-5.65); Red Cell Distribution Width 12.2 % (12.1-15.1); White Blood Count 10.05 10^3/uL (3.29-11.43)
[2024-03-08 14:26] LABS: Alanine Aminotransferase 10 U/L (0-33); Alcohol Level < 10 mg/dL (0-10); Alkaline Phosphatase 78 U/L (35-105); Anion Gap 16.4 (5-19); Aspartate Amino Transferase 14 U/L (0-32); Blood Urea Nitrogen 7 mg/dL (6-20); Calcium 9.1 mg/dL (8.5-10.5); Carbon Dioxide 26 mmol/L (22-29); Chloride 98 mmol/L (98-107); Globulin 3.4 g/dL (1.3-4.6); Glomerular Filtration Rate 111.3 mL/min (90-130); Glucose 145 mg/dL (65-115); Osmolality Calculated 285 mOsm/kg (285-295); Potassium 3.4 mmol/L (3.5-5.1); Sodium 137 mmol/L (136-145); Total Bilirubin 0.5 mg/dL (0.15-1.2); Total Protein 7.4 g/dL (6.6-8.7); Troponin(5th) Baseline < 6 ng/L (0-10)
[2024-03-08 14:27] LABS: Lactic Sepsis W/Reflex 1.1 mmol/L (0.5-2.2)
[2024-03-08 14:32] LABS: Bilirubin Urine Neg (Negative); Blood Urine Neg (Negative); Glucose Urine UA Norm (Normal); Ketones Urine 1+ (Negative); Leukocyte Esterase Urine Negative (Negative); Nitrate Urine Negative (Negative); Protein Urine Neg (Negative); Urine Appearance Clear (CLEAR); Urine Color Yellow (Yellow); Urobilinogen Urine Norm (Negative); pH Urine 6 (5-7)
[2024-03-08 14:33] LABS: Bacteria Urine TRACE /hpf; Mucus Urine 1+ /hpf; RBC Urine RARE /hpf (0-2); Squamous Epithelial Cell Urine 0-4 /hpf (0-5); WBC Urine RARE /hpf (0-5)
[2024-03-08 14:35] LABS: Amphetamines Screen Urine Negative (Negative); Barbiturates Screen Urine Negative (Negative); Benzodiazepines Screen Urine Negative (Negative); Cocaine Screen Urine Negative (Negative); Opiate Screen Urine Negative (Negative); PCP Screen Urine Negative (Negative); THC Screen Urine Positive (Negative)
[2024-03-08 14:54] VITALS: BP 149/98; PULSE 78; RESP 16; O2SAT 97
== END 2024-03-08 15:00 | disposition home or self-care (01) ==
PROVIDERS: Emergency Provider Emergency Medicine; PCP Family Medicine
DX: R55 Syncope and collapse (principal); Z72.0 Tobacco use
CPT/HCPCS: 36415; 71045; 80053; 80306; 80307; 81001; 83605; 84484; 85025; 86140; 93005; 99285

== ENCOUNTER 2024-03-11 11:43 | Emergency (ER) | payer MEDICAID, SELFPAY ==
[2024-03-11 11:44] VITALS: BP 130/89; PULSE 90; RESP 16; TEMP 36.9; O2SAT 97; BMI 32.8
[2024-03-11 11:59] VITALS: BP 130/89; PULSE 98; RESP 15; O2SAT 97
--- NOTE | 2024-03-11 11:59 | CTR_ITS ---
PROCEDURE INFORMATION: Exam: CT Head Without Contrast Exam date and time: 03/11/2024 1:10 PM Age: 39 years old Clinical indication: Injury or trauma; Fall; Blunt trauma (contusions or hematomas); Consciousness not specified; Additional info: Fall, head injury TECHNIQUE: Imaging protocol: Computed tomography of the head without contrast. Radiation optimization: All CT scans at this facility use at least one of these dose optimization techniques: automated exposure control; mA and/or kV adjustment per patient size (includes targeted exams where dose is matched to clinical indication); or iterative reconstruction. COMPARISON: CT head wo con* [id number] 03/05/2024 6:19 PM RADIATION DOSE METRICS: Total DLP (mGy-cm): 1104.4 FINDINGS: Brain: Normal. No hemorrhage. Unremarkable white matter. No mass effect. Cerebral ventricles: No ventriculomegaly. Paranasal sinuses: Visualized sinuses are unremarkable. No fluid levels. Mastoid air cells: Visualized mastoid air cells are well aerated. Bones: Unremarkable. No acute fracture. Soft tissues: Unremarkable. CT/CT head wo con* [id number] IMPRESSION: No acute intracranial abnormality.
--- NOTE | 2024-03-11 11:59 | CTR_ITS ---
PROCEDURE INFORMATION: Exam: CT Thoracic Spine Without Contrast Exam date and time: 03/11/2024 1:15 PM Age: 39 years old Clinical indication: Injury or trauma; Fall; Blunt trauma (contusions or hematomas); Additional info: Traumatic upper back pain TECHNIQUE: Imaging protocol: Computed tomography of the thoracic spine without contrast. Radiation optimization: All CT scans at this facility use at least one of these dose optimization techniques: automated exposure control; mA and/or kV adjustment per patient size (includes targeted exams where dose is matched to clinical indication); or iterative reconstruction. COMPARISON: CT lumbar spine wo con* [id number] 03/11/2024 1:15 PM RADIATION DOSE METRICS: Total DLP (mGy-cm): 804 FINDINGS: Bones/joints: Multilevel marginal osteophyte formations in the visualized spine. Multilevel thoracic degenerative Schmorl's nodes most prominent in the T8 superior endplate. Multilevel mild facet arthropathy. Multilevel mild disc space narrowing. Soft tissues: Unremarkable. CT/CT thoracic spin wo con* [id number] IMPRESSION: There are degenerative changes as described above. No evidence for acute fracture.
--- NOTE | 2024-03-11 11:59 | CTR_ITS ---
PROCEDURE INFORMATION: Exam: CT Lumbar Spine Without Contrast Exam date and time: 03/11/2024 1:15 PM Age: 39 years old Clinical indication: Low back pain TECHNIQUE: Imaging protocol: Computed tomography of the lumbar spine without contrast. Radiation optimization: All CT scans at this facility use at least one of these dose optimization techniques: automated exposure control; mA and/or kV adjustment per patient size (includes targeted exams where dose is matched to clinical indication); or iterative reconstruction. COMPARISON: CT thoracic spin wo con* [id number] 03/11/2024 1:15 PM RADIATION DOSE METRICS: Total DLP (mGy-cm): 766.8 FINDINGS: Bones/joints: There is a degenerative Schmorl's node in the L1 inferior endplate. Multilevel small lower thoracic and lumbar marginal osteophyte formations. Multilevel mild facet arthropathy. There are duol-lo-iembwuas degenerative changes across the visualized sacroiliac joints. L1-L2: No significant disc bulge or herniation. No severe spinal canal stenosis. No significant neural foraminal narrowing. L2-L3: No significant disc bulge or herniation. No severe spinal canal stenosis. No significant neural foraminal narrowing. L3-L4: No significant disc bulge or herniation. No severe spinal canal stenosis. No significant neural foraminal narrowing. L4-L5: No significant disc bulge or herniation. No severe spinal canal stenosis. No significant neural foraminal narrowing. L5-S1: No significant disc bulge or herniation. No severe spinal canal stenosis. No significant neural foraminal narrowing. Soft tissues: Unremarkable. CT/CT lumbar spine wo con* [id number] IMPRESSION: There are degenerative changes as described above. No evidence for acute fracture.
--- NOTE | 2024-03-11 11:59 | CTR_ITS ---
PROCEDURE INFORMATION: Exam: CT Cervical Spine Without Contrast Exam date and time: 03/11/2024 1:10 PM Age: 39 years old Clinical indication: Injury or trauma; Fall; Blunt trauma; Additional info: Fall, neck pain TECHNIQUE: Imaging protocol: Computed tomography of the cervical spine without contrast. Radiation optimization: All CT scans at this facility use at least one of these dose optimization techniques: automated exposure control; mA and/or kV adjustment per patient size (includes targeted exams where dose is matched to clinical indication); or iterative reconstruction. COMPARISON: CR XR cervical spine 4-5V [id number] 06/19/2020 6:27 AM RADIATION DOSE METRICS: Total DLP (mGy-cm): 576.2 FINDINGS: Bones: No acute fracture. Normal alignment. There is disc space narrowing with endplate osteophytes and sclerosis C6-C7. On series 5, image 71, there is concern for a large disc protrusion and severe stenosis at C6-C7. Note is made that there is streak artifact from the patient's shoulders at this level. Large uncovertebral osteophytes result in bilateral moderate to severe foraminal narrowing at C6-C7. Lungs: Lung apices are normal. Soft tissues: Unremarkable. CT/CT cervical spin wo con* [id number] IMPRESSION: 1. No acute fracture. 2. Focal severe degenerative changes at C6-C7 with concern for large disc protrusion and severe stenosis. MRI is recommended for further evaluation.
--- NOTE | 2024-03-11 12:00 | ED_ITS ---
HPI - Syncope 2 General: Chief Complaint: Syncope Stated Complaint: SYNCOPE Time Seen by Provider: 03/11/24 11:54 History of Present Illness: 39-year-old female who presents to the e mergency room with recurrent syncope. She has been having issues with syncope for several weeks now. She is been seen in the emergency room and by her primary doc several times. To this point no cause for her syncopal episodes has been determined. Apparently she has follow- up with neurology in the near future. I also suggested that she follow-up with cardiology at some point. Today she said she was in the bathtub when she stood up and passed out she thinks. She says she does not really remember even taking a bath. She says she is having diffuse back pain. On exam she has no focal bony tenderness but is tender throughout her spine from her neck all the way down to her lumbar spine. Review of Systems 2 Narrative: Constitutional symptoms: Negative except as documented in HPI. Skin symptoms: Negative except as documented in HPI. Eye symptoms: Negative except as documented in HPI. ENMT symptoms: Negative except as documented in HPI. Respiratory symptoms: Negative except as documented in HPI. Cardiovascular symptoms: Negative except as documented in HPI. Gastrointestinal symptoms: Negative except as documented in HPI. Genitourinary symptoms: Negative except as documented in HPI. Musculoskeletal symptoms: Negative except as documented in HPI. Neurologic symptoms: Negative except as documented in HPI. Psychiatric symptoms: Negative except as documented in HPI. Endocrine symptoms: Negative except as documented in HPI. PFSH ED 2 PFSH: Medical History GERD (gastroesophageal reflux disease) Umbilical hernia Symptomatic cholelithiasis Asthma Surgical History Hx laparoscopic cholecystectomy Hx of section History of tonsillectomy and adenoidectomy History of salpingectomy No pertinent past surgical history Social History Smoking and tobacco/nicotine status: current every day tobacco/nicotine user Alcohol intake: never Substance/Drug Use: never Physical Exam 2 Narrative: EXAM NARRATIVE: General: Alert, no acute distress. Skin: Warm, dry. Head: Normocephalic, atraumatic. Neck: Supple, trachea midline. Eye: Extraocular movements are intact. Ears, nose, mouth and throat: mucosa moist. Cardiovascular: Regular, Normal peripheral perfusion. Respiratory: Lungs are clear to auscultation, respirations are non-labored, breath sounds are equal, Symmetrical chest wall expansion. Gastrointestinal: Soft, Nontender, Non distended, Normal bowel sounds. Musculoskeletal: Normal ROM, no deformity. Neurological: Alert and oriented, No focal neurological deficit observed. Psychiatric: Cooperative, appropriate mood & affect. Course 2 Vital Signs: Vital signs: Vital Signs Temperature 98.4 F 03/11/24 11:44 Pulse Rate 99 03/11/24 13:51 Respiratory Rate 15 03/11/24 11:59 Blood Pressure 142/82 03/11/24 13:51 Pulse Oximetry 98 03/11/24 13:51 Oxygen Delivery Me thod Room Air 03/11/24 13:51 MDM - Syncope Medical Decision Making Medical decision making: Differential diagnosis including but not limited to and based on the above HPI, review of systems and physical exam in this patient with syncope: Vasovagal, orthostatics hypotension, cardiac dysrhythmia, myocardial infarction, infection and hypotension, Orders placed to evaluate differential diagnosis based on the above differential, HPI and physical exam EKG: Time 1244 rate 87. Normal sinus rhythm, No ST-T changes, no ectopy, normal MD & QRS intervals, This was reviewed and interpreted by myself the ER physician at 1248 Lab Review: Laboratory results were reviewed and interpreted by myself the emergency room physician. Lab work is fairly unremarkable. No leukocytosis. No anemia. No renal failure. Urine drug screen is negative. Urinalysis is negative for infection. CT head: No acute intracranial process. no intracranial hemorrhage, no evidence of infarct. no evidence of acute fracture.This was reviewed and interpreted by myself the ER physician. CT of the cervical spine: C6-C7 stenosis/degenerative changes. Radiologist recommends MRI. No fracture. Good alignment. No step-offs. This was reviewed and interpreted by myself the emergency room physician. I also reviewed the radiologist report. I have discussed these findings with neurosurgeon [place] and he will see the patient in the clinic. Recommends Reading J collar and clinic follow-up. CT of the thoracic spine: No fracture. Good alignment. No step-offs. This was reviewed and interpreted by myself the emergency room physician. CT of the lumbar spine: No fracture. Good alignment. No step-offs. This was reviewed and interpreted by myself the emergency room physician. Consultation: I spoke with Dr. Hernando Tamayo in [place]. He recommends follow-up in clinic and a Reading J collar as it would be rare but it is possible to have vascular issues that could cause syncope with cervical stenosis. I reviewed the patient's medical record. Reexamination: Patient remained stable. She has had no tach arrhythmias or dysrhythmias. Blood pressures remained stable. No focal motor deficits. No altered mental status. No episodes of syncope while here. Assessment and plan: Recurrent syncope Cervical stenosis - Discharged home - Discussed plan with patient. Answered any questions. - Evaluation and treatment of this problem were appropriate in the emergency setting. Lab Data 03/11/24 12:01 03/11/24 12:01 Radiology Impressions Cervical Spine CT 03/11/24 11:59 IMPRESSION: 1. No acute fracture. 2. Focal severe degenerative changes at C6-C7 with concern for large disc protrusion and severe stenosis. MRI is recommended for further evaluation. Head CT 03/11/24 11:59 IMPRESSION: No acute intracranial abnormality. Lumbar Spine CT 03/11/24 11:59 IMPRESSION: There are degenerative changes as described above. No evidence for acute fracture. Thoracic Spine CT 03/11/24 11:59 IMPRESSION: There are degenerative changes as described above. No evidence for acute fracture. Laboratory Results WBC 10.20 10^3/uL (3.29-11.43) 03/11/24 12:01 RBC 5.29 10^6/uL (3.85-5.65) 03/11/24 12:01 Hgb 16.60 g/dL (11.27-16.99) 03/11/24 12:01 Hct 48.3 % (36-47) H 03/11/24 12:01 MCV 91.3 fl (85-98) 03/11/24 12:01 MCH 31.4 pg (27-33) 03/11/24 12:01 MCHC 34.4 g/dL (30-55) 03/11/24 12:01 RDW 12.4 % (12.1-15.1) 03/11/24 12:01 Plt Count 161 10^3/cmm (157-399) 03/11/24 12:01 MPV 13.1 fL (7.4-10.4) H 03/11/24 12:01 Neut % (Auto) 81.1 % 03/11/24 12:01 Lymph % (Auto) 10.7 % 03/11/24 12:01 [place] % (Auto) 7.4 % 03/11/24 12:01 Eos % (Auto) 0.2 % 03/11/24 12:01 Baso % (Auto) 0.3 % 03/11/24 12:01 Neut # (Auto) 8.28 10^3/uL (1.8-7.7) H 03/11/24 12:01 Lymph # (Auto) 1.1 10^3/uL (0.8-4.8) 03/11/24 12:01 [place] # (Auto) 0.8 10^3/uL (0.2-0.9) 03/11/24 12:01 Eos # (Auto) 0.0 10^3/uL (0.0-0.8) 03/11/24 12:01 Baso # (Auto) 0.0 10^3/uL (0.0-0.1) 03/11/24 12:01 Nucleated RBC % (auto) 0 % 03/11/24 12:01 Nucleated RBCs # 0.0 /100WBC 03/11/24 12:01 Sodium 136 mmol/L (136-145) 03/11/24 12:01 Potassium 3.3 mmol/L (3.5-5.1) L 03/11/24 12:01 Chloride 97 mmol/L (98-107) L 03/11/24 12:01 Carbon Dioxide 26 mmol/L (22-29) 03/11/24 12:01 Anion Gap 16.3 (5-19) 03/11/24 12:01 BUN 13 mg/dL (6-20) 03/11/24 12:01 Creatinine 0.7 mg/dL (0.5-0.9) 03/11/24 12:01 GFR Calculation 93.2 mL/min (90-130) 03/11/24 12:01 Glucose 173 mg/dL (65-115) H 03/11/24 12:01 Calculated Osmolality 286 mOsm/kg (285-295) 03/11/24 12:01 Calcium 8.9 mg/dL (8.5-10.5) 03/11/24 12:01 Total Bilirubin 0.4 mg/dL (0.15-1.2) 03/11/24 12:01 AST 10 U/L (0-32) 03/11/24 12:01 ALT 10 U/L (0-33) 03/11/24 12:01 Alkaline Phosphatase 71 U/L (35-105) 03/11/24 12:01 Troponin T Baseline < 6 ng/L (0-10) 03/11/24 12:01 Total Protein 6.8 g/dL (6.6-8.7) 03/11/24 12:01 Albumin 4.1 g/dL (3.5-5.2) 03/11/24 12:01 Globulin 2.7 g/dL (1.3-4.6) 03/11/24 12:01 HCG, Qual Negative (Negative) 03/11/24 12:40 Urine Color Yellow (Yellow) 03/11/24 12:40 Urine Appearance Clear (CLEAR) 03/11/24 12:40 Urine pH 5 (5-7) 03/11/24 12:40 Ur Specific [place] 1.020 (1.005-1.030) 03/11/24 12:40 Urine Protein Trace (Negative) 03/11/24 12:40 Urine Glucose (UA) Norm (Normal) 03/11/24 12:40 Urine Ketones 2+ (Negative) H 03/11/24 12:40 Urine Blood Neg (Negative) 03/11/24 12:40 Urine Nitrate Negative (Negative) 03/11/24 12:40 Urine Bilirubin Neg (Negative) 03/11/24 12:40 Urine Urobilinogen Norm mg/dL (Negative) 03/11/24 12:40 Ur Leukocyte Esterase Trace (Negative) H 03/11/24 12:40 Urine RBC None /hpf (0-2) 03/11/24 12:40 Urine WBC 0-4 /hpf (0-5) H 03/11/24 12:40 Ur Squamous Epith Cells 0-4 /hpf (0-5) H 03/11/24 12:40 Amorphous Sediment Not Reportable 03/11/24 12:40 Urine Bacteria Trace /hpf (NONE) 03/11/24 12:40 Urine Mucus 1+ /hpf 03/11/24 12:40 Urine Opiates Screen Negative ng/mL (Negative) 03/11/24 12:40 Ur Barbiturates Screen Negative ng/mL (Negative) 03/11/24 12:40 Ur Phencyclidine Scrn Negative ng/mL (Negative) 03/11/24 12:40 Ur Amphetamines Screen Negative ng/mL (Negative) 03/11/24 12:40 U Benzodiazepines Scrn Negative ng/mL (Negative) 03/11/24 12:40 Urine Cocaine Screen Negative ng/mL (Negative) 03/11/24 12:40 U Marijuana (THC) Screen Positive ng/mL (Negative) H 03/11/24 12:40 All radiology interpretation(s) finalized by discharge Discharge Plan Discharge Patient Disposition: Home Clinical Impression: Cervical spinal stenosis Syncope Qualifiers: Syncope type: unspecified Qualified Code(s): R55 - Syncope and collapse Condition: Stable Prescriptions: New dexamethasone 6 mg tablet 6 mg PO DAILY 5 Days Qty: 5 0RF No Action (DME) Aeroneb Go Nebulizer Misc See Rx Instructions .Route Rx Instructions: As directed albuterol sulfate 2.5 mg /3 mL (0.083 %) solution for nebulization 1.25 mg inhalation Q6H PRN (Reason: Shortness Of Breath) magnesium citrate Solution 300 ml PO DAILY PRN (Reason: constipation) Qty: 296 2RF Rx Instructions: take as directed for colonoscopy bisacodyl [Dulcolax (bisacodyl)] 5 mg tablet,delayed release (DR/EC) 5 mg PO DAILY Qty: 4 0RF Rx Instructions: take as directed for colonoscopy pantoprazole 40 mg Tablet,Delayed Release (Dr/Ec) 40 mg PO BID PRN (Reason: Acid Reflux) lisinopril 2.5 mg tablet 2.5 mg PO DAILY naproxen 500 mg tablet 500 mg PO BID PRN (Reason: Pain) fluticasone propionate [Flovent HFA] 110 mcg/actuation HFA aerosol inhaler 1 puff INHALATION BID PRN (Reason: Shortness Of Breath) albuterol sulfate [Ventolin HFA] 90 mcg/actuation Hfa Aerosol Inhaler 2 puff INHALATION BID PRN (Reason: Shortness Of Breath Or Wheezing) olanzapine 10 mg tablet,disintegrating 10 mg PO Q8H PRN (Reason: nausea and vomiting) Qty: 14 0RF Ativan 2 mg tablet 2 mg buccal Q6H PRN (Reason: nausea and vomiting) Qty: 14 0RF Medrol (Brandt) 4 mg tablets,dose pack See Rx Instructions .ROUTE .COMPLEX Qty: 21 0RF Rx Instructions: orally per package directions Levsin 0.125 mg tablet 0.125 mg PO Q6H PRN (Reason: dyspepsia) Qty: 30 2RF Discharge Orders: Discharge ED (Routine); Ordered 03/11/24 Ordered By: Kathryn Huddleston Other Ambulatory Orders: DME: Miscellaneous (Order) Location: None Selected Ordered By: Kathryn Huddleston Referrals: Hernando Tamayo MD [Referring] - 4-7 days (Call for an appointment on Wednesday please.) Baljinder Ramsey MD [Primary Care Provider] - 1-3 days Discharge Diet: Usual diet Discharge Activity: Increase activity as tolerated and Limit activity as instructed Patient Instructions: Opioid Safety, Pain Management Activity Restrictions/Additional Instructions: Please take care with any standing. If you have been sitting and you stand please wait for 60 to 90 seconds before you go walking. Keep family around when you are up and moving. Thank you for choosing [facility] for your healthcare needs today. Please realize this is an emergency room and that we are providing you with a medical screening exam and this may not be complete and all inclusive of all the testing and or work up that you may need to determine your ailment or severity of your illness. You have been screened and evaluated and felt safe for discharge. Health conditions do change or evolve sometimes and as such it is important that you follow up with your Primary Doctor to be re checked, 3-5 days is a general good time frame for follow up. You are always welcome to return to the ED for re assessment if your symptoms are worsening or you have new concerns Coding Level of Care Code ED Block Bolter Mule Operator for Ada Pedersen
--- NOTE | 2024-03-11 12:00 | ECG_ITS ---
[facility] Test Date: 2024-03-11 Pat Name: Eliceo Calle Department: Room: Gender: Female Under Cutter: : 1985 Requested By: Kathryn Peters Order Number: [id number] Castro MD: Domingo Flores M.D. Measurements Intervals [place] Rate: 87 P: 58 PA: 173 QRS: 70 QRSD: 84 T: 65 QT: 371 QTc: 448 Interpretive Statements SINUS RHYTHM LOW QRS VOLTAGE IN PRECORDIAL LEADS [QRS DEFLECTION < 1.0 mV IN CHEST LEADS] Compared to ECG 03/08/2024 13:39:35 Low QRS voltage now present Sinus arrhythmia no longer present Electronically Signed On 03-11-2024 21:32:58 CDT by Domingo Flores M.D. [id number]
[2024-03-11 12:08] LABS: Basophils % 0.3 %; Eosinophils % 0.2 %; Hematocrit 48.3 % (36-47); Lymphocytes # 1.1 10^3/uL (0.8-4.8); Lymphocytes % 10.7 %; Mean Corpuscular HGB Conc 34.4 g/dL (30-55); Mean Corpuscular Hemoglobin 31.4 pg (27-33); Mean Corpuscular Volume 91.3 fl (85-98); Mean Platelet Volume 13.1 fL (7.4-10.4); Monocytes # 0.8 10^3/uL (0.2-0.9); Monocytes % 7.4 %; Neutrophils # 8.28 10^3/uL (1.8-7.7); Neutrophils % 81.1 %; Nucleated Red Blood Cells % 0 %; Platelet Count 161 10^3/cmm (157-399); Red Blood Count 5.29 10^6/uL (3.85-5.65); Red Cell Distribution Width 12.4 % (12.1-15.1)
[2024-03-11] MEDS: ketorolac 30 mg/mL INJ IVP (12:17)
[2024-03-11] MEDS: sodium chloride 0.9% 1,000 ML 999 ML IV (12:17)
[2024-03-11] MEDS: ondansetron 2 mg/ML SDV 2 mL 4 MG IVP (12:17)
[2024-03-11 12:26] LABS: Troponin(5th) Baseline < 6 ng/L (0-10)
[2024-03-11 12:28] LABS: Alanine Aminotransferase 10 U/L (0-33); Albumin Level 4.1 g/dL (3.5-5.2); Alkaline Phosphatase 71 U/L (35-105); Anion Gap 16.3 (5-19); Aspartate Amino Transferase 10 U/L (0-32); Blood Urea Nitrogen 13 mg/dL (6-20); Calcium 8.9 mg/dL (8.5-10.5); Carbon Dioxide 26 mmol/L (22-29); Chloride 97 mmol/L (98-107); Creatinine Clr Calc Pharmacy 119.1394; Globulin 2.7 g/dL (1.3-4.6); Glomerular Filtration Rate 93.2 mL/min (90-130); Glucose 173 mg/dL (65-115); Osmolality Calculated 286 mOsm/kg (285-295); Potassium 3.3 mmol/L (3.5-5.1); Sodium 136 mmol/L (136-145); Total Bilirubin 0.4 mg/dL (0.15-1.2); Total Protein 6.8 g/dL (6.6-8.7)
[2024-03-11 12:52] LABS: HCG Qualitative Urine. Negative (Negative)
[2024-03-11 13:09] LABS: Add Urine Culture? No; Bacteria Urine TRACE /hpf; Bilirubin Urine Neg (Negative); Blood Urine Neg (Negative); Glucose Urine UA Norm (Normal); Ketones Urine 2+ (Negative); Leukocyte Esterase Urine Trace (Negative); Mucus Urine 1+ /hpf; Nitrate Urine Negative (Negative); Protein Urine Trace (Negative); Squamous Epithelial Cell Urine 0-4 /hpf (0-5); Urine Appearance Clear (CLEAR); Urine Color Yellow (Yellow); Urobilinogen Urine Norm (Negative); WBC Urine 0-4 /hpf (0-5); pH Urine 5 (5-7)
[2024-03-11 13:13] LABS: Amphetamines Screen Urine Negative (Negative); Barbiturates Screen Urine Negative (Negative); Benzodiazepines Screen Urine Negative (Negative); Cocaine Screen Urine Negative (Negative); Opiate Screen Urine Negative (Negative); PCP Screen Urine Negative (Negative); THC Screen Urine Positive (Negative)
[2024-03-11 13:51] VITALS: BP 142/82; PULSE 99; O2SAT 98
[2024-03-11] MEDS: dexamethasone 10 mg/mL INJ IVP (15:13)
[2024-03-11 16:23] VITALS: BP 142/82; PULSE 99; RESP 15; TEMP 36.9; O2SAT 98
== END 2024-03-11 16:24 | disposition home or self-care (01) ==
PROVIDERS: Emergency Provider Emergency Medicine; PCP Family Medicine
DX: R55 Syncope and collapse (principal); M48.02 Spinal stenosis, cervical region; Z72.0 Tobacco use
CPT/HCPCS: 70450; 72125; 72128; 72131; 80053; 80306; 81001; 81025; 84484; 85025; 93005; 96361; 96374; 96375; 99285; J1100; J1885; J2405; J7030

== ENCOUNTER 2024-03-15 16:43 | Emergency (ER) | payer MEDICAID, SELFPAY ==
[2024-03-15 16:48] VITALS: BP 125/89; PULSE 93; RESP 18; TEMP 37.1; O2SAT 96
--- NOTE | 2024-03-15 16:54 | ECG_ITS ---
[facility] Test Date: 2024-03-15 Pat Name: Eliceo Calle Department: Room: Gender: Female Premium Service Representative: : 1985 Requested By: Waldo Gama Order Number: [id number] Matthew MD: Maxx Sanders M.D. Measurements Intervals [place] Rate: 88 P: 70 [place]: 158 QRS: 79 QRSD: 84 T: 75 QT: 347 QTc: 420 Interpretive Statements SINUS RHYTHM WITH SINUS ARRHYTHMIA Compared to ECG 03/11/2024 12:44:24 No significant changes Electronically Signed On 03-17-2024 13:34:07 CDT by Maxx Sanders M.D. [id number]
[2024-03-15 17:19] LABS: Basophils % 0.3 %; Eosinophils # 0.1 10^3/uL (0.0-0.8); Eosinophils % 0.6 %; Hematocrit 46.7 % (36-47); Lymphocytes # 1.8 10^3/uL (0.8-4.8); Lymphocytes % 15.5 %; Mean Corpuscular HGB Conc 36.6 g/dL (30-55); Mean Corpuscular Volume 87.5 fl (85-98); Mean Platelet Volume 13.1 fL (7.4-10.4); Monocytes # 0.9 10^3/uL (0.2-0.9); Monocytes % 7.8 %; Neutrophils % 75.5 %; Nucleated Red Blood Cells % 0 %; Platelet Count 157 10^3/cmm (157-399); Red Blood Count 5.34 10^6/uL (3.85-5.65); White Blood Count 11.65 10^3/uL (3.29-11.43)
[2024-03-15 17:45] LABS: Alanine Aminotransferase 12 U/L (0-33); Albumin Level 4.3 g/dL (3.5-5.2); Alkaline Phosphatase 69 U/L (35-105); Anion Gap 14.3 (5-19); Aspartate Amino Transferase 17 U/L (0-32); Blood Urea Nitrogen 5 mg/dL (6-20); Calcium 9.7 mg/dL (8.5-10.5); Carbon Dioxide 24 mmol/L (22-29); Chloride 100 mmol/L (98-107); Creatinine Clr Calc Pharmacy 162.4683; Globulin 3.5 g/dL (1.3-4.6); Glomerular Filtration Rate 137.4 mL/min (90-130); Glucose 170 mg/dL (65-115); Lipase 12 U/L (13-60); Osmolality Calculated 281 mOsm/kg (285-295); Potassium 3.3 mmol/L (3.5-5.1); Sodium 135 mmol/L (136-145); Total Bilirubin 0.7 mg/dL (0.15-1.2); Total Protein 7.8 g/dL (6.6-8.7)
[2024-03-15 17:50] LABS: HCG, Serum Qual Negative (Negative)
[2024-03-15 17:58] LABS: Slide Review Slide Review Perform
[2024-03-15 19:21] VITALS: BP 168/109; PULSE 73; RESP 16; O2SAT 99
--- NOTE | 2024-03-15 19:23 | ED_ITS ---
HPI - Weakness 2 General: Chief complaint: Weakness Stated complaint: weakness Time Seen by Provider: 03/15/24 19:12 Source: patient and EMS Mode of arrival: EMS Limitations: no limitations History of Present Illness: 39-year-old female is very well-known to the ER has been seen here multiple times states she is at her PCP office today and was having some generalized weakness states she had nausea vomiting as well denies passing out she denies any worsening improving factors denies any severe pain Associated symptoms: Reports nausea and vomiting; Denies chest pain, chills, dysuria, fever(s) or headache(s) Review of Systems 2 Const: Reports: malaise; Denies: fever(s), chills, body aches or change in appetite Eyes: Denies: blurry vision or eye discomfort ENMT: Denies: throat pain or dental pain Card: Denies: chest pain Resp: Denies: dyspnea GI: Reports: nausea and vomiting; Denies: abdominal pain or diarrhea : Denies: dysuria Musc: Denies: neck pain or back pain Skin/Breast: Denies: rash Neuro: Denies: headache(s) PFSH ED 2 PFSH: Medical History GERD (gastroesophageal reflux disease) Umbilical hernia Symptomatic cholelithiasis Asthma Surgical History Hx laparoscopic cholecystectomy Hx of section History of tonsillectomy and adenoidectomy History of salpingectomy No pertinent past surgical history Social History Smoking and tobacco/nicotine status: current every day tobacco/nicotine user Alcohol intake: never Substance/Drug Use: never Physical Exam 2 Const: COMMON NORMALS: no acute distress, patient oriented x3 and healthy appearing HENMT: COMMON NORMALS: normocephalic and atraumatic HEAD & SCALP: n ormocephalic and atraumatic Eye: COMMON NORMALS: Equal, round and reactive pupils present and EOMs intact bilaterally PUPIL: Yes Equal, round and reactive pupils present Neck/C-Spine: COMMON NORMALS: full ROM and supple Chest: COMMONS NORMALS: normal inspection of the chest Resp: COMMON NORMALS: normal respiratory effort Cardio: COMMON NORMALS: regular rate, regular rhythm and No murmurs present (Cardio) RATE: regular rate RHYTHM: regular rhythm GI: COMMON NORMALS: Normal to inspection, nondistended, normoactive bowel sounds present, Soft to palpation, non-tender and no masses PALPATION: Yes Soft to palpation Extremity: COMMON NORMALS: normal to inspection and full ROM Neuro: COMMON NORMALS: patient oriented x3, moves all extremities and no focal motor deficits Psych: COMMON NORMALS: mental status grossly normal, Normal thought process present and cooperative THOUGHT PROCESS: Normal thought process present Skin: COMMON NORMALS: no rashes or lesions noted and no wounds GENERAL SKIN EXAM: no rashes or lesions noted Course 2 Vital Signs: Vital signs: Vital Signs Temperature 98.8 F 03/15/24 16:48 Pulse Rate 73 03/15/24 19:21 Respiratory Rate 16 03/15/24 19:21 Blood Pressure 168/109 03/15/24 19:21 Pulse Oximetry 99 03/15/24 19:21 Oxygen Delivery Me thod Room Air 03/15/24 16:48 MDM - Weakness Medical Decision Making Patient presents here with generalized weakness with nausea she is well- appearing here blood works normal no signs acute infection she stable for discharge we will prescribe her Reglan for her nausea she is follow-up with PCP return if worsening. Medical Records I reviewed the patient's medical records. Lab Data I reviewed the patient's lab results. 03/15/24 17:10 03/15/24 17:10 Laboratory Results WBC 11.65 10^3/uL (3.29-11.43) H 03/15/24 17:10 RBC 5.34 10^6/uL (3.85-5.65) 03/15/24 17:10 Hgb 17.10 g/dL (11.27-16.99) H 03/15/24 17:10 Hct 46.7 % (36-47) 03/15/24 17:10 MCV 87.5 fl (85-98) 03/15/24 17:10 MCH 32.0 pg (27-33) 03/15/24 17:10 MCHC 36.6 g/dL (30-55) 03/15/24 17:10 RDW 12.0 % (12.1-15.1) L 03/15/24 17:10 Plt Count 157 10^3/cmm (157-399) 03/15/24 17:10 MPV 13.1 fL (7.4-10.4) H 03/15/24 17:10 Neut % (Auto) 75.5 % 03/15/24 17:10 Lymph % (Auto) 15.5 % 03/15/24 17:10 [place] % (Auto) 7.8 % 03/15/24 17:10 Eos % (Auto) 0.6 % 03/15/24 17:10 Baso % (Auto) 0.3 % 03/15/24 17:10 Neut # (Auto) 8.80 10^3/uL (1.8-7.7) H 03/15/24 17:10 Lymph # (Auto) 1.8 10^3/uL (0.8-4.8) 03/15/24 17:10 [place] # (Auto) 0.9 10^3/uL (0.2-0.9) 03/15/24 17:10 Eos # (Auto) 0.1 10^3/uL (0.0-0.8) 03/15/24 17:10 Baso # (Auto) 0.0 10^3/uL (0.0-0.1) 03/15/24 17:10 Nucleated RBC % (auto) 0 % 03/15/24 17:10 Nucleated RBCs # 0.0 /100WBC 03/15/24 17:10 Sodium 135 mmol/L (136-145) L 03/15/24 17:10 Potassium 3.3 mmol/L (3.5-5.1) L 03/15/24 17:10 Chloride 100 mmol/L (98-107) 03/15/24 17:10 Carbon Dioxide 24 mmol/L (22-29) 03/15/24 17:10 Anion Gap 14.3 (5-19) 03/15/24 17:10 BUN 5 mg/dL (6-20) L 03/15/24 17:10 Creatinine 0.5 mg/dL (0.5-0.9) 03/15/24 17:10 GFR Calculation 137.4 mL/min (90-130) H 03/15/24 17:10 Glucose 170 mg/dL (65-115) H 03/15/24 17:10 Calculated Osmolality 281 mOsm/kg (285-295) L 03/15/24 17:10 Calcium 9.7 mg/dL (8.5-10.5) 03/15/24 17:10 Total Bilirubin 0.7 mg/dL (0.15-1.2) 03/15/24 17:10 AST 17 U/L (0-32) 03/15/24 17:10 ALT 12 U/L (0-33) 03/15/24 17:10 Alkaline Phosphatase 69 U/L (35-105) 03/15/24 17:10 Total Protein 7.8 g/dL (6.6-8.7) 03/15/24 17:10 Albumin 4.3 g/dL (3.5-5.2) 03/15/24 17:10 Globulin 3.5 g/dL (1.3-4.6) 03/15/24 17:10 Lipase 12 U/L (13-60) L 03/15/24 17:10 HCG, Qual Negative (Negative) 03/15/24 17:10 No radiology studies performed this visit Discharge Plan Discharge Patient Disposition: Home Clinical Impression: Vomiting, Weakness Condition: Stable Prescriptions: New Reglan 10 mg tablet 10 mg PO Q6H PRN (Reason: nausea and vomiting) Qty: 20 0RF Reglan 10 mg tablet 10 mg PO Q6H PRN (Reason: nausea and vomiting) Qty: 20 0RF No Action (DME) Aeroneb Go Nebulizer Misc See Rx Instructions .Route Rx Instructions: As directed albuterol sulfate 2.5 mg /3 mL (0.083 %) solution for nebulization 1.25 mg inhalation Q6H PRN (Reason: Shortness Of Breath) magnesium citrate Solution 300 ml PO DAILY PRN (Reason: constipation) Qty: 296 2RF Rx Instructions: take as directed for colonoscopy bisacodyl [Dulcolax (bisacodyl)] 5 mg tablet,delayed release (DR/EC) 5 mg PO DAILY Qty: 4 0RF Rx Instructions: take as directed for colonoscopy pantoprazole 40 mg Tablet,Delayed Release (Dr/Ec) 40 mg PO BID PRN (Reason: Acid Reflux) lisinopril 2.5 mg tablet 2.5 mg PO DAILY naproxen 500 mg tablet 500 mg PO BID PRN (Reason: Pain) fluticasone propionate [Flovent HFA] 110 mcg/actuation HFA aerosol inhaler 1 puff INHALATION BID PRN (Reason: Shortness Of Breath) albuterol sulfate [Ventolin HFA] 90 mcg/actuation Hfa Aerosol Inhaler 2 puff INHALATION BID PRN (Reason: Shortness Of Breath Or Wheezing) olanzapine 10 mg tablet,disintegrating 10 mg PO Q8H PRN (Reason: nausea and vomiting) Qty: 14 0RF Ativan 2 mg tablet 2 mg buccal Q6H PRN (Reason: nausea and vomiting) Qty: 14 0RF Medrol (Brandt) 4 mg tablets,dose pack See Rx Instructions .ROUTE .COMPLEX Qty: 21 0RF Rx Instructions: orally per package directions Levsin 0.125 mg tablet 0.125 mg PO Q6H PRN (Reason: dyspepsia) Qty: 30 2RF dexamethasone 6 mg tablet 6 mg PO DAILY 5 Days Qty: 5 0RF Discharge Orders: Discharge ED (Routine); Ordered 03/15/24 Ordered By: Waldo Gama Referrals: Baljinder Ramsey MD [Primary Care Provider] - 4-7 days Discharge Diet: Advance as tolerated Discharge Activity: Resume usual activity Patient Instructions: Acute Nausea and Vomiting (ED), Weakness (ED) Coding Level of Care Code ED [facility] Rn for Ada Pedersen
[2024-03-15] MEDS: diphenhydrAMINE 50 mg/mL SDV 1mL IM (19:24)
[2024-03-15] MEDS: metoclopramide 5 mg/mL SDV 2 mL 10 MG IM (19:26)
== END 2024-03-15 19:46 | disposition home or self-care (01) ==
PROVIDERS: Emergency Provider Emergency Medicine; PCP Family Medicine
DX: R53.1 Weakness (principal); R11.11 Vomiting without nausea; Z72.0 Tobacco use
CPT/HCPCS: 36415; 80053; 83690; 84703; 85025; 93005; 96372; 99284; J1200; J2765

== ENCOUNTER 2024-03-23 14:30 | Emergency (ER) | payer MEDICAID, SELFPAY ==
[2024-03-23 14:32] VITALS: BP 160/108; PULSE 81; RESP 16; TEMP 36.7; O2SAT 99; BMI 31.1
[2024-03-23 14:39] VITALS: BP 142/110; PULSE 83; RESP 17; O2SAT 96
--- NOTE | 2024-03-23 14:40 | CTR_ITS ---
PROCEDURE INFORMATION: Exam: CT Abdomen And Pelvis With Contrast Exam date and time: 03/23/2024 3:28 PM Age: 39 years old Clinical indication: Abdominal pain; Generalized; Additional info: Diffuse abd pain x1 day TECHNIQUE: Imaging protocol: Computed tomography of the abdomen and pelvis with contrast. Radiation optimization: All CT scans at this facility use at least one of these dose optimization techniques: automated exposure control; mA and/or kV adjustment per patient size (includes targeted exams where dose is matched to clinical indication); or iterative reconstruction. Contrast material: OMNI 350; Contrast volume: 100 ml; Contrast route: INTRAVENOUS (IV); COMPARISON: CT abdomen pelvis w con* [id number] 02/29/2024 4:09 PM RADIATION DOSE METRICS: Total DLP (mGy-cm): 751.45 FINDINGS: Lungs: No significant pathology at the imaged lung bases. Diaphragm: Small hiatal hernia. Liver: Liver is borderline in size no significant focal pathology. Gallbladder and biliary ducts: Prior cholecystectomy. No biliary dilatation. Pancreas: No significant pancreatic pathology. Spleen: No significant splenic pathology. Adrenal glands: No significant adrenal pathology. Kidneys and ureters: No significant renal pathology. Stomach and bowel: Colonic diverticulosis without evidence of focal inflammatory change. Majority of the colon is nondistended limiting assessment of the wall. There is large amount of stool in the ascending colon with angulation at the hepatic flexure (series 5, image 42 through 43). Terminal ileum is also distended with fecalization of contents. No discrete obstructing lesion seen at this location. Mobile cecum located in the central abdomen. Normal appendix. Appendix: See Stomach and bowel finding. Intraperitoneal space: No ascites. Vasculature: No abdominal aortic aneurysm. Lymph nodes: No evidence of lymphadenopathy. Urinary bladder: Unremarkable urinary bladder. Reproductive: No significant uterine pathology. No significant adnexal pathology. Bones/joints: No significant bony pathology. Soft tissues: Tiny fat containing umbilical hernia. CT/CT abdomen pelvis w con* [id number] IMPRESSION: Again noted is large amount of stool in the proximal colon to the level of the hepatic flexure and dilated terminal ileum with fecalization of contents. Mobile cecum and ascending colon with acute angulation of the hepatic flexure but without discrete obstructive lesion visualized. Nondistention of the colon distal to this level with multiple diverticula but no acute inflammatory change. Colonoscopy may be warranted for further assessment.
--- NOTE | 2024-03-23 14:44 | ED_ITS ---
HPI - Abdominal Pain 2 General: Chief Complaint: Abdominal Pain Stated Complaint: abd pain Time Seen by Provider: 03/23/24 14:32 Source: patient Mode of arrival: EMS Limitations: no limitations History of Present Illness: Patient is a 39-year-old female brought into the emergency department by ambulance due to abdominal pain onset today. Patient seen here in the emergency department multiple times, most recently a week ago for nausea and weakness. She states that this has somewhat persisted but she has not had pain up until this morning when it woke her up. Pain is noted to be diffuse, however worse on the right sided abdomen and it does extend into her back. History of cholecystectomy. She is also noting nausea and vomiting, stating that when she vomited it did help her pain. Pain does seem to be worsened by eating. Pain currently rated at an 8/10 however at its worst was greater than 10. It feels like a burning and sharp sensation. She has never had this pain before. Only past medical history to report is asthma. No changes in bowel or bladder or other symptoms to report at this time. Has not taken anything for pain. MD elicited complaint: abdominal pain Pertinent past history: none Onset (ago): hour(s) Pain Consistency: constant Location: RUQ and RLQ Severity: severe Quality: sharp and burning Radiation: back Exacerbating factors: eating Relieving factors: vomiting Associated Symptoms: Reports nausea and vomiting; Denies bloating, change in stool character, chills, constipation, diarrhea, dysuria, fever(s) and hematochezia Review of Systems 2 General: Reports: 10 or more systems reviewed and unremarkable except in HPI and below Const: Denies: fever(s), chills, change in appetite, change in weight or diaphoresis ENMT: Denies: throat pain or hoarseness Card: Denies: chest pain, palpitations or lightheadedness Resp: Denies: dyspnea, productive cough or wheezing GI: Reports: abdominal pain, nausea and vomiting; Denies: diarrhea, constipation, bloating, change in stool character or hematochezia : Denies: flank pain, difficulty voiding, dysuria, urinary frequency or urinary urgency Musc: Reports: back pain; Denies: neck pain Skin/Breast: Denies: rash or new lesions Neuro: Denies: headache(s) or dizziness PFS ED 2 PFSH: Medical History GERD (gastroesophageal reflux disease) Umbilical hernia Symptomatic cholelithiasis Asthma Surgical History Hx laparoscopic cholecystectomy Hx of section History of tonsillectomy and adenoidectomy History of salpingectomy No pertinent past surgical history Social History Smoking and tobacco/nicotine status: current every day tobacco/nicotine user Alcohol intake: never Substance/Drug Use: never Physical Exam 2 Const: COMMON NORMALS: patient oriented x3, no limitations, alert and well nourished GENERAL APPEARANCE: cooperative, anxious and appears older than stated age NUTRITIONAL APPEARANCE: obese ORIENTATION/CONSCIOUSNESS: Yes awake HENMT: COMMON NORMALS: normocephalic, atraumatic, hearing grossly normal bilaterally, external ears normal, Normal external nose present, Normal nasal mucous membranes and turbinates present and moist oral mucous membranes HEAD & SCALP: normocephalic and atraumatic NOSE: Normal external nose present and Normal nasal mucous membranes and turbinates present EXTERNAL EAR: Yes external ears normal OTHER: Moist oral mucosa Eye: COMMON NORMALS: Equal, round and reactive pupils present, EOMs intact bilaterally, conjunctivae normal and normal visual perales by confrontation C ONJUNCTIVA: Yes conjunctivae normal PUPIL: Yes Equal, round and reactive pupils present Neck/C-Spine: COMMON NORMALS: full ROM, supple, no meningeal signs and no JVD Resp: COMMON NORMALS: normal respiratory effort, No retractions, No use of accessory muscles and clear to auscultation bilaterally AUSCULTATION: clear to auscultation bilaterally, no crackles, no rales, no rhonchi and no wheezes Cardio: COMMON NORMALS: no JVD, regular rate, regular rhythm, S1 normal heart sound present, S2 normal heart sound present, No gallops present (Cardio), No clicks present (Cardio), No murmurs present (Cardio), No rub (Cardio) and Peripheral pulses 2+ throughout RATE: regular rate RHYTHM: regular rhythm HEART SOUNDS: S1 normal heart sound present and S2 normal heart sound present PERIPHERAL PULSES: Peripheral pulses 2+ throughout GI: COMMON NORMALS: Soft to palpation, No hepatosplenomegaly present and no masses AUSCULTATION: Yes normoactive bowel sounds PALPATION: Yes Soft to palpation and Yes No hepatosplenomegaly present RECTAL EXAM: deferred O THER: Diffuse tenderness to palpation with voluntary guarding, obese abdomen. : COMMON NORMALS: Yes no CVA tenderness BLADDER/KIDNEY EXAM: Yes no CVA tenderness Back/Pelvis: COMMON NORMALS: no CVA tenderness Extremity: COMMON NORMALS: normal to inspection and full ROM Neuro: COMMON NORMALS: patient oriented x3, moves all extremities, no focal motor deficits and no sensory deficits noted SENSORIUM/ORIENTATION: Yes alert MENINGEAL SIGNS: Yes no meningeal signs Psych: COMMON NORMALS: mental status grossly normal, cooperative and speech normal SPEECH: Yes normal speech Skin: COMMON NORMALS: no rashes or lesions noted GENERAL SKIN EXAM: no rashes or lesions noted Course 2 Vital Signs: Vital signs: Vital Signs Temperature 98.1 F 03/23/24 14:32 Pulse Rate 83 03/23/24 14:39 Respiratory Rate 17 03/23/24 14:39 Blood Pressure 156/112 03/23/24 15:06 Pulse Oximetry 98 03/23/24 15:06 Oxygen Delivery Me thod Room Air 03/23/24 15:06 MDM - Abdominal Pain Medical Decision Making Patient seen in the emergency department multiple times, complaining of abdominal pain beginning today. No medications taken prior. Does have history of cholecystectomy and hysterectomy. Last normal bowel movement was this morning and stated to be normal. Vitals on arrival normal and physical examination showed her to be voluntary guarding diffuse abdominal pain, no focal tenderness. Basic blood work was all unremarkable and no change from prior labs obtained recently. CT of the abdomen pelvis with contrast showed a large amount of stool and diffuse diverticula, as patient already has scheduled for follow-up with GI/general surgery. She has not taken anything for constipation at this point, will prescribe medications for this. Did instruct her to drink plenty of fluids and increase her dietary fiber intake. Reasons to return discussed and she will follow-up with GI as planned. Lab Data 03/23/24 14:53 03/23/24 14:53 Labs/Radiology: Radiology Impressions Abdomen/Pelvis CT 03/23/24 14:40 IMPRESSION: Again noted is large amount of stool in the proximal colon to the level of the hepatic flexure and dilated terminal ileum with fecalization of contents. Mobile cecum and ascending colon with acute angulation of the hepatic flexure but without discrete obstructive lesion visualized. Nondistention of the colon distal to this level with multiple diverticula but no acute inflammatory change. Colonoscopy may be warranted for further assessment. Laboratory Results WBC 12.51 10^3/uL (3.29-11.43) H 03/23/24 14:53 RBC 4.92 10^6/uL (3.85-5.65) 03/23/24 14:53 Hgb 15.60 g/dL (11.27-16.99) 03/23/24 14:53 Hct 44.7 % (36-47) 03/23/24 14:53 MCV 90.9 fl (85-98) 03/23/24 14:53 MCH 31.7 pg (27-33) 03/23/24 14:53 MCHC 34.9 g/dL (30-55) 03/23/24 14:53 RDW 12.4 % (12.1-15.1) 03/23/24 14:53 Plt Count 139 10^3/cmm (157-399) L 03/23/24 14:53 MPV 12.5 fL (7.4-10.4) H 03/23/24 14:53 Neut % (Auto) 79.7 % 03/23/24 14:53 Lymph % (Auto) 12.0 % 03/23/24 14:53 [place] % (Auto) 6.5 % 03/23/24 14:53 Eos % (Auto) 1.4 % 03/23/24 14:53 Baso % (Auto) 0.2 % 03/23/24 14:53 Neut # (Auto) 9.97 10^3/uL (1.8-7.7) H 03/23/24 14:53 Lymph # (Auto) 1.5 10^3/uL (0.8-4.8) 03/23/24 14:53 [place] # (Auto) 0.8 10^3/uL (0.2-0.9) 03/23/24 14:53 Eos # (Auto) 0.2 10^3/uL (0.0-0.8) 03/23/24 14:53 Baso # (Auto) 0.0 10^3/uL (0.0-0.1) 03/23/24 14:53 Nucleated RBC % (auto) 0 % 03/23/24 14:53 Nucleated RBCs # 0.0 /100WBC 03/23/24 14:53 Sodium 138 mmol/L (136-145) 03/23/24 14:53 Potassium 3.6 mmol/L (3.5-5.1) 03/23/24 14:53 Chloride 103 mmol/L (98-107) 03/23/24 14:53 Carbon Dioxide 23 mmol/L (22-29) 03/23/24 14:53 Anion Gap 15.6 (5-19) 03/23/24 14:53 BUN 10 mg/dL (6-20) 03/23/24 14:53 Creatinine 0.5 mg/dL (0.5-0.9) 03/23/24 14:53 GFR Calculation 137.4 mL/min (90-130) H 03/23/24 14:53 Glucose 177 mg/dL (65-115) H 03/23/24 14:53 Calculated Osmolality 289 mOsm/kg (285-295) 03/23/24 14:53 Calcium 9.0 mg/dL (8.5-10.5) 03/23/24 14:53 Total Bilirubin 0.3 mg/dL (0.15-1.2) 03/23/24 14:53 AST 9 U/L (0-32) 03/23/24 14:53 ALT 13 U/L (0-33) 03/23/24 14:53 Alkaline Phosphatase 75 U/L (35-105) 03/23/24 14:53 Total Protein 7.1 g/dL (6.6-8.7) 03/23/24 14:53 Albumin 4.0 g/dL (3.5-5.2) 03/23/24 14:53 Globulin 3.1 g/dL (1.3-4.6) 03/23/24 14:53 Lipase 18 U/L (13-60) 03/23/24 14:53 HCG, Qual Negative (Negative) 03/23/24 14:53 Urine Color Yellow (Yellow) 03/23/24 14:44 Urine Appearance Clear (CLEAR) 03/23/24 14:44 Urine pH 6 (5-7) 03/23/24 14:44 Ur Specific [place] 1.015 (1.005-1.030) 03/23/24 14:44 Urine Protein Neg (Negative) 03/23/24 14:44 Urine Glucose (UA) Norm (Normal) 03/23/24 14:44 Urine Ketones Negative (Negative) 03/23/24 14:44 Urine Blood Neg (Negative) 03/23/24 14:44 Urine Nitrate Negative (Negative) 03/23/24 14:44 Urine Bilirubin Neg (Negative) 03/23/24 14:44 Urine Urobilinogen Norm mg/dL (Negative) 03/23/24 14:44 Ur Leukocyte Esterase Negative (Negative) 03/23/24 14:44 All radiology interpretation(s) finalized by discharge Discharge Plan Discharge Patient Disposition: Home Clinical Impression: Constipation Condition: Stable Prescriptions: New Miralax 17 gram/dose powder 4 g PO DAILY Qty: 238 0RF senna 8.6 mg tablet 8.6 mg PO DAILY PRN (Reason: constipation) Qty: 30 0RF No Action (DME) Aeroneb Go Nebulizer Misc See Rx Instructions .Route Rx Instructions: As directed albuterol sulfate 2.5 mg /3 mL (0.083 %) solution for nebulization 1.25 mg inhalation Q6H PRN (Reason: Shortness Of Breath) magnesium citrate Solution 300 ml PO DAILY PRN (Reason: constipation) Qty: 296 2RF Rx Instructions: take as directed for colonoscopy bisacodyl [Dulcolax (bisacodyl)] 5 mg tablet,delayed release (DR/EC) 5 mg PO DAILY Qty: 4 0RF Rx Instructions: take as directed for colonoscopy pantoprazole 40 mg Tablet,Delayed Release (Dr/Ec) 40 mg PO BID PRN (Reason: Acid Reflux) lisinopril 2.5 mg tablet 2.5 mg PO DAILY naproxen 500 mg tablet 500 mg PO BID PRN (Reason: Pain) fluticasone propionate [Flovent HFA] 110 mcg/actuation HFA aerosol inhaler 1 puff INHALATION BID PRN (Reason: Shortness Of Breath) albuterol sulfate [Ventolin HFA] 90 mcg/actuation Hfa Aerosol Inhaler 2 puff INHALATION BID PRN (Reason: Shortness Of Breath Or Wheezing) olanzapine 10 mg tablet,disintegrating 10 mg PO Q8H PRN (Reason: nausea and vomiting) Qty: 14 0RF Ativan 2 mg tablet 2 mg buccal Q6H PRN (Reason: nausea and vomiting) Qty: 14 0RF Medrol (Brandt) 4 mg tablets,dose pack See Rx Instructions .ROUTE .COMPLEX Qty: 21 0RF Rx Instructions: orally per package directions Levsin 0.125 mg tablet 0.125 mg PO Q6H PRN (Reason: dyspepsia) Qty: 30 2RF Reglan 10 mg tablet 10 mg PO Q6H PRN (Reason: nausea and vomiting) Qty: 20 0RF Reglan 10 mg tablet 10 mg PO Q6H PRN (Reason: nausea and vomiting) Qty: 20 0RF Discharge Orders: Discharge ED (Routine); Ordered 03/23/24 Ordered By: Thad Abraham Referrals: Baljinder Ramsey MD [Primary Care Provider] - Discharge Diet: As Directed Discharge Activity: Increase activity as tolerated Patient Instructions: Constipation (ED) Activity Restrictions/Additional Instructions: Take MiraLAX/senna as prescribed. Increase your fluid intake and high-fiber diet as discussed. Follow-up with general surgery/GI as already arranged. Return with any new or worsening. Coding Level of Care Code ED Supervisor [facility] for Ada Pedersen
[2024-03-23 14:59] LABS: Basophils % 0.2 %; Eosinophils # 0.2 10^3/uL (0.0-0.8); Eosinophils % 1.4 %; Hematocrit 44.7 % (36-47); Lymphocytes # 1.5 10^3/uL (0.8-4.8); Mean Corpuscular HGB Conc 34.9 g/dL (30-55); Mean Corpuscular Hemoglobin 31.7 pg (27-33); Mean Corpuscular Volume 90.9 fl (85-98); Mean Platelet Volume 12.5 fL (7.4-10.4); Monocytes # 0.8 10^3/uL (0.2-0.9); Monocytes % 6.5 %; Neutrophils # 9.97 10^3/uL (1.8-7.7); Neutrophils % 79.7 %; Nucleated Red Blood Cells % 0 %; Platelet Count 139 10^3/cmm (157-399); Red Blood Count 4.92 10^6/uL (3.85-5.65); Red Cell Distribution Width 12.4 % (12.1-15.1); White Blood Count 12.51 10^3/uL (3.29-11.43)
[2024-03-23] MEDS: lidocaine 2% viscous 15 ML, aluminum-mag hydrox-simethicon 30 ML, sucralfate oral liq 1 GM PO (15:00)
[2024-03-23] MEDS: sodium chloride 0.9% 1,000 ML 999 ML IV (15:01)
[2024-03-23 15:06] VITALS: BP 156/112; O2SAT 98
[2024-03-23 15:11] LABS: Add Urine Microscopic? NO; Charge for UA Resulting for Rev
[2024-03-23 15:19] LABS: Urine Appearance Clear (CLEAR); Urine Color Yellow (Yellow)
[2024-03-23 15:19] LABS: HCG, Serum Qual Negative (Negative)
[2024-03-23 15:20] LABS: Bilirubin Urine Neg (Negative); Blood Urine Neg (Negative); Glucose Urine UA Norm (Normal); Ketones Urine Negative (Negative); Leukocyte Esterase Urine Negative (Negative); Nitrate Urine Negative (Negative); Protein Urine Neg (Negative); Specific Gravity, Urine 1.015 (1.005-1.030); Urobilinogen Urine Norm (Negative); pH Urine 6 (5-7)
[2024-03-23 15:23] LABS: Alanine Aminotransferase 13 U/L (0-33); Alkaline Phosphatase 75 U/L (35-105); Anion Gap 15.6 (5-19); Aspartate Amino Transferase 9 U/L (0-32); Blood Urea Nitrogen 10 mg/dL (6-20); Carbon Dioxide 23 mmol/L (22-29); Chloride 103 mmol/L (98-107); Creatinine Clr Calc Pharmacy 162.4683; Globulin 3.1 g/dL (1.3-4.6); Glomerular Filtration Rate 137.4 mL/min (90-130); Glucose 177 mg/dL (65-115); Lipase 18 U/L (13-60); Osmolality Calculated 289 mOsm/kg (285-295); Potassium 3.6 mmol/L (3.5-5.1); Sodium 138 mmol/L (136-145); Total Bilirubin 0.3 mg/dL (0.15-1.2); Total Protein 7.1 g/dL (6.6-8.7)
[2024-03-23] MEDS: iohexol 350 mg/mL 500 mL Btl (per mL) IV (15:31)
[2024-03-23] MEDS: ondansetron 2 mg/ML SDV 2 mL 4 MG IVP (15:43)
[2024-03-23] MEDS: ketorolac 60 mg/2 mL INJ 30 MG IVP (15:44)
[2024-03-23] MEDS: sennosides-docusate Tablet 1 TAB PO (16:20)
[2024-03-23] MEDS: polyethylene glycol 3350 Pkt 17 gm PO (16:20)
== END 2024-03-23 16:30 | disposition home or self-care (01) ==
PROVIDERS: Emergency Provider Physician Assistant; PCP Family Medicine
DX: K59.00 Constipation, unspecified (principal); Z72.0 Tobacco use
CPT/HCPCS: 74177; 80053; 81003; 83690; 84703; 85025; 96374; 96375; 99285; J1885; J2405; J7030; Q9967

== ENCOUNTER 2024-03-25 11:48 | Emergency (ER) | payer MEDICAID, SELFPAY ==
[2024-03-25 11:58] VITALS: BP 123/90; PULSE 75; RESP 16; TEMP 36.7; O2SAT 98
--- NOTE | 2024-03-25 13:23 | ED_ITS ---
HPI - General Adult 2 General: Chief complaint: General Medical Stated complaint: blood in stool, vomiting brown azam stuff Time Seen by Provider: 03/25/24 13:21 Source: patient Mode of arrival: ambulatory History of Present Illness: 39-year-old female presents emergency ro om complaining an episode of hematochezia. Patient is single bloody stool. She has been seen here recently couple of times for abdominal pain most recent visit she was significantly constipated. Laxatives. She had a large bowel movement including passing a moderate amount of blood it happened 1 time. She did have some diverticulosis on the last CT but did not show any evidence of diverticulitis. No fever sweats chills no worsening abdominal pain. Onset (ago): minute(s) Severity: mild Relieving factors: none Exacerbating factors: none Associated symptoms: Deny chest pain, confusion, cough, diaphoresis, decreased appetite, dyspnea, fevers/chills, headache(s), malaise, nausea, rash, palpitations, seizures, short of breath, syncope, vomiting or weakness Review of Systems 2 Const: Denies: malaise or diaphoresis Card: Denies: chest pain, palpitations or syncope Resp: Denies: dyspnea GI: Reports: hematochezia; Denies: abdominal pain, nausea or vomiting : Denies: dysuria, urinary frequency or urinary urgency Musc: Denies: neck pain or back pain Skin/Breast: Denies: rash Neuro: Denies: headache(s) or confusion PFSH ED 2 PFSH: Medical History GERD (gastroesophageal reflux disease) Umbilical hernia Symptomatic cholelithiasis Asthma Surgical History Hx laparoscopic cholecystectomy Hx of section History of tonsillectomy and adenoidectomy History of salpingectomy No pertinent past surgical history Social History Smoking and tobacco/nicotine status: current every day tobacco/nicotine user Alcohol intake: never Substance/Drug Use: never Physical Exam 2 Const: GENERAL APPEARANCE: cooperative and comfortable O RIENTATION/CONSCIOUSNESS: Yes awake, Yes oriented to person, Yes oriented to place and Yes oriented to time HENMT: COMMON NORMALS: normocephalic, atraumatic and hearing grossly normal bilaterally HEAD & SCALP: normocephalic and atraumatic Resp: COMMON NORMALS: normal respiratory effort, No retractions, No use of accessory muscles and clear to auscultation bilaterally AUSCULTATION: clear to auscultation bilaterally Cardio: COMMON NORMALS: regular rate, regular rhythm and No murmurs present (Cardio) RATE: regular rate RHYTHM: regular rhythm GI: COMMON NORMALS: Soft to palpation and No hepatosplenomegaly present A USCULTATION: Yes normoactive bowel sounds PALPATION: Yes Soft to palpation, No Tenderness to palpation present (GI), No Guarding due to palpation present (GI) and Yes No hepatosplenomegaly present RECTAL EXAM: External hemorrhoid(s) present, Internal hemorrhoid(s) present, no fissure noted, heme negative stool and hemorrhoids (No thrombosed or actively bleeding hemorrhoids) External hemorrhoid(s): Yes Internal hemorrhoid(s): Yes OTHER: No rectal masses noted on rectal exam Extremity: COMMON NORMALS: normal to inspection, capillary refill normal, no clubbing, cyanosis or edema, no calf tenderness and no pedal edema Neuro: SENSORIUM/ORIENTATION: Yes oriented to person, Yes oriented to place and Yes oriented to time Skin: COMMON NORMALS: no rashes or lesions noted GENERAL SKIN EXAM: no rashes or lesions noted Course 2 Vital Signs: Vital signs: Vital Signs Temperature 98.1 F 03/25/24 11:58 Pulse Rate 82 03/25/24 15:09 Respiratory Rate 14 03/25/24 14:32 Blood Pressure 160/103 03/25/24 15:09 Pulse Oximetry 99 03/25/24 15:09 Oxygen Delivery Me thod Room Air 03/25/24 11:58 [facility] - General Adult Medical Decision Making Patient reports episode of rectal bleeding. Suspect it may be from the hemorrhoids although they do not seem to be bleeding at this time there is no evidence of thrombosis or active bleeding on rectal exam there were no masses and no bright red blood per rectum the Hemoccult card was negative. Hemoglobin is stable discharge patient home clear liquid diet advance as tolerated after 2 days follow-up with primary care. Patient reports she had a colonoscopy within the last couple of years that was reported to her is normal she is follow-up with her primary care doctor. Could be the bleeding is from diverticuli although there is no active bleeding at this time. Medical Records I reviewed the patient's medical records. Lab Data I reviewed the patient's lab results. 03/25/24 13:45 03/25/24 13:45 Laboratory Results WBC 8.68 10^3/uL (3.29-11.43) 03/25/24 13:45 RBC 4.91 10^6/uL (3.85-5.65) 03/25/24 13:45 Hgb 15.90 g/dL (11.27-16.99) 03/25/24 13:45 Hct 45.9 % (36-47) 03/25/24 13:45 MCV 93.5 fl (85-98) 03/25/24 13:45 MCH 32.4 pg (27-33) 03/25/24 13:45 MCHC 34.6 g/dL (30-55) 03/25/24 13:45 RDW 12.4 % (12.1-15.1) 03/25/24 13:45 Plt Count 137 10^3/cmm (157-399) L 03/25/24 13:45 MPV 12.6 fL (7.4-10.4) H 03/25/24 13:45 Neut % (Auto) 78.4 % 03/25/24 13:45 Lymph % (Auto) 13.4 % 03/25/24 13:45 [place] % (Auto) 6.8 % 03/25/24 13:45 Eos % (Auto) 1.0 % 03/25/24 13:45 Baso % (Auto) 0.2 % 03/25/24 13:45 Neut # (Auto) 6.80 10^3/uL (1.8-7.7) 03/25/24 13:45 Lymph # (Auto) 1.2 10^3/uL (0.8-4.8) 03/25/24 13:45 [place] # (Auto) 0.6 10^3/uL (0.2-0.9) 03/25/24 13:45 Eos # (Auto) 0.1 10^3/uL (0.0-0.8) 03/25/24 13:45 Baso # (Auto) 0.0 10^3/uL (0.0-0.1) 03/25/24 13:45 Nucleated RBC % (auto) 0 % 03/25/24 13:45 Nucleated RBCs # 0.0 /100WBC 03/25/24 13:45 Sodium 137 mmol/L (136-145) 03/25/24 13:45 Potassium 3.6 mmol/L (3.5-5.1) 03/25/24 13:45 Chloride 101 mmol/L (98-107) 03/25/24 13:45 Carbon Dioxide 24 mmol/L (22-29) 03/25/24 13:45 Anion Gap 15.6 (5-19) 03/25/24 13:45 BUN 6 mg/dL (6-20) 03/25/24 13:45 Creatinine 0.6 mg/dL (0.5-0.9) 03/25/24 13:45 GFR Calculation 111.3 mL/min (90-130) 03/25/24 13:45 Glucose 166 mg/dL (65-115) H 03/25/24 13:45 Calculated Osmolality 285 mOsm/kg (285-295) 03/25/24 13:45 Calcium 9.2 mg/dL (8.5-10.5) 03/25/24 13:45 Total Bilirubin 0.6 mg/dL (0.15-1.2) 03/25/24 13:45 AST 12 U/L (0-32) 03/25/24 13:45 ALT 17 U/L (0-33) 03/25/24 13:45 Alkaline Phosphatase 70 U/L (35-105) 03/25/24 13:45 Total Protein 7.1 g/dL (6.6-8.7) 03/25/24 13:45 Albumin 4.0 g/dL (3.5-5.2) 03/25/24 13:45 Globulin 3.1 g/dL (1.3-4.6) 03/25/24 13:45 No radiology studies performed this visit Discharge Plan Discharge Patient Disposition: Home Clinical Impression: Hematochezia, Constipation, Bleeding hemorrhoids, Diverticula of colon Condition: Stable Prescriptions: No Action (DME) Aeroneb Go Nebulizer Misc See Rx Instructions .Route Rx Instructions: As directed albuterol sulfate 2.5 mg /3 mL (0.083 %) solution for nebulization 1.25 mg inhalation Q6H PRN (Reason: Shortness Of Breath) magnesium citrate Solution 300 ml PO DAILY PRN (Reason: constipation) Qty: 296 2RF Rx Instructions: take as directed for colonoscopy bisacodyl [Dulcolax (bisacodyl)] 5 mg tablet,delayed release (DR/EC) 5 mg PO DAILY Qty: 4 0RF Rx Instructions: take as directed for colonoscopy pantoprazole 40 mg Tablet,Delayed Release (Dr/Ec) 40 mg PO BID PRN (Reason: Acid Reflux) lisinopril 2.5 mg tablet 2.5 mg PO DAILY naproxen 500 mg tablet 500 mg PO BID PRN (Reason: Pain) fluticasone propionate [Flovent HFA] 110 mcg/actuation HFA aerosol inhaler 1 puff INHALATION BID PRN (Reason: Shortness Of Breath) albuterol sulfate [Ventolin HFA] 90 mcg/actuation Hfa Aerosol Inhaler 2 puff INHALATION BID PRN (Reason: Shortness Of Breath Or Wheezing) olanzapine 10 mg tablet,disintegrating 10 mg PO Q8H PRN (Reason: nausea and vomiting) Qty: 14 0RF Ativan 2 mg tablet 2 mg buccal Q6H PRN (Reason: nausea and vomiting) Qty: 14 0RF Medrol (Brandt) 4 mg tablets,dose pack See Rx Instructions .ROUTE .COMPLEX Qty: 21 0RF Rx Instructions: orally per package directions Levsin 0.125 mg tablet 0.125 mg PO Q6H PRN (Reason: dyspepsia) Qty: 30 2RF Reglan 10 mg tablet 10 mg PO Q6H PRN (Reason: nausea and vomiting) Qty: 20 0RF Reglan 10 mg tablet 10 mg PO Q6H PRN (Reason: nausea and vomiting) Qty: 20 0RF Miralax 17 gram/dose powder 4 g PO DAILY Qty: 238 0RF senna 8.6 mg tablet 8.6 mg PO DAILY PRN (Reason: constipation) Qty: 30 0RF ondansetron HCl 4 mg tablet 4 mg PO Q8H Qty: 30 0RF Discharge Orders: Discharge ED (Routine); Ordered 03/25/24 Ordered By: Mor Shepard Referrals: Baljinder Ramsey MD [Primary Care Provider] - Discharge Diet: Clear Liquid Discharge Activity: Increase activity as tolerated Patient Instructions: Opioid Safety, Pain Management Activity Restrictions/Additional Instructions: Thank you for choosing [facility] for your healthcare needs today. It is very important that you follow up as instructed or that you return to the Emergency Department should you have concerns or if your condition changes or worsens in any way. You are seen today for rectal bleeding. Recent CT did not show any significant abnormalities. You did also mention you had a colonoscopy recently. Rectal exam did not show any blood on the Hemoccult card. Recommend you follow-up with your primary care doctor. Clear liquid diet for 24 to 48 hours and advance as tolerated. Coding Level of Care Code ED Non Destructive Testing Inspector for Ada Pedersen
[2024-03-25 13:32] VITALS: BP 168/103; PULSE 68; RESP 16; O2SAT 97
[2024-03-25 14:02] VITALS: BP 155/126; PULSE 93; RESP 16; O2SAT 99
[2024-03-25 14:02] LABS: Basophils % 0.2 %; Eosinophils # 0.1 10^3/uL (0.0-0.8); Hematocrit 45.9 % (36-47); Lymphocytes # 1.2 10^3/uL (0.8-4.8); Lymphocytes % 13.4 %; Mean Corpuscular HGB Conc 34.6 g/dL (30-55); Mean Corpuscular Hemoglobin 32.4 pg (27-33); Mean Corpuscular Volume 93.5 fl (85-98); Mean Platelet Volume 12.6 fL (7.4-10.4); Monocytes # 0.6 10^3/uL (0.2-0.9); Monocytes % 6.8 %; Neutrophils % 78.4 %; Nucleated Red Blood Cells % 0 %; Platelet Count 137 10^3/cmm (157-399); Red Blood Count 4.91 10^6/uL (3.85-5.65); Red Cell Distribution Width 12.4 % (12.1-15.1); White Blood Count 8.68 10^3/uL (3.29-11.43)
[2024-03-25 14:20] LABS: Alanine Aminotransferase 17 U/L (0-33); Alkaline Phosphatase 70 U/L (35-105); Anion Gap 15.6 (5-19); Aspartate Amino Transferase 12 U/L (0-32); Blood Urea Nitrogen 6 mg/dL (6-20); Calcium 9.2 mg/dL (8.5-10.5); Carbon Dioxide 24 mmol/L (22-29); Chloride 101 mmol/L (98-107); Creatinine Clr Calc Pharmacy 135.0293; Globulin 3.1 g/dL (1.3-4.6); Glomerular Filtration Rate 111.3 mL/min (90-130); Glucose 166 mg/dL (65-115); Osmolality Calculated 285 mOsm/kg (285-295); Potassium 3.6 mmol/L (3.5-5.1); Sodium 137 mmol/L (136-145); Total Bilirubin 0.6 mg/dL (0.15-1.2); Total Protein 7.1 g/dL (6.6-8.7)
[2024-03-25 14:32] VITALS: BP 153/93; PULSE 77; RESP 14; O2SAT 98
[2024-03-25 15:09] VITALS: BP 160/103; PULSE 82; O2SAT 99
== END 2024-03-25 15:10 | disposition home or self-care (01) ==
PROVIDERS: Emergency Provider Family Medicine; PCP Family Medicine
DX: K92.1 Melena (principal); K59.00 Constipation, unspecified; K64.9 Unspecified hemorrhoids; K57.30 Diverticulosis of large intestine without perforation or abscess without bleeding; Z72.0 Tobacco use
CPT/HCPCS: 36415; 80053; 85025; 99283

== ENCOUNTER → 2024-04-13 08:23 | Outpatient (BNVA) | payer MEDICAID, SELFPAY | PROVIDERS: PCP Family Medicine; Referring Provider Family Medicine; Visit Provider Psychiatry & Neurology Neurology | DX: R55 Syncope and collapse (principal); R93.7 Abnormal findings on diagnostic imaging of other parts of musculoskeletal system; E55.9 Vitamin D deficiency, unspecified; M48.02 Spinal stenosis, cervical region; R42 Dizziness and giddiness; S16.1XXA Strain of muscle, fascia and tendon at neck level, initial encounter; R51.9 Headache, unspecified; X58.XXXA Exposure to other specified factors, initial encounter | CPT/HCPCS: 99203 ==

== ENCOUNTER 2024-04-26 09:09 | Day surgery (SDC) | payer MEDICAID, SELFPAY ==
[2024-04-26 09:56] VITALS: BP 133/81; PULSE 83; RESP 16; TEMP 36.2; O2SAT 96
[2024-04-26] MEDS: sodium chloride 0.9% 1,000 ML 30 ML IV (10:06)
--- NOTE | 2024-04-26 10:10 | ANES.PREANE2 ---
Pre-Anesthetic Assessment Height/Weight: Height 1.65 m Weight 86.183 kg Temp Pulse Resp BP Pulse Ox O2 Del Method 97.1 F L 83 16 133/81 96 Room Air 04/26/24 09:56 04/26/24 09:56 04/26/24 09:56 04/26/24 09:56 04/26/24 09:56 04/26/24 09:56 Operation Date: 04/26/24 10:45 Proposed Procedures p EGD Dilation W/ Balloon 88003, 26242, G0105, R13.10, A04.5, K52.9(Not Applicable) - Aydin Mcdaniel DO s Colonoscopy(Not Applicable) - Aydin Mcdaniel DO Familial anesthetic complications: None Was Beta Johann taken within 24 hours: N/A Was Clonidine taken within 24 hours: N/A Last intake: Intake Last Liquid Date 04/25/24 Last Liquid Time 21:15 Last Solid Date 04/25/24 Last Solid Time 09:30 Social Tobacco and No alcohol (Quit October 2023) 0.5, marijuana daily pack(s) per day Exam alert, oriented x 3, clear to auscultation bilaterally (Exp wheeze) and regular rate & rhythm Airway Submandibular: within normal limits Cervical ROM: within normal limits Mallampati: Class III Dentition: full Comments: Comments: Several missing History/ROS No significant history except as noted and No significant complaints Pulmonary Asthma, Cough and Exertional Dyspnea CV/HEM Coronary Artery Disease, Deep Vein Thrombosis (During , last DVT 13 years ago, no detention anticoagulation), Hypertension and Palpitations None reported Hepatic None reported GI Gastroesophageal Reflux Disease Metabolic Diabetes Mellitus (Borderline) Musc/skel Lower Back Pain and Scoliosis Neuropsych Anxiety, Neuropathy and Syncope (Currently seeing Dr. Can, last happened 3 weeks ago) Anesthetic Plan ASA status: 3 Anesthesia: Anesthesia Evaluation, General and MAC Risk of > 500 ml blood loss (7ml/kg in children): No Medications/Allergies Home Medications Medication Instructions Recorded Confirmed Last Taken Type nebulizers (Aeroneb Go Nebulizer) 12/04/21 04/13/24 Unknown History albuterol sulfate 2.5 mg/3 mL 1.25 mg inhalation Q6H PRN 05/27/22 04/24/24 04/24/24 History (0.083 %) solution for nebulization Shortness Of Breath lisinopril 2.5 mg tablet 2.5 mg PO DAILY 10/28/23 04/24/24 04/23/24 History naproxen 500 mg tablet 500 mg PO BID PRN Pain 10/28/23 04/24/24 10/28/23 History albuterol sulfate 90 mcg/actuation 2 puff inhalation BID PRN 10/30/23 04/24/24 04/24/24 History aerosol inhaler (Ventolin HFA) Shortness Of Breath Or Wheezing fluticasone propionate 110 1 puff inhalation BID PRN 02/08/24 04/24/24 Unknown History mcg/actuation HFA aerosol inhaler Shortness Of Breath omeprazole 40 mg capsule,delayed 40 mg PO DAILY 04/13/24 04/24/24 04/23/24 History release thiamine HCl (vitamin B1) 100 mg 100 mg PO DAILY #30 tabs 04/13/24 04/24/24 04/24/24 Rx tablet Allergies Allergy/AdvReac Type Severity Reaction Status Date / Time acetaminophen [From Vicodin] Allergy ALGY-Difficulty Verified 04/24/24 10:29 Breathing hydrocodone [From Vicodin] Allergy ALGY-Difficulty Verified 04/24/24 10:29 Breathing Current Medications Generic Name Dose Route Start Last Admin Trade Name Freq PRN Reason Stop Dose Admin Sodium Chloride 1,000 mls @ 30 mls/hr 04/26/24 09:45 04/26/24 10:06 Sodium Chloride 0.9% IV 04/27/24 09:44 30 mls/hr .Q24H JORGE L Administration PFSH Anesthesia Medical History GERD (gastroesophageal reflux disease) Umbilical hernia Symptomatic cholelithiasis Asthma Surgical History Hx laparoscopic cholecystectomy Hx of section History of tonsillectomy and adenoidectomy History of salpingectomy No pertinent past surgical history Social History Smoking and tobacco/nicotine status: current every day tobacco/nicotine user Alcohol intake: never Substance/Drug Use: never Female Reproductive History Date of last menstrual period: 04/18/24 Data Anesthesia Cardiac Studies: No Data to Display
[2024-04-26 10:18] LABS: OR HCG Qualitative Urine Negative (Negative)
--- NOTE | 2024-04-26 10:46 | PM.HP ---
Providers/Chief Complaint Primary Care Provider: Baljinder Ramsey MD Chief Complaint: R13.10, A04.5, K52.9 History of Present Illness Eliceo Calle is a 39 year old female Review of Systems General: Reports: 10 or more systems reviewed and unremarkable except in HPI and below Medications/Allergies Home Medications Medication Instructions Recorded Confirmed Last Taken Type nebulizers (Aeroneb Go Nebulizer) 12/04/21 04/13/24 Unknown History albuterol sulfate 2.5 mg/3 mL 1.25 mg inhalation Q6H PRN 05/27/22 04/24/24 04/24/24 History (0.083 %) solution for nebulization Shortness Of Breath lisinopril 2.5 mg tablet 2.5 mg PO DAILY 10/28/23 04/24/24 04/23/24 History naproxen 500 mg tablet 500 mg PO BID PRN Pain 10/28/23 04/24/24 10/28/23 History albuterol sulfate 90 mcg/actuation 2 puff inhalation BID PRN 10/30/23 04/24/24 04/24/24 History aerosol inhaler (Ventolin HFA) Shortness Of Breath Or Wheezing fluticasone propionate 110 1 puff inhalation BID PRN 02/08/24 04/24/24 Unknown History mcg/actuation HFA aerosol inhaler Shortness Of Breath omeprazole 40 mg capsule,delayed 40 mg PO DAILY 04/13/24 04/24/24 04/23/24 History release thiamine HCl (vitamin B1) 100 mg 100 mg PO DAILY #30 tabs 04/13/24 04/24/24 04/24/24 Rx tablet Allergies Allergy/AdvReac Type Severity Reaction Status Date / Time acetaminophen [From Vicodin] Allergy ALGY-Difficulty Verified 04/24/24 10:29 Breathing hydrocodone [From Vicodin] Allergy ALGY-Difficulty Verified 04/24/24 10:29 Breathing PFSH Acute PFSH: Medical History GERD (gastroesophageal reflux disease) Umbilical hernia Symptomatic cholelithiasis Asthma Surgical History Hx laparoscopic cholecystectomy Hx of section History of tonsillectomy and adenoidectomy History of salpingectomy No pertinent past surgical history Social History Smoking and tobacco/nicotine status: current every day tobacco/nicotine user Alcohol intake: never Substance/Drug Use: never Female Reproductive History: Date of last menstrual period: 04/18/24 Vitals/I&O/Wt Last Vital Signs Temp 97.1 F L 04/26/24 09:56 Pulse 83 04/26/24 09:56 Resp 16 04/26/24 09:56 BP 133/81 04/26/24 09:56 Pulse Ox 96 04/26/24 09:56 O2 Del Method Room Air 04/26/24 09:56 Weight last 48 hrs Weight 190 lb A&P Assessment and plan (1) GERD (gastroesophageal reflux disease): (2) Dysphagia: (3) Colitis: (4) Watery diarrhea: Plan EGD with possible balloon dilation and colonoscopy with random biopsies Attestations Medical Necessity Statement*: home Coding Level of Care Code Acute Code for g Fwd Diagnoses GERD (gastroesophageal reflux disease) K21.9 Dysphagia R13.10 Colitis K52.9 Watery diarrhea R19.7
[2024-04-26] MEDS: albuterol 2.5 mg/3 mL Neb INHALATION (10:50)
[2024-04-26 10:51] VITALS: PULSE 80; RESP 18; O2SAT 97
[2024-04-26 11:27] VITALS: BP 97/55; PULSE 84; RESP 16; TEMP 36.3; O2SAT 96
[2024-04-26 11:42] VITALS: BP 108/80; PULSE 90; RESP 18; O2SAT 93
--- NOTE | 2024-04-26 12:15 | ANE.PACU2 ---
Inpatient post-anesthesia follow up: Airway intact: Yes Vital signs: Temperature 97.3 F Pulse Rate 90 Respiratory Rate 18 Blood Pressure 108/80 Pulse Oximetry 93 Oxygen Delivery Me thod Room Air Oxygen Flow Rate Fraction of Inspir ed Oxygen Hydration adequate: Yes Nausea and vomiting: No Pain level: 1 Mental status: Baseline
[2024-04-26 12:31] LABS: C.Diff PCR (Lab) NEGATIVE (Negative)
== END 2024-04-26 12:16 | disposition home or self-care (01) ==
PROVIDERS: Anesthesiology; PCP Family Medicine; Visit Provider Surgery
PROC: 0DJD8ZZ Inspection of Lower Intestinal Tract, Via Natural or Artificial Opening Endoscopic (ICD-10-PCS; CPT 45378; 2024-04-26 10:45)
DX: K52.9 Noninfective gastroenteritis and colitis, unspecified (principal); R13.10 Dysphagia, unspecified; K64.8 Other hemorrhoids; A04.5 Campylobacter enteritis; K21.9 Gastro-esophageal reflux disease without esophagitis; F17.200 Nicotine dependence, unspecified, uncomplicated; I25.10 Atherosclerotic heart disease of native coronary artery without angina pectoris; Z86.718 Personal history of other venous thrombosis and embolism; Z79.01 Long term (current) use of anticoagulants; E11.9 Type 2 diabetes mellitus without complications
CPT/HCPCS: 43239; 45380; 81025; 82274; 83630; 87045; 87177; 87209; 87427; 87449; 87493; 88305; 94640; J2704; J7030; J7613

== ENCOUNTER 2024-04-26 13:00 | Outpatient (CLI) | payer MEDICAID, SELFPAY ==
--- NOTE | 2024-04-26 13:00 | MR_ITS ---
WS: [id number] MRI BRAIN WITH AND WITHOUT CONTRAST HISTORY: R55 - Syncope and collapse COMPARISON: CT head 03/11/2024 TECHNIQUE: Multiplanar imaging performed through the brain with MultiHance 17 ml's IV. No acute infarcts are seen. Spring-white matter differentiation is well preserved. No susceptibility artifacts or prior lacunar infarcts. Ventricles and extra-axial spaces are normal. Clivus and pituitary gland are normal. Visualized posterior fossa and brainstem are also normal. Significant motion artifact on the postcontrast imaging. There is no large mass identified. Smaller v ascular malformations or subtle enhancing lesions would be obscured with this amount of motion. Dural venous sinuses are normal. Paranasal sinuses: Well aerated with no significant disease. Mastoid air cells: Normal. Calvarium and scalp: Normal. MR/MR head wo/w con [id number] IMPRESSION: 1. No acute infarct. 2. No prior infarct or hemorrhage. No significant white matter disease. 3. Postcontrast imaging is significantly degraded by motion. No large area mas s identified. Smaller masses or vascular malformations would be difficult to ex clude.
--- NOTE | 2024-04-26 13:45 | MR_ITS ---
WS: [id number] MRI CERVICAL SPINE with and without contrast HISTORY: M48.02 - Spinal stenosis, cervical region COMPARISON: None available. Technique: Multiplanar, multisequence noncontrast imaging of the cervical spine. Postcontrast sequenc es MultiHance 17 mL. Limited evaluation of the cervical spine due to motion artifact. Straightening of the normal cervical lordosis. T2 signal appears normal within the cervical cord. T1 sequences are limited by motion. No inferior di splacement of the cerebellar tonsils. Craniocervical junction, C1 and C2 relationship, odontoid process and soft tissues are normal. C2-C3: Normal. C3-C4: Normal. C4-C5: Very slight disc bulging. No significant stenosis. C5-C6: Small size central disc protrusion with slight effacement of CSF. Mild osteophytic ridging. Mi nimal central and bilateral foraminal stenosis. C6-C7: Moderate size central disc protrusion nearly effacing CSF. Mild osteophytic ridging. Disc oste ophyte complexes extend into the neural foramina with moderate bilateral foraminal stenosis. C7-T1: Normal. Postcontrast imaging is somewhat limited by the motion artifact. It would be difficult to exclude dem yelinating lesions or cord enhancement. MR/MR cervical spine wo/w [id number] IMPRESSION: 1. Quality of this examination is compromised by motion artifact. 2. C6-7: Moderate size central and bilateral foraminal disc osteophytes. Resul ting in mild central stenosis and moderate bilateral foraminal stenosis. 3. C5-6: Small central disc protrusion with osteophytes. Mild central and bila teral foraminal stenosis.
== END 2024-04-26 13:01 | disposition home or self-care (01) ==
PROVIDERS: PCP Family Medicine; Visit Provider Psychiatry & Neurology Neurology
DX: R55 Syncope and collapse (principal); M48.02 Spinal stenosis, cervical region
CPT/HCPCS: 36415; 70553; 72156; 82306; 82607; 82746; 83090; 83735; 83921; 84439; 84443; 84481; A9577

== ENCOUNTER → 2024-05-18 15:19 | Outpatient (BNVA) | payer MEDICAID, SELFPAY | PROVIDERS: PCP Family Medicine; Visit Provider Surgery | DX: K59.04 Chronic idiopathic constipation (principal) | CPT/HCPCS: 99214 ==

== ENCOUNTER 2024-10-10 03:06 | Emergency (ER) | payer MEDICAID, SELFPAY ==
[2024-10-10] VITALS (11 sets, daily range): BP systolic 107–143; BP diastolic 71–103; PULSE 9–88; RESP 12–22; TEMP 36.7; O2SAT 96–100
--- NOTE | 2024-10-10 03:20 | ECG_ITS ---
[facility] Date: 2024-[facility]10 Pat Name: Eliceo Calle Department: Room: Gender: Female [employer] Developer: : 1985 Requested By: Jr Maya Order Number: [id number] Castro MD: Nuvia Llanes M.D. Measurements Intervals [place] Rate: 66 P: 65 CT: 155 QRS: 63 QRSD: 101 T: 66 QT: 395 QTc: 415 Interpretive Statements SINUS RHYTHM WITH MARKED SINUS ARRHYTHMIA Compared to ECG 03/15/2024 16:54:10 No significant changes Electronically Signed On 10-11-2024 00:01:40 MAMMALOGY TE[employer]ER by Nuvia Llanes M.D. [id number]
--- NOTE | 2024-10-10 03:21 | ED_ITS ---
Documented by User: Jr MehtatDO 10/10/24 03:23 HPI - Nausea/Vomiting/Diarrhea 2 General: Chief complaint: Nausea/Vomiting/Diarrhea Stated complaint: nausea Time Seen by Provider: 10/10/24 03:12 History of Present Illness: Patient presents to the ER with complaints of nausea vomiting and a syncopal episode. Patient received 30 mg Toradol 4 mg Zofran 12.5 mg Phenergan on route. EMS stated the Phenergan helped her nausea. He also states she had a syncopal episode where she went unresponsive even to sternal rub. They tried Narcan which did not have any response. But then she came to on her own. Patient says she was not feeling good at dinner started having abdominal pain and nausea vomiting. No one else has the similar symptoms. Related Data Home Medications Medication Instructions Recorded Confirmed nebulizers (Aeroneb Go Nebulizer) 12/04/21 05/18/24 albuterol sulfate 2.5 mg/3 mL 1.25 mg inhalation Q6H PRN 05/27/22 05/18/24 (0.083 %) solution for nebulization Shortness Of Breath lisinopril 2.5 mg tablet 2.5 mg PO DAILY 10/28/23 05/18/24 naproxen 500 mg tablet 500 mg PO BID PRN Pain 10/28/23 05/18/24 albuterol sulfate 90 mcg/actuation 2 puff inhalation BID PRN 10/30/23 05/18/24 aerosol inhaler (Ventolin HFA) Shortness Of Breath Or Wheezing fluticasone propionate 110 1 puff inhalation BID PRN 02/08/24 05/18/24 mcg/actuation HFA aerosol inhaler Shortness Of Breath omeprazole 40 mg capsule,delayed 40 mg PO DAILY 04/13/24 05/18/24 release Previous Rx's Medication Instructions Recorded thiamine HCl (vitamin B1) 100 mg 100 mg PO DAILY #30 tabs 04/13/24 tablet polyethylene glycol 3350 17 17 g PO DAILY 30 days #510 grams 05/18/24 gram/dose oral powder (Miralax) promethazine 25 mg tablet 25 mg PO Q6H PRN nausea and 10/10/24 vomiting #20 tabs Allergies Allergy/AdvReac Type Severity Reaction Status Date / Time acetaminophen [From Vicodin] Allergy ALGY-Difficulty Verified 10/10/24 03:14 Breathing hydrocodone [From Vicodin] Allergy ALGY-Difficulty Verified 10/10/24 03:14 Breathing Review of Systems 2 General: Reports: 10 or more systems reviewed and unremarkable except in HPI and below PFSH ED 2 PFSH: Medical History Colitis GERD (gastroesophageal reflux disease) Umbilical hernia Symptomatic cholelithiasis Asthma Surgical History Hx laparoscopic cholecystectomy Hx of section History of tonsillectomy and adenoidectomy History of salpingectomy No pertinent past surgical history Social History Smoking and tobacco/nicotine status: current every day tobacco/nicotine user Alcohol intake: never Substance/Drug Use: never Female Reproductive History: Date of last menstrual period: 10/03/24 Physical Exam 2 Const: COMMON NORMALS: no acute distress, average body habitus, patient oriented x3, no limitations, healthy appearing, alert and well nourished HENMT: COMMON NORMALS: normocephalic, atraumatic, hearing grossly normal bilaterally, external ears normal, Normal external nose present and moist oral mucous membranes HEAD & SCALP: normocephalic and atraumatic NOSE: Normal external nose present EXTERNAL EAR: Yes external ears normal Neck/C-Spine: COMMON NORMALS: no JVD Chest: COMMONS NORMALS: normal inspection of the chest and normal palpation of entire chest wall Resp: COMMON NORMALS: normal respiratory effort, No retractions, No use of accessory muscles and clear to auscultation bilaterally AUSCULTATION: clear to auscultation bilaterally Cardio: COMMON NORMALS: no JVD, regular rate, regular rhythm, S1 normal heart sound present, S2 normal heart sound present, No gallops present (Cardio), No clicks present (Cardio), No murmurs present (Cardio) and No rub (Cardio) R ATE: regular rate RHYTHM: regular rhythm HEART SOUNDS: S1 normal heart sound present and S2 normal heart sound present GI: COMMON NORMALS: Normal to inspection, nondistended, normoactive bowel sounds present, Soft to palpation, non-tender, No hepatosplenomegaly present and no masses PALPATION: Yes Soft to palpation and Yes No hepatosplenomegaly present Neuro: COMMON NORMALS: patient oriented x3 SENSORIUM/ORIENTATION: Yes alert Course 2 Vital Signs: Vital signs: Vital Signs Temperature 98.0 F 10/10/24 03:08 Pulse Rate 60 10/10/24 06:53 Respiratory Rate 22 H 10/10/24 06:30 Blood Pressure 120/93 10/10/24 06:53 Pulse Oximetry 96 10/10/24 06:53 Oxygen Delivery Me thod Room Air 10/10/24 06:30 MDM - Nausea/Vomiting/Diarrhea Medical Records I reviewed the patient's medical records. Lab Data I reviewed the patient's lab results. 10/10/24 03:15 10/10/24 03:15 Radiology Impressions Abdomen/Pelvis CT 10/10/24 04:15 IMPRESSION: No acute findings. Laboratory Results WBC 10.98 10^3/uL (3.29-11.43) 10/10/24 03:15 RBC 4.60 10^6/uL (3.85-5.65) 10/10/24 03:15 Hgb 14.40 g/dL (11.27-16.99) 10/10/24 03:15 Hct 42.6 % (36-47) 10/10/24 03:15 MCV 92.6 fl (85-98) 10/10/24 03:15 MCH 31.3 pg (27-33) 10/10/24 03:15 MCHC 33.8 g/dL (30-55) 10/10/24 03:15 RDW 12.4 % (12.1-15.1) 10/10/24 03:15 Plt Count 141 10^3/cmm (157-399) L 10/10/24 03:15 MPV 12.5 fL (7.4-10.4) H 10/10/24 03:15 Neut % (Auto) 78.4 % 10/10/24 03:15 Lymph % (Auto) 14.5 % 10/10/24 03:15 [place] % (Auto) 5.4 % 10/10/24 03:15 Eos % (Auto) 1.0 % 10/10/24 03:15 Baso % (Auto) 0.4 % 10/10/24 03:15 Neut # (Auto) 8.62 10^3/uL (1.8-7.7) H 10/10/24 03:15 Lymph # (Auto) 1.6 10^3/uL (0.8-4.8) 10/10/24 03:15 [place] # (Auto) 0.6 10^3/uL (0.2-0.9) 10/10/24 03:15 Eos # (Auto) 0.1 10^3/uL (0.0-0.8) 10/10/24 03:15 Baso # (Auto) 0.0 10^3/uL (0.0-0.1) 10/10/24 03:15 Nucleated RBC % (auto) 0 % 10/10/24 03:15 Nucleated RBCs # 0.0 /100WBC 10/10/24 03:15 Sodium 135 mmol/L (136-145) L 10/10/24 03:15 Potassium 4.1 mmol/L (3.5-5.1) 10/10/24 03:15 Chloride 100 mmol/L (98-107) 10/10/24 03:15 Carbon Dioxide 24 mmol/L (22-29) 10/10/24 03:15 Anion Gap 15.1 (5-19) 10/10/24 03:15 BUN 11 mg/dL (6-20) 10/10/24 03:15 Creatinine 0.6 mg/dL (0.5-0.9) 10/10/24 03:15 GFR Calculation 111.3 mL/min (90-130) 10/10/24 03:15 Glucose 181 mg/dL (65-115) H 10/10/24 03:15 Calculated Osmolality 284 mOsm/kg (285-295) L 10/10/24 03:15 Calcium 9.7 mg/dL (8.5-10.5) 10/10/24 03:15 Magnesium 2.1 mg/dL (1.7-2.3) 10/10/24 03:15 Total Bilirubin 0.5 mg/dL (0.15-1.2) 10/10/24 03:15 AST 14 U/L (0-32) 10/10/24 03:15 ALT 11 U/L (0-33) 10/10/24 03:15 Alkaline Phosphatase 92 U/L (35-105) 10/10/24 03:15 Total Protein 7.1 g/dL (6.6-8.7) 10/10/24 03:15 Albumin 4.2 g/dL (3.5-5.2) 10/10/24 03:15 Globulin 2.9 g/dL (1.3-4.6) 10/10/24 03:15 Lipase 13 U/L (13-60) 10/10/24 03:15 Urine Color Yellow (Yellow) 10/10/24 05:40 Urine Appearance Cloudy (CLEAR) A 10/10/24 05:40 Urine pH 8.0 (5-7) A 10/10/24 05:40 Ur Specific [place] 1.035 (1.005-1.030) H 10/10/24 05:40 Urine Protein Negative (Negative) 10/10/24 05:40 Urine Glucose (UA) Negative (Normal) 10/10/24 05:40 Urine Ketones 1+ (Negative) H 10/10/24 05:40 Urine Blood Negative (Negative) 10/10/24 05:40 Urine Nitrate Negative (Negative) 10/10/24 05:40 Urine Bilirubin Negative (Negative) 10/10/24 05:40 Urine Urobilinogen 0.2 mg/dL (Negative) 10/10/24 05:40 Ur Leukocyte Esterase Negative (Negative) 10/10/24 05:40 Urine RBC 0-2 /hpf (0-2) 10/10/24 05:40 Urine WBC 0-5 /hpf (0-5) 10/10/24 05:40 Ur Squamous Epith Cells 0-5 /hpf (0-5) 10/10/24 05:40 Amorphous Sediment Not Reportable 10/10/24 05:40 Urine Bacteria None seen /hpf (NONE) 10/10/24 05:40 Hyaline Casts 0-4 /lpf H 10/10/24 05:40 Urine Opiates Screen Negative ng/mL (Negative) 10/10/24 05:40 Ur Barbiturates Screen Negative ng/mL (Negative) 10/10/24 05:40 Ur Phencyclidine Scrn Negative ng/mL (Negative) 10/10/24 05:40 Ur Amphetamines Screen Negative ng/mL (Negative) 10/10/24 05:40 U Benzodiazepines Scrn Negative ng/mL (Negative) 10/10/24 05:40 Urine Cocaine Screen Negative ng/mL (Negative) 10/10/24 05:40 U Marijuana (THC) Screen Positive ng/mL (Negative) H 10/10/24 05:40 All radiology interpretation(s) finalized by discharge Discharge Plan Discharge Patient Disposition: Home Clinical Impression: Nausea & vomiting, Syncope Condition: Stable Prescriptions: New promethazine 25 mg tablet 25 mg PO Q6H PRN (Reason: nausea and vomiting) Qty: 20 0RF No Action (DME) Aeroneb Go Nebulizer Misc See Rx Instructions .Route Rx Instructions: As directed albuterol sulfate 2.5 mg /3 mL (0.083 %) solution for nebulization 1.25 mg inhalation Q6H PRN (Reason: Shortness Of Breath) omeprazole 40 mg capsule,delayed release(DR/EC) 40 mg PO DAILY thiamine HCl (vitamin B1) 100 mg tablet 100 mg PO DAILY Qty: 30 3RF polyethylene glycol 3350 [Miralax] 17 gram/dose powder 17 g PO DAILY 30 Days Qty: 510 11RF lisinopril 2.5 mg tablet 2.5 mg PO DAILY naproxen 500 mg tablet 500 mg PO BID PRN (Reason: Pain) Hold Instructions: Resume on 04/28/24. fluticasone propionate 110 mcg/actuation HFA aerosol inhaler 1 puff INHALATION BID PRN (Reason: Shortness Of Breath) albuterol sulfate [Ventolin HFA] 90 mcg/actuation Hfa Aerosol Inhaler 2 puff INHALATION BID PRN (Reason: Shortness Of Breath Or Wheezing) Discharge Orders: Discharge ED (Routine); Ordered 10/10/24 Ordered By: Mor Shepard Referrals: Baljinder Ramsey MD [Primary Care Provider] - Discharge Diet: Usual diet Discharge Activity: Increase activity as tolerated Patient Instructions: Opioid Safety, Pain Management Activity Restrictions/Additional Instructions: Thank you for choosing [facility] for your healthcare needs today. It is very important that you follow up as instructed or that you return to the Emergency Department should you have concerns or if your condition changes or worsens in any way. You were seen in the emergency room after a syncopal episode (loss of consciousness). He had also reported some nausea and vomiting. Laboratory test did not show any clinically significant abnormalities CT of your abdomen did not show any acute pathology. Reviewing your chart it was noted that you had an episode of his syncope in February 2024 that was also related to GI symptoms. Recommend clear liquid diet and advance as tolerated over the next 24 to 48 hours. You are given a prescription for promethazine for nausea and vomiting. Will set up an outpatient echocardiogram to evaluate your heart further follow- up with your primary care doctor once this is completed Sign Out Sign Out Data: Patient Sign Out occurred on 10/10/24 at 05:54. Patient's care was discussed, and care was transferred from Jr Maya DO to Mor Shepard DO. Coding Level of Care Code ED Chief Petroleum Engineer for Chg Fwd Documented by User: Mor Shepard DO 10/10/24 07:15 HPI - Nausea/Vomiting/Diarrhea 2 General: Chief complaint: Nausea/Vomiting/Diarrhea Stated complaint: nausea Time Seen by Provider: 10/10/24 03:12 Related Data Home Medications Medication Instructions Recorded Confirmed nebulizers (Aeroneb Go Nebulizer) 12/04/21 05/18/24 albuterol sulfate 2.5 mg/3 mL 1.25 mg inhalation Q6H PRN 05/27/22 05/18/24 (0.083 %) solution for nebulization Shortness Of Breath lisinopril 2.5 mg tablet 2.5 mg PO DAILY 10/28/23 05/18/24 naproxen 500 mg tablet 500 mg PO BID PRN Pain 10/28/23 05/18/24 albuterol sulfate 90 mcg/actuation 2 puff inhalation BID PRN 10/30/23 05/18/24 aerosol inhaler (Ventolin HFA) Shortness Of Breath Or Wheezing fluticasone propionate 110 1 puff inhalation BID PRN 02/08/24 05/18/24 mcg/actuation HFA aerosol inhaler Shortness Of Breath omeprazole 40 mg capsule,delayed 40 mg PO DAILY 04/13/24 05/18/24 release Previous Rx's Medication Instructions Recorded thiamine HCl (vitamin B1) 100 mg 100 mg PO DAILY #30 tabs 07/18/24 tablet polyethylene glycol 3350 17 17 g PO DAILY 30 days #510 grams 05/18/24 gram/dose oral powder (Miralax) promethazine 25 mg tablet 25 mg PO Q6H PRN nausea and 10/10/24 vomiting #20 tabs Allergies Allergy/AdvReac Type Severity Reaction Status Date / Time acetaminophen [From Vicodin] Allergy ALGY-Difficulty Verified 10/10/24 03:14 Breathing hydrocodone [From Vicodin] Allergy ALGY-Difficulty Verified 10/10/24 03:14 Breathing PFSH ED 2 PFSH: Medical History Colitis GERD (gastroesophageal reflux disease) Umbilical hernia Symptomatic cholelithiasis Asthma Surgical History Hx laparoscopic cholecystectomy Hx of section History of tonsillectomy and adenoidectomy History of salpingectomy No pertinent past surgical history Social History Smoking and tobacco/nicotine status: current every day tobacco/nicotine user Alcohol intake: never Substance/Drug Use: never Course 2 Vital Signs: Vital signs: Vital Signs Temperature 98.0 F 10/10/24 03:08 Pulse Rate 60 10/10/24 06:53 Respiratory Rate 22 H 10/10/24 06:30 Blood Pressure 120/93 10/10/24 06:53 Pulse Oximetry 96 10/10/24 06:53 Oxygen Delivery Me thod Room Air 10/10/24 06:30 MDM - Nausea/Vomiting/Diarrhea Medical Decision Making Care assumed at change of shift labs reviewed no acute findings CT does not show any acute pathology. Suspect gastroenteritis. Discharge patient home clear liquid diet 24 to 48 hours and advance as tolerated promethazine as needed for nausea and vomiting. Reviewing chart found the patient had syncopal episode in February 2024 also related to GI symptoms we will have her set up for a echocardiogram and follow-up with primary care doctor. Lab Data 10/10/24 03:15 10/10/24 03:15 Radiology Impressions Abdomen/Pelvis CT 10/10/24 04:15 IMPRESSION: No acute findings. Laboratory Results WBC 10.98 10^3/uL (3.29-11.43) 10/10/24 03:15 RBC 4.60 10^6/uL (3.85-5.65) 10/10/24 03:15 Hgb 14.40 g/dL (11.27-16.99) 10/10/24 03:15 Hct 42.6 % (36-47) 10/10/24 03:15 MCV 92.6 fl (85-98) 10/10/24 03:15 MCH 31.3 pg (27-33) 10/10/24 03:15 MCHC 33.8 g/dL (30-55) 10/10/24 03:15 RDW 12.4 % (12.1-15.1) 10/10/24 03:15 Plt Count 141 10^3/cmm (157-399) L 10/10/24 03:15 MPV 12.5 fL (7.4-10.4) H 10/10/24 03:15 Neut % (Auto) 78.4 % 10/10/24 03:15 Lymph % (Auto) 14.5 % 10/10/24 03:15 [place] % (Auto) 5.4 % 10/10/24 03:15 Eos % (Auto) 1.0 % 10/10/24 03:15 Baso % (Auto) 0.4 % 10/10/24 03:15 Neut # (Auto) 8.62 10^3/uL (1.8-7.7) H 10/10/24 03:15 Lymph # (Auto) 1.6 10^3/uL (0.8-4.8) 10/10/24 03:15 [place] # (Auto) 0.6 10^3/uL (0.2-0.9) 10/10/24 03:15 Eos # (Auto) 0.1 10^3/uL (0.0-0.8) 10/10/24 03:15 Baso # (Auto) 0.0 10^3/uL (0.0-0.1) 10/10/24 03:15 Nucleated RBC % (auto) 0 % 10/10/24 03:15 Nucleated RBCs # 0.0 /100WBC 10/10/24 03:15 Sodium 135 mmol/L (136-145) L 10/10/24 03:15 Potassium 4.1 mmol/L (3.5-5.1) 10/10/24 03:15 Chloride 100 mmol/L (98-107) 10/10/24 03:15 Carbon Dioxide 24 mmol/L (22-29) 10/10/24 03:15 Anion Gap 15.1 (5-19) 10/10/24 03:15 BUN 11 mg/dL (6-20) 10/10/24 03:15 Creatinine 0.6 mg/dL (0.5-0.9) 10/10/24 03:15 GFR Calculation 111.3 mL/min (90-130) 10/10/24 03:15 Glucose 181 mg/dL (65-115) H 10/10/24 03:15 Calculated Osmolality 284 mOsm/kg (285-295) L 10/10/24 03:15 Calcium 9.7 mg/dL (8.5-10.5) 10/10/24 03:15 Magnesium 2.1 mg/dL (1.7-2.3) 10/10/24 03:15 Total Bilirubin 0.5 mg/dL (0.15-1.2) 10/10/24 03:15 AST 14 U/L (0-32) 10/10/24 03:15 ALT 11 U/L (0-33) 10/10/24 03:15 Alkaline Phosphatase 92 U/L (35-105) 10/10/24 03:15 Total Protein 7.1 g/dL (6.6-8.7) 10/10/24 03:15 Albumin 4.2 g/dL (3.5-5.2) 10/10/24 03:15 Globulin 2.9 g/dL (1.3-4.6) 10/10/24 03:15 Lipase 13 U/L (13-60) 10/10/24 03:15 Urine Color Yellow (Yellow) 10/10/24 05:40 Urine Appearance Cloudy (CLEAR) A 10/10/24 05:40 Urine pH 8.0 (5-7) A 10/10/24 05:40 Ur Specific [place] 1.035 (1.005-1.030) H 10/10/24 05:40 Urine Protein Negative (Negative) 10/10/24 05:40 Urine Glucose (UA) Negative (Normal) 10/10/24 05:40 Urine Ketones 1+ (Negative) H 10/10/24 05:40 Urine Blood Negative (Negative) 10/10/24 05:40 Urine Nitrate Negative (Negative) 10/10/24 05:40 Urine Bilirubin Negative (Negative) 10/10/24 05:40 Urine Urobilinogen 0.2 mg/dL (Negative) 10/10/24 05:40 Ur Leukocyte Esterase Negative (Negative) 10/10/24 05:40 Urine RBC 0-2 /hpf (0-2) 10/10/24 05:40 Urine WBC 0-5 /hpf (0-5) 10/10/24 05:40 Ur Squamous Epith Cells 0-5 /hpf (0-5) 10/10/24 05:40 Amorphous Sediment Not Reportable 10/10/24 05:40 Urine Bacteria None seen /hpf (NONE) 10/10/24 05:40 Hyaline Casts 0-4 /lpf H 10/10/24 05:40 Urine Opiates Screen Negative ng/mL (Negative) 10/10/24 05:40 Ur Barbiturates Screen Negative ng/mL (Negative) 10/10/24 05:40 Ur Phencyclidine Scrn Negative ng/mL (Negative) 10/10/24 05:40 Ur Amphetamines Screen Negative ng/mL (Negative) 10/10/24 05:40 U Benzodiazepines Scrn Negative ng/mL (Negative) 10/10/24 05:40 Urine Cocaine Screen Negative ng/mL (Negative) 10/10/24 05:40 U Marijuana (THC) Screen Positive ng/mL (Negative) H 10/10/24 05:40 Discharge Plan Discharge Patient Disposition: Home Clinical Impression: Nausea & vomiting, Syncope Condition: Stable Prescriptions: New promethazine 25 mg tablet 25 mg PO Q6H PRN (Reason: nausea and vomiting) Qty: 20 0RF No Action (DME) Aeroneb Go Nebulizer Misc See Rx Instructions .Route Rx Instructions: As directed albuterol sulfate 2.5 mg /3 mL (0.083 %) solution for nebulization 1.25 mg inhalation Q6H PRN (Reason: Shortness Of Breath) omeprazole 40 mg capsule,delayed release(DR/EC) 40 mg PO DAILY thiamine HCl (vitamin B1) 100 mg tablet 100 mg PO DAILY Qty: 30 3RF polyethylene glycol 3350 [Miralax] 17 gram/dose powder 17 g PO DAILY 30 Days Qty: 510 11RF lisinopril 2.5 mg tablet 2.5 mg PO DAILY naproxen 500 mg tablet 500 mg PO BID PRN (Reason: Pain) Hold Instructions: Resume on 04/28/24. fluticasone propionate 110 mcg/actuation HFA aerosol inhaler 1 puff INHALATION BID PRN (Reason: Shortness Of Breath) albuterol sulfate [Ventolin HFA] 90 mcg/actuation Hfa Aerosol Inhaler 2 puff INHALATION BID PRN (Reason: Shortness Of Breath Or Wheezing) Discharge Orders: Discharge ED (Routine); Ordered 10/10/24 Ordered By: Mor Shepard Referrals: Baljinder Ramsey MD [Primary Care Provider] - Discharge Diet: Usual diet Discharge Activity: Increase activity as tolerated Patient Instructions: Opioid Safety, Pain Management Activity Restrictions/Additional Instructions: Thank you for choosing [facility] for your healthcare needs today. It is very important that you follow up as instructed or that you return to the Emergency Department should you have concerns or if your condition changes or worsens in any way. You were seen in the emergency room after a syncopal episode (loss of consciousness). He had also reported some nausea and vomiting. Laboratory test did not show any clinically significant abnormalities CT of your abdomen did not show any acute pathology. Reviewing your chart it was noted that you had an episode of his syncope in February 2024 that was also related to GI symptoms. Recommend clear liquid diet and advance as tolerated over the next 24 to 48 hours. You are given a prescription for promethazine for nausea and vomiting. Will set up an outpatient echocardiogram to evaluate your heart further follow- up with your primary care doctor once this is completed Sign Out Sign Out Data: Patient Sign Out occurred on 10/10/24 at 05:54. Patient's care was discussed, and care was transferred from Jr Maya DO to Mor Shepard DO. Coding Level of Care Code ED Chief Petroleum Engineer for Ada Pedersen
[2024-10-10 03:29] LABS: Basophils % 0.4 %; Eosinophils # 0.1 10^3/uL (0.0-0.8); Hematocrit 42.6 % (36-47); Lymphocytes # 1.6 10^3/uL (0.8-4.8); Lymphocytes % 14.5 %; Mean Corpuscular HGB Conc 33.8 g/dL (30-55); Mean Corpuscular Hemoglobin 31.3 pg (27-33); Mean Corpuscular Volume 92.6 fl (85-98); Mean Platelet Volume 12.5 fL (7.4-10.4); Monocytes # 0.6 10^3/uL (0.2-0.9); Monocytes % 5.4 %; Neutrophils # 8.62 10^3/uL (1.8-7.7); Neutrophils % 78.4 %; Nucleated Red Blood Cells % 0 %; Platelet Count 141 10^3/cmm (157-399); Red Cell Distribution Width 12.4 % (12.1-15.1); White Blood Count 10.98 10^3/uL (3.29-11.43)
[2024-10-10 03:44] LABS: Alanine Aminotransferase 11 U/L (0-33); Albumin Level 4.2 g/dL (3.5-5.2); Alkaline Phosphatase 92 U/L (35-105); Anion Gap 15.1 (5-19); Aspartate Amino Transferase 14 U/L (0-32); Blood Urea Nitrogen 11 mg/dL (6-20); Calcium 9.7 mg/dL (8.5-10.5); Carbon Dioxide 24 mmol/L (22-29); Chloride 100 mmol/L (98-107); Creatinine Clr Calc Pharmacy 0.4571; Globulin 2.9 g/dL (1.3-4.6); Glomerular Filtration Rate 111.3 mL/min (90-130); Glucose 181 mg/dL (65-115); Lipase 13 U/L (13-60); Magnesium 2.1 mg/dL (1.7-2.3); Osmolality Calculated 284 mOsm/kg (285-295); Potassium 4.1 mmol/L (3.5-5.1); Sodium 135 mmol/L (136-145); Total Bilirubin 0.5 mg/dL (0.15-1.2); Total Protein 7.1 g/dL (6.6-8.7)
[2024-10-10] MEDS: metoclopramide 5 mg/mL SDV 2 mL 10 MG IVP (04:03)
[2024-10-10] MEDS: sodium chloride 0.9% 1,000 ML 999 ML IV (04:03)
--- NOTE | 2024-10-10 04:15 | CTR_ITS ---
PROCEDURE INFORMATION: Exam: CT Abdomen And Pelvis With Contrast Exam date and time: 10/10/2024 4:40 AM Age: 39 years old Clinical indication: Nausea and vomiting; Prior surgery; Surgery date: 6+ months; Surgery type: Choley, csection, salpingectomy; Additional info: Nausea vomiting abdominal pain TECHNIQUE: Imaging protocol: Computed tomography of the abdomen and pelvis with contrast. Radiation optimization: All CT scans at this facility use at least one of these dose optimization techniques: automated exposure control; mA and/or kV adjustment per patient size (includes targeted exams where dose is matched to clinical indication); or iterative reconstruction. Contrast material: OMNI 350; Contrast volume: 100 ml; Contrast route: INTRAVENOUS (IV); COMPARISON: CT abdomen pelvis w con* [id number] 03/23/2024 3:28 PM RADIATION DOSE METRICS: Total DLP (mGy-cm): 828 FINDINGS: Lungs: Lung bases are clear as visualized. Heart: Base of heart is unremarkable as visualized. Liver: Normal. No mass. Gallbladder and biliary ducts: Status post cholecystectomy. Pancreas: Normal. No ductal dilation. Spleen: Normal. No splenomegaly. Adrenal glands: Normal. No mass. Kidneys and ureters: Normal. No hydronephrosis. Stomach and bowel: Diverticulosis without evidence of diverticulitis. Appendix: No evidence of appendicitis. Intraperitoneal space: Unremarkable. No free air. No significant fluid collection. Vasculature: Unremarkable. No abdominal aortic aneurysm. Lymph nodes: Unremarkable. No enlarged lymph nodes. Urinary bladder: Unremarkable as visualized. Reproductive: Unremarkable as visualized. Bones/joints: Unremarkable. No acute fracture. Soft tissues: Unremarkable. CT/CT abdomen pelvis w con* [id number] IMPRESSION: No acute findings.
[2024-10-10] MEDS: iohexol 350 mg/mL 500 mL Btl (per mL) IV (04:51)
[2024-10-10 05:48] LABS: Bilirubin Urine Negative (Negative); Blood Urine Negative (Negative); Glucose Urine UA Negative (Normal); Ketones Urine 1+ (Negative); Leukocyte Esterase Urine Negative (Negative); Nitrate Urine Negative (Negative); Protein Urine Negative (Negative); Urine Appearance Cloudy (CLEAR); Urine Color Yellow (Yellow); Urobilinogen Urine 0.2 mg/dL (Negative)
[2024-10-10 05:53] LABS: Add Urine Microscopic? YES; Bacteria Urine None Seen /hpf; Hyaline Casts Urine 0-4 /lpf; RBC Urine 0-2 /hpf (0-2); Squamous Epithelial Cell Urine 0-5 /hpf (0-5); WBC Urine 0-5 /hpf (0-5)
[2024-10-10 06:11] LABS: Specific Gravity, Urine 1.035 (1.005-1.030)
[2024-10-10 06:16] LABS: Amphetamines Screen Urine Negative (Negative); Barbiturates Screen Urine Negative (Negative); Benzodiazepines Screen Urine Negative (Negative); Cocaine Screen Urine Negative (Negative); Opiate Screen Urine Negative (Negative); PCP Screen Urine Negative (Negative); THC Screen Urine Positive (Negative)
--- NOTE | 2024-10-10 08:54 | DCPLANNER ---
referral sent to centralized scheduling -[facility] [id number]
== END 2024-10-10 06:54 | disposition home or self-care (01) ==
PROVIDERS: Emergency Medicine; Emergency Provider Family Medicine; PCP Family Medicine
DX: R11.2 Nausea with vomiting, unspecified (principal); R55 Syncope and collapse; Z72.0 Tobacco use
CPT/HCPCS: 36415; 74177; 80053; 80306; 81001; 83690; 83735; 85025; 93005; 96361; 96374; 99285; J2765; J7030